=== PATIENT | female | born 1945 | race Caucasian/White ===

== ENCOUNTER 2019-07-16 09:13 | Day surgery (SDC) | payer MEDICARE, SELFPAY ==
[2019-07-15 12:56] VITALS: BMI 31.4
--- NOTE | 2019-07-16 09:25 | ANES.PREANES ---
Pre-Anesthetic Assessment Pre-Anesthetic Assessment: Height/Weight: Height 1.63 m Weight 83.007 kg Preop Diagnosis: h/o colon polyps Proposed Procedure: Operation Date: 07/16/19 10:45 Proposed Procedures p Colonoscopy(Not Applicable) - Demond Posey MD Was Beta Jim taken within 24 hours: Yes Last Intake: 23:59 Social: Packs per day: 1 ppd Pack years: 30 years Comment: quit Exam: Pre-Anes Outpt Exam: alert and oriented x 3 Airway: Dentition: False Pulmonary: Pulmonary: COPD Comments: breathing feels good, dyspnea on exertion CV/HEM: CV/HEM: CAD and HTN Comments: mdeical mx CAD Metabolic: Metabolic: DM Comments: rx'd 30 years, normally 114-200 Musc/skel: Musc/skel: Lower Back Pain Comments: bilaterally radiculopathy PFSH Anesthesia PFSH: Family History (Updated 07/15/19 @ 11:09 by Tory Bolivar, MADISYN) Grandmother Hypertension Mother Hypertension Grandmother Diabetes Family/Other Diabetes Other Breast cancer Colon cancer Social History (Updated 07/15/19 @ 11:10 by Tory Bolivar, MADISYN) Smoking and tobacco status: former smoker Quit status (tobacco): has quit using tobacco Second hand smoke exposure: No Smoking risk assessment/counseling performed?: No Data Anesthesia Cardiac Studies: No Data to Display
[2019-07-16 10:03] VITALS: BP 150/53; PULSE 63; RESP 18; TEMP 36.8; O2SAT 99
[2019-07-16] MEDS: sodium chloride 0.9% 1,000 ML 30 ML (10:04)
[2019-07-16 10:44] LABS: Glucose Point of Care 154 mg/dL (70-110)
--- NOTE | 2019-07-16 11:13 | ANE.PACU ---
 Inpatient post-anesthesia follow up: Airway intact: Yes Vital signs: Temperature 98.2 F Pulse Rate [Left] 63 Respiratory Rate 18 Blood Pressure [Le ft Arm] 150/53 Pulse Oximetry 99 Oxygen Delivery Me thod Room Air Oxygen Flow Rate Fraction of Inspir ed Oxygen Hydration adequate: Yes Nausea and vomiting: No Mental status: Baseline
--- NOTE | 2019-07-16 11:16 | PM.HPUD ---
H&P update H&P Update: DATE OF SURGERY/PROCEDURE: 07/16/19 DATE H&P PERFORMED: 04/12/19 H&P UPDATE INFORMATION: No changes to prior documentation PREOP DIAGNOSIS: Family history of colon cancer, history of polyps PLANNED PROCEDURE: Operation Date: 07/16/19 10:45 Proposed Procedures p Colonoscopy(Not Applicable) - Demond Posey MD Conscious Sedation: PHYSICAL EXAM: alert, oriented x 3 and regular rate & rhythm OTHER PERTINENT EXAM FINDINGS: Abdomen: Soft Full H&P Perinent History: Medical/Surgical History: Medical History (Updated 07/16/19 @ 11:14 by Demond Posey MD) History of colon polyps (Acute) Family History: Family History (Updated 07/15/19 @ 11:09 by Tory Bolivar RN) Grandmother Hypertension Mother Hypertension Grandmother Diabetes Family/Other Diabetes Other Breast cancer Colon cancer Social History: Social History Smoking and tobacco status: former smoker Quit status (tobacco): has quit using tobacco Second hand smoke exposure: No Smoking risk assessment/counseling performed?: No A&P Assessment and plan (1) History of colon polyps: Colonoscopy under MAC Status: Resolved Code(s): Z86.010 - Personal history of colonic polyps
[2019-07-16 11:17] VITALS: BP 121/45; PULSE 64; RESP 16; TEMP 36.6; O2SAT 99
[2019-07-16 11:40] VITALS: BP 145/63; PULSE 68; RESP 16; O2SAT 99
== END 2019-07-16 11:49 | disposition home or self-care (01) ==
PROVIDERS: Family Provider Family Medicine; PCP Family Medicine; Visit Provider Surgery
PROC: 0DJD8ZZ Inspection of Lower Intestinal Tract, Via Natural or Artificial Opening Endoscopic (ICD-10-PCS; CPT 45378; principal; 2019-07-16 10:45)
DX: Z86.010 Personal history of colon polyps (principal); Z85.038 Personal history of other malignant neoplasm of large intestine; K57.30 Diverticulosis of large intestine without perforation or abscess without bleeding; D12.5 Benign neoplasm of sigmoid colon; Z82.49 Family history of ischemic heart disease and other diseases of the circulatory system; Z83.3 Family history of diabetes mellitus; Z87.891 Personal history of nicotine dependence; J44.9 Chronic obstructive pulmonary disease, unspecified; I25.10 Atherosclerotic heart disease of native coronary artery without angina pectoris; I10 Essential (primary) hypertension; E11.9 Type 2 diabetes mellitus without complications
CPT/HCPCS: 12345; 36416; 45378; 82962; 88305; 96365; J2704; J7030

== ENCOUNTER 2019-12-10 09:01 | Outpatient (CLI) | payer MEDICARE, SELFPAY ==
--- NOTE | 2019-12-10 10:00 | CT_ITS ---
WS: [id number] CT scan of the abdomen with Oral and IV contrast. Additional two-dimensional coronal and sagittal re construction was performed. 12/10/2019 Clinical Data: FATTY LIVER DISEASE Comparison: CT abdomen, 09/12/2017. DLP: 647.[address] scans at [facility] use at least one of these dose optimization techniques: automat ed exposure control; mA and/or kV adjustment per patient size (includes targeted exams where dose is matched to clinical indication); or iterative reconstruction. Findings: The lower lungs show no nodules, masses or effusions. Aortic valvular calcification is seen. The liver, spleen, adrenal glands and pancreas are normal. There are clips in the gallbladder fossa f rom a cholecystectomy. The The kidneys show equal bilateral contrast excretion with a 2.8 cm left renal cyst.. The abdominal aorta is normal in size with calcification in the wall.. No appendicitis or diverticulitis is seen. Oral contrast is in the stomach and small bowel and there is no bowel dilatation. No abscess, adenopathy, ascites, mass, obstruction or free air is seen. Lumbar spine shows osteoarthritic changes with degenerative disc disease at L1-L2 and L2-L3. CT/CT abdomen w con* [id number] Impression: Negative for acute intra-abdominal disease
[2019-12-10] MEDS: iohexol 300 mg/mL 50 mL Btl PO (11:13)
[2019-12-10] MEDS: iohexol 300 mg/mL 100 mL Btl IV (11:13)
== END 2019-12-10 09:02 | disposition home or self-care (01) ==
LOC: RADWPI 09:05
PROVIDERS: Family Provider Family Medicine; PCP Family Medicine; Visit Provider Family Medicine
DX: R74.0 Nonspecific elevation of levels of transaminase and lactic acid dehydrogenase [LDH] (principal); K76.0 Fatty (change of) liver, not elsewhere classified
CPT/HCPCS: 74160; Q9967

== ENCOUNTER 2020-03-23 12:32 | Outpatient (CLI) | payer MEDICARE, SELFPAY ==
--- NOTE | 2020-03-23 12:45 | USCV_ITS ---
Deneen Lawson Age: 75 Gender: F : 1945 Exam Date: 03/23/2020 12:57 Ordering Phys: Kyle Benson MD (Andy) ([email or web address]) Technologist: Simi Douglas Exam Location: [facility] [place] Indication: STENOSIS Risk Factors: Previous Vascular Surgery: L CEA Right Brachial BP: / Left Brachial BP: / Right Left Velocity (cm/s) Spectral Plaque Velocity (cm/s) Spectral Plaque Syst/Diast Broadening Syst/Diast Broadening 86.50/ 16.20 Prox CCA 89.10 / 15.20 87.30/ 15.40 Mid CCA 91.10 / 16.20 86.50/ 7.30 Distal CCA 117.40/ 20.20 156.10/40.50 Prox ICA 90.90 / 30.80 149.50/25.80 Mid ICA 157.20/ 40.40 95.60/ 24.20 Distal ICA 163.20/ 31.40 285.70 ECA 209.80 1.79 ICA/CCA 1.79 Antegrade Vertebral Antegrade 34.20/ 14.30 cm/s 120.3/ 22.20 cm/s 0 Tri Subclavian Tri 130.5 108.9 0 0 FINDINGS Comparison:. /01/11. Diffuse bilateral scattered calcified plaque and intimal thickening throughout the common carotid arteries and extending through the bifurcation. Mild elevation of velocities and ratios. CONCLUSIONS Bilateral ICA stenosis less than 50%. Diffuse bilateral atherosclerosis with no change, mild ICA tortuosity. Dr. Renita Chávez DO (Electronically Signed) Final Date: 23 March 2020 14:46 S
== END 2020-03-23 12:33 | disposition home or self-care (01) ==
LOC: US 12:33
PROVIDERS: PCP Family Medicine; Visit Provider Thoracic Surgery (Cardiothoracic Vascular Surgery)
DX: I65.23 Occlusion and stenosis of bilateral carotid arteries (principal)
CPT/HCPCS: 93880

== ENCOUNTER 2020-04-06 10:48 | Outpatient (CLI) | payer MEDICARE, SELFPAY ==
--- NOTE | 2020-04-06 12:32 | MM_ITS ---
WS: [id number] SCREENING DIGITAL MAMMOGRAM WITH CAD HISTORY: Screening examination. COMPARISON: 04/14/2018, 02/24/2017, 11/12/2015 Bilateral CC and MLO views submitted. Computer aided detection analyzed. Breast composition: The breasts are heterogeneously dense, which may obscure small masses. There are extensive rodlike calcifications throughout each breast and also breast arterial calcifications. Dist ortion in the anterior RIGHT breast at 12:00 from prior surgery. Posterior to the distortion is a hig h density, slightly spiculated nodule measuring 10 x 12 mm. The remaining breast are negative for lopez spicious masses. MM/[place] [id number] IMPRESSION: BI-RADS: 0-Incomplete: Need additional imaging evaluation FOLLOW UP: Need Additional Imaging RIGHT breast: Spot compression views (CC and MLO). True ML. Ultrasound to follo w if abnormality persists.
== END 2020-04-06 10:49 | disposition home or self-care (01) ==
LOC: RADSHAW 10:53
PROVIDERS: PCP Family Medicine; Visit Provider Family Medicine
DX: Z12.31 Encounter for screening mammogram for malignant neoplasm of breast (principal); R92.1 Mammographic calcification found on diagnostic imaging of breast
CPT/HCPCS: 77067

== ENCOUNTER 2020-04-29 12:28 | Outpatient (CLI) | payer MEDICARE, SELFPAY ==
--- NOTE | 2020-04-29 13:00 | US_ITS ---
WS: [id number] Right breast ultrasound, 04/29/2020 Clinical Data: ABNORMAL MAMMO Comparison: None. Findings: There is an irregular lesion in the 12:00 position of the right breast 1 cm superior to the areola. T his lesion has irregular internal echoes and an ill-defined border. There is shadowing posterior to t his lesion which measures 1.05 x 1.15 x 1.2 cm. There is also a biopsy clip in the same region as the lesion. US/US breast RT limited* [id number] Impression: 1. Suspicious lesion at the 12:00 position 1 cm superior to the areola in the r ight breast. 2. Recommend the biopsy of this lesion. BIRADS: 4-Suspicious Finding-Biopsy Should Be Considered FOLLOW UP: See Report
--- NOTE | 2020-04-29 13:00 | MM_ITS ---
WS: [id number] Right breast diagnostic digital mammogram, 04/29/2020 Clinical Data: RT BR DISTORTION Comparison: 04/06/2020, 04/16/2018, 02/24/2017, 11/12/2015, 07/19/2013, 01/10/2011, 12/24/2010, 11/01/2006. Findings: Additional compression views in the MLO and CC along with a right mediolateral view show that the 1.3 cm density in the central portion of the right breast is well-defined with an irregular border and s mall associated calcifications. There are numerous calcifications throughout the right breast which a re ductal and vascular. This density is in the superior aspect of the right breast in the 12:00 posit ion. There is a distortion of the right breast as a result of the previous therapy. MM/[place] [id number] Impression: 1. Suspicious density in central portion right breast which may represent a rec urrent or second carcinoma. 2. Right breast ultrasound will be performed. BIRADS: 4-Suspicious Finding-Biopsy Should Be Considered FOLLOW UP: See Report The CAD order checker was used.
== END 2020-04-29 12:29 | disposition home or self-care (01) ==
LOC: RADSHAW 12:34
PROVIDERS: PCP Family Medicine; Visit Provider Family Medicine
DX: R92.8 Other abnormal and inconclusive findings on diagnostic imaging of breast (principal)
CPT/HCPCS: 76642; 77065

== ENCOUNTER 2020-05-13 11:54 | Outpatient (CLI) | payer MEDICARE, SELFPAY ==
--- NOTE | 2020-05-13 12:05 | US_ITS ---
WS: [id number] ULTRASOUND-GUIDED RIGHT BREAST BIOPSY HISTORY: BREAST LESION COMPARISON: 04/29/2020 and 04/06/2020 Procedure, risks and complications are explained to the patient. Medications are reviewed. Consent is obtained. The mass in the RIGHT breast is localized with ultrasound. Mass localized 12:00, 1 cm from the nipple . Skin is cleansed with ChloraPrep and anesthetized with 1% buffered lidocaine. Small dermatome is ma de. Under sterile conditions mass is biopsied with a 14-gauge Achieve needle. Multiple core biopsies are performed. Material placed in formalin and sent to pathology for review. No complications encount ered. Breast tissue marker (Bard ultrasound enhanced ribbon): Single. Patient left the radiology suite with no complications. Patient is instructed [place] [facility] [place] [facility] with any concerns. US/[place] [id number] IMPRESSION: 1. Uncomplicated core needle biopsy RIGHT breast mass at 12:00. 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 Additional ancillary studies are being performed also. RECOMMENDATION: Follow-up with oncology and breast surgeon.
[2020-05-29 09:38] LABS: Miscellaneous Test See Scanned Lab Rpt
== END 2020-05-13 11:55 | disposition home or self-care (01) ==
LOC: RAD 11:58
PROVIDERS: PCP Family Medicine; Visit Provider Family Medicine
DX: N64.89 Other specified disorders of breast (principal); C50.811 Malignant neoplasm of overlapping sites of right female breast; R92.1 Mammographic calcification found on diagnostic imaging of breast
CPT/HCPCS: 19083; 88305

== ENCOUNTER 2020-05-28 06:47 | Outpatient (CLI) | payer MEDICARE, SELFPAY ==
--- NOTE | 2020-05-28 07:15 | USCV_ITS ---
Deenen Lawson Age: 75 Gender: F : 1945 Exam Date: 05/28/2020 07:17 Ordering Phys: Rika Muro MD ([email or web address]) Technologist: Diane Weinstein Exam Location: [facility] [place] Indication: CHEST PAIN BP: / HR: 65 Rhythm: Sinus Technical Quality: Adequate MEASUREMENTS (Male / Female) Normal Values 2D ECHO LV Diastolic Diameter PLAX 3.3 cm 4.2 - 5.9 / 3.9 - 5.3 cm LV Systolic Diameter PLAX 1.6 cm IVS Diastolic Thickness 2.1 cm 0.6 - 1.0 / 0.6 - 0.9 cm IVS Systolic Thickness 2.2 cm LVPW Diastolic Thickness 1.5 cm 0.6 - 1.0 / 0.6 - 0.9 cm LVPW Systolic Thickness 2.9 cm LVOT Diameter 2.0 cm LV Ejection Fraction 2D Teich 83.1 % LV Ejection Fraction MOD 2C 62.2 % LV Ejection Fraction 2C AL 69.8 % LA Diameter 4.5 cm LA Width 6.0 cm LA Height 5.9 cm RA Width 3.6 cm RA Height 5.4 cm Aorta at Sinotubular Diameter 3.3 cm M-MODE LV Diastolic Diameter MM 4.1 cm 4.2 - 5.9 / 3.9 - 5.3 cm LV Systolic Diameter MM 1.6 cm LV Ejection Fraction MM Teich 90.6 % IVS Diastolic Thickness MM 1.6 cm 0.6 - 1.0 / 0.6 - 0.9 cm IVS Systolic Thickness MM 2.5 cm LVPW Diastolic Thickness MM 1.6 cm 0.6 - 1.0 / 0.6 - 0.9 cm LVPW Systolic Thickness MM 2.6 cm Aortic Annulus Diameter 3.0 cm LA Ao Ratio MM 1.7 MV E Point Septal Separation 0.2 cm DOPPLER AV Peak Velocity 115.0 cm/s LVOT Peak Velocity 118.0 cm/s AV Area Cont Eq vti 2.5 cm squared AV Area Cont Eq pk 3.4 cm squared MV Peak Velocity 206.0 cm/s MV Area PHT 2.8 cm squared Mitral E to A Ratio 1.7 MV E' Velocity 84.0 cm/s Mitral E to MV E' Ratio 15.7 Mitral E to LV E' Lateral Ratio 20.0 Mitral E to LV E' Septal Ratio 13.0 TR Peak Velocity 188.3 cm/s TR Peak Gradient 14.2 mmHg Right Atrial Pressure 3.0 mmHg Pulmonary Artery Systolic Pressu 17.2 mmHg PV Peak Velocity 106.0 cm/s RV Acceleration Time 0.1 s RV Ejection Time 0.3 s RV AcT/ET 0.3 FINDINGS Left Ventricle Normal left ventricular cavity size. Normal left ventricular systolic function. No regional wall motion abnormalities. Left ventricular ejection fraction is estimated at 60 %. Grade II/IV diastolic dysfunction, moderately elevated filling pressures. Right Ventricle The right ventricle is normal in size and function. Right Atrium The right atrium is normal in size. Left Atrium Moderately increased left atrial size. Mitral Valve Severely thickened mitral valve. Severe mitral annular calcification. No mitral valve stenosis. Moderate mitral valve regurgitation. Aortic Valve Structurally normal aortic valve without significant sclerosis or stenosis. There is no aortic regurgitation. Tricuspid Valve Mild tricuspid valve regurgitation. Pulmonic Valve Structurally normal pulmonic valve without significant stenosis. There is no pulmonic regurgitation. Pericardium Normal pericardium without effusion. Aorta Normal ascending aorta dimension. CONCLUSIONS 1-Normal left ventricular cavity size. Normal left ventricular systolic function. No regional wall motion abnormalities. Left ventricular ejection fraction is estimated at 60 %. Grade II/IV diastolic dysfunction, moderately elevated filling pressures. 2-Moderately increased left atrial size. 3-Severely thickened mitral valve. Severe mitral annular calcification. No mitral valve stenosis. Moderate mitral valve regurgitation. 4-Structurally normal aortic valve without significant sclerosis or stenosis. There is no aortic regurgitation. 5-Mild tricuspid valve regurgitation. 6-There is no pericardial effusion. 7-Pulmonary artery systolic pressure is within normal limits. 8-Right atrial pressure is around 5 mm of mercury. 9-When compared to the echocardiogram dated 02 Nov 2018 there appeared to be no chordal Karan rest of study appeared to be the same Rika Muro MD (Electronically Signed) Final Date: 29 May 2020 15:21 S
== END 2020-05-28 06:48 | disposition home or self-care (01) ==
LOC: RAD 06:50
PROVIDERS: PCP Family Medicine; Visit Provider Internal Medicine Cardiovascular Disease
DX: R07.9 Chest pain, unspecified (principal); I08.1 Rheumatic disorders of both mitral and tricuspid valves
CPT/HCPCS: 93306

== ENCOUNTER 2020-06-01 10:05 | Outpatient (CLI) | payer MEDICARE, SELFPAY ==
--- NOTE | 2020-06-01 16:32 | ONC CON_ITS ---
Dr. Adame New Patient Note Patient: Deneen Lawson Unit #: [id number]: 1945 Dicatated By: Jc Adame M.D.Date of Visit: Jun 01, 2020 Onc MED New Patient/Consult Referring Physician: Dr. LJ HENAO M.D. Chief Complaint: Breast cancer. 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 Her screening mammogram on 04/06/2020 was abnormal, reported to be BI-RADS 0, with findings of some distortion in the anterior right breast at 12:00 related to prior surgery. Posterior to the distortion was a high density, slightly spiculated nodule measuring 10 x 12 mm. Her diagnostic mammogram and ultrasound of the right breast on 04/29/2020 was BI-RADS 4, suspicious. The mammogram reported a 1.3 cm density in the central portion of the right breast with an irregular margin and with small associated calcifications. Ultrasound showed an irregular lesion in the 12 o'clock position of the right breast 1 cm superior to the areola. There was noted to be shadowing posterior to the lesion measuring 1.05 x 1.15 x 1.2 cm. A biopsy clip was noted in the same region as the lesion. Ultrasound directed biopsy of the right breast lesion on 05/13/2020 showed grade 2 infiltrating ductal carcinoma. 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 The breast prognostic profile showed ER positive at 99% and DE positive at 95%. HER-2/emre was negative, 1+ by IHC and amplification ratio by FISH of 1.1 with 1.6 HER-2 copies/cell. The Ki-67 was favorable at 5%. She does give a history of having had a previous right breast biopsy for benign disease back in 2001. She had natural menopause around age 52. She received no hormone replacement therapy. She has multiple medical illnesses including hypertension, hyperlipidemia, and type 2 diabetes, peripheral arterial disease, carotid stenosis, and coronary artery disease. The latter includes involvement of the left main coronary artery which has not been amenable to stenting. She complains that she has low energy, though it has improved somewhat since she started B12 replacement. She is able to do some light work at home. ECOG score is 1. Her appetite is variable, but her weight is stable. She has no fever, night sweats, or hot flashes. She has shortness of breath with activity. She has just occasional cough. She does not complain of chest pain. She sometimes has nausea. Bowel function has been okay. She has mild stress incontinence. She says she has severe arthritis with generalized joint pain and low back pain. She does not complain of headache. She does have dizziness and she has neuropathy in her hands and feet. Past Medical History: Her medical history includes anxiety, B12 deficiency, carotid stenosis, coronary artery disease, degenerative arthritis, degenerative disease of the spine, depression, gastroesophageal reflux disease, hyperlipidemia, hypertension, iron deficiency, peripheral arterial disease, and type II diabetes. Past Surgical History: She underwent ultrasound-guided biopsy of the right breast on 05/13/2020. Her other surgical/procedural history includes cholecystectomy, greater saphenous vein ablation bilaterally, colonoscopy in 2019, and left carotid endarterectomy in 2019. Medications: amLODIPine Besylate 1 Tablet (of 10 mg) Oral daily, Aspirin 1 Tablet (of 81 mg) Tablet, enteric coated Oral daily, Clopidogrel Bisulfate 1 Tablet (of 75 mg) Oral daily, Ferrous Sulfate 1 Tablet (of 325 (65 fe) mg) Oral b.i.d., Furosemide 1 Tablet (of 20 mg) Oral daily PRN, hydrALAZINE HCl (25 mg) Tablet Oral Take as Directed, Irbesartan 0.5 Tablet (of 300 mg) Oral b.i.d., Isosorbide Mononitrate ER 0.5 Tablet (of 30 mg) Tablet SR 24 HR Oral b.i.d., Levemir 20 Units (of 100 Units/mL) Subcutaneous b.i.d., Magnesium Oxide 1 Tablet (of 400 mg) Oral at bedtime, metFORMIN HCl 1 Tablet (of 1000 mg) Oral b.i.d., Metoprolol Succinate ER 1 Tablet (of 100 mg) Tablet SR 24 HR Oral at bedtime, Metoprolol Succinate ER 1 Tablet (of 50 mg) Tablet SR 24 HR Oral at bedtime, Pantoprazole Sodium 1 Tablet (of 40 mg) Tablet, enteric coated Oral daily, Simvastatin 1 Tablet (of 20 mg) Oral at bedtime, Venlafaxine HCl ER 1 Tablet (of 75 mg) Tablet SR 24 HR Oral daily, Vitamin B12 1 Tablet Oral daily, Vitamin D 1 Capsule Oral daily Allergies: traZODone HCl Social History: Ms. Lawson is . She has a history of smoking 1 to 1-1/2 packs of cigarettes daily for approximately 28 years. She quit smoking in 2017. She does not drink alcohol. Family History: Father had Parkinson's disease and with pneumonia at age 70. Mother with colon cancer at age 73. A 71-year-old brother has coronary artery disease. Review Of Symptoms: Constitutional - She has low energy, but she is doing light work. Her appetite is variable. Her weight is stable. She has no fever, night sweats, or hot flashes. ECOG score is 1, Eyes - She has had bilateral cataract excisions. She apparently has had some diabetic retinopathy, ENMT - No hearing loss or tinnitus. No sinus congestion/drainage. No mouth sores. No sore throat or difficulty swallowing, Hematologic/Lymphatic - She has easy bruising, Respiratory - She has shortness of breath with activity. She has just occasionalcough. No pleuritic pain or hemoptysis, Cardiovascular - No angina pain. No palpitations, Gastrointestinal - She sometimes has nausea. No heartburn or acid reflux. No diarrhea or constipation. No blood in the stool or black stools, Genitourinary (F) - No dysuria or hematuria. No urinary frequency. She has mild stress incontinence, Musculoskeletal - She has fairly generalized joint pain and she has back pain, Integumentary - No skin rash or other skin changes, Neurologic - No headache. She has dizziness. She has neuropathy in her hands and feet, Psychiatric - She has anxiety. No depression. She has insomnia. Vital Signs: Performed on Jun 01, 2020 11:26: 0, 29.90, 1.84 sq.m, 64.00 in, 97 %, 68 /min, 18 /min, 203/57 mm(hg) (HIGH), 97.2 F (LOW), and 174.2 lbs (HIGH). Physical Examination: Constitutional - She looks pretty good generally, Eyes - Sclerae nonicteric. Conjunctivae clear, ENMT - No lesions noted in the oral cavity, Neck - No mass or thyromegaly, Hematologic/Lymphatic - No cervical or clavicular adenopathy, Respiratory - Lungs are clear with good air movement bilaterally, Cardiovascular - Heart rhythm is regular. There is a II/ systolic murmur. There is no gallop or rub noted, Breasts - There are no breast masses noted. There is no axillary adenopathy, Abdomen - Soft. Liver and spleen are not enlarged. There is no abdominal mass or ascites noted and there is no inguinal adenopathy, Back/Spine - No spine or CVA tenderness noted, Extremities - Mild lower extremity edema with induration. I am not able to palpate pedal pulses. Both legs and feet are warm to touch, Integumentary - No rashes. No suspicious skin lesions noted, Neurologic - No focal neurologic deficits noted. Impression: 1. Patient with grade 2 infiltrating ductal carcinoma of the right breast, ER/DE positive and HER-2/emre negative. Staging is incomplete. 2. She underwent ultrasound directed core needle biopsy of the right breast on 05/13/2020. Her other medical illnesses include: 3. Hypertension. 4. Hyperlipidemia. 5. Type 2 diabetes. 6. Carotid stenosis. 7. Peripheral arterial disease. 8. Coronary artery disease. 9. GERD. 10. Degenerative arthritis/degenerative disease of the spine. 11. B12 deficiency. 12. Anxiety/depression. Plan: The findings on the imaging studies and the pathology results were reviewed with the patient and her daughter. We discussed the clinical implications. She has grade 2 invasive ductal carcinoma the right breast which is ER/DE positive and HER-2/emre negative. Staging is incomplete, but it is likely to be early stage with a T1c primary lesion. The traditional options for local therapy would include mastectomy versus lumpectomy/radiation, and with either procedure she would have axillary sentinel lymph node sampling. We also discussed the fact that she will be recommended to undergo adjuvant hormonal therapy and that is relatively unlikely that adjuvant chemotherapy would be necessary. Given her age and her underlying medical illnesses and with early stage ER/DE positive disease, she may be an appropriate candidate for lumpectomy and adjuvant hormonal therapy alone. My main concern with that approach is that with significant underlying degenerative arthritis, she may have difficulty tolerating the adjuvant hormonal therapy. In either case, she will proceed initially with the lumpectomy and axillary sentinel lymph node biopsy, and she requests to see Dr. Gibson for that procedure. Signed By: Jc Adame M.D. <<Signature on File>>
== END 2020-06-01 10:06 | disposition home or self-care (01) ==
LOC: ONCMED 10:11
PROVIDERS: PCP Family Medicine; Visit Provider Internal Medicine Hematology & Oncology
DX: C50.811 Malignant neoplasm of overlapping sites of right female breast (principal); Z17.0 Estrogen receptor positive status [ER+]; I10 Essential (primary) hypertension; E78.5 Hyperlipidemia, unspecified; E11.59 Type 2 diabetes mellitus with other circulatory complications; I25.10 Atherosclerotic heart disease of native coronary artery without angina pectoris; I65.23 Occlusion and stenosis of bilateral carotid arteries; I73.9 Peripheral vascular disease, unspecified; K21.9 Gastro-esophageal reflux disease without esophagitis; M47.9 Spondylosis, unspecified; D51.9 Vitamin B12 deficiency anemia, unspecified; F41.9 Anxiety disorder, unspecified; F32.9 Major depressive disorder, single episode, unspecified; Z79.899 Other long term (current) drug therapy
CPT/HCPCS: 99205

== ENCOUNTER 2020-06-11 09:04 | Day surgery (SDC) | payer MEDICARE, SELFPAY ==
[2020-06-10 17:00] VITALS: BMI 29.8
--- NOTE | 2020-06-11 08:43 | US_ITS ---
WS: [id number] ULTRASOUND-GUIDED RIGHT BREAST NEEDLE LOCALIZATION HISTORY: R NEEDLE LOCALIZATION-LUMPECTOMY Procedure, risks and complications were explained to the patient. Consent is obtained. Skin is cleansed with ChloraPrep and anesthetized with 1% buffered lidocaine. Needle and guidewire pl aced to the area of concern with no complications. Wire localization of a mass at 12:00, 1 cm from th e nipple. Ultrasound guidance performed during the needle localization. Guidewire is left within the lesion. Guidewire secured and no complications encountered. Patient is being transported to the OR [facility]. Specimen radiograph is also reviewed. Lesion is present within the specimen. RECOMMENDATIONS: Follow-up with Dr. Gibson and oncology. US/[place] [id number] IMPRESSION: 1. Localization of a RIGHT breast mass at 12:00, 1 cm from the nipple. PATHOLOGY RESULTS: Invasive ductal carcinoma, moderate grade.
--- NOTE | 2020-06-11 08:44 | NM_ITS ---
WS: [id number] NUCLEAR MEDICINE SENTINEL LYMPH NODE IMAGING HISTORY: R BREAST LUMPECTOMY COMPARISON: None available. TECHNIQUE: The patient was injected with 1.04 mCi of Technetium 99 ultra filtered sulfur colloid. Inj ection is intradermal in a periareolar location. Four aliquots are used. Uncomplicated sentinel node injection. NM/NM sentinel node inject [id number] IMPRESSION: Uncomplicated RIGHT breast sentinel node injection.
--- NOTE | 2020-06-11 10:29 | P.ANESASSM_ITS ---
Pre-Anesthetic Assessment Pre-Anesthetic Assessment: Height/Weight: Height 1.63 m Weight 78.925 kg Preop Diagnosis: Family history of colon cancer, history of polyps Proposed Procedure: Operation Date: 06/11/20 11:50 Proposed Procedures p Sentinal Lymph Node Biopsy(Right) - Joe Gibson MD s Breast Biopsy Needle Localization(Right) - Joe Gibson MD s Right Breast Lumpectomy(Right) - Joe Gibson MD Was Beta Jim taken within 24 hours: Yes Social: Social History: No alcohol and No tobacco (Former Smoker) Exam: Pre-Anes Outpt Exam: alert, oriented x 3, clear to auscultation mimi aterally and regular rate & rhythm Airway: Submandibular: WNL Cervical ROM: WNL MP: 2 Pulmonary: Pulmonary: None reported CV/HEM: CV/HEM: CAD and HTN : : None reported Hepatic: Hepatic: None reported GI: GI: GERD Metabolic: Metabolic: DM Musc/skel: Musc/skel: None reported Neuropsych: Neuropsych: None reported Anesthetic Plan: ASA status: 3 Anesthesia: General PFSH Anesthesia PFSH: Medical History (Updated 02/29/20 @ 12:37 by Rika Muro MD) Carotid stenosis COPD (chronic obstructive pulmonary disease) Coronary artery disease Diabetes Hyperlipidemia Hypertension PVD (peripheral vascular disease) Surgical History H/O carotid endarterectomy History of cardiac cath History of cholecystectomy Status post colonoscopy 07/16/2019: Severe diverticulosis sigmoid colon 5 mm sessile polyps x2 sigmoid colon - F/u in 2024 Family History Grandmother Hypertension Mother Hypertension Grandmother Diabetes Family/Other Diabetes Other Breast cancer Colon cancer Denies family history of Anesthesia complication Bleeding disorder Social History Smoking and tobacco status: former smoker Quit status (tobacco): has quit using tobacco Second hand smoke exposure: No Smoking risk assessment/counseling performed?: No Alcohol intake: never Household members: spouse Marital status: Current occupational status: retired History of recent travel: No Data Anesthesia Cardiac Studies: No Data to Display
--- NOTE | 2020-06-11 10:37 | W.PM.OPSUD ---
Surgery/Procedure H&P Update DATE OF PROCEDURE: June 11, 2020 DATE H&P PERFORMED: 04/12/19 H&P UPDATE INFORMATION: No changes to prior documentation PREOP DIAGNOSIS: Family history of colon cancer, history of polyps PLANNED PROCEDURE: Operation Date: 06/11/20 11:50 Proposed Procedures p Sentinal Lymph Node Biopsy(Right) - Joe Gibson MD s Breast Biopsy Needle Localization(Right) - Joe Gibson MD s Right Breast Lumpectomy(Right) - Joe Gibson MD
[2020-06-11 10:45] VITALS: BP 174/76; PULSE 70; RESP 16; TEMP 36.6; O2SAT 96
--- NOTE | 2020-06-11 10:59 | US_ITS ---
WS: [id number] ULTRASOUND-GUIDED RIGHT BREAST NEEDLE LOCALIZATION HISTORY: R NEEDLE LOCALIZATION-LUMPECTOMY Procedure, risks and complications were explained to the patient. Consent is obtained. Skin is cleansed with ChloraPrep and anesthetized with 1% buffered lidocaine. Needle and guidewire pl aced to the area of concern with no complications. Wire localization of a mass at 12:00, 1 cm from th e nipple. Ultrasound guidance performed during the needle localization. Guidewire is left within the lesion. Guidewire secured and no complications encountered. Patient is being transported to the [facility]. Specimen radiograph is also reviewed. Lesion is present within the specimen. RECOMMENDATIONS: Follow-up with Dr. Gibson and oncology. US/US breast surgical specimen IMPRESSION: 1. Localization of a RIGHT breast mass at 12:00, 1 cm from the nipple. PATHOLOGY RESULTS: Invasive ductal carcinoma, moderate grade.
[2020-06-11] MEDS: sodium chloride 0.9% 1,000 ML 30 ML IV (11:01)
[2020-06-11 11:03] LABS: Glucose Point of Care 130 mg/dL (70-110)
--- NOTE | 2020-06-11 12:25 | PM.OP ---
Operative Report Date of procedure: June 11, 2020 Pre-op Diagnosis: Right breast cancer. Post-op diagnosis: same Procedure Done: 1. Right breast lumpectomy following preoperative needle localization. 2. Right axillary sentinel lymph node biopsy. Specimens removed/disposition: 1. Right axillary sentinel lymph node. 2. Right breast lumpectomy specimen containing localization wire. Long suture anteriorly, short suture laterally. Surgeon: Joe Gibson Anesthesia: MAC Estimated blood loss (mL): 15 Complications: None. Procedure: The patient was brought to the operating room and was placed in a supine position on the operating room table. The patient had undergone needle localization and radioactive tracer injection in radiology preoperatively. A monitored anesthetic was induced. The right breast and axilla were prepped and draped in a sterile fashion, taking care not to disturb the localization wire which had been placed in radiology preoperatively. A combination of 1% lidocaine and 0.5% bupivacaine with 1-200,000 parts epinephrine was used for local anesthesia throughout the procedures. The gamma probe was first used to find the hot spot in the lower axilla. A curvilinear incision was carried out over the hot spot of the axilla. Cautery and blunt dissection were used to traverse the subcutaneous tissue and the axilla was entered. Using a combination of inspection and the gamma probe, the hot lymph node was found and was completely removed using blunt dissection and cautery. The lymph node registered counts of 30 on the field. Further inspection of the axilla with the gamma probe revealed all counts less than 4. No additional lymph nodes were seen or palpated. The wound was irrigated with saline. A suture of 3-0 Vicryl was used to bring the deeper tissue together and the skin was approximated using a running subcuticular suture of 4-0 Vicryl. Attention was then directed to the right breast. A curvilinear incision was carried out in the upper outer aspect of the breast. The localization wire entered from a slightly lateral and inferior direction. Cautery was used to undermine the skin and the localization wire was brought into the field. The wire was dissected down to the hub and was then grasped with the surrounding breast tissue using an Allis clamp. The tissue around the tip of the wire was completely excised using a combination of sharp dissection and cautery. After the specimen was removed the specimen was marked with a long suture anteriorly and a short suture laterally for pathologic orientation. The wound was irrigated with saline and some small bleeding points were controlled with cautery. The skin was reapproximated using a running subcuticular suture of 4-0 Vicryl. Benzoin and Steri-Strips were placed over the incisions and a sterile bandage followed. The patient was taken to the recovery area in stable condition postoperatively.
[2020-06-11 12:31] VITALS: BP 148/72; PULSE 68; RESP 18; TEMP 36.3; O2SAT 96
[2020-06-11 12:46] VITALS: BP 165/66; PULSE 70; RESP 18; TEMP 36.6; O2SAT 97
--- NOTE | 2020-06-11 16:39 | ANE.PACU2 ---
Inpatient post-anesthesia follow up: Airway intact: Yes Vital signs: Temperature 98 F Pulse Rate 70 Respiratory Rate 18 Blood Pressure 165/66 Pulse Oximetry 97 Oxygen Delivery Me thod Room Air Oxygen Flow Rate Fraction of Inspir ed Oxygen Hydration adequate: Yes Nausea and vomiting: No Pain level: 3 Mental status: Baseline
== END 2020-06-11 13:20 | disposition home or self-care (01) ==
PROVIDERS: PCP Family Medicine; Visit Provider Surgery
PROC: (CPT 19301; principal; 2020-06-11 11:50)
PROC: (CPT 19301; 2020-06-11 11:50)
PROC: (CPT 19301; 2020-06-11 11:50)
DX: C50.411 Malignant neoplasm of upper-outer quadrant of right female breast (principal); I25.10 Atherosclerotic heart disease of native coronary artery without angina pectoris; K21.9 Gastro-esophageal reflux disease without esophagitis; E11.9 Type 2 diabetes mellitus without complications; E78.5 Hyperlipidemia, unspecified; Z87.891 Personal history of nicotine dependence; M19.90 Unspecified osteoarthritis, unspecified site; I11.0 Hypertensive heart disease with heart failure; I50.9 Heart failure, unspecified; J43.9 Emphysema, unspecified; M81.0 Age-related osteoporosis without current pathological fracture; Z79.84 Long term (current) use of oral hypoglycemic drugs; Z79.02 Long term (current) use of antithrombotics/antiplatelets; Z79.82 Long term (current) use of aspirin
CPT/HCPCS: 19301; 38525; 12345; 19285; 36416; 38792; 82962; 88305; A9541; J0690; J2704; J3010; J3490; J7030

== ENCOUNTER 2020-07-02 11:51 | Outpatient (CLI) | payer MEDICARE, SELFPAY ==
--- NOTE | 2020-07-02 14:50 | N.ONRAD NP_ITS ---
Radiation Oncology Consultation Patient Name: Deneen Lawson Date of : 1945 Date of Service: 07/02/2020 Attending Physician: Fran Carver M.D. Deneen Lawson was seen in consultation this afternoon at the request of Jc Adame M.D. for consideration of adjuvant radiotherapy for the management of her recently diagnosed early stage breast cancer. A screening mammogram (personally reviewed in [facility]) performed in March identified a spiculated nodule during 1 cm x 1.2 cm in the right breast. Ultrasonography confirmed in the right breast the 12 o'clock position a 1 cm x 1.2 cm x 1.2 cm hypoechoic mass with posterior shadowing. An ultrasound-guided biopsy completed on May 13, 2020 diagnosed a grade II invasive ductal carcinoma with immunohistochemical stains positive for estrogen receptor, progesterone receptor, and negative for HER-2. The Ki-67 was 5%. A right partial mastectomy with sentinel lymph node biopsy performed by Arcenio Gibson M.D. The pathology report obtained in [facility] (and directly canvassed by id) confirmed a 1.5 cm invasive ductal carcinoma (grade II) with 1 harvested sentinel lymph node that was negative for malignancy. Following a discussion concerning the patient's AJCC stage IA (T1CN0) breast cancer, The National Comprehensive Cancer Network Guidelines recommends the omission of breast irradiation in patients 70 years of age or older with estrogen receptor positive, clinically node-negative, T1-2 tumors who will receive adjuvant endocrine therapy. I summarized the randomized trial that established this standard. As published in The [employer] Journal of Medicine, the study demonstrated the addition of radiotherapy to endocrine therapy improved local control compared to endocrine therapy alone without an overall survival advantage. The patient would like to evaluate her treatment options prior to making a final decision. Signed by: Dr. Fran Carver 07/02/2020 2:49:02 PM
--- NOTE | 2020-07-06 07:31 | ONC FU_ITS ---
Dr. Adame Patient Follow-Up Note Patient: Deneen Lawson Unit #: [id number]: 1945 Dicatated By: Jc Adame M.D.Date of Visit:Jul 02, 2020 Onc Med Follow-up/Prog Note Chief Complaint: Breast cancer. History of Present Illness: This is a 75-year-old woman with diagnosed grade 2 invasive ductal carcinoma of the right breast, stage IA (pT1c, pN0, M0), ER/MN positive and HER-2/emre negative. Her screening mammogram on 04/06/2020 was abnormal, reported to be BI-RADS 0, with findings of some distortion in the anterior right breast at 12:00 related to prior surgery. Posterior to the distortion was a high density, slightly spiculated nodule measuring 10 x 12 mm. Her diagnostic mammogram and ultrasound of the right breast on 04/29/2020 was BI-RADS 4, suspicious. The mammogram reported a 1.3 cm density in the central portion of the right breast with an irregular margin and with small associated calcifications. Ultrasound showed an irregular lesion in the 12 o'clock position of the right breast 1 cm superior to the areola. There was noted to be shadowing posterior to the lesion measuring 1.05 x 1.15 x 1.2 cm. A biopsy clip was noted in the same region as the lesion. Ultrasound directed biopsy of the right breast lesion on 05/13/2020 showed grade 2 infiltrating ductal carcinoma. 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 The breast prognostic profile showed ER positive at 99% and MN positive at 95%. HER-2/emre was negative, 1+ by IHC and amplification ratio by FISH of 1.1 with 1.6 HER-2 copies/cell. The Ki-67 was favorable at 5%. On 06/11/2020 she underwent right breast lumpectomy with axillary sentinel lymph node biopsy. Pathology on the lumpectomy showed grade 2 invasive ductal carcinoma measuring 1.5 cm in greatest dimension. The margins were uninvolved. The closest was the posterior margin which measured 6 mm. There was no involvement in 1 axillary sentinel lymph node. Pathologic staging was pT1c, pN0. Her medical history is otherwise significant for having had a previous right breast biopsy for benign disease back in 2001. Her other medical illnesses include hypertension, hyperlipidemia, type 2 diabetes, peripheral arterial disease, carotid stenosis, and coronary artery disease. The latter includes involvement of the left main coronary artery which has not been amenable to stenting. She has a history of smoking 1 to 1-1/2 packs of cigarettes daily for 28 years. She quit smoking in 2018. She is seen today to discuss further management of the breast cancer. She has been feeling good generally. She has had no complications with her surgery. Medications: amLODIPine Besylate 1 Tablet (of 10 mg) Oral daily, Aspirin 1 Tablet (of 81 mg) Tablet, enteric coated Oral daily, Clopidogrel Bisulfate 1 Tablet (of 75 mg) Oral daily, Ferrous Sulfate 1 Tablet (of 325 (65 fe) mg) Oral b.i.d., Furosemide 1 Tablet (of 20 mg) Oral daily PRN, hydrALAZINE HCl (25 mg) Tablet Oral Take as Directed, Irbesartan 0.5 Tablet (of 300 mg) Oral b.i.d., Isosorbide Mononitrate ER 0.5 Tablet (of 30 mg) Tablet SR 24 HR Oral b.i.d., Levemir 20 Units (of 100 Units/mL) Subcutaneous b.i.d., Magnesium Oxide 1 Tablet (of 400 mg) Oral at bedtime, metFORMIN HCl 1 Tablet (of 1000 mg) Oral b.i.d., Metoprolol Succinate ER 1 Tablet (of 100 mg) Tablet SR 24 HR Oral at bedtime, Metoprolol Succinate ER 1 Tablet (of 50 mg) Tablet SR 24 HR Oral at bedtime, Pantoprazole Sodium 1 Tablet (of 40 mg) Tablet, enteric coated Oral daily, Simvastatin 1 Tablet (of 20 mg) Oral at bedtime, Venlafaxine HCl ER 1 Tablet (of 75 mg) Tablet SR 24 HR Oral daily, Vitamin B12 1 Tablet Oral daily, Vitamin D 1 Capsule Oral daily Allergies: traZODone HCl Vital Signs: Performed on Jul 02, 2020 13:12 Height - 64.00 in Weight - 176.4 lbs Temperature - 97.4 F Pulse - 63 Respiration - 16 BP - 160/56 mm(hg) (HIGH) O2 Sat - 97 % Pain - 0 Performed on Jul 02, 2020 13:12 BMI - 30.279 kg/m2 (HIGH) Performed on Jul 02, 2020 12:07 Height - 64.00 in Weight - 176.4 lbs (HIGH) BSA - 1.85 sq.m BMI - 30.28 (HIGH) Temperature - 97.4 F (LOW) Pulse - 63 /min Respiration - 16 /min BP - 160/56 mm(hg) (HIGH) O2 Sat - 97 % Pain - 0 Historic Problem List: 1. Grade 2 invasive ductal carcinoma of the right breast, stage IA (pT1c, pN0, M0), ER/MN positive and HER-2/emre negative. 2. She underwent ultrasound directed core needle biopsy of the right breast on 05/13/2020, and she underwent right breast lumpectomy with axillary sentinel lymph node biopsy on 06/11/2020. 3. Hypertension. 4. Hyperlipidemia. 5. Type 2 diabetes. 6. Carotid stenosis. 7. Peripheral arterial disease. 8. Coronary artery disease. 9. GERD. 10. Degenerative arthritis/degenerative disease of the spine. 11. B12 deficiency. 12. Anxiety/depression. Problems Addressed with this Encounter and Plan: Grade 2 invasive ductal carcinoma of the right breast, stage IA (pT1c, pN0, M0), ER/MN positive and HER-2/emre negative. She underwent ultrasound directed core needle biopsy of the right breast on 05/13/2020, and she underwent right breast lumpectomy with axillary sentinel lymph node biopsy on 06/11/2020. The surgical findings and pathology results were reviewed with the patient. With ER/MN positive disease, she is aware that she will need to undergo adjuvant hormonal therapy, preferably with an aromatase inhibitor. I did review expected side effects with that treatment, which may include osteoporosis and or musculoskeletal pain, among others. She is aware that it also may necessitate treatment to maintain bone health. With multiple underlying medical illnesses and with favorable prognostic indicators, including a low Ki-67 at 5%, I would not consider giving her adjuvant chemotherapy. As such, I am not requesting Oncotype DX. The other issue is whether or not she should undergo radiation to the right breast, as there are data to suggest that patients over age 70 with favorable indicators may have good outcomes without radiation. I have discussed this at some length with the patient and also discussed her management with Dr. Carver, who is seeing her today for radiation oncology consultation. She will ultimately make that decision with him, but I indicated to her that I would personally be inclined to recommend treatment. If she does opt to have the radiation, I will see her again when she completes treatment to initiate the adjuvant hormonal therapy. At that time I also will be ordering baseline DEXA scan for assessment of bone health. Signed By: Jc Adame M.D. <<Signature on File>>
== END 2020-07-02 11:52 | disposition home or self-care (01) ==
PROVIDERS: Absent Provider Radiology Radiation Oncology; PCP Family Medicine; Visit Provider Internal Medicine Medical Oncology
DX: C50.811 Malignant neoplasm of overlapping sites of right female breast (principal); Z17.0 Estrogen receptor positive status [ER+]; I10 Essential (primary) hypertension; E78.5 Hyperlipidemia, unspecified; E11.51 Type 2 diabetes mellitus with diabetic peripheral angiopathy without gangrene; I25.10 Atherosclerotic heart disease of native coronary artery without angina pectoris; K21.9 Gastro-esophageal reflux disease without esophagitis; F41.8 Other specified anxiety disorders; E53.8 Deficiency of other specified B group vitamins; M47.9 Spondylosis, unspecified; Z90.11 Acquired absence of right breast and nipple
CPT/HCPCS: 99214; 99215

== ENCOUNTER 2020-07-14 06:06 | Outpatient (RCR) | payer MEDICARE, SELFPAY ==
--- NOTE | 2020-07-14 | CT_ITS ---
Radiation Therapy Planning CT images; total exam DLP: 718.15 mGy-cm MTDD
== END 2020-07-26 23:59 | disposition home or self-care (01) ==
LOC: ONCMED 06:06
PROVIDERS: PCP Family Medicine; Visit Provider Radiology Radiation Oncology
DX: Z51.0 Encounter for antineoplastic radiation therapy (principal); C50.811 Malignant neoplasm of overlapping sites of right female breast; Z17.0 Estrogen receptor positive status [ER+]
CPT/HCPCS: 77280; 77295; 77300; 77334

== ENCOUNTER 2020-08-21 05:48 | Outpatient (RCR) | payer MEDICARE, SELFPAY ==
--- NOTE | 2020-07-28 15:56 | ONCRAD TMN_ITS ---
Radiation Oncology Treatment Management Note Patient Name: Deneen Lawson Date of : 1945 Date of Service: 07/28/2020 Attending Physician: Fran Carver M.D. Deneen Lawson is a 76 year-old white female diagnosed with a pathological stage IA (T1cN0) grade 2 invasive ductal carcinoma of the central portion of the right breast. Immunohistochemical staining were positive for estrogen receptor and progesterone receptor while negative for HER2. The Ki-67 was 5%. She has received 2.7 Gy of a prescribed 40 Gy delivered with a 3D conformal radiotherapy plan utilizing opposed tangential portal quiles with a glymc-vx-kfxfy treatment technique. Upon review of systems, she denied any breast complaints to radiotherapy. On physical examination, the patient weighed 177 lbs. Her temperature was 98.9 ???F with a blood pressure of 172/60 mmHg. Her pulse was 77 bpm and her respiratory rate was 18. There was no erythema within the treatment quiles of the right breast. Continue hypofractionated right breast radiotherapy as prescribed. Signed by: Dr. Fran Carver 07/28/2020 3:55:29 PM
--- NOTE | 2020-08-04 16:17 | ONCRAD TMN_ITS ---
Radiation Oncology Treatment Management Note Patient Name: Deneen Lawson Date of : 1945 Date of Service: 08/04/2020 Attending Physician: Fran Carver M.D. Deneen Lawson is a 76 year-old white female diagnosed with a pathological stage IA (T1cN0) grade 2 invasive ductal carcinoma of the central portion of the right breast. Immunohistochemical staining were positive for estrogen receptor and progesterone receptor while negative for HER2. The Ki-67 was 5%. She has received 16 Gy of a prescribed 40 Gy delivered with a 3D conformal radiotherapy plan utilizing opposed tangential portal quiles with a pczgb-he-hpnih treatment technique. Upon review of systems, she denied any breast complaints from radiotherapy. On physical examination, the patient weighed 178 lbs. Her temperature was 98.6 ???F with a blood pressure of 190/60 mmHg. Her pulse was 88 bpm and her respiratory rate was 22. There was no erythema within the treatment quiles of the right breast. Continue hypofractionated right breast radiotherapy as planned. Signed by: Dr. Fran Carver 08/04/2020 4:15:16 PM
--- NOTE | 2020-08-13 11:39 | ONCRAD TMN_ITS ---
Radiation Oncology Treatment Management Note Patient Name: Deneen Lawson Date of : 1945 Date of Service: 08/13/2020 Attending Physician: Fran Carver M.D. Deneen Lawson is a 76 year-old white female diagnosed with a pathological stage IA (T1cN0) grade 2 invasive ductal carcinoma of the central portion of the right breast. Immunohistochemical staining were positive for estrogen receptor and progesterone receptor while negative for HER2. The Ki-67 was 5%. She has received 24 Gy of a prescribed 40 Gy delivered with a 3D conformal radiotherapy plan utilizing opposed tangential portal quiles with a hymto-fa-rnekw treatment technique. Upon review of systems, she denied any breast complaints from radiotherapy. On physical examination, the patient weighed 178 lbs. Her temperature was 98.6 ???F with a blood pressure of 190/60 mmHg. Her pulse was 88 bpm and her respiratory rate was 22. There was no erythema within the treatment quiles of the right breast. A red and indurated papule was present on the left medial present (recently appeared). Continue hypofractionated right breast radiotherapy as prescribed. I will request a dermatology consult for the new breast skin lesion. Signed by: Dr. Fran Carver 08/13/2020 11:38:08 AM
--- NOTE | 2020-08-18 16:04 | ONCRAD TMN_ITS ---
Radiation Oncology Treatment Management Note Patient Name: Deneen Lawson Date of : 1945 Date of Service: 08/18/2020 Attending Physician: Fran Carver M.D. Deneen Lawson is a 76 year-old white female diagnosed with a pathological stage IA (T1cN0) grade 2 invasive ductal carcinoma of the central portion of the right breast. Immunohistochemical staining were positive for estrogen receptor and progesterone receptor while negative for HER2. The Ki-67 was 5%. She has received 32 Gy of a prescribed 40 Gy delivered with a 3D conformal radiotherapy plan utilizing opposed tangential portal quiles with a lbcel-jl-wxils treatment technique. Upon review of systems, she denied any breast complaints from radiotherapy. On physical examination, the patient weighed 180 lbs. Her temperature was 98.9 ???F with a blood pressure of 186/68 mmHg. Her pulse was 79 bpm and her respiratory rate was 18. There was no erythema within the treatment quiles of the right breast. Continue hypofractionated right breast radiotherapy as planned. Signed by: Dr. Fran Carver 08/18/2020 4:02:51 PM
== END 2020-08-23 23:59 | disposition home or self-care (01) ==
LOC: ONCMED 05:48
PROVIDERS: PCP Family Medicine; Visit Provider Radiology Radiation Oncology
DX: Z51.0 Encounter for antineoplastic radiation therapy (principal); C50.111 Malignant neoplasm of central portion of right female breast; Z17.0 Estrogen receptor positive status [ER+]; R23.8 Other skin changes
CPT/HCPCS: 77336; 77412; 77417

== ENCOUNTER 2020-09-22 05:34 | Outpatient (RCR) | payer MEDICARE, SELFPAY ==
--- NOTE | 2020-09-04 12:18 | ONCRAD EPV_ITS ---
Radiation Oncology Follow-Up Note Patient Name: Deneen Lawson Date of : 1945 Date of Service: 09/04/2020 Attending Physician: Fran Carver M.D. Deneen Lawson returned to my office this morning for a routinely scheduled post radiotherapy follow-up appointment. She completed adjuvant right breast radiotherapy in July for the post-operative management of a pathological stage IA (T1cN0) grade 2 ductal carcinoma of the central portion of the right breast. Breast cancer profile was positive for estrogen receptor and progesterone receptor while negative for HER-2. Radiation therapy was administered between the dates of July 28, 2020 through August 21, 2020. A dose of 40 Gy was delivered in 15 fractions encompassing 25 elapsed days. On review of systems, she denied any constitutional complaints including unintentional weight loss or fevers of unknown origin. She did not report any breast complaints. On physical examination, she weighed 179 lbs and her temperature was 98.8???F. Her blood pressure was 155/59 mmHg. The pulse was 68 bpm and the respiratory rate was 20 breaths per minute. Examination of the right breast did not reveal any significant erythema. Hyperpigmentation was noted. In summary, Ms. Lawson returned for a routine post radiotherapy follow-up. She will continue follow-up as scheduled with her medical oncologist. Signed by: Dr. Fran Carver 09/04/2020 12:16:39 PM
--- NOTE | 2020-09-23 12:00 | ONC FU_ITS ---
Dr. Adame Patient Follow-Up Note Patient: Deneen Lawson Unit #: [id number]: 1945 Dicatated By: Jc Adame M.D.Date of Visit:Sep 22, 2020 Onc Med Follow-up/Prog Note Chief Complaint: Breast cancer. History of Present Illness: This is a 75-year-old woman with diagnosed grade 2 invasive ductal carcinoma of the right breast, stage IA (pT1c, pN0, M0), ER/MO positive and HER-2/emre negative. Her screening mammogram on 04/06/2020 was abnormal, reported to be BI-RADS 0, with findings of some distortion in the anterior right breast at 12:00 related to prior surgery. Posterior to the distortion was a high density, slightly spiculated nodule measuring 10 x 12 mm. Her diagnostic mammogram and ultrasound of the right breast on 04/29/2020 was BI-RADS 4, suspicious. The mammogram reported a 1.3 cm density in the central portion of the right breast with an irregular margin and with small associated calcifications. Ultrasound showed an irregular lesion in the 12 o'clock position of the right breast 1 cm superior to the areola. There was noted to be shadowing posterior to the lesion measuring 1.05 x 1.15 x 1.2 cm. A biopsy clip was noted in the same region as the lesion. Ultrasound directed biopsy of the right breast lesion on 05/13/2020 showed grade 2 infiltrating ductal carcinoma. 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 The breast prognostic profile showed ER positive at 99% and MO positive at 95%. HER-2/emre was negative, 1+ by IHC and amplification ratio by FISH of 1.1 with 1.6 HER-2 copies/cell. The Ki-67 was favorable at 5%. On 06/11/2020 she underwent right breast lumpectomy with axillary sentinel lymph node biopsy. Pathology on the lumpectomy showed grade 2 invasive ductal carcinoma measuring 1.5 cm in greatest dimension. The margins were uninvolved. The closest was the posterior margin which measured 6 mm. There was no involvement in 1 axillary sentinel lymph node. Pathologic staging was pT1c, pN0. I had seen her initially on 07/02/2020. With hormone receptor positive disease and in the context of her underlying medical illnesses, I felt that she would not be appropriate for adjuvant chemotherapy. As such, I did not recommend an Oncotype DX. She did see Dr. Carver for radiation oncology consultation, and she did opt to undergo adjuvant radiation. She completed treatment on 08/21/2020 to a total dose of 4000 cGy administered in 15 fractions. Her medical history is otherwise significant for having had a previous right breast biopsy for benign disease back in 2001. Her other medical illnesses include hypertension, hyperlipidemia, type 2 diabetes, peripheral arterial disease, carotid stenosis, and coronary artery disease. The latter includes involvement of the left main coronary artery which has not been amenable to stenting. She has a history of smoking 1 to 1-1/2 packs of cigarettes daily for 28 years. She quit smoking in 2018. She is seen for a follow-up visit. She has been a little more tired with the radiation, but she says her energy is getting better. Her ECOG score is 1. She has good appetite. She has not had fever or or night sweats. She says she sometimes feels warm. She does get short of breath with activity, but she says she keeps going. She has just occasional cough. She does not complain of chest pain. She has occasional mild nausea. She has no other GI or complaints. She has some joint pain and stiffness. Her most significant pain is in her back and legs. She does not complain of headache. She has some mild orthostatic dizziness. She has some numbness in her right thumb and she has some neuropathy. She has developed some mild lymphedema in the right arm, and she is wearing a sleeve now. Medications: amLODIPine Besylate 1 Tablet (of 10 mg) Oral daily, Aspirin 1 Tablet (of 81 mg) Tablet, enteric coated Oral daily, Clopidogrel Bisulfate 1 Tablet (of 75 mg) Oral daily, Ferrous Sulfate 1 Tablet (of 325 (65 fe) mg) Oral b.i.d., Furosemide 1 Tablet (of 20 mg) Oral daily PRN, hydrALAZINE HCl (25 mg) Tablet Oral Take as Directed, Irbesartan 0.5 Tablet (of 300 mg) Oral b.i.d., Isosorbide Mononitrate ER 0.5 Tablet (of 30 mg) Tablet SR 24 HR Oral b.i.d., Levemir 20 Units (of 100 Units/mL) Subcutaneous b.i.d., Magnesium Oxide 1 Tablet (of 400 mg) Oral at bedtime, metFORMIN HCl 1 Tablet (of 1000 mg) Oral b.i.d., Metoprolol Succinate ER 1 Tablet (of 100 mg) Tablet SR 24 HR Oral at bedtime, Metoprolol Succinate ER 1 Tablet (of 50 mg) Tablet SR 24 HR Oral at bedtime, Pantoprazole Sodium 1 Tablet (of 40 mg) Tablet, enteric coated Oral daily, Simvastatin 1 Tablet (of 20 mg) Oral at bedtime, Venlafaxine HCl ER 1 Tablet (of 75 mg) Tablet SR 24 HR Oral daily, Vitamin B12 1 Tablet Oral daily, Vitamin D 1 Capsule Oral daily Allergies: traZODone HCl Vital Signs: Performed on Sep 22, 2020 08:29 Height - 64.00 in Weight - 176.8 lbs (LOW) BSA - 1.86 sq.m BMI - 30.35 (HIGH) Temperature - 98.1 F (LOW) Pulse - 76 /min Respiration - 18 /min BP - 154/61 mm(hg) (HIGH) O2 Sat - 98 % Pain - 0 Fatigue - 5 Physical Examination: Constitutional - She looks pretty good generally, Eyes - Sclerae nonicteric. Conjunctivae clear, ENMT - No lesions noted in the oral cavity, Hematologic/Lymphatic - No cervical or clavicular adenopathy, Respiratory - Lungs are clear with good air movement bilaterally, Cardiovascular - Heart rhythm is regular. There is a II/ systolic murmur. There is no gallop or rub noted, Breasts - There is mild induration in the right breast and there is mild hyperpigmentation of the overlying skin. There is no mass noted. There is no axillary adenopathy, Abdomen - Soft. Liver and spleen are not enlarged. There is no abdominal mass or ascites noted and there is no inguinal adenopathy, Extremities - Mild lower extremity edema with induration, which is chronic, Neurologic - No focal neurologic deficits noted. Lab/Imaging: Test performed on Sep 15, 2020 11:23 Glucose 141 mg/dL BUN 11 mg/dL Creatinine 0.61 mg/dL Cr Clearance (Est) 103.99 mL/min Sodium 139 mmol/L Potassium 4.2 mmol/L Chloride 105 mmol/L CO2 24 mmol/L Calcium 9.3 mg/dL Protein, Total 6.5 g/dL Albumin 4.1 g/dL Globulin 2.4 g/dL Bilirubin, Total 0.4 mg/dL Alkaline Phosphatase 61 IU/L AST (SGOT) 31 IU/L ALT (SGPT) 22 IU/L Hemoglobin A1C 7.2 % WBC 5.7 10^9/L RBC 3.68 10^12/L HGB 10.4 g/dL HCT 31.4 % MCV 85.3 fl MCH 28.3 pg MCHC 33.1 g/dL RDW 14.6 % Platelet Count 203 10^9/L MPV 11.1 fL Neutrophils (Gran) 3557 10^9/L Lymphocytes 1271 10^9/L Monocytes 599 10^9/L Eosinophils 217 10^9/L Basophils 57 10^9/L Manual Lymphocytes 22.3 % Manual Monocytes 10.5 % Manual Eosinophils 3.8 % Manual Basophils 1.0 % Problem List: 1. Grade 2 invasive ductal carcinoma of the right breast, stage IA (pT1c, pN0, M0), ER/MO positive and HER-2/emre negative. 2. Hypertension. 3. Hyperlipidemia. 4. Type 2 diabetes. 5. Carotid stenosis. 6. Peripheral arterial disease. 7. Coronary artery disease. 8. GERD. 9. Degenerative arthritis/degenerative disease of the spine. 10. B12 deficiency. 11. Anxiety/depression. Problems Addressed with this Encounter and Plan: Patient with grade 2 invasive ductal carcinoma of the right breast, stage IA (pT1c, pN0, M0), ER/MO positive and HER-2/emre negative. She underwent ultrasound directed core needle biopsy of the right breast on 05/13/2020, and she underwent right breast lumpectomy with axillary sentinel lymph node biopsy on 06/11/2020. She was given adjuvant radiation to the right breast, completed on 08/21/2020 to a total dose of 4000 cGy administered in 15 fractions. She has had some mild fatigue following the radiation and she also has developed some mild lymphedema in the right arm. Overall, though, she tolerated the treatment well. She will now begin adjuvant hormonal therapy with anastrozole 1 mg daily. The expected course of treatment is 5 years. She is aware that it may cause or worsen osteoporosis, and she will need a baseline DEXA scan. She also is aware that it may cause musculoskeletal pain, and she is advised to call if there is significant worsening of her joint pain. She will be scheduled for follow-up visit in 3 months. Signed By: Jc Adame M.D. <<Signature on File>>
== END 2020-09-23 23:59 | disposition home or self-care (01) ==
LOC: ONCMED 05:34
PROVIDERS: PCP Family Medicine; Visit Provider Internal Medicine Medical Oncology
DX: C50.111 Malignant neoplasm of central portion of right female breast (principal); Z17.0 Estrogen receptor positive status [ER+]; Z92.3 Personal history of irradiation
CPT/HCPCS: 77336; 99024

== ENCOUNTER 2020-09-30 14:51 | Outpatient (CLI) | payer MEDICARE, SELFPAY ==
--- NOTE | 2020-09-30 15:10 | XR_ITS ---
WS: [id number] DEXA (DUAL ENERGY X-RAY ABSORPTIOMETRY) Bone mineral density was performed using a Ciklum machine. HISTORY: ASYMPTOMATIC MENOPAUSE, HIGH RISK MEDICATION COMPARISON: 11/12/2015 Lumbar spine BMD (L1-L4): 0.948 g/cm2 T score: -1.9 Z score: -0.8 Total hip BMD: Left: 0.861 g/cm2. T score: -1.2 Z score: 0.1 Right: 0.835 g/cm2. T score: -1.4 Z score: -0.1 10 year probability of a major osteoporotic fracture is 19%. Compared to the prior study from 11/12/2015. Lumbar spine bone mineral density has increased by 0.3%. Bilateral hips bone mineral density has decrease by 4.7%. XR/XR DEXA axial skeleton* [id number] IMPRESSION: OSTEOPENIA based upon the WHO classification for females. Significant decrease in bone mineral density within the hips since the prior study.
== END 2020-09-30 14:52 | disposition home or self-care (01) ==
LOC: RADWPI 14:53
PROVIDERS: PCP Family Medicine; Visit Provider Internal Medicine Medical Oncology
DX: Z78.0 Asymptomatic menopausal state (principal); Z79.899 Other long term (current) drug therapy; M85.89 Other specified disorders of bone density and structure, multiple sites
CPT/HCPCS: 77080

== ENCOUNTER 2021-01-06 14:03 | Outpatient (CLI) | payer MEDICARE, SELFPAY ==
--- NOTE | 2021-01-06 14:15 | USCV_ITS ---
Deneen Lawson Age: 75 Gender: F : 1945 Exam Date: 01/06/2021 14:18 Ordering Phys: Kyle Benson MD (Andy) ([email or web address] [place]) Technologist: Alena Scott [place] [facility] [place]: Occlusion and stenosis of bilateral carotid arteries Risk Factors: Previous Vascular Surgery: Right Brachial BP: / Left Brachial BP: / Right Left Velocity (cm/s) Spectral Plaque Velocity (cm/s) Spectral Plaque Syst/Diast Broadening Syst/Diast Broadening 71.10/ 13.50 Prox CCA 79.20 / 11.70 82.70/ 13.50 Mid CCA 68.90 / 12.70 84.60/ 11.50 Distal CCA 76.30 / 12.90 151.70/34.60 Prox ICA 115.30/ 26.60 134.10/29.50 Mid ICA 150.60/ 33.20 83.10/ 20.50 Distal ICA 75.20 / 16.10 220.50 ECA 186.90 1.84 ICA/CCA 2.19 Antegrade Vertebral Antegrade 30.20/ 10.50 cm/s 92.10/ 17.70 cm/s Tri Subclavian Tri 136.7 156.3 0 0 CONCLUSIONS Right ICA stenosis 50-69%. Moderate atheromatous plaque right carotid bulb/ICA. Left ICA stenosis 50-69%. Moderate atheromatous plaque left carotid bulb/ICA. Normal antegrade Doppler flow noted in the right vertebral artery. Normal antegrade Doppler flow noted in the left vertebral artery. Pedro Hannah MD (Electronically Signed) Final Date: 06 January 2021 16:40 S
== END 2021-01-06 14:04 | disposition home or self-care (01) ==
PROVIDERS: PCP Family Medicine; Visit Provider Thoracic Surgery (Cardiothoracic Vascular Surgery)
DX: I65.23 Occlusion and stenosis of bilateral carotid arteries (principal)
CPT/HCPCS: 93880

== ENCOUNTER 2021-01-31 19:35 | Observation (INO) | payer MEDICARE, SELFPAY ==
--- NOTE | 2021-01-31 19:32 | XRR_ITS ---
PROCEDURE INFORMATION: Exam: XR Chest Exam date and time: 01/31/2021 7:32 PM Age: 76 years old Clinical indication: Pain; On breathing; Additional info: Cp TECHNIQUE: Imaging protocol: XR of the chest. Views: 1 view. COMPARISON: CR Chest 1 [place] [id number] 11/01/2018 1:06 PM FINDINGS: Lungs: Development of fullness in the pulmonary vasculature suggesting volume overload in the lungs. Pleural spaces: Interval development of small bilateral pleural effusions. No pneumothorax. Heart/Mediastinum: Stable moderate enlargement of the cardiac silhouette. Mediastinal contours are unremarkable. Vasculature: Stable vascular calcifications in the aorta. Bones/joints: Unremarkable for age. XR/XR chest 1V portable [id number] IMPRESSION: 1. Development of fullness in the pulmonary vasculature suggesting volume overload in the lungs. 2. Interval development of small bilateral pleural effusions. 3. Incidental/nonacute findings are listed in the report.
--- NOTE | 2021-01-31 19:32 | ECG_ITS ---
[facility] Test Date: 2021-01-31 Pat Name: Deneen Lawson Department: Room: Gender: Female Secretary: : 1945 Requested By: Brinda Ambrose Order Number: [id number] Malika MD: Brennan Garcia M.D. Measurements Intervals [place] Rate: 133 P: KS: QRS: -13 QRSD: 91 T: 98 QT: 293 QTc: 437 Interpretive Statements ATRIAL FIBRILLATION WITH RAPID VENTRICULAR RESPONSE LOW QRS VOLTAGE IN PRECORDIAL LEADS [QRS DEFLECTION < 1.0 mV IN CHEST LEADS] POSSIBLE ANTERIOR MYOCARDIAL INFARCTION [30 ms Q WAVE IN V3/V4, OR R < 0.2 mV IN V4], PROBABLY OLD MODERATE T-WAVE ABNORMALITY, CONSIDER LATERAL ISCHEMIA [-0.1+ mV T WAVE IN I/aVL/V5/V6] Compared to ECG 11/01/2018 21:15:48 Low QRS voltage now present T-wave abnormality now present Possible ischemia now present Sinus rhythm no longer present Myocardial infarct finding still present Electronically Signed On 02-01-2021 17:28:52 CDT by Brennan Garcia M.D. [email or web address]
[2021-01-31 19:39] VITALS: BP 159/78; PULSE 143; RESP 21; TEMP 36.9; O2SAT 98
[2021-01-31 19:45] VITALS: BP 166/98; PULSE 134; PULSE 149; RESP 21; O2SAT 96
--- NOTE | 2021-01-31 20:25 | W.ED.CHESTPA ---
Documented by User: Ac Head MD 02/01/21 23:30 HPI - Chest Pain General: Chief Complaint: ER Hold Stated Complaint: chest pressure/sob Time Seen by Provider: 01/31/21 19:50 History of Present Illness: HPI narrative: Ms. Eller is a 76-year-old lady with a significant past medical history of diabetes, hypertension, CAD who presents to the emergency department with a chief complaint of shortness of breath. Symptom onset was approximately 1-1/2 to 2 weeks ago and described as sudden and occurred with exertion. She initially describes it as a fluttering sensation in her chest which is mildly uncomfortable. The patient reports associated shortness of breath and marked decreased exercise tolerance. She rates the intensity of their symptoms as moderate to severe. Overall the course of symptoms has been persisted. The patient has not had similar episodes in the past. No infectious symptoms correlating. There are no other specific exacerbating or alleviating factors reported. Review of Systems General: Reports: 10 or more systems reviewed and unremarkable except in HPI and below Narrative: CONSTITUTIONAL: denies fever, fatigue, weakness EYES - denies pain, denies loss of vision EARS - denies ear issues. NOSE - denies congestion or rhinorrhea. THROAT - denies sore throat or difficulty swallowing. CARDIOVASCULAR - denies chest pain. Fluttering as noted in HPI RESPIRATORY -shortness of breath present. No infectious respiratory symptoms. GASTROINTESTINAL - denies abdominal pain, no nausea vomiting, no changes in bowel habits GENITOURINARY - denies dysuria or urinary frequency MUSCULOSKELETAL- denies deformity or pain SKIN - denies rashes or new changed skin lesions NEUROLOGIC - denies focal weakness or sensory changes HEMATOLOGIC/LYMPHATIC - denies easy bruising or lymphadenopathy. PFS ED PFSH: Medical History Carotid stenosis COPD (chronic obstructive pulmonary disease) Coronary artery disease Diabetes Hyperlipidemia Hypertension PVD (peripheral vascular disease) Surgical History H/O carotid endarterectomy History of cardiac cath History of cholecystectomy Status post colonoscopy 07/16/2019: Severe diverticulosis sigmoid colon 5 mm sessile polyps x2 sigmoid colon - F/u in 2024 Family History Grandmother Hypertension Mother Hypertension Grandmother Diabetes Family/Other Diabetes Other Breast cancer Colon cancer Denies family history of Anesthesia complication Bleeding disorder Social History Quit status (tobacco): has quit using tobacco Second hand smoke exposure: No Smoking risk assessment/counseling performed?: No Alcohol intake: never Household members: spouse Marital status: Current occupational status: retired History of recent travel: No Physical Exam Narrative: EXAM NARRATIVE: GENERAL/CONSTITUTIONAL - well-appearing. No acute distress. Somewhat increased respiratory rate. Eyes - PERRL, no conjunctival injection ENMT - Atraumatic external nose and ears. Moist mucous membranes NECK - supple. trachea midline CARDIOVASCULAR -irregular rhythm with tachycardia. Peripheral pulses 2+ and equal. 1+ pitting edema bilateral lower extremities with chronic peripheral vascular changes. RESPIRATORY -mild coarse breath sounds in the bases. Increased respiratory rate. No retractions or accessory muscle use. ABDOMEN/GI - Nontender/Nondistended. No tenderness to percussion or evidence of peritonitis MSK - Extremities without obvious deformity or tenderness to palpation SKIN - Warm, Dry NEURO - alert and appropriately oriented. strength and sensation intact. Moves all extremities equally. PSYCH - Appropriate mood and affect Course ED course: - Patient was seen and evaluated by me at bedside - Patient placed on cardiac monitors, IV access obtained - Initial evaluation notable for mildly ill appearance with increased respiratory rate though no [place] respiratory distress. Patient has A. fib with RVR - Labs and imaging obtained and reviewed -Small fluid bolus ordered - Labs notable for no leukocytosis, mild normocytic anemia. Metabolic panel notable for significant hyponatremia and hypochloremia, the exact etiology is somewhat unclear. The patient does have as needed Lasix but has not been taking it frequently. - Imaging notable for increased pulmonary vascular congestion - Discussed risks and benefits of heparin in the context of Plavix use. Heparin ordered as well as diltiazem - Upon serial reexamination after treatment the patient was somewhat improved with improved rate control - Based on patient history, evaluation, labs, and imaging as interpreted the most likely cause of the patient's condition is new onset atrial fibrillation, acute on chronic heart failure, and hyponatremia - The results of ED evaluation were discussed with the patient including plan for admission due to requirement for level of care not available if discharged to prevent significant worsening/deterioration. - Admitting service was contacted and Dr Villar with internal medicine hospitalist agreed to admit the patient - Patient was admitted without further deterioration or significant events. Vital Signs: Vital signs: Vital Signs Temperature 98 F 02/01/21 23:23 Pulse Rate 88 02/01/21 23:23 Respiratory Rate 17 02/01/21 23:23 Blood Pressure 164/96 02/01/21 23:23 Pulse Oximetry 96 02/01/21 23:23 MDM - Chest Pain Medical Records: Attestation: I reviewed the patient's medical records. Lab Data: Attestation: I reviewed the patient's lab results. Labs: Lab Results 01/31/21 01/31/21 01/31/21 Range/Units 20:20 20:20 20:20 WBC 6.7 (4.0-10.0) 10^3/ uL RBC 3.75 L (4.1-5.3) 10^6/u L Hgb 10.0 L (11.5-15.3) g/dL Hct 31.7 L (37.0-47.0) % MCV 84.5 (81-99) fL MCH 26.7 L (28.0-34.0) pg MCHC 31.5 (30.0-36.0) g/dL RDW 15.3 H (12.1-15.1) % Plt Count 217 (130-400) 10^3/c mm MPV 10.7 H (7.4-10.4) fL Neut % (Auto) 68.3 % Lymph % (Auto) 21.2 % [place] % (Auto) 6.6 % Eos % (Auto) 2.7 % Baso % (Auto) 0.9 % Neut # (Auto) 4.57 (1.8-7.7) 10^3/u L Lymph # (Auto) 1.4 (0.8-4.8) 10^3/u L [place] # (Auto) 0.4 (0.2-0.9) 10^3/u L Eos # (Auto) 0.2 (0.0-0.8) 10^3/u L Baso # (Auto) 0.1 (0.0-0.1) 10^3/u L Nucleated RBC % (a uto) 0 % Nucleated RBCs # 0.0 /100WBC PT (12.1-14.9) SECO NDS INR (0.8-1.2) APTT (23.9-36.7) SECO NDS Sodium 117 L* (136-145) mmol/L Potassium 3.8 (3.5-5.1) mmol/L Chloride 87 L (98-107) mmol/L Carbon Dioxide 17 L (22-29) mmol/L Anion Gap 16.8 (5-19) BUN 12 (8-23) mg/dL Creatinine 0.5 (0.5-0.9) mg/dL GFR Calculation Not Reportable Glucose 100 (65-115) mg/dL Calculated Osmolal ity 244 L (285-295) mOsm/k g Calcium 7.1 L (8.5-10.5) mg/dL Phosphorus 3.4 (2.5-4.5) mg/dL Magnesium 1.4 L (1.7-2.3) mg/dL Total Bilirubin 0.3 (0.15-1.2) mg/dL AST 29 (0-32) U/L ALT 16 (0-33) U/L Alkaline Phosphata se 63 (35-105) IU/L Troponin T Baselin e 15 H (0-10) ng/L Troponin T 120 Min [place] (0-10) ng/L Delta Troponin T (0-10) ABS# NT-Pro-B Natriuret Pep 1286 H (0-125) pg/mL Total Protein 5.5 L (6.6-8.7) g/dL Albumin 3.5 (3.5-5.2) g/dL Globulin 2.0 (1.3-4.6) g/dL TSH 3.83 (0.27-4.20) uIU/ mL Urine Color (Yellow) Urine Appearance (CLEAR) Urine pH (5-7) Ur Specific Gravit y (1.005-1.030) Urine Protein (Negative) Urine Glucose (UA) (Normal) Urine Ketones (Negative) Urine Blood (Negative) Urine Nitrate (Negative) Urine Bilirubin (Negative) Urine Urobilinogen (Negative) mg/dL Ur Leukocyte Mary Beth ase (Negative) Urine RBC (0-2) /hpf Urine WBC (0-5) /hpf Ur Squamous Epith Cells (0-5) /hpf Amorphous Sediment Urine Bacteria (NONE) /hpf Hyaline Casts /lpf 01/31/21 01/31/21 01/31/21 Range/Units 20:20 21:36 22:15 WBC (4.0-10.0) 10^3/ uL RBC (4.1-5.3) 10^6/u L Hgb (11.5-15.3) g/dL Hct (37.0-47.0) % MCV (81-99) fL MCH (28.0-34.0) pg MCHC (30.0-36.0) g/dL RDW (12.1-15.1) % Plt Count (130-400) 10^3/c mm MPV (7.4-10.4) fL Neut % (Auto) % Lymph % (Auto) % [place] % (Auto) % Eos % (Auto) % Baso % (Auto) % Neut # (Auto) (1.8-7.7) 10^3/u L Lymph # (Auto) (0.8-4.8) 10^3/u L [place] # (Auto) (0.2-0.9) 10^3/u L Eos # (Auto) (0.0-0.8) 10^3/u L Baso # (Auto) (0.0-0.1) 10^3/u L Nucleated RBC % (a uto) % Nucleated RBCs # /100WBC PT 14.30 (12.1-14.9) SECO NDS INR 1.07 (0.8-1.2) APTT 27.7 (23.9-36.7) SECO NDS Sodium (136-145) mmol/L Potassium (3.5-5.1) mmol/L Chloride (98-107) mmol/L Carbon Dioxide (22-29) mmol/L Anion Gap (5-19) BUN (8-23) mg/dL Creatinine (0.5-0.9) mg/dL GFR Calculation Glucose (65-115) mg/dL Calculated Osmolal ity (285-295) mOsm/k g Calcium (8.5-10.5) mg/dL Phosphorus (2.5-4.5) mg/dL Magnesium (1.7-2.3) mg/dL Total Bilirubin (0.15-1.2) mg/dL AST (0-32) U/L ALT (0-33) U/L Alkaline Phosphata se (35-105) IU/L Troponin T Baselin e (0-10) ng/L Troponin T 120 Min [place] 12.79 H (0-10) ng/L Delta Troponin T -2.21 L (0-10) ABS# NT-Pro-B Natriuret Pep (0-125) pg/mL Total Protein (6.6-8.7) g/dL Albumin (3.5-5.2) g/dL Globulin (1.3-4.6) g/dL TSH (0.27-4.20) uIU/ mL Urine Color Yellow (Yellow) Urine Appearance Clear (CLEAR) Urine pH 5 (5-7) Ur Specific Gravit y 1.015 (1.005-1.030) Urine Protein Trace (Negative) Urine Glucose (UA) Norm (Normal) Urine Ketones 1+ H (Negative) Urine Blood Neg (Negative) Urine Nitrate Negative (Negative) Urine Bilirubin Neg (Negative) Urine Urobilinogen Norm (Negative) mg/dL Ur Leukocyte [place] ase Trace H (Negative) Urine RBC 0-4 H (0-2) /hpf Urine WBC 5-10 H (0-5) /hpf Ur Squamous Epith Cells 0-4 H (0-5) /hpf Amorphous Sediment Not Reportable Urine Bacteria Trace (NONE) /hpf Hyaline Casts 0-4 H /lpf Imaging Data^: CXR: My impression: Increased pulmonary vascular congestion Radiologist's impression: 1. Development of fullness in the pulmonary vasculature suggesting volume overload in the lungs. 2. Interval development of small bilateral pleural effusions. 3. Incidental/nonacute findings are listed in the report. EKG Data^: EKG 1: EKG interpretation date: 01/31/21 EKG interpretation time: 19:49 Prior EKG tracings: available for review Ischemic changes: non-specific ST-T wave changes Interpretation: Twelve-lead EKG shows an irregular rhythm consistent with atrial fibrillation with rapid ventricular response at a rate of 133. ID interval not present secondary to arrhythmia. QRS duration 91. QTc 371. Left axis deviation. Nonspecific ST segment abnormalities. Interpretation: Atrial fibrillation with rapid ventricular response. EKG 2: Attestation: I personally reviewed and interpreted this EKG as follows: EKG interpretation date: 01/31/21 Prior EKG tracings: available for review Ischemic changes: non-specific ST-T wave changes Interpretation: Twelve-lead EKG shows atrial fibrillation with rapid ventricular response, irregular rhythm, at a rate of 104 QRS duration 92. QTc. Left axis deviation. Nonspecific ST segment abnormalities. Interpretation: Atrial fibrillation with rapid ventricular response. Critical Care Time Critical Care Time: Critical Care Time: Yes Total Critical Care Time: 35 Attestation: This case had a high probability of a clinically significant, sudden, or life threatening deterioration of this patient's condition which required my full and direct attention, intervention and personal management. Discharge Plan Discharge Patient Disposition: Admitted As Inpatient Admit Provider: Garrick Jaramillo Clinical Impression: Atrial fibrillation with rapid ventricular response, Hyponatremia Condition: Stable Coding Level of Care Code ED Museum Tour Guide for Chg Fwd Documented by User: Garrick Jaramillo MD 02/01/21 06:39 HPI - Chest Pain General: Chief Complaint: ER Hold Stated Complaint: chest pressure/sob Time Seen by Provider: 01/31/21 19:50 PFSH ED PFSH: Medical History Carotid stenosis COPD (chronic obstructive pulmonary disease) Coronary artery disease Diabetes Hyperlipidemia Hypertension PVD (peripheral vascular disease) Surgical History H/O carotid endarterectomy History of cardiac cath History of cholecystectomy Status post colonoscopy 07/16/2019: Severe diverticulosis sigmoid colon 5 mm sessile polyps x2 sigmoid colon - F/u in 2024 Family History Grandmother Hypertension Mother Hypertension Grandmother Diabetes Family/Other Diabetes Other Breast cancer Colon cancer Denies family history of Anesthesia complication Bleeding disorder Social History Quit status (tobacco): has quit using tobacco Second hand smoke exposure: No Smoking risk assessment/counseling performed?: No Alcohol intake: never Household members: spouse Marital status: Current occupational status: retired History of recent travel: No Course Vital Signs: Vital signs: Vital Signs Temperature 98 F 02/01/21 23:23 Pulse Rate 88 02/01/21 23:23 Respiratory Rate 17 02/01/21 23:23 Blood Pressure 164/96 02/01/21 23:23 Pulse Oximetry 96 02/01/21 23:23 MDM - Chest Pain Lab Data: Labs: Lab Results 01/31/21 01/31/21 01/31/21 Range/Units 20:20 20:20 20:20 WBC 6.7 (4.0-10.0) 10^3/ uL RBC 3.75 L (4.1-5.3) 10^6/u L Hgb 10.0 L (11.5-15.3) g/dL Hct 31.7 L (37.0-47.0) % MCV 84.5 (81-99) fL MCH 26.7 L (28.0-34.0) pg MCHC 31.5 (30.0-36.0) g/dL RDW 15.3 H (12.1-15.1) % Plt Count 217 (130-400) 10^3/c mm MPV 10.7 H (7.4-10.4) fL Neut % (Auto) 68.3 % Lymph % (Auto) 21.2 % [place] % (Auto) 6.6 % Eos % (Auto) 2.7 % Baso % (Auto) 0.9 % Neut # (Auto) 4.57 (1.8-7.7) 10^3/u L Lymph # (Auto) 1.4 (0.8-4.8) 10^3/u L [place] # (Auto) 0.4 (0.2-0.9) 10^3/u L Eos # (Auto) 0.2 (0.0-0.8) 10^3/u L Baso # (Auto) 0.1 (0.0-0.1) 10^3/u L Nucleated RBC % (a uto) 0 % Nucleated RBCs # 0.0 /100WBC PT (12.1-14.9) SECO NDS INR (0.8-1.2) APTT (23.9-36.7) SECO NDS Sodium 117 L* (136-145) mmol/L Potassium 3.8 (3.5-5.1) mmol/L Chloride 87 L (98-107) mmol/L Carbon Dioxide 17 L (22-29) mmol/L Anion Gap 16.8 (5-19) BUN 12 (8-23) mg/dL Creatinine 0.5 (0.5-0.9) mg/dL GFR Calculation Not Reportable Glucose 100 (65-115) mg/dL Calculated Osmolal ity 244 L (285-295) mOsm/k g Calcium 7.1 L (8.5-10.5) mg/dL Phosphorus 3.4 (2.5-4.5) mg/dL Magnesium 1.4 L (1.7-2.3) mg/dL Total Bilirubin 0.3 (0.15-1.2) mg/dL AST 29 (0-32) U/L ALT 16 (0-33) U/L Alkaline Phosphata se 63 (35-105) IU/L Troponin T Baselin e 15 H (0-10) ng/L Troponin T 120 Min [place] (0-10) ng/L Delta Troponin T (0-10) ABS# NT-Pro-B Natriuret Pep 1286 H (0-125) pg/mL Total Protein 5.5 L (6.6-8.7) g/dL Albumin 3.5 (3.5-5.2) g/dL Globulin 2.0 (1.3-4.6) g/dL TSH 3.83 (0.27-4.20) uIU/ mL Urine Color (Yellow) Urine Appearance (CLEAR) Urine pH (5-7) Ur Specific Gravit y (1.005-1.030) Urine Protein (Negative) Urine Glucose (UA) (Normal) Urine Ketones (Negative) Urine Blood (Negative) Urine Nitrate (Negative) Urine Bilirubin (Negative) Urine Urobilinogen (Negative) mg/dL Ur Leukocyte Mary [place] ase (Negative) Urine RBC (0-2) /hpf Urine WBC (0-5) /hpf Ur Squamous Epith Cells (0-5) /hpf Amorphous Sediment Urine Bacteria (NONE) /hpf Hyaline Casts /lpf 01/31/21 01/31/2101/31/21 Range/Units 20:20 21:36 22:15 WBC (4.0-10.0) 10^3/ uL RBC (4.1-5.3) 10^6/u L Hgb (11.5-15.3) g/dL Hct (37.0-47.0) % MCV (81-99) fL MCH (28.0-34.0) pg MCHC (30.0-36.0) g/dL RDW (12.1-15.1) % Plt Count (130-400) 10^3/c mm MPV (7.4-10.4) fL Neut % (Auto) % Lymph % (Auto) % [place] % (Auto) % Eos % (Auto) % Baso % (Auto) % Neut # (Auto) (1.8-7.7) 10^3/u L Lymph # (Auto) (0.8-4.8) 10^3/u L [place] # (Auto) (0.2-0.9) 10^3/u L Eos # (Auto) (0.0-0.8) 10^3/u L Baso # (Auto) (0.0-0.1) 10^3/u L Nucleated RBC % (a uto) % Nucleated RBCs # /100WBC PT 14.30 (12.1-14.9) SECO NDS INR 1.07 (0.8-1.2) APTT 27.7 (23.9-36.7) SECO NDS Sodium (136-145) mmol/L Potassium (3.5-5.1) mmol/L Chloride (98-107) mmol/L Carbon Dioxide (22-29) mmol/L Anion Gap (5-19) BUN (8-23) mg/dL Creatinine (0.5-0.9) mg/dL GFR Calculation Glucose (65-115) mg/dL Calculated Osmolal ity (285-295) mOsm/k g Calcium (8.5-10.5) mg/dL Phosphorus (2.5-4.5) mg/dL Magnesium (1.7-2.3) mg/dL Total Bilirubin (0.15-1.2) mg/dL AST (0-32) U/L ALT (0-33) U/L Alkaline Phosphata se (35-105) IU/L Troponin T Baselin e (0-10) ng/L Troponin T 120 Min [place] 12.79 H (0-10) ng/L Delta Troponin T -2.21 L (0-10) ABS# NT-Pro-B Natriuret Pep (0-125) pg/mL Total Protein (6.6-8.7) g/dL Albumin (3.5-5.2) g/dL Globulin (1.3-4.6) g/dL TSH (0.27-4.20) uIU/ mL Urine Color Yellow (Yellow) Urine Appearance Clear (CLEAR) Urine pH 5 (5-7) Ur Specific Gravit y 1.015 (1.005-1.030) Urine Protein Trace (Negative) Urine Glucose (UA) Norm (Normal) Urine Ketones 1+ H (Negative) Urine Blood Neg (Negative) Urine Nitrate Negative (Negative) Urine Bilirubin Neg (Negative) Urine Urobilinogen Norm (Negative) mg/dL Ur Leukocyte [place] ase Trace H (Negative) Urine RBC 0-4 H (0-2) /hpf Urine WBC 5-10 H (0-5) /hpf Ur Squamous Epith Cells 0-4 H (0-5) /hpf Amorphous Sediment Not Reportable Urine Bacteria Trace (NONE) /hpf Hyaline Casts 0-4 H /lpf Discharge Plan Discharge Patient Disposition: Admitted As Inpatient Admit Provider: Garrick Jaramillo Clinical Impression: Atrial fibrillation with rapid ventricular response, Hyponatremia Condition: Stable Coding Level of Care Code ED Museum Tour Guide for Edinson Oliveros
[2021-01-31] MEDS: sodium chloride 0.9% 500 ML IV (20:30)
[2021-01-31 20:45] LABS: Basophils # 0.1 10^3/uL (0.0-0.1); Basophils % 0.9 %; Eosinophils # 0.2 10^3/uL (0.0-0.8); Eosinophils % 2.7 %; Hematocrit 31.7 % (37.0-47.0); Lymphocytes # 1.4 10^3/uL (0.8-4.8); Lymphocytes % 21.2 %; Mean Corpuscular HGB Conc 31.5 g/dL (30.0-36.0); Mean Corpuscular Hemoglobin 26.7 pg (28.0-34.0); Mean Corpuscular Volume 84.5 fL (81-99); Mean Platelet Volume 10.7 fL (7.4-10.4); Monocytes # 0.4 10^3/uL (0.2-0.9); Monocytes % 6.6 %; Neutrophils # 4.57 10^3/uL (1.8-7.7); Neutrophils % 68.3 %; Nucleated Red Blood Cells % 0 %; Platelet Count 217 10^3/cmm (130-400); Red Blood Count 3.75 10^6/uL (4.1-5.3); Red Cell Distribution Width 15.3 % (12.1-15.1); White Blood Count 6.7 10^3/uL (4.0-10.0)
[2021-01-31 20:50] LABS: INR 1.07 (0.8-1.2)
[2021-01-31 20:51] LABS: Partial Thromboplastin Time 27.7 SECONDS (23.9-36.7)
[2021-01-31 21:09] LABS: Alanine Aminotransferase 16 U/L (0-33); Albumin Level 3.5 g/dL (3.5-5.2); Alkaline Phosphatase 63 IU/L (35-105); Anion Gap 16.8 (5-19); Aspartate Amino Transferase 29 U/L (0-32); Blood Urea Nitrogen 12 mg/dL (8-23); Calcium 7.1 mg/dL (8.5-10.5); Carbon Dioxide 17 mmol/L (22-29); Chloride 87 mmol/L (98-107); Glucose 100 mg/dL (65-115); Magnesium 1.4 mg/dL (1.7-2.3); NT Pro B Type Natriuretic Pept 1286 pg/mL (0-125); Osmolality Calculated 244 mOsm/kg (285-295); Phosphorus 3.4 mg/dL (2.5-4.5); Potassium 3.8 mmol/L (3.5-5.1); Thyroid Stimulating Hormone 3.83 uIU/mL (0.27-4.20); Total Bilirubin 0.3 mg/dL (0.15-1.2); Total Protein 5.5 g/dL (6.6-8.7)
[2021-01-31 21:11] LABS: Sodium 117 mmol/L (136-145)
[2021-01-31 21:26] LABS: Troponin(5th) Baseline 15 ng/L (0-10)
--- NOTE | 2021-01-31 21:32 | ECG_ITS ---
[facility] Test Date: 2021-01-31 Pat Name: Deneen Lawson Department: Room: Gender: Female Vulnerability Researcher: : 1945 Requested By: Brinda Ambrose Order Number: [id number] Reading MD: Brennan Garcia M.D. Measurements Intervals [place] Rate: 104 P: CA: QRS: -14 QRSD: 92 T: 90 QT: 324 QTc: 428 Interpretive Statements ATRIAL FIBRILLATION WITH RAPID VENTRICULAR RATE LOW QRS VOLTAGE IN PRECORDIAL LEADS [QRS DEFLECTION < 1.0 mV IN CHEST LEADS] POSSIBLE ANTERIOR MYOCARDIAL INFARCTION [30 ms Q WAVE IN V3/V4, OR R < 0.2 mV IN V4], PROBABLY OLD Compared to ECG 01/31/2021 19:42:14 T-wave abnormality no longer present Possible ischemia no longer present Myocardial infarct finding still present Electronically Signed On 02-01-2021 17:33:58 CDT by Brennan Garcia M.D. [id number]
--- NOTE | 2021-01-31 22:24 | ECG_ITS ---
[facility] Test Date: 2021-02-21 Pat Name: Deneen Lawson Department: Room: 102 Gender: Female High Lift Driver: : 1945 Requested By: Ac Head Order Number: [id number] Malika MD: Brennan Garcia M.D. Measurements Intervals [place] Rate: 101 P: AR: QRS: 6 QRSD: 87 T: 93 QT: 335 QTc: 435 Interpretive Statements ATRIAL FIBRILLATION WITH RAPID VENTRICULAR RESPONSE ANTERIOR MYOCARDIAL INFARCTION , PROBABLY OLD [40+ ms Q WAVE AND/OR ST/T ABNORMALITY IN V3/V4] Compared to ECG 01/31/2021 21:28:30 No significant changes Electronically Signed On 02-22-2021 6:59:19 CDT by Brennan Garcia M.D. [id number] f
[2021-01-31 22:27] LABS: Add Urine Microscopic? YES; Bilirubin Urine Neg (Negative); Blood Urine Neg (Negative); Glucose Urine UA Norm (Normal); Ketones Urine 1+ (Negative); Leukocyte Esterase Urine Trace (Negative); Nitrate Urine Negative (Negative); Protein Urine Trace (Negative); Specific Gravity, Urine 1.015 (1.005-1.030); Urine Appearance Clear (CLEAR); Urine Color Yellow (Yellow); Urobilinogen Urine Norm (Negative); pH Urine 5 (5-7)
[2021-01-31 22:29] LABS: Add Urine Culture? No; Bacteria Urine TRACE /hpf; Hyaline Casts Urine 0-4 /lpf; RBC Urine 0-4 /hpf (0-2); Squamous Epithelial Cell Urine 0-4 /hpf (0-5)
[2021-01-31 22:47] LABS: Troponin 5 2HR 12.79 ng/L (0-10)
[2021-01-31 22:49] LABS: Troponin 5 2HR Delta -2.21 ABS# (0-10)
[2021-02-01] VITALS (28 sets, daily range): BP systolic 105–166; BP diastolic 55–118; PULSE 84–125; RESP 16–35; TEMP 36.6–37; O2SAT 92–97
[2021-02-01] MEDS: heparin 5,000 unit/mL INJ 1 mL 4000 UNIT IVP (03:10)
--- NOTE | 2021-02-01 06:41 | PM.HP ---
Providers/Chief Complaint Admitting Physician: Garrick Jaramillo Primary Care Provider: Nestor Krueger MD Chief Complaint: chest pressure/sob History of Present Illness Deneen Lawson is a 76 year old female with past medical history of coronary artery disease, hypertension, hyperlipidemia who is presenting to ER with acute onset of palpitation. Patient has noted fluttering of her chest on and off for over a week. Patient was found to have newly diagnosed atrial fib with rvr. Started on Cardizem gtt. Also on heparin gtt. Patient denied chest pain. No fever, chills, nausea or vomiting. Review of Systems General: Reports: 10 or more systems reviewed and unremarkable except in HPI and below Medications/Allergies Home Medications Medication Instructions Recorded Confirmed Last Taken Type Levemir FlexTouch U-100 Insuln 20 unit SUBCUT BID 07/15/19 01/14/21 06/10/20 History aspirin 81 mg PO DAILY 07/15/19 01/14/21 06/10/20 History cholecalciferol (vitamin D3) 5,000 unit PO DAILY 07/15/19 01/14/21 06/10/20 History [Vitamin D3] ferrous sulfate 324 mg PO BID 07/15/19 01/14/21 06/10/20 History metformin 1,000 mg PO BID 07/15/19 01/14/21 06/10/20 History venlafaxine 75 mg PO DAILY 07/15/19 01/14/21 07/15/19 History furosemide 20 mg tablet 20 mg PO DAILY PRN #90 tab 12/18/19 01/14/21 Unknown Rx hydralazine 50 mg tablet 50 mg PO DIRECTED 90 Days #315 02/26/20 01/14/21 06/11/20 Rx tab magnesium oxide 400 mg PO DAILY tab 02/26/20 01/14/21 06/10/20 History mecobalamin (vitamin B12) 1,000 5,000 mcg PO DAILY 02/26/20 01/14/21 06/10/20 History mcg chewable tablet simvastatin 80 mg tablet 20 mg PO DAILY tab 02/26/20 01/14/21 Unknown History isosorbide mononitrate 30 mg 15 mg PO BID #90 tab 10/09/20 01/14/21 Unknown Rx tablet,extended release 24 hr clopidogrel 75 mg tablet 75 mg PO DAILY 90 Days #90 tab 11/12/20 01/14/21 Unknown Rx pantoprazole 40 mg tablet,delayed 40 mg PO DAILY 90 Days #90 tab 11/12/20 01/14/21 Unknown Rx release amlodipine 10 mg tablet 10 mg PO QAM tab 01/13/21 01/14/21 Unknown History anastrozole 1 mg tablet 1 mg PO DAILY 01/13/21 01/14/21 Unknown History metoprolol succinate 50 mg 150 mg PO QAM tab 01/13/21 01/14/21 Unknown History tablet,extended release 24 hr irbesartan 300 mg tablet 300 mg PO QAM #90 tab 01/14/21 Unknown Rx Allergies Allergy/AdvReac Type Severity Reaction Status Date / Time trazodone Allergy ADR-Shakine Verified 01/31/21 19:58 ss PFSH Acute PFSH: Medical History Carotid stenosis COPD (chronic obstructive pulmonary disease) Coronary artery disease Diabetes Hyperlipidemia Hypertension PVD (peripheral vascular disease) Surgical History H/O carotid endarterectomy History of cardiac cath History of cholecystectomy Status post colonoscopy 07/16/2019: Severe diverticulosis sigmoid colon 5 mm sessile polyps x2 sigmoid colon - F/u in 2024 Family History Grandmother Hypertension Mother Hypertension Grandmother Diabetes Family/Other Diabetes Other Breast cancer Colon cancer Denies family history of Anesthesia complication Bleeding disorder Social History Quit status (tobacco): has quit using tobacco Second hand smoke exposure: No Smoking risk assessment/counseling performed?: No Alcohol intake: never Household members: spouse Marital status: Current occupational status: retired History of recent travel: No Vitals/I&O/Wt Last Vital Signs Temp 98.5 F 02/01/21 00:10 Pulse 103 H 02/01/21 04:00 Resp 18 02/01/21 04:00 BP 148/64 02/01/21 04:00 Pulse Ox 94 02/01/21 04:00 01/31/21 01/31/21 02/01/21 14:59 22:59 06:59 Intake Total 500 / 500 11.917 / 511.917 Balance 500 / 500 11.917 / 511.917 Weight last 48 hrs Weight 79.379 kg Physical Exam Narrative: EXAM NARRATIVE: General: Alert, awake, oriented x 3 HEENT Grossly unremarkable CVS; Irregularly irregular Chest : CTABL ABD; Soft Ext No edema Data : 01/31/21 20:20 01/31/21 20:20 A&P Assessment and plan (1) Atrial fibrillation with rapid ventricular response: Cardizem Heparin consider cardiology consult ECHO in am Status: Acute Attestations Medical Necessity Statement*: Will reqire > 2 midnight stayin hospital for eval and treatment Time Spent in Patient Care: Greater than 35 minutes (>than 50% of time spent in counselling and/or direct pt care on unit). Coding Level of Care Code Acute Computer Lab Para Professional for Edinson Oliveros Diagnoses Atrial fibrillation with rapid ventricular response I48.91
--- NOTE | 2021-02-01 09:06 | USCV_ITS ---
Deneen Lawson Age: 76 Gender: F : 1945 Exam Date: 02/01/2021 10:21 Ordering Phys: Ludwig Faria MD Technologist: Alena Scott Exam Location: [facility] – [place] Indication: AFIB BP: 142 / 79 HR: 113 Rhythm: Atrial fibrillation Technical Quality: Technically difficult study MEASUREMENTS (Male / Female) Normal Values 2D ECHO LV Diastolic Diameter PLAX 3.2 cm 4.2 - 5.9 / 3.9 - 5.3 cm LV Systolic Diameter PLAX 2.2 cm IVS Diastolic Thickness 2.2 cm 0.6 - 1.0 / 0.6 - 0.9 cm IVS Systolic Thickness 2.7 cm LVPW Diastolic Thickness 2.2 cm 0.6 - 1.0 / 0.6 - 0.9 cm LVPW Systolic Thickness 2.3 cm LVOT Diameter 2.0 cm LV Ejection Fraction 2D Teich 58.5 % LV Ejection Fraction MOD 2C 63.1 % LV Ejection Fraction 2C AL 63.0 % LA Diameter 3.3 cm LA Width 4.0 cm LA Height 6.3 cm RA Width 4.6 cm RA Height 5.6 cm Aorta at Sinotubular Diameter 2.1 cm M-MODE Aortic Annulus Diameter 2.4 cm LA Ao Ratio MM 1.4 DOPPLER AV Peak Velocity 111.0 cm/s LVOT Peak Velocity 99.0 cm/s AV Area Cont Eq vti 2.5 cm squared AV Area Cont Eq pk 2.8 cm squared TR Peak Velocity 283.0 cm/s TR Peak Gradient 32.0 mmHg Right Atrial Pressure 8.0 mmHg Pulmonary Artery Systolic Pressu 40.0 mmHg PV Peak Velocity 125.0 cm/s RV Acceleration Time 0.1 s RV Ejection Time 0.3 s RV AcT/ET 0.4 FINDINGS Left Ventricle Normal left ventricular cavity size. Moderate left ventricular hypertrophy of concentric type. Normal left ventricular systolic function. Left ventricular ejection fraction is estimated at 55 %. Grade II/IV diastolic dysfunction, moderately elevated filling pressures. Right Ventricle The right ventricle is normal in size and function.moderate pulmonary hypertension, RVSP 40 mmHg. Right Atrium The right atrium is normal in size. Left Atrium Moderately increased left atrial size. Mitral Valve Severely thickened mitral valve. Severe mitral annular calcification. No mitral valve stenosis. Mild mitral valve regurgitation. Aortic Valve Moderate aortic valve calcification. No aortic valve stenosis. Mild aortic valve regurgitation. Tricuspid Valve Structurally normal tricuspid valve without significant stenosis or regurgitation. Pulmonary artery systolic pressure is normal. Pulmonic Valve Structurally normal pulmonic valve without significant stenosis. There is no pulmonic regurgitation. Pericardium Normal pericardium without effusion. Aorta Normal ascending aorta dimension. CONCLUSIONS 1-Normal left ventricular cavity size. Moderate left ventricular hypertrophy of concentric type. Normal left ventricular systolic function. Left ventricular ejection fraction is estimated at 55 %. Grade II/IV diastolic dysfunction, moderately elevated filling pressures. 2-Severely thickened mitral valve. Severe mitral annular calcification. No mitral valve stenosis. Mild mitral valve regurgitation. 3-Moderately increased left atrial size. 4-The right ventricle is normal in size and function.moderate pulmonary hypertension, RVSP 40 mmHg. 5-Moderate aortic valve calcification. No aortic valve stenosis. Mild aortic valve regurgitation. 6-There is no pericardial effusion. 7-Right atrial pressure is around 5 mm of mercury. 8-No significant change since the prior echocardiogram study of 05/29/2020. Rika Muro MD (Electronically Signed) Final Date: 01 February 2021 19:30 S
[2021-02-01] MEDS: cefTRIAXone 1,000 MG in sodium chloride 0.9% (plus) 50 ML 100 MG IV (10:04)
[2021-02-01] MEDS: metoprolol tartrate 25 mg Tablet PO ×2 (10:04→21:05)
[2021-02-01] MEDS: apixaban 5 mg Tablet PO ×2 (10:04→21:05)
[2021-02-01 10:48] LABS: Sodium 140 mmol/L (136-145)
--- NOTE | 2021-02-01 12:12 | P.PN_ITS ---
Subjective Subjective: Interval history: Patient was seen this morning, she is in the ER, waiting for bed on the cardiac stepdown unit, daughters at bedside, she tells me that she is feeling better, she is having less palpitations, no nausea, no vomiting, no headache, blurry vision, she tells me that she was working out in the sun yesterday, she felt a little bit dehydrated Vitals/I&O/Wt Last Vital Signs Temp 98.5 F 02/01/21 00:10 Pulse 84 02/01/21 11:27 Resp 18 02/01/21 11:27 BP 133/67 02/01/21 11:27 Pulse Ox 92 02/01/21 11:27 01/31/21 02/01/21 02/01/21 22:59 06:59 14:59 Intake Total 500 / 500 11.917 / 511.917 200 / 200 Balance 500 / 500 11.917 / 511.917 200 / 200 Weight last 48 hrs Weight 79.379 kg Physical Exam Const: COMMON NORMALS: no acute distress and patient oriented x3 Resp: COMMON NORMALS: normal respiratory effort, No retractions, No use of accessory muscles and clear to auscultation bilaterally AUSCULTATION: clear to auscultation bilaterally Cardio: COMMON NORMALS: S1 normal heart sound present and S2 normal heart sound present RATE: tachycardic RHYTHM: abnormal rhythm HEART SOUNDS: S1 normal heart sound present and S2 normal heart sound present GI: COMMON NORMALS: Normal to inspection, nondistended, normoactive bowel sounds present, Soft to palpation and non-tender PALPATION: Yes Soft to palpation Extremity: COMMON NORMALS: no pedal edema Neuro: COMMON NORMALS: patient oriented x3 Psych: COMMON NORMALS: mental status grossly normal Data : 01/31/21 20:20 02/01/21 10:00 A&P Assessment and plan (1) Atrial fibrillation with rapid ventricular response: Currently on Cardizem drip, transition to oral metoprolol Stop heparin drip, switch to oral Eliquis Magnesium 1.4, replace IV mag TSH within normal limits Cardiac echocardiogram ordered Status: Acute (2) Hyponatremia: -Initial sodium level 117 -Repeat sodium level 140 -Initial reading likely falls, will repeat at 2 PM Status: Acute (3) Hypertension: Status: Acute Qualifiers: Hypertension type: essential hypertension Qualified Code(s): I10 - Essential (primary) hypertension Additional A&P Information History of CAD, has a chronically occluded LAD, currently not a candidate for CABG Right carotid artery stenosis, status post endarterectomy Elevated BNP, for now hold off on Lasix UTI, start Rocephin Attestations Medical Necessity Statement*: Patient requires hospitalization, inpatient, greater than 2 midnights, for atrial fibrillation Coding Level of Care Code Acute 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
[2021-02-01] MEDS: magnesium sulfate premix 2 GM/50 ML PIGGYBACK IV (13:52)
--- NOTE | 2021-02-01 14:32 | PC.NURSE ---
Admit Note Patient admitted to [facility] Room 102 from ER via Bed. Covering service notified. Patient presents with Afib rvr on cardizem Drip at 5. Orders reviewed & will continue to monitor. Patient and/or fundraising sale representative oriented to environment, equipment, and informed of the following as found in the admission booklet: patient rights & responsibilities, visitor policy, hand and respiratory hygiene practice. Other education includes: Afib disease process and continued care as well as risk factors. Patient and/or fundraising sale representative patient and daughter verbalize understanding.
--- NOTE | 2021-02-01 15:40 | PC.NURSE ---
patient and family requesting the daughter be allowed to stay the night with patient contacted Dr humphrey approval was given
[2021-02-01] MEDS: dilTIAZem 30 mg Tablet PO ×2 (16:38→21:05)
[2021-02-01 17:28] LABS: Glucose Point of Care 131 mg/dL (70-110)
[2021-02-01] MEDS: ferrous sulfate EC 325 mg Tablet PO (17:56)
[2021-02-01] MEDS: isosorbide mononitrate ER 30 mg Tablet 15 MG PO (17:56)
--- NOTE | 2021-02-01 18:21 | PC.NURSE ---
Shift Note Frequent safety and comfort rounds continue. Orders and/or nursing care completed as indicated. Patient monitored for response to intervention and treatment(s). Education provided includes new medications, afib, risk factors and termite helper treatment goals. Patient and/or inventory representative patient verbalized understanding. Will continue to monitor.
[2021-02-01 19:33] LABS: Blood Urea Nitrogen 9 mg/dL (8-23); Carbon Dioxide 22 mmol/L (22-29); Chloride 102 mmol/L (98-107); Glucose 119 mg/dL (65-115); Osmolality Calculated 284 mOsm/kg (285-295); Sodium 137 mmol/L (136-145)
[2021-02-01 19:39] LABS: Anion Gap 17.1 (5-19); Potassium 4.1 mmol/L (3.5-5.1)
[2021-02-01 20:25] LABS: Glucose Point of Care 192 mg/dL (70-110)
[2021-02-01] MEDS: atorvastatin 40 mg Tablet 20 MG PO (21:05)
[2021-02-02] VITALS (8 sets, daily range): BP systolic 129–184; BP diastolic 58–95; PULSE 75–98; RESP 16–22; TEMP 36.4–36.6; O2SAT 94–96
[2021-02-02] MEDS: dilTIAZem 30 mg Tablet PO ×2 (03:37→11:10)
[2021-02-02 04:36] LABS: Basophils % 0.6 %; Eosinophils # 0.2 10^3/uL (0.0-0.8); Eosinophils % 4.2 %; Hematocrit 31.1 % (37.0-47.0); Hemoglobin 9.7 g/dL (11.5-15.3); Lymphocytes # 1.1 10^3/uL (0.8-4.8); Lymphocytes % 23.2 %; Mean Corpuscular HGB Conc 31.2 g/dL (30.0-36.0); Mean Corpuscular Hemoglobin 26.9 pg (28.0-34.0); Mean Corpuscular Volume 86.1 fL (81-99); Mean Platelet Volume 10.4 fL (7.4-10.4); Monocytes # 0.5 10^3/uL (0.2-0.9); Monocytes % 9.7 %; Neutrophils # 2.93 10^3/uL (1.8-7.7); Neutrophils % 61.9 %; Nucleated Red Blood Cells % 0 %; Platelet Count 189 10^3/cmm (130-400); Red Blood Count 3.61 10^6/uL (4.1-5.3); Red Cell Distribution Width 15.3 % (12.1-15.1); White Blood Count 4.7 10^3/uL (4.0-10.0)
[2021-02-02 04:57] LABS: Alanine Aminotransferase 18 U/L (0-33); Albumin Level 3.6 g/dL (3.5-5.2); Alkaline Phosphatase 58 IU/L (35-105); Anion Gap 11.9 (5-19); Aspartate Amino Transferase 36 U/L (0-32); Blood Urea Nitrogen 10 mg/dL (8-23); Carbon Dioxide 25 mmol/L (22-29); Chloride 106 mmol/L (98-107); Globulin 2.6 g/dL (1.3-4.6); Glucose 177 mg/dL (65-115); Magnesium 1.6 mg/dL (1.7-2.3); Osmolality Calculated 291 mOsm/kg (285-295); Potassium 3.9 mmol/L (3.5-5.1); Sodium 139 mmol/L (136-145); Total Bilirubin 0.4 mg/dL (0.15-1.2); Total Protein 6.2 g/dL (6.6-8.7)
[2021-02-02 05:02] LABS: Procalcitonin 0.05 ng/mL (0-0.5)
[2021-02-02 06:51] LABS: Glucose Point of Care 158 mg/dL (70-110)
[2021-02-02] MEDS: cyanocobalamin 1,000 mcg Tablet 5000 MCG PO (08:12)
[2021-02-02] MEDS: aspirin 81 mg EC Tablet PO (08:12)
[2021-02-02] MEDS: cholecalciferol (vitamin D3) 5,000 unit Tablet 5000 UNIT PO (08:12)
[2021-02-02] MEDS: anastrozole 1 mg Tablet PO (08:12)
[2021-02-02] MEDS: apixaban 5 mg Tablet PO (08:13)
[2021-02-02] MEDS: clopidogrel 75 mg Tablet PO (08:13)
[2021-02-02] MEDS: ascorbic acid 500 mg Tablet PO (08:13)
[2021-02-02] MEDS: metoprolol tartrate 25 mg Tablet PO (08:13)
[2021-02-02] MEDS: isosorbide mononitrate ER 30 mg Tablet 15 MG PO (08:13)
[2021-02-02] MEDS: venlafaxine ER (24HR) 75 mg Capsule PO (08:14)
[2021-02-02] MEDS: cefTRIAXone 1,000 MG in sodium chloride 0.9% (plus) 50 ML 100 MG IV (08:14)
[2021-02-02] MEDS: pantoprazole DR 40 mg Tablet PO (08:14)
[2021-02-02] MEDS: ferrous sulfate EC 325 mg Tablet PO (08:14)
[2021-02-02 11:20] LABS: Glucose Point of Care 190 mg/dL (70-110)
--- NOTE | 2021-02-02 21:16 | P.DS_ITS ---
Discharge Providers Date of Admission: 02/01/21 04:09 Date of Discharge: February 02, 2021 Attending Provider at Admission: Garrick Jaramillo Attending Provider at Discharge: Garrick Jaramillo Primary Care Provider: Nestor Krueger MD Diagnoses at Discharge Discharge Diagnosis (1) Atrial fibrillation with rapid ventricular response: Status: Acute (2) Hyponatremia: Status: Acute (3) Hypertension: Status: Acute Qualifiers: Hypertension type: essential hypertension Qualified Code(s): I10 - Essential (primary) hypertension Reason for Visit Reason for Visit: chest pressure/sob Hospital Course Hospital Course 76 year old female with past medical history of coronary artery disease, hypertension, hyperlipidemia who is presenting to ER with acute onset of palpitation. Patient has noted fluttering of her chest on and off for over a week. Patient was found to have newly diagnosed atrial fib with rvr. Started on Cardizem gtt. Also on heparin gtt. Patient denied chest pain. No fever, chills, nausea or vomiting.Patient was continued on home rate control medications. Rate was eventually controlled on p.o. regimen. Patient was discharged in stable condition. Physical Exam Narrative: EXAM NARRATIVE: General: Alert, awake, oriented x 3 HEENT Grossly unremarkable CVS; Irregularly irregular Chest : CTABL ABD; Soft Ext No edema Discharge Data Data Completed and Pending: Completed Studies During Hospitalization Category Date Time Status XR chest 1V rai ble [id number] Stat Exams 01/31/21 19:32 Completed CV. echo complete * [id number] Routine Ultrasound 02/01/21 09:06 Completed Vitals: Last Vital Signs Temp 97.6 F 02/02/21 08:00 Pulse 82 02/02/21 13:56 Resp 16 02/02/21 13:56 BP 135/58 02/02/21 13:56 Pulse Ox 96 02/02/21 13:56 Discharge Plan Discharge Patient Disposition: Home Condition: Stable Prescriptions: New Eliquis 5 mg Tablet 5 mg PO Q12H Qty: 60 RF: 0 metoprolol tartrate 50 mg tablet 50 mg PO BID Qty: 60 RF: 0 Cardizem CD 120 mg capsule,extended release 24hr 120 mg PO DAILY Qty: 30 RF: 0 Continued mecobalamin (vitamin B12) 1,000 mcg tablet,chewable 5,000 mcg PO DAILY@08 RF: 0 anastrozole 1 mg tablet 1 mg PO DAILY@08 RF: 0 amlodipine 10 mg tablet 10 mg PO BEDTIME RF: 0 furosemide 20 mg tablet 20 mg PO DAILY PRN (Reason: Edema) Qty: 90 RF: 3 isosorbide mononitrate 30 mg tablet extended release 24 hr 15 mg PO BID Qty: 90 RF: 3 venlafaxine 75 mg capsule,extended release 24hr 75 mg PO DAILY@08 RF: 0 metformin 1,000 mg tablet 1,000 mg PO BID RF: 0 ferrous sulfate 324 mg (65 mg iron) Tablet,Delayed Release (Dr/Ec) 324 mg PO BID RF: 0 cholecalciferol (vitamin D3) [Vitamin D3] 5,000 unit Tablet 5,000 unit PO DAILY@08 RF: 0 aspirin 81 mg Tablet,Delayed Release (Dr/Ec) 81 mg PO DAILY@08 RF: 0 magnesium oxide 200 mg magnesium tablet 400 mg PO BEDTIME RF: 0 simvastatin 20 mg tablet 20 mg PO BEDTIME RF: 0 albuterol sulfate 90 mcg/actuation HFA aerosol inhaler 1 - 2 puff INHALATION Q4H PRN (Reason: Shortness Of Breath) RF: 0 Levemir FlexTouch U-100 Insuln 100 unit/mL (3 mL) insulin pen 25 unit SUBCUT BID RF: 0 Vitamin C 1 tab PO DAILY RF: 0 clopidogrel 75 mg tablet 75 mg PO DAILY@08 RF: 0 pantoprazole 40 mg tablet,delayed release (DR/EC) 40 mg PO DAILY@08 RF: 0 Discontinued metoprolol succinate 50 mg tablet extended release 24 hr 150 mg PO BEDTIME RF: 0 hydralazine 50 mg tablet See Rx Instructions .ROUTE .COMPLEX RF: 0 irbesartan 300 mg tablet 300 mg PO DAILY@08 RF: 0 Discharge Orders: Discharge Order (Routine); Ordered 02/02/21 Ordered By: Garrick Jaramillo Referrals: Rika Muro MD [Physician] - 1 week (Please follow-up with Haydee Saini on at 8:30A.M. If youhave any questions or need to reschedule. Please call ) Nestor Krueger MD [Primary Care Provider] - 4-7 days (Please follow-up with Dr. Krueger on at 9:30A.M. If you have any questions or need to reschedule. Please call ) Discharge Diet: Usual diet Discharge Activity: Increase activity as tolerated Patient Instructions: Metoprolol (By mouth), Diltiazem (By mouth), Apixaban (By mouth), Atrial Fibrillation (DC), Hypertension (DC) Discharge Attestations Time Spent in Discharge Care*: greater than 30 min Specific Discharge Activities: educating patient, discussing with pcp/other providers, discussing with case investigator/social workers/dc planners, documenting/other paperwork and evaluating patient/reviewing data Status at Discharge: Cognitive status at discharge: cognitively intact , Behavioral status at discharge: cooperative , Functional status at discharge: independent ambulation Overall status at discharge: patient is back to baseline Quality Metrics Clinical Quality Measures During this hospital stay, did patient experience: None Coding Level of Care Code Acute Chg FW DC note Diagnoses Atrial fibrillation with rapid ventricular response I48.91 Hyponatremia E87.1 Hypertension I10 Hypertension type: essential hypertension
--- NOTE | 2021-02-03 07:17 | PC.RESP ---
PULMONARY REHAB INFORMATION SENT TO PATIENT.
--- NOTE | 2021-02-05 09:50 | PC.SOCIAL ---
follow up call made to patient. patient picked up medications from the pharmacy. has been taking as directed and says they are working wonderfully patient was given follow up appointments prior to discharge.
== END 2021-02-02 14:15 | disposition home or self-care (01) ==
LOC: ER 21:59 → CSU 23:28 → ER IP 02-01 07:39 → CSU 02-01 13:49
PROVIDERS: Emergency Medicine; Family Medicine; Admitting Provider Hospitalist; Emergency Provider Emergency Medicine; PCP Family Medicine; Visit Provider Hospitalist
DX: I48.91 Unspecified atrial fibrillation (principal); E87.1 Hypo-osmolality and hyponatremia; I10 Essential (primary) hypertension; I25.10 Atherosclerotic heart disease of native coronary artery without angina pectoris; E78.5 Hyperlipidemia, unspecified; N39.0 Urinary tract infection, site not specified; E11.9 Type 2 diabetes mellitus without complications; Z79.84 Long term (current) use of oral hypoglycemic drugs; Z82.49 Family history of ischemic heart disease and other diseases of the circulatory system; Z83.3 Family history of diabetes mellitus; Z87.891 Personal history of nicotine dependence
CPT/HCPCS: 36415; 36416; 71045; 80048; 80053; 81001; 82962; 83735; 83880; 84100; 84145; 84295; 84443; 84484; 85025; 85610; 85730; 93005; 93306; 96365; 96366; 96372; 96375; 99285; G0378; J0696; J1644; J1815; J3475; J3490; J7040; J8999

== ENCOUNTER 2021-02-21 18:59 | Emergency (ER) | payer MEDICARE, SELFPAY ==
[2021-02-21 19:08] VITALS: BP 171/75; PULSE 81; RESP 19; TEMP 36.7; O2SAT 97; BMI 30.9
[2021-02-21 20:19] VITALS: BP 173/75; PULSE 90; RESP 28; O2SAT 98
--- NOTE | 2021-02-21 20:40 | XRR_ITS ---
PROCEDURE INFORMATION: Exam: XR Chest Exam date and time: 02/21/2021 8:40 PM Age: 76 years old Clinical indication: Dyspnea; Additional info: SOB TECHNIQUE: Imaging protocol: XR of the chest. Views: 1 view. COMPARISON: CR (CHEST, ) 01/31/2021 8:08 PM FINDINGS: Lungs: Fullness in the pulmonary vasculature suggesting volume overload in the lungs. Findings are stable. Pleural spaces: No pleural effusion. No pneumothorax. Heart/Mediastinum: Stable moderate enlargement of the cardiac silhouette. Mediastinal contours are unremarkable. Stable calcification of the mitral valve annulus. Bones/joints: Unremarkable for age. XR/XR chest 1V portable [id number] IMPRESSION: 1. Fullness in the pulmonary vasculature suggesting volume overload in the lungs. Findings are stable. 2. Incidental/nonacute findings are listed in the report.
[2021-02-21 20:47] LABS: Basophils % 0.5 %; Eosinophils # 0.1 10^3/uL (0.0-0.8); Eosinophils % 2.8 %; Hematocrit 26.3 % (37.0-47.0); Hemoglobin 7.8 g/dL (11.5-15.3); Lymphocytes # 1.1 10^3/uL (0.8-4.8); Lymphocytes % 27.2 %; Mean Corpuscular HGB Conc 29.7 g/dL (30.0-36.0); Mean Corpuscular Volume 87.7 fl (81-99); Mean Platelet Volume 10.3 fL (7.4-10.4); Monocytes # 0.5 10^3/uL (0.2-0.9); Monocytes % 11.7 %; Neutrophils # 2.25 10^3/uL (1.8-7.7); Neutrophils % 57.3 %; Nucleated Red Blood Cells % 0 %; Platelet Count 182 10^3/cmm (130-400); Red Cell Distribution Width 17.2 % (12.1-15.1); White Blood Count 3.9 10^3/uL (4.0-10.0)
[2021-02-21 21:10] LABS: Troponin(5th) Baseline 12 ng/L (0-10)
[2021-02-21 21:20] LABS: Alanine Aminotransferase 10 U/L (0-33); Albumin Level 3.8 g/dL (3.5-5.2); Alkaline Phosphatase 64 IU/L (35-105); Aspartate Amino Transferase 22 U/L (0-32); Blood Urea Nitrogen 14 mg/dL (8-23); Carbon Dioxide 23 mmol/L (22-29); Chloride 102 mmol/L (98-107); Creatinine Clr Calc Pharmacy 63.7736; Digoxin 0.4 ng/mL (0.6-1.2); Globulin 2.7 g/dL (1.3-4.6); Glucose 137 mg/dL (65-115); NT Pro B Type Natriuretic Pept 1475 pg/mL (0-125); Osmolality Calculated 289 mOsm/kg (285-295); Sodium 138 mmol/L (136-145); Total Bilirubin 0.4 mg/dL (0.15-1.2); Total Protein 6.5 g/dL (6.6-8.7)
[2021-02-21 22:00] LABS: Urine Appearance Clear (CLEAR); Urine Color Yellow (Yellow); pH Urine 5 (5-7)
[2021-02-21 22:01] LABS: Add Urine Microscopic? YES; Bilirubin Urine Neg (Negative); Blood Urine 2+ (Negative); Glucose Urine UA Norm (Normal); Ketones Urine Negative (Negative); Leukocyte Esterase Urine 1+ (Negative); Nitrate Urine Negative (Negative); Protein Urine 1+ (Negative); Urobilinogen Urine Norm (Negative)
[2021-02-21 22:06] LABS: Bacteria Urine 1+ /hpf; Squamous Epithelial Cell Urine 0-4 /hpf (0-5); WBC Urine 15-25 /hpf (0-5)
[2021-02-21 22:07] LABS: Add Urine Culture? Yes; Hyaline Casts Urine 0-4 /lpf
[2021-02-21 22:37] VITALS: BP 153/63; PULSE 94; RESP 24; O2SAT 96
--- NOTE | 2021-02-21 22:41 | ECG_ITS ---
[facility] Test Date: 2021-02-21 Pat Name: Deneen Lawson Department: Room: Gender: Female Materials Associate: : 1945 Requested By: Noemí Messer I Order Number: [id number] Reading MD: Brennan Garcia M.D. Measurements Intervals [place] Rate: 96 P: FL: QRS: 2 QRSD: 91 T: 77 QT: 361 QTc: 458 Interpretive Statements ATRIAL FIBRILLATION LOW QRS VOLTAGE IN PRECORDIAL LEADS [QRS DEFLECTION < 1.0 mV IN CHEST LEADS] ANTERIOR MYOCARDIAL INFARCTION [40+ ms Q WAVE AND/OR ST/T ABNORMALITY IN V3/V4], PROBABLY OLD INTERPRETATION BASED ON A DEFAULT AGE OF 40 YEARS Compared to ECG 01/31/2021 21:28:30 No significant changes Electronically Signed On 02-22-2021 6:59:29 CDT by Brennan Garcia M.D. [email or web address] [email or web address] [id number]
[2021-02-21 23:00] VITALS: BP 167/74; PULSE 108; RESP 19; O2SAT 97
[2021-02-21] MEDS: cefTRIAXone 1,000 MG in sodium chloride 0.9% (plus) 50 ML 100 MG IV (23:06)
--- NOTE | 2021-02-21 23:06 | ED_ITS ---
HPI - SOB/Dyspnea General: Chief Complaint: Shortness of Breath/Dyspnea Stated Complaint: HIGH PULSE/SOB Time Seen by Provider: 02/21/21 20:18 Source: patient, family (daughter), RN notes reviewed and old records reviewed Mode of arrival: ambulatory Limitations: no limitations History of Present Illness: HPI Narrative: This 76-year-old female was recently diagnosed with atrial fibrillation about 2 weeks ago. She was started on beta-blockers, diltiazem, and later digoxin after she remained symptomatic after discharge. Daughter states that she has progressively noticed the patient is showing dyspnea on exertion and today the patient has been sitting down all day in her chair because she is too weak and too short of breath to move around. She was getting up from wheelchair to her bed she gets really short of breath. Her daughter states that the patient also appears pale and she is worried that something is going on. MD elicited complaint: shortness of breath Onset (ago): week(s) (2) Context: recent illness Timing: constant and progressively worsening Severity: severe Exacerbating factors: exertion Relieving factors: rest Associated symptoms: Reports dizziness and palpitations; Deny abdominal pain, chest congestion, chest pain, cough, diaphoresis, extremity pain, fever(s), hemoptysis, lightheadedness, myalgias, nausea, orthopnea, paresthesias, polydipsia, polyuria, rash, sense of impending doom, syncope or vomiting Review of Systems General: Reports: 10 or more systems reviewed and unremarkable except in HPI and below Const: Denies: fever(s) or diaphoresis Card: Reports: palpitations; Denies: chest pain, lightheadedness, syncope or orthopnea Resp: Denies: hemoptysis or chest congestion GI: Denies: abdominal pain, nausea or vomiting Musc: Denies: extremity pain Neuro: Reports: dizziness Endo: Denies: polyuria or polydipsia PFSH ED PFSH: Medical History Breast cancer Carotid stenosis COPD (chronic obstructive pulmonary disease) Coronary artery disease Diabetes Hyperlipidemia Hypertension PVD (peripheral vascular disease) Surgical History (Updated 02/23/21 @ 15:40 by Demond Posey MD) H/O carotid endarterectomy History of cardiac cath History of cholecystectomy History of lumpectomy of right breast Status post colonoscopy 07/16/2019: Severe diverticulosis sigmoid colon 5 mm sessile polyps x2 sigmoid colon - F/u in 2024 Family History Grandmother Hypertension Mother Hypertension Grandmother Diabetes Family/Other Diabetes Other Breast cancer Colon cancer Denies family history of Anesthesia complication Bleeding disorder Social History Quit status (tobacco): has quit using tobacco Second hand smoke exposure: No Smoking risk assessment/counseling performed?: No Alcohol intake: never Household members: spouse Marital status: Current occupational status: retired History of recent travel: No Physical Exam Const: COMMON NORMALS: no acute distress, average body habitus, patient oriented x3, no limitations, healthy appearing, alert and well nourished HENMT: COMMON NORMALS: normocephalic, atraumatic and moist oral mucous membranes HEAD & SCALP: normocephalic and atraumatic Eye: COMMON NORMALS: Equal, round and reactive pupils present, EOMs intact bilaterally, conjunctivae normal and no scleral icterus CONJUNCTIVA: Yes conjunctivae normal PUPIL: Yes Equal, round and reactive pupils present Neck/C-Spine: COMMON NORMALS: no meningeal signs and no JVD Resp: COMMON NORMALS: normal respiratory effort, No retractions, No use of accessory muscles, clear to auscultation bilaterally and percussion normal AUSCULTATION: clear to auscultation bilaterally PERCUSSION: percussion normal Cardio: COMMON NORMALS: no JVD, regular rate, regular rhythm, S1 normal heart sound present, S2 normal heart sound present, No gallops present (Cardio), No clicks present (Cardio), No murmurs present (Cardio), No rub (Cardio) and Peripheral pulses 2+ throughout RATE: regular rate RHYTHM: regular rhythm HEART SOUNDS: S1 normal heart sound present and S2 normal heart sound present PERIPHERAL PULSES: Peripheral pulses 2+ throughout GI: COMMON NORMALS: Normal to inspection, nondistended, normoactive bowel sounds present, Soft to palpation, non-tender, No hepatosplenomegaly present, no masses and no bruits PALPATION: Yes Soft to palpation and Yes No hepatosplenomegaly present OTHER: stool for heme not done because she is on iron tablets and will skew her result. Extremity: COMMON NORMALS: normal to inspection, full ROM, capillary refill normal, no calf tenderness and no pedal edema Neuro: COMMON NORMALS: patient oriented x3 SENSORIUM/ORIENTATION: Yes alert MENINGEAL SIGNS: Yes no meningeal signs Skin: COMMON NORMALS: no rashes or lesions noted, no wounds, turgor normal, no jaundice, no petechiae and no mottling GENERAL SKIN EXAM: no rashes or lesions noted, turgor normal and pallor Course Reevaluation(s): Reevaluation #1: Discussed her lab and imaging findings with the patient and her daughter. She has a drop in her hemoglobin. Unable to test her stool for heme positivity. She is on anticoagulation with eliquis for recent diagnosis of a.fib. Her symptoms may be a combination of anemia, which de suhail could be causing her symptoms, or worsening her heart failure. She may be having a slow leak GI bleed. At this point she does not meet admission criteria. Will discharge her home with to follow up with her director public policy and Dr. Posey, who she had seen in the past for a colonoscopy about one year ago. She understands that she is to return. She is to have a repeat hemoglobin to see if her hemoglobin levels continue to drop. She voiced understanding and all questions answered. Time: 23:44 Vital Signs: Vital signs: Vital Signs Temperature 98.0 F 02/21/21 19:08 Pulse Rate 90 02/21/21 23:36 Respiratory Rate 22 H 02/21/21 23:36 Blood Pressure 167/74 02/21/21 23:36 Pulse Oximetry 95 02/21/21 23:36 MDM - SOB/Dyspnea MDM Narrative: Medical decision making narrative: 76 year old female patient with a recent diagnosis of CHF and a.fib. She was also started on eliquis. She presents with continued dyspnea on exertion. In the ED she was anemic, but not requiring blood transfusion. She also does not meet admission criteria. She will follow up with the surgeon for possible colonoscopy, and with her director public policy and PCP. She is to have repeat hemoglobin to see if her hemoglobin continues to drop. She will continue her medications. digoxin is within the therapeutic window. Urine also shows a possible UTI and she is discharged home on antibiotics. She is to return for any concerns. Medical Records: Attestation: I reviewed the patient's medical records. Lab Data: Attestation: I reviewed the patient's lab results. Labs: Lab Results 02/21/21 02/21/21 02/21/21 Range/Units 20:39 20:39 20:39 WBC 3.9 L (4.0-10.0) 10^3/ uL RBC 3.00 L (4.1-5.3) 10^6/u L Hgb 7.8 L (11.5-15.3) g/dL Hct 26.3 L (37.0-47.0) % MCV 87.7 (81-99) fl MCH 26.0 L (28.0-34.0) pg MCHC 29.7 L (30.0-36.0) g/dL RDW 17.2 H (12.1-15.1) % Plt Count 182 (130-400) 10^3/c mm MPV 10.3 (7.4-10.4) fL Neut % (Auto) 57.3 % Lymph % (Auto) 27.2 % Sierra % (Auto) 11.7 % Eos % (Auto) 2.8 % Baso % (Auto) 0.5 % Neut # (Auto) 2.25 (1.8-7.7) 10^3/u L Lymph # (Auto) 1.1 (0.8-4.8) 10^3/u L Sierra # (Auto) 0.5 (0.2-0.9) 10^3/u L Eos # (Auto) 0.1 (0.0-0.8) 10^3/u L Baso # (Auto) 0.0 (0.0-0.1) 10^3/u L Nucleated RBC % (a uto) 0 % Nucleated RBCs # 0.0 /100WBC Sodium 138 (136-145) mmol/L Potassium 4.0 (3.5-5.1) mmol/L Chloride 102 (98-107) mmol/L Carbon Dioxide 23 (22-29) mmol/L Anion Gap 17.0 (5-19) BUN 14 (8-23) mg/dL Creatinine 0.7 (0.5-0.9) mg/dL GFR Calculation Not Reportable Glucose 137 H (65-115) mg/dL Calculated Osmolal ity 289 (285-295) mOsm/k g Calcium 9.0 (8.5-10.5) mg/dL Total Bilirubin 0.4 (0.15-1.2) mg/dL AST 22 (0-32) U/L ALT 10 (0-33) U/L Alkaline Phosphata se 64 (35-105) IU/L Troponin T Baselin e 12 H (0-10) ng/L Troponin T 120 Min [place] (0-10) ng/L Delta Troponin T (0-10) ABS# NT-Pro-B Natriuret Pep 1475 H (0-125) pg/mL Total Protein 6.5 L (6.6-8.7) g/dL Albumin 3.8 (3.5-5.2) g/dL Globulin 2.7 (1.3-4.6) g/dL Urine Color (Yellow) Urine Appearance (CLEAR) Urine pH (5-7) Ur Specific Gravit y (1.005-1.030) Urine Protein (Negative) Urine Glucose (UA) (Normal) Urine Ketones (Negative) Urine Blood (Negative) Urine Nitrate (Negative) Urine Bilirubin (Negative) Urine Urobilinogen (Negative) mg/dL Ur Leukocyte Mary [place] ase (Negative) Urine RBC (0-2) /hpf Urine WBC (0-5) /hpf Ur Squamous Epith Cells (0-5) /hpf Amorphous Sediment Urine Bacteria (NONE) /hpf Hyaline Casts /lpf Digoxin 0.4 L (0.6-1.2) ng/mL 02/21/21 02/21/21 Range/Units 21:40 22:41 WBC (4.0-10.0) 10^3/ uL RBC (4.1-5.3) 10^6/u L Hgb (11.5-15.3) g/dL Hct (37.0-47.0) % MCV (81-99) fl MCH (28.0-34.0) pg MCHC (30.0-36.0) g/dL RDW (12.1-15.1) % Plt Count (130-400) 10^3/c mm MPV (7.4-10.4) fL Neut % (Auto) % Lymph % (Auto) % Sierra % (Auto) % Eos % (Auto) % Baso % (Auto) % Neut # (Auto) (1.8-7.7) 10^3/u L Lymph # (Auto) (0.8-4.8) 10^3/u L Sierra # (Auto) (0.2-0.9) 10^3/u L Eos # (Auto) (0.0-0.8) 10^3/u L Baso # (Auto) (0.0-0.1) 10^3/u L Nucleated RBC % (a uto) % Nucleated RBCs # /100WBC Sodium (136-145) mmol/L Potassium (3.5-5.1) mmol/L Chloride (98-107) mmol/L Carbon Dioxide (22-29) mmol/L Anion Gap (5-19) BUN (8-23) mg/dL Creatinine (0.5-0.9) mg/dL GFR Calculation Glucose (65-115) mg/dL Calculated Osmolal ity (285-295) mOsm/k g Calcium (8.5-10.5) mg/dL Total Bilirubin (0.15-1.2) mg/dL AST (0-32) U/L ALT (0-33) U/L Alkaline Phosphata se (35-105) IU/L Troponin T Baselin e (0-10) ng/L Troponin T 120 Min [place] 11.34 H (0-10) ng/L Delta Troponin T -0.66 L (0-10) ABS# NT-Pro-B Natriuret Pep (0-125) pg/mL Total Protein (6.6-8.7) g/dL Albumin (3.5-5.2) g/dL Globulin (1.3-4.6) g/dL Urine Color Yellow (Yellow) Urine Appearance Clear (CLEAR) Urine pH 5 (5-7) Ur Specific Gravit y 1.020 (1.005-1.030) Urine Protein 1+ H (Negative) Urine Glucose (UA) Norm (Normal) Urine Ketones Negative (Negative) Urine Blood 2+ H (Negative) Urine Nitrate Negative (Negative) Urine Bilirubin Neg (Negative) Urine Urobilinogen Norm (Negative) mg/dL Ur Leukocyte [place] ase 1+ H (Negative) Urine RBC 10-15 H (0-2) /hpf Urine WBC 15-25 H (0-5) /hpf Ur Squamous Epith Cells 0-4 H (0-5) /hpf Amorphous Sediment Not Reportable Urine Bacteria 1+ H (NONE) /hpf Hyaline Casts 0-4 H /lpf Digoxin (0.6-1.2) ng/mL Imaging Data^: CXR: Attestation: I personally reviewed and interpreted this imaging study as follows: Radiologist's impression: [facility] [place], [place] [address]GDva ReportSigned Patient: Deneen Lawson #: [id number]: 1945cct#:[id number]/Sex: 76 / FADM Date: 02/21/21Loc: ERRoom/Bed:Attending Dr: Ordering Provider/Ordering MD: Noemí Messer MD, [facility] [place] Date of Service: 02/21/21 Procedure(s): XR chest 1V portable [id number] Accession Number(s): [id number] Report Number: [id number] PROCEDURE INFORMATION: Exam: XR Chest Exam date and time: 02/21/2021 8:40 PM Age: 76 years old Clinical indication: Dyspnea; Additional info: SOB TECHNIQUE: Imaging protocol: XR of the chest. Views: 1 view. COMPARISON: CR (CHEST, ) 01/31/2021 8:08 PM FINDINGS: Lungs: Fullness in the pulmonary vasculature suggesting volume overload in the lungs. Findings are stable. Pleural spaces: No pleural effusion. No pneumothorax. Heart/Mediastinum: Stable moderate enlargement of the cardiac silhouette. Mediastinal contours are unremarkable. Stable calcification of the mitral valve annulus. Bones/joints: Unremarkable for age. XR/XR chest 1V portable [id number] IMPRESSION: 1. Fullness in the pulmonary vasculature suggesting volume overload in the lungs. Findings are stable. 2. Incidental/nonacute findings are listed in the report. Dictated By:Aleah Menjivar MDSigned By:Aleah Menjivar MDSigned Date/Time:02/21/21 2101DD/ 2100 EKG Data^: EKG 1: Attestation: I personally reviewed and interpreted this EKG as follows: EKG Interpretation Date: 02/21/21 EKG interpretation time: 19:11 Prior EKG tracings: not available for review Interpretation: atrial fibrillation. HR [address] changes. EKG 2: Attestation: I personally reviewed and interpreted this EKG as follows: EKG Interpretation Date: 02/21/21 EKG interpretation time: 21:18 Prior EKG tracings: available for review Interpretation: atrial fibrillation with RVR HR [address] changes NO significant change from earlier Discharge Plan Discharge Patient Disposition: Home Clinical Impression: Acute blood loss anemia CHF (congestive heart failure) Qualifiers: Heart failure type: unspecified Heart failure chronicity: unspecified Qualified Code(s): I50.9 - Heart failure, unspecified UTI (urinary tract infection) Qualifiers: Urinary tract infection type: acute cystitis Hematuria presence: without hematuria Qualified Code(s): N30.00 - Acute cystitis without hematuria Condition: Stable Prescriptions: New Augmentin 500-125 mg tablet 1 tab PO BID Qty: 10 RF: 0 Continued mecobalamin (vitamin B12) 1,000 mcg tablet,chewable 5,000 mcg PO DAILY@08 RF: 0 amlodipine 10 mg tablet 10 mg PO BEDTIME RF: 0 isosorbide mononitrate 30 mg tablet extended release 24 hr 15 mg PO BID Qty: 90 RF: 3 digoxin 125 mcg (0.125 mg) tablet 125 mcg PO DAILY Qty: 30 RF: 6 venlafaxine 75 mg capsule,extended release 24hr 75 mg PO DAILY@08 RF: 0 metformin 1,000 mg tablet 1,000 mg PO BID RF: 0 cholecalciferol (vitamin D3) [Vitamin D3] 5,000 unit Tablet 5,000 unit PO DAILY@08 RF: 0 magnesium oxide 200 mg magnesium tablet 400 mg PO BEDTIME RF: 0 simvastatin 20 mg tablet 20 mg PO BEDTIME RF: 0 albuterol sulfate 90 mcg/actuation HFA aerosol inhaler 1 - 2 puff INHALATION Q4H PRN (Reason: Shortness Of Breath) RF: 0 Levemir FlexTouch U-100 Insuln 100 unit/mL (3 mL) insulin pen 25 unit SUBCUT BID RF: 0 Vitamin C 1 tab PO DAILY RF: 0 clopidogrel 75 mg tablet 75 mg PO DAILY@08 RF: 0 Cardizem CD 120 mg capsule,extended release 24hr 120 mg PO DAILY Qty: 30 RF: 0 No Action furosemide 40 mg tablet 40 mg PO DAILY Qty: 90 RF: 3 metoprolol tartrate 100 mg tablet 100 mg PO BID Qty: 90 RF: 3 potassium chloride 10 mEq tablet extended release 20 meq PO DAILY RF: 0 pantoprazole 40 mg tablet,delayed release (DR/EC) 40 mg PO BID Qty: 60 RF: 0 Discharge Orders: Discharge ED (Routine); Ordered 02/21/21 Ordered By: Noemí Messer Referrals: Nestor Krueger MD [Primary Care Provider] - 1-3 days Discharge Diet: Usual diet Discharge Activity: Increase activity as tolerated Patient Instructions: Urinary Tract Infection in Women (ED), Anemia (ED) Activity Restrictions/Additional Instructions: Return for any new or worsening symptoms. Follow-up with Dr. Krueger within 3 days. Follow-up with Dr. Posey within a week for a colonoscopy to see if you can identify the source of the blood loss. He needs to have your hemoglobin rechecked shortly to see if your blood levels are dropping further and if you may benefit from an iron infusion. Take the antibiotic as prescribed. Coding Level of Care Code ED Teacher Adult Education for Chg Fwd Exam Comprehensive
[2021-02-21 23:15] LABS: Troponin 5 2HR 11.34 ng/L (0-10)
[2021-02-21 23:19] LABS: Troponin 5 2HR Delta -0.66 ABS# (0-10)
[2021-02-21 23:36] VITALS: BP 167/74; PULSE 90; RESP 22; O2SAT 95
== END 2021-02-22 00:03 | disposition home or self-care (01) ==
PROVIDERS: Emergency Provider Family Medicine; PCP Family Medicine
DX: D62 Acute posthemorrhagic anemia (principal); N30.00 Acute cystitis without hematuria; I11.0 Hypertensive heart disease with heart failure; I50.9 Heart failure, unspecified; Z79.02 Long term (current) use of antithrombotics/antiplatelets; Z79.4 Long term (current) use of insulin; Z85.3 Personal history of malignant neoplasm of breast; J44.9 Chronic obstructive pulmonary disease, unspecified; I25.10 Atherosclerotic heart disease of native coronary artery without angina pectoris; E11.9 Type 2 diabetes mellitus without complications; E78.5 Hyperlipidemia, unspecified; Z87.891 Personal history of nicotine dependence
CPT/HCPCS: 71045; 80053; 80162; 81001; 83880; 84484; 85025; 93005; 96365; 99284; J0696

== ENCOUNTER 2021-02-23 13:29 | Outpatient (CLI) | payer MEDICARE, SELFPAY ==
[2021-02-23 14:45] LABS: Iron 33 ug/dL (37-145); Percent Saturation 9.6 % (20-50); Total Iron Binding Capacity 343 mcg/dl; Unsaturated Iron Binding 310 ug/dL (112-347)
[2021-02-23 15:02] LABS: Vitamin B12 1009 pg/mL (232-1245)
--- NOTE | 2021-02-27 11:26 | ONC FU_ITS ---
Dr. Adame Patient Follow-Up Note Patient: Deneen Lawson Unit #: [id number]: [id number] Dicatated By: Jc Adame M.D.Date of Visit:Feb 23, 2021 Onc Med Follow-up/Prog Note Chief Complaint: Breast cancer. 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 Her screening mammogram on 04/06/2020 was abnormal, reported to be BI-RADS 0, with findings of some distortion in the anterior right breast at 12:00 related to prior surgery. Posterior to the distortion was a high density, slightly spiculated nodule measuring 10 x 12 mm. Her diagnostic mammogram and ultrasound of the right breast on 04/29/2020 was BI-RADS 4, suspicious. The mammogram reported a 1.3 cm density in the central portion of the right breast with an irregular margin and with small associated calcifications. Ultrasound showed an irregular lesion in the 12 o'clock position of the right breast 1 cm superior to the areola. There was noted to be shadowing posterior to the lesion measuring 1.05 x 1.15 x 1.2 cm. A biopsy clip was noted in the same region as the lesion. Ultrasound directed biopsy of the right breast lesion on 05/13/2020 showed grade 2 infiltrating ductal carcinoma. 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 The breast prognostic profile showed ER positive at 99% and PA positive at 95%. HER-2/emre was negative, 1+ by IHC and amplification ratio by FISH of 1.1 with 1.6 HER-2 copies/cell. The Ki-67 was favorable at 5%. On 06/11/2020 she underwent right breast lumpectomy with axillary sentinel lymph node biopsy. Pathology on the lumpectomy showed grade 2 invasive ductal carcinoma measuring 1.5 cm in greatest dimension. The margins were uninvolved. The closest was the posterior margin which measured 6 mm. There was no involvement in 1 axillary sentinel lymph node. Pathologic staging was pT1c, pN0. I had seen her initially on 07/02/2020. With hormone receptor positive disease and in the context of her underlying medical illnesses, I felt that she would not be appropriate for adjuvant chemotherapy. As such, I did not recommend an Oncotype DX. She did see Dr. Carver for radiation oncology consultation, and she did opt to undergo adjuvant radiation. She completed treatment on 08/21/2020 to a total dose of 4000 cGy administered in 15 fractions. In August 2020 she began adjuvant hormonal therapy with anastrozole 1 mg daily. Her medical history is otherwise significant for having had a previous right breast biopsy for benign disease back in 2001. Her other medical illnesses include hypertension, hyperlipidemia, type 2 diabetes, peripheral arterial disease, carotid stenosis, and coronary artery disease. The latter includes involvement of the left main coronary artery which has not been amenable to stenting. She has a history of smoking 1 to 1-1/2 packs of cigarettes daily for 28 years. She quit smoking in 2017. INTERIM HISTORY: On 02/01/2021 she was admitted to the hospital with atrial fibrillation. She was mildly anemic, hemoglobin 10.0 g. She began on anticoagulation with apixaban and she also was started on metoprolol and Cardizem. On 02/21/2021 she was seen in the emergency room with increasing shortness of breath. She was determined to be in congestive heart failure, but she also had become more significantly anemic, with her hemoglobin decreased to 7.8 g. Her serum iron studies show low transferrin saturation 9.6%, consistent with iron deficiency. Her stool IFOB was positive. She is seen for a follow-up visit. She complains that her energy is very low. She has very limited activity. ECOG score is 3. Appetite has just been fair. She has not had fever. She has been having some hot flashes. She has not had sore mouth or throat and she does not complain of cough. She continues to have shortness of breath and she has having some pressure in her chest. She has no GI complaints. She currently is on antibiotic therapy for urinary tract infection. She reports having some stiffness in her joints and some joint pain. She does not complain of headache. She is lightheaded if she gets up to quickly. She has numbness on the bottoms of her feet. Medications: amLODIPine Besylate 1 Tablet (of 10 mg) Oral daily, Anastrozole 1 Tablet (of 1 mg) Oral daily, Ascorbic Acid 1 Tablet (of 100 mg) Oral daily, Cardizem CD 1 Tablet (of 120 mg) Capsule SR 24 HR Oral daily, Clopidogrel Bisulfate 1 Tablet (of 75 mg) Oral daily, Digoxin 1 Tablet (of 125 mcg) Oral daily, Ferrous Sulfate 1 Tablet (of 325 (65 fe) mg) Oral daily, Furosemide 1 Tablet (of 20 mg) Oral daily PRN, Isosorbide Mononitrate ER 0.5 Tablet (of 30 mg) Tablet SR 24 HR Oral b.i.d., Levemir 25 Unit(s) (of 100 Units/mL) Subcutaneous b.i.d., Magnesium Oxide 1 Tablet (of 400 mg) Oral at bedtime, metFORMIN HCl 1 Tablet (of 1000 mg) Oral b.i.d., Metoprolol Tartrate 1 Tablet (of 100 mg) Oral b.i.d., Pantoprazole Sodium 1 Tablet (of 40 mg) Tablet, enteric coated Oral b.i.d., Simvastatin 1 Tablet (of 20 mg) Oral at bedtime, Venlafaxine HCl ER 1 Tablet (of 75 mg) Tablet SR 24 HR Oral daily, Vitamin B12 1 Tablet Oral daily, Vitamin D 1 Capsule Oral daily Allergies: traZODone HCl Vital Signs: Weight is 179 pounds. Blood pressure 149/61, pulse 67, respirations 20, temp 98.7 degrees, and oxygen saturation 98%. Physical Examination: Constitutional - She looks pretty good generally, Eyes - Sclerae nonicteric. Conjunctivae clear, ENMT - No lesions noted in the oral cavity, Hematologic/Lymphatic - No cervical, clavicular, or axillary adenopathy, Respiratory - Lungs are clear with good air movement bilaterally, Cardiovascular - Heart rhythm is irregular. There is a II/ systolic murmur. There is no gallop or rub noted, Abdomen - Soft. Liver and spleen are not enlarged. There is no abdominal mass or ascites noted and there is no inguinal adenopathy, Extremities - Mild lower extremity edema with induration, Neurologic - No focal neurologic deficits noted. Problem List: 1. Grade 2 invasive ductal carcinoma of the right breast, stage IA (pT1c, pN0, M0), ER/PA positive and HER-2/emre negative. 2. Iron deficiency anemia with evidence of GI blood loss. 3. Recent onset of atrial fibrillation and congestive heart failure. 4. Hypertension. 5. Hyperlipidemia. 6. Type 2 diabetes. 7. Carotid stenosis. 8. Peripheral arterial disease. 9. Coronary artery disease. 10. GERD. 11. Degenerative arthritis/degenerative disease of the spine. 12. B12 deficiency. 13. Anxiety/depression. Problems Addressed with this Encounter and Plan: 1. Patient with grade 2 invasive ductal carcinoma of the right breast, stage IA (pT1c, pN0, M0), ER/PA positive and HER-2/emre negative. She underwent ultrasound directed core needle biopsy of the right breast on 05/13/2020, and she underwent right breast lumpectomy with axillary sentinel lymph node biopsy on 06/11/2020. She was given adjuvant radiation to the right breast, completed on 08/21/2020 to a total dose of 4000 cGy administered in 15 fractions. She has had some mild fatigue following the radiation and she also has developed some mild lymphedema in the right arm. Overall, though, she tolerated the treatment well. In August 2020 she began adjuvant hormonal therapy with anastrozole 1 mg daily. She initially tolerated it well, but she recently presented with new onset of atrial fibrillation and subsequent development of congestive heart failure. It is uncertain to what extent anastrozole may be contributing. As a precaution, she is recommended to stop taking it, at least for now. 2. She has iron deficiency anemia which appears to be due to GI blood loss. This is likely a contributing factor with her congestive heart failure. The underlying cause is uncertain, but she is scheduled to see Dr. Posey for GI evaluation. In the meantime, she will be scheduled for repeat CBC tomorrow and she will be transfused 1 unit PRBC as indicated. She start oral iron supplementation, and she will remain off apixaban. If she does not respond to the oral iron or if she is not able to tolerate it, she will be given the option to have parenteral iron replacement. Signed By: Jc Adame M.D. <<Signature on File>>
== END 2021-02-23 13:30 | disposition home or self-care (01) ==
LOC: ONCMED 13:32
PROVIDERS: PCP Family Medicine; Visit Provider Internal Medicine Medical Oncology
DX: C50.811 Malignant neoplasm of overlapping sites of right female breast (principal); Z17.0 Estrogen receptor positive status [ER+]; D50.9 Iron deficiency anemia, unspecified; Z79.899 Other long term (current) drug therapy
CPT/HCPCS: 82607; 83540; 83550; 99215

== ENCOUNTER 2021-02-24 08:36 | Outpatient (CLI) | payer MEDICARE, SELFPAY ==
[2021-02-24 10:04] LABS: Basophils % 1.1 %; Eosinophils # 0.1 10^3/uL (0.0-0.8); Eosinophils % 3.8 %; Hematocrit 26.4 % (37.0-47.0); Lymphocytes # 0.8 10^3/uL (0.8-4.8); Lymphocytes % 20.8 %; Mean Corpuscular HGB Conc 30.3 g/dL (30.0-36.0); Mean Corpuscular Hemoglobin 27.1 pg (28.0-34.0); Mean Corpuscular Volume 89.5 fl (81-99); Mean Platelet Volume 10.6 fL (7.4-10.4); Monocytes # 0.5 10^3/uL (0.2-0.9); Monocytes % 13.5 %; Neutrophils # 2.25 10^3/uL (1.8-7.7); Neutrophils % 60.5 %; Nucleated Red Blood Cells % 0 %; Platelet Count 188 10^3/cmm (130-400); Red Blood Count 2.95 10^6/uL (4.1-5.3); Red Cell Distribution Width 17.8 % (12.1-15.1); White Blood Count 3.7 10^3/uL (4.0-10.0)
[2021-02-24 10:22] LABS: Anion Gap 13.9 (5-19); Blood Urea Nitrogen 9 mg/dL (8-23); Calcium 8.4 mg/dL (8.5-10.5); Carbon Dioxide 25 mmol/L (22-29); Chloride 103 mmol/L (98-107); Glucose 196 mg/dL (65-115); Magnesium 1.6 mg/dL (1.7-2.3); Osmolality Calculated 290 mOsm/kg (285-295); Potassium 3.9 mmol/L (3.5-5.1); Sodium 138 mmol/L (136-145)
[2021-02-24 13:00] VITALS: BP 128/72; PULSE 72; RESP 18; TEMP 36.8; O2SAT 98
[2021-02-24] MEDS: sodium chloride 0.9% 250 ML 999 ML IV (13:00)
[2021-02-24] MEDS: acetaminophen 325 mg Tablet 650 MG PO (13:00)
[2021-02-24 13:15] VITALS: BP 142/76; PULSE 74; RESP 18; TEMP 36.8; O2SAT 98
[2021-02-24 13:30] VITALS: BP 141/78; PULSE 76; RESP 18; TEMP 36.8; O2SAT 98
[2021-02-24 14:00] VITALS: BP 148/72; PULSE 74; RESP 18; TEMP 36.8; O2SAT 99
[2021-02-24 15:00] VITALS: BP 154/72; PULSE 78; RESP 18; O2SAT 98
[2021-02-24] MEDS: FUROsemide 10 mg/mL SDV 2mL 20 MG IV (15:00)
[2021-02-24 16:30] VITALS: BP 154/72; PULSE 72; RESP 18; TEMP 36.9
== END 2021-02-24 08:37 | disposition home or self-care (01) ==
PROVIDERS: PCP Family Medicine; Visit Provider Internal Medicine Medical Oncology
DX: C50.811 Malignant neoplasm of overlapping sites of right female breast (principal); Z17.0 Estrogen receptor positive status [ER+]
CPT/HCPCS: 36415; 36430; 80048; 82274; 83735; 85025; 86850; 86900; 86920; J1940; J7050; P9016

== ENCOUNTER 2021-02-26 06:06 | Outpatient (CLI) | payer MEDICARE, SELFPAY ==
[2021-02-26 10:14] LABS: Basophils % 0.8 %; Eosinophils # 0.1 10^3/uL (0.0-0.8); Eosinophils % 2.4 %; Hematocrit 32.3 % (37.0-47.0); Hemoglobin 9.7 g/dL (11.5-15.3); Lymphocytes # 0.8 10^3/uL (0.8-4.8); Lymphocytes % 15.4 %; Mean Corpuscular Hemoglobin 26.6 pg (28.0-34.0); Mean Corpuscular Volume 88.7 fl (81-99); Monocytes # 0.5 10^3/uL (0.2-0.9); Monocytes % 10.2 %; Neutrophils # 3.53 10^3/uL (1.8-7.7); Neutrophils % 70.8 %; Nucleated Red Blood Cells % 0 %; Platelet Count 205 10^3/cmm (130-400); Red Blood Count 3.64 10^6/uL (4.1-5.3); Red Cell Distribution Width 17.2 % (12.1-15.1)
== END 2021-02-26 06:07 | disposition home or self-care (01) ==
LOC: ONCMED 06:07
PROVIDERS: PCP Family Medicine; Visit Provider Internal Medicine Medical Oncology
DX: C50.811 Malignant neoplasm of overlapping sites of right female breast (principal); Z17.0 Estrogen receptor positive status [ER+]; Z79.899 Other long term (current) drug therapy
CPT/HCPCS: 36415; 85025

== ENCOUNTER 2021-03-02 06:05 | Outpatient (CLI) | payer MEDICARE, SELFPAY ==
[2021-03-02 10:07] LABS: Basophils % 0.8 %; Eosinophils # 0.2 10^3/uL (0.0-0.8); Eosinophils % 3.7 %; Hematocrit 33.9 % (37.0-47.0); Hemoglobin 10.5 g/dL (11.5-15.3); Lymphocytes % 20.4 %; Mean Corpuscular Hemoglobin 27.1 pg (28.0-34.0); Mean Corpuscular Volume 87.4 fl (81-99); Mean Platelet Volume 10.8 fL (7.4-10.4); Monocytes # 0.5 10^3/uL (0.2-0.9); Monocytes % 10.5 %; Neutrophils # 3.12 10^3/uL (1.8-7.7); Neutrophils % 64.2 %; Nucleated Red Blood Cells % 0 %; Platelet Count 223 10^3/cmm (130-400); Red Blood Count 3.88 10^6/uL (4.1-5.3); White Blood Count 4.9 10^3/uL (4.0-10.0)
[2021-03-02 10:46] LABS: Alanine Aminotransferase 14 U/L (0-33); Albumin Level 3.9 g/dL (3.5-5.2); Alkaline Phosphatase 68 IU/L (35-105); Anion Gap 17.4 (5-19); Aspartate Amino Transferase 28 U/L (0-32); Blood Urea Nitrogen 14 mg/dL (8-23); Calcium 9.6 mg/dL (8.5-10.5); Carbon Dioxide 23 mmol/L (22-29); Chloride 100 mmol/L (98-107); Globulin 3.3 g/dL (1.3-4.6); Glucose 116 mg/dL (65-115); Magnesium 1.6 mg/dL (1.7-2.3); Osmolality Calculated 283 mOsm/kg (285-295); Potassium 4.4 mmol/L (3.5-5.1); Sodium 136 mmol/L (136-145); Total Bilirubin 0.4 mg/dL (0.15-1.2); Total Protein 7.2 g/dL (6.6-8.7)
== END 2021-03-02 06:06 | disposition home or self-care (01) ==
PROVIDERS: Internal Medicine Hematology & Oncology; PCP Family Medicine; Visit Provider Internal Medicine Medical Oncology
DX: D50.9 Iron deficiency anemia, unspecified (principal); C50.911 Malignant neoplasm of unspecified site of right female breast; Z17.0 Estrogen receptor positive status [ER+]
CPT/HCPCS: 36415; 80053; 83735; 85025

== ENCOUNTER → 2021-03-05 15:38 | Outpatient (BNVA) | payer MEDICARE, SELFPAY | PROVIDERS: PCP Family Medicine; Visit Provider Surgery | DX: Z20.822 Contact with and (suspected) exposure to COVID-19 (principal) | CPT/HCPCS: 87635 ==

== ENCOUNTER 2021-03-11 09:52 | Day surgery (SDC) | payer MEDICARE, SELFPAY ==
[2021-03-08 14:52] VITALS: BMI 29.5
[2021-03-11 10:43] VITALS: BP 163/84; PULSE 74; RESP 18; TEMP 36.4; O2SAT 98
[2021-03-11] MEDS: sodium chloride 0.9% 1,000 ML 30 ML IV (11:01)
[2021-03-11 11:02] LABS: Glucose Point of Care 104 mg/dL (70-110)
--- NOTE | 2021-03-11 11:05 | ANES.PREANE2 ---
Pre-Anesthetic Assessment Pre-Anesthetic Assessment: Height/Weight: Height 1.63 m Weight 78.018 kg Temp Pulse Resp BP Pulse Ox 97.6 F 74 18 163/84 98 03/11/21 10:43 03/11/21 10:43 03/11/21 10:43 03/11/21 10:43 03/11/21 10:43 Preop Diagnosis: panendoscopy Proposed Procedure: Operation Date: 03/11/21 11:00 Proposed Procedures p EGD/colon [id number] D50.9(Not Applicable) - Demond Posey MD s Colonoscopy(Not Applicable) - Demond Posey MD Was Beta Jim taken within 24 hours: N/A Was Clonidine taken within 24 hours: N/A Last intake: Intake Last Liquid Date 03/10/21 Last Liquid Time 22:30 Last Solid Date 03/09/21 Last Solid Time 18:00 Social: Social History: No alcohol and No tobacco Exam: Pre-Anes Outpt Exam: alert, oriented x 3 and clear to auscultation bilaterally Airway: Submandibular: WNL Cervical ROM: WNL MP: 2 Dentition: False CV/HEM: CV/HEM: Afib, CAD, CHF (Diastolic dysfxn, EF 55%), HTN and PVD GI: GI: GERD Metabolic: Metabolic: DM and Hyperlipidemia Anesthetic Plan: ASA status: 3 Anesthesia: MAC Risk of > 500 ml blood loss (7ml/kg in children): No Meds/Allergies Current Medications: Current Medications Generic Name Dose Route Start Last Admin Trade Name Freq PRN Reason Stop Dose Admin Sodium Chloride 1,000 mls @ 30 ml s/hr 03/11/21 10:00 03/11/21 11:01 Sodium Chloride 0.9% IV 03/12/21 09:59 30 mls/hr .Q24H LOUISA Administration PFSH Anesthesia PFSH: Medical History (Updated 03/03/21 @ 19:36 by Rika Muro MD) Breast cancer Carotid stenosis COPD (chronic obstructive pulmonary disease) Coronary artery disease Diabetes Hyperlipidemia Hypertension PVD (peripheral vascular disease) Surgical History (Updated 03/03/21 @ 19:34 by Rika Muro MD) H/O carotid endarterectomy History of cardiac cath History of cholecystectomy History of lumpectomy of right breast Status post colonoscopy 07/16/2019: Severe diverticulosis sigmoid colon 5 mm sessile polyps x2 sigmoid colon - F/u in 2024 Family History Grandmother Hypertension Mother Hypertension Grandmother Diabetes Family/Other Diabetes Other Breast cancer Colon cancer Denies family history of Anesthesia complication Bleeding disorder Social History Quit status (tobacco): has quit using tobacco Second hand smoke exposure: No Smoking risk assessment/counseling performed?: No Alcohol intake: never Household members: spouse Marital status: Current occupational status: retired History of recent travel: No Data Anesthesia Other Labs: Laboratory Results - last 48 hr 03/11/21 10:57 POC Glucose 104 Cardiac Studies: Echocardiogram 02/01/21
--- NOTE | 2021-03-11 11:22 | P.HP_ITS ---
Same Day Surgery H&P Indication for Procedure/HPI DATE OF PROCEDURE: March 11, 2021 CHIEF COMPLAINT/INDICATIONFOR SURGICAL PROCEDURE: egd/colonoscopy PREOP DIAGNOSIS: panendoscopy PLANNED PROCEDRUE: Operation Date: 03/11/21 11:00 Proposed Procedures p EGD/colon [id number] D50.9(Not Applicable) - Demond Posey MD s Colonoscopy(Not Applicable) - Demond Posey MD Medications/Allergies* Home Medications Medication Instructions Recorded Confirmed Type cholecalciferol (vitamin D3) 5,000 unit PO DAILY@07/15/19 03/08/21 History [Vitamin D3] metformin 1,000 mg PO BID 07/15/19 03/08/21 History venlafaxine 75 mg PO DAILY@07/15/19 03/08/21 History magnesium oxide 400 mg PO BEDTIME tab 02/26/20 03/08/21 History mecobalamin (vitamin B12) 1,000 5,000 mcg PO DAILY@02/26/20 03/08/21 History mcg chewable tablet amlodipine 10 mg tablet 10 mg PO BEDTIME tab 01/13/21 03/08/21 History Levemir FlexTouch U-100 Insuln 25 unit SUBCUT BID 02/01/21 03/08/21 History Vitamin C 1 tab PO DAILY 02/01/21 03/08/21 History albuterol sulfate 1 - 2 puff INHALATION Q4H PRN 02/01/21 03/08/21 History clopidogrel 75 mg PO DAILY@08 02/01/21 03/08/21 History simvastatin 20 mg PO BEDTIME 02/01/21 03/08/21 History Allergies/Adverse Reactions Allergy/AdvReac Type Severity Reaction Status Date / Time trazodone Allergy ADR-Shakine Verified 02/23/21 14:40 ss Current Medications: Generic Name Dose Route Start Last Admin Trade Name Freq PRN Reason Stop Dose Admin Sodium Chloride 1,000 mls @ 30 mls/hr 03/11/21 10:00 03/11/21 11:01 Sodium Chloride 0.9% IV 03/12/21 09:59 30 mls/hr .Q24H LOUISA Administration Pertinent History/Comorbid Conditions* Medical History (Updated 03/03/21 @ 19:36 by Rika Muro MD) Breast cancer Carotid stenosis COPD (chronic obstructive pulmonary disease) Coronary artery disease Diabetes Hyperlipidemia Hypertension PVD (peripheral vascular disease) Surgical History (Updated 03/03/21 @ 19:34 by Rika Muro MD) H/O carotid endarterectomy History of cardiac cath History of cholecystectomy History of lumpectomy of right breast Status post colonoscopy 07/16/2019: Severe diverticulosis sigmoid colon 5 mm sessile polyps x2 sigmoid colon - F/u in 2024 Family History (Updated 07/30/19 @ 15:21 by Indigo Goldsmith LPN) Colon cancer Diabetes Grandmother Family/Other Breast cancer Hypertension Grandmother Mother Denies family history of Anesthesia complication Bleeding disorder Social History Quit status (tobacco): has quit using tobacco Second hand smoke exposure: No Smoking risk assessment/counseling performed?: No Alcohol intake: never Household members: spouse Marital status: Current occupational status: retired History of recent travel: No Pertinent Exam Findings alert, oriented x 3 and regular rate & rhythm Recommendations Surgery/Procedure today Coding Level of Care Code Acute Pharmacy Technician Inpatient for Edinson Oliveros
[2021-03-11 11:51] VITALS: BP 131/63; PULSE 70; RESP 16; TEMP 36.3; O2SAT 98
[2021-03-11 12:25] VITALS: BP 179/71; PULSE 67; RESP 16; O2SAT 98
--- NOTE | 2021-03-11 13:47 | PC.NURSE ---
Stonework Supervisor called [facility] and spoke with Dr Jina Mondragon's nurse. Dr Posey had advised the patient to restart Eliquis after procedure but stressed the importance of including Dr Adame and Dr Muro to make a global decision on how to proceed with blood thinner due to the findings of the scope. Alanna stated she would update Dr Muro and then they would update the patient/family on how to proceed. Pt is to see Dr Adame within 2 weeks and was also encouraged to update PCP Dr Krueger with findings and any changes made to meds thus forward. MADISYN Rashid
--- NOTE | 2021-03-11 13:59 | ANE.PACU2 ---
Inpatient post-anesthesia follow up: Airway intact: Yes Vital signs: Temperature 97.4 F Pulse Rate 67 Respiratory Rate 16 Blood Pressure 179/71 Pulse Oximetry 98 Oxygen Delivery Me thod Room Air Oxygen Flow Rate Fraction of Inspir ed Oxygen Hydration adequate: Yes Nausea and vomiting: No Pain level: 1 Mental status: Baseline
== END 2021-03-11 12:48 | disposition home or self-care (01) ==
PROVIDERS: PCP Family Medicine; Visit Provider Surgery
PROC: 0DJ08ZZ Inspection of Upper Intestinal Tract, Via Natural or Artificial Opening Endoscopic (ICD-10-PCS; CPT 43235; principal; 2021-03-11 11:00)
PROC: 0DJD8ZZ Inspection of Lower Intestinal Tract, Via Natural or Artificial Opening Endoscopic (ICD-10-PCS; CPT 45378; 2021-03-11 11:00)
DX: D50.9 Iron deficiency anemia, unspecified (principal); K57.30 Diverticulosis of large intestine without perforation or abscess without bleeding; K64.8 Other hemorrhoids; K25.9 Gastric ulcer, unspecified as acute or chronic, without hemorrhage or perforation; I48.91 Unspecified atrial fibrillation; I25.10 Atherosclerotic heart disease of native coronary artery without angina pectoris; I11.0 Hypertensive heart disease with heart failure; I50.9 Heart failure, unspecified; E11.9 Type 2 diabetes mellitus without complications; E78.5 Hyperlipidemia, unspecified; K21.9 Gastro-esophageal reflux disease without esophagitis; Z85.3 Personal history of malignant neoplasm of breast; J44.9 Chronic obstructive pulmonary disease, unspecified; Z87.891 Personal history of nicotine dependence
CPT/HCPCS: 36416; 43239; 45378; 82962; 88305; 96360; 96361; J2704; J7030

== ENCOUNTER 2021-03-30 13:03 | Outpatient (CLI) | payer MEDICARE, SELFPAY ==
[2021-03-30 14:02] LABS: Basophils % 0.6 %; Eosinophils # 0.2 10^3/uL (0.0-0.8); Eosinophils % 2.4 %; Hematocrit 35.9 % (37.0-47.0); Hemoglobin 11.2 g/dL (11.5-15.3); Lymphocytes # 1.4 10^3/uL (0.8-4.8); Lymphocytes % 20.6 %; Mean Corpuscular HGB Conc 31.2 g/dL (30.0-36.0); Mean Corpuscular Volume 83.3 fl (81-99); Mean Platelet Volume 10.9 fL (7.4-10.4); Monocytes # 0.6 10^3/uL (0.2-0.9); Monocytes % 9.3 %; Neutrophils # 4.38 10^3/uL (1.8-7.7); Neutrophils % 66.8 %; Nucleated Red Blood Cells % 0 %; Platelet Count 232 10^3/cmm (130-400); Red Blood Count 4.31 10^6/uL (4.1-5.3); White Blood Count 6.6 10^3/uL (4.0-10.0)
[2021-03-30 14:34] LABS: Alanine Aminotransferase 15 U/L (0-33); Albumin Level 3.9 g/dL (3.5-5.2); Alkaline Phosphatase 65 IU/L (35-105); Anion Gap 14.9 (5-19); Aspartate Amino Transferase 27 U/L (0-32); Blood Urea Nitrogen 14 mg/dL (8-23); Calcium 9.3 mg/dL (8.5-10.5); Carbon Dioxide 24 mmol/L (22-29); Chloride 101 mmol/L (98-107); Glucose 115 mg/dL (65-115); Iron 54 ug/dL (37-145); Osmolality Calculated 283 mOsm/kg (285-295); Percent Saturation 15.2 % (20-50); Potassium 3.9 mmol/L (3.5-5.1); Sodium 136 mmol/L (136-145); Total Bilirubin 0.3 mg/dL (0.15-1.2); Total Iron Binding Capacity 354 mcg/dl; Total Protein 6.9 g/dL (6.6-8.7); Unsaturated Iron Binding 300 ug/dL (112-347)
--- NOTE | 2021-03-31 06:25 | ONC FU_ITS ---
Dr. Adame Patient Follow-Up Note Patient: Deneen Lawson Unit #: [id number]: [id number] Dicatated By: Jc Adame M.D.Date of Visit:Mar 30, 2021 Onc Med Follow-up/Prog Note Chief Complaint: Breast cancer. 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 Her screening mammogram on 04/06/2020 was abnormal, reported to be BI-RADS 0, with findings of some distortion in the anterior right breast at 12:00 related to prior surgery. Posterior to the distortion was a high density, slightly spiculated nodule measuring 10 x 12 mm. Her diagnostic mammogram and ultrasound of the right breast on 04/29/2020 was BI-RADS 4, suspicious. The mammogram reported a 1.3 cm density in the central portion of the right breast with an irregular margin and with small associated calcifications. Ultrasound showed an irregular lesion in the 12 o'clock position of the right breast 1 cm superior to the areola. There was noted to be shadowing posterior to the lesion measuring 1.05 x 1.15 x 1.2 cm. A biopsy clip was noted in the same region as the lesion. Ultrasound directed biopsy of the right breast lesion on 05/13/2020 showed grade 2 infiltrating ductal carcinoma. 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 The breast prognostic profile showed ER positive at 99% and PA positive at 95%. HER-2/emre was negative, 1+ by IHC and amplification ratio by FISH of 1.1 with 1.6 HER-2 copies/cell. The Ki-67 was favorable at 5%. On 06/11/2020 she underwent right breast lumpectomy with axillary sentinel lymph node biopsy. Pathology on the lumpectomy showed grade 2 invasive ductal carcinoma measuring 1.5 cm in greatest dimension. The margins were uninvolved. The closest was the posterior margin which measured 6 mm. There was no involvement in 1 axillary sentinel lymph node. Pathologic staging was pT1c, pN0. I had seen her initially on 07/02/2020. With hormone receptor positive disease and in the context of her underlying medical illnesses, I felt that she would not be appropriate for adjuvant chemotherapy. As such, I did not recommend an Oncotype DX. She did see Dr. Carver for radiation oncology consultation, and she did opt to undergo adjuvant radiation. She completed treatment on 08/21/2020 to a total dose of 4000 cGy administered in 15 fractions. In August 2020 she began adjuvant hormonal therapy with anastrozole 1 mg daily. Her medical history is otherwise significant for having had a previous right breast biopsy for benign disease back in 2001. Her other medical illnesses include hypertension, hyperlipidemia, type 2 diabetes, peripheral arterial disease, carotid stenosis, and coronary artery disease. The latter includes involvement of the left main coronary artery which has not been amenable to stenting. She has a history of smoking 1 to 1-1/2 packs of cigarettes daily for 28 years. She quit smoking in 2017. INTERIM HISTORY: On 02/01/2021 she was admitted to the hospital with atrial fibrillation. She was mildly anemic, hemoglobin 10.0 g. She began on anticoagulation with apixaban and she also was started on metoprolol and Cardizem. On 02/21/2021 she was seen in the emergency room with increasing shortness of breath. She was determined to be in congestive heart failure, but she also had become more significantly anemic, with her hemoglobin decreased to 7.8 g. Her serum iron studies show low transferrin saturation 9.6%, consistent with iron deficiency. Her stool IFOB was positive. I had seen her for a follow-up visit 02/23/2021. At that point I did recommend that she stop the anastrozole and I also recommended that she remain off apixaban. Her repeat CBC the following day showed further decrease in hemoglobin to 8.0 g, and at that point she was given 1 unit PRBC. She continued her oral iron supplement. Her EGD on 03/11/2021 showed multiple gastric erosions in the antrum. Colonoscopy was unrevealing. Gastric biopsies showed chronic inactive gastritis. The H pylori stain was negative. She is seen for a follow-up visit. She has remained off the apixaban, and she has continued her oral iron supplement twice daily. She has been feeling better gradually. She is still weak, but she has been able to gradually increase her activity. ECOG score is 2. Her appetite has been okay. She is watching her salt intake more carefully now. She has not had fever or night sweats. She complains that she feels cold. She has not had sore mouth or throat. Her breathing has been getting better, and she says it is pretty good now. She does not complain of cough and she has not been having chest pain. She has no GI or complaints. She has pain in her back and legs. She has had some headaches, and she has a little bit of dizziness. She has numbness on the bottoms of both feet. Medications: amLODIPine Besylate 1 Tablet (of 10 mg) Oral daily, Anastrozole 1 Tablet (of 1 mg) Oral daily, Ascorbic Acid 1 Tablet (of 100 mg) Oral daily, Cardizem CD 1 Tablet (of 120 mg) Capsule SR 24 HR Oral daily, Clopidogrel Bisulfate 1 Tablet (of 75 mg) Oral daily, Digoxin 1 Tablet (of 125 mcg) Oral daily, Ferrous Sulfate 1 Tablet (of 325 (65 fe) mg) Oral daily, Furosemide 1 Tablet (of 20 mg) Oral daily PRN, Isosorbide Mononitrate ER 0.5 Tablet (of 30 mg) Tablet SR 24 HR Oral b.i.d., Levemir 25 Unit(s) (of 100 Units/mL) Subcutaneous b.i.d., Magnesium Oxide 1 Tablet (of 400 mg) Oral at bedtime, metFORMIN HCl 1 Tablet (of 1000 mg) Oral b.i.d., Metoprolol Tartrate 1 Tablet (of 100 mg) Oral b.i.d., Pantoprazole Sodium 1 Tablet (of 40 mg) Tablet, enteric coated Oral b.i.d., Simvastatin 1 Tablet (of 20 mg) Oral at bedtime, Venlafaxine HCl ER 1 Tablet (of 75 mg) Tablet SR 24 HR Oral daily, Vitamin B12 1 Tablet Oral daily, Vitamin D 1 Capsule Oral daily Allergies: traZODone HCl Vital Signs: Performed on Mar 30, 2021 14:22 Height - 64.00 in Weight - 170.6 lbs (LOW) BSA - 1.83 sq.m BMI - 29.28 Temperature - 97.8 F (LOW) Pulse - 60 /min Respiration - 18 /min BP - 156/62 mm(hg) (HIGH) O2 Sat - 99 % Pain - 0 Fatigue - 4 Physical Examination: Constitutional - She appears somewhat frail generally, but not acutely ill, Eyes - Sclerae nonicteric. Conjunctivae clear, ENMT - No lesions noted in the oral cavity, Hematologic/Lymphatic - No cervical, clavicular, or axillary adenopathy, Respiratory - Lungs sound clear, Cardiovascular - Heart rhythm is irregular. The rate is controlled. There is a II/ systolic murmur. There is no gallop or rub noted, Abdomen - Soft. Liver and spleen are not enlarged. There is no abdominal mass or ascites noted and there is no inguinal adenopathy, Extremities - Mild lower extremity edema with induration, Neurologic - No focal neurologic deficits noted. Lab/Imaging: Test performed on Mar 30, 2021 13:40 Iron 54 mcg/dL Sodium 136 mmol/L Iron Binding Capacity (TIBC) 354 mcg/dl Potassium 3.9 mmol/L % Iron Saturation 15.2 % Chloride 101 mmol/L CO2 24 mmol/L UIBC 300 mcg/dL Anion Gap 14.9 BUN 14 mg/dL Creatinine 0.5 mg/dL Cr Clearance (Est) 120.5900 mL/min Glucose 115 mg/dL Osmolality - Calculated 283 mOsm/kg Calcium 9.3 mg/dL Protein, Total 6.9 g/dL Albumin 3.9 g/dL Globulin 3.0 g/dL Bilirubin, Total 0.3 mg/dL ALT (SGPT) 15 U/L AST (SGOT) 27 U/L Alkaline Phosphatase 65 IU/L WBC 6.6 10 3/uL RBC 4.31 10 6/uL HGB 11.2 g/dL HCT 35.9 % MCV 83.3 fl MCH 26.0 pg MCHC 31.2 g/dL RDW 15.0 % Platelet Count 232 10 3/cmm MPV 10.9 fL Neutrophils 4.38 10 3/uL Lymphocytes 1.4 10 3/uL Monocytes 0.6 10 3/uL Eosinophils 0.2 10 3/uL Basophils 0.0 10 3/uL Neutrophil % 66.8 % Lymphocyte % 20.6 % Monocyte % 9.3 % Eosinophil % 2.4 % Basophils % 0.6 % NRBC % 0 % Problem List: 1. Grade 2 invasive ductal carcinoma of the right breast, stage IA (pT1c, pN0, M0), ER/PA positive and HER-2/erme negative. 2. Iron deficiency anemia with evidence of GI blood loss. 3. Recent onset of atrial fibrillation and congestive heart failure. 4. Hypertension. 5. Hyperlipidemia. 6. Type 2 diabetes. 7. Carotid stenosis. 8. Peripheral arterial disease. 9. Coronary artery disease. 10. GERD. 11. Degenerative arthritis/degenerative disease of the spine. 12. B12 deficiency. 13. Anxiety/depression. Problems Addressed with this Encounter and Plan: 1. Patient with grade 2 invasive ductal carcinoma of the right breast, stage IA (pT1c, pN0, M0), ER/PA positive and HER-2/emre negative. She underwent ultrasound directed core needle biopsy of the right breast on 05/13/2020, and she underwent right breast lumpectomy with axillary sentinel lymph node biopsy on 06/11/2020. She was given adjuvant radiation to the right breast, completed on 08/21/2020 to a total dose of 4000 cGy administered in 15 fractions. She has had some mild fatigue following the radiation and she also has developed some mild lymphedema in the right arm. Overall, though, she tolerated the treatment well. In August 2020 she began adjuvant hormonal therapy with anastrozole 1 mg daily. She initially tolerated it well, but in January 2021 she had presented with new onset of atrial fibrillation and subsequent development of congestive heart failure. As I was uncertain to what extent anastrozole may have been a contributing factor, I had recommended that she stop taking it. She has since then shown some improvement clinically, though overall she continues to have somewhat marginal performance status. After discussion with the patient and her daughter, they prefer to remain off the anastrozole. As such, she will now be followed on expectant management. I will plan to see her again in 3 months. 2. She developed iron deficiency anemia in associatioin with GI blood loss. It has shown some correction on oral iron supplementation, which she seems to tolerate well. For now she will continue ferrous sulfate 325 mg twice daily. She also will remain off apixaban. Signed By: Jc Adame M.D. <<Signature on File>>
== END 2021-03-30 13:04 | disposition home or self-care (01) ==
LOC: ONCMED 13:07
PROVIDERS: PCP Family Medicine; Visit Provider Internal Medicine Medical Oncology
DX: C50.811 Malignant neoplasm of overlapping sites of right female breast (principal); Z17.0 Estrogen receptor positive status [ER+]; D50.0 Iron deficiency anemia secondary to blood loss (chronic); I48.91 Unspecified atrial fibrillation; I11.0 Hypertensive heart disease with heart failure; I50.9 Heart failure, unspecified; E78.5 Hyperlipidemia, unspecified; E11.9 Type 2 diabetes mellitus without complications; I25.10 Atherosclerotic heart disease of native coronary artery without angina pectoris; I70.209 Unspecified atherosclerosis of native arteries of extremities, unspecified extremity; I65.29 Occlusion and stenosis of unspecified carotid artery; K21.9 Gastro-esophageal reflux disease without esophagitis; M47.9 Spondylosis, unspecified; E53.8 Deficiency of other specified B group vitamins; F41.9 Anxiety disorder, unspecified; F32.A Depression, unspecified; Z92.3 Personal history of irradiation; Z79.811 Long term (current) use of aromatase inhibitors
CPT/HCPCS: 36415; 80053; 83540; 83550; 85025; 99214

== ENCOUNTER 2021-08-09 12:25 | Outpatient (CLI) | payer MEDICARE, SELFPAY ==
[2021-08-09 13:02] LABS: Basophils # 0.1 10^3/uL (0.0-0.1); Basophils % 0.9 %; Eosinophils # 0.2 10^3/uL (0.0-0.8); Eosinophils % 3.2 %; Hematocrit 40.6 % (37.0-47.0); Hemoglobin 13.3 g/dL (11.5-15.3); Lymphocytes # 1.4 10^3/uL (0.8-4.8); Lymphocytes % 20.9 %; Mean Corpuscular HGB Conc 32.8 g/dL (30.0-36.0); Mean Corpuscular Hemoglobin 26.8 pg (28.0-34.0); Mean Corpuscular Volume 81.9 fl (81-99); Monocytes # 0.5 10^3/uL (0.2-0.9); Monocytes % 7.8 %; Neutrophils # 4.61 10^3/uL (1.8-7.7); Neutrophils % 67.1 %; Nucleated Red Blood Cells % 0 %; Platelet Count 264 10^3/cmm (130-400); Red Blood Count 4.96 10^6/uL (4.1-5.3); Red Cell Distribution Width 14.6 % (12.1-15.1); White Blood Count 6.9 10^3/uL (4.0-10.0)
[2021-08-09 13:28] LABS: Alanine Aminotransferase 25 U/L (0-33); Albumin Level 4.1 g/dL (3.5-5.2); Alkaline Phosphatase 98 IU/L (35-105); Aspartate Amino Transferase 51 U/L (0-32); Blood Urea Nitrogen 13 mg/dL (8-23); Calcium 8.9 mg/dL (8.5-10.5); Carbon Dioxide 25 mmol/L (22-29); Chloride 95 mmol/L (98-107); Globulin 2.9 g/dL (1.3-4.6); Glucose 381 mg/dL (65-115); Osmolality Calculated 290 mOsm/kg (285-295); Sodium 132 mmol/L (136-145); Total Bilirubin 0.4 mg/dL (0.15-1.2)
[2021-08-09 13:36] LABS: Anion Gap 16.6 (5-19); Potassium 4.6 mmol/L (3.5-5.1)
[2021-08-09 16:05] LABS: Ferritin 145 ng/mL (15-150); Iron 113 ug/dL (37-145); Percent Saturation 34.5 % (20-50); Total Iron Binding Capacity 327 mcg/dl; Unsaturated Iron Binding 214 ug/dL (112-347)
--- NOTE | 2021-08-11 09:41 | ONC FU_ITS ---
Dr. Adame Patient Follow-Up Note Patient: Deneen Lawson Unit #: [id number]: 1945 Dicatated By: Jc Adame M.D.Date of Visit:Aug 09, 2021 Onc Med Follow-up/Prog Note Chief Complaint: Breast cancer. History of Present Illness: This is a 76 year-old woman with diagnosed grade 2 invasive ductal carcinoma of the right breast, stage IA (pT1c, pN0, M0), ER/NY positive and HER-2/emre negative. Her screening mammogram on 04/06/2020 was abnormal, reported to be BI-RADS 0, with findings of some distortion in the anterior right breast at 12:00 related to prior surgery. Posterior to the distortion was a high density, slightly spiculated nodule measuring 10 x 12 mm. Her diagnostic mammogram and ultrasound of the right breast on 04/29/2020 was BI-RADS 4, suspicious. The mammogram reported a 1.3 cm density in the central portion of the right breast with an irregular margin and with small associated calcifications. Ultrasound showed an irregular lesion in the 12 o'clock position of the right breast 1 cm superior to the areola. There was noted to be shadowing posterior to the lesion measuring 1.05 x 1.15 x 1.2 cm. A biopsy clip was noted in the same region as the lesion. Ultrasound directed biopsy of the right breast lesion on 05/13/2020 showed grade 2 infiltrating ductal carcinoma. 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 The breast prognostic profile showed ER positive at 99% and [place] positive at 95%. HER-2/emre was negative, 1+ by IHC and amplification ratio by FISH of 1.1 with 1.6 HER-2 copies/cell. The Ki-67 was favorable at 5%. On 06/11/2020 she underwent right breast lumpectomy with axillary sentinel lymph node biopsy. Pathology on the lumpectomy showed grade 2 invasive ductal carcinoma measuring 1.5 cm in greatest dimension. The margins were uninvolved. The closest was the posterior margin which measured 6 mm. There was no involvement in 1 axillary sentinel lymph node. Pathologic staging was pT1c, pN0. I had seen her initially on 07/02/2020. With hormone receptor positive disease and in the context of her underlying medical illnesses, I felt that she would not be appropriate for adjuvant chemotherapy. As such, I did not recommend an Oncotype DX. She did see Dr. Carver for radiation oncology consultation, and she did opt to undergo adjuvant radiation. She completed treatment on 08/21/2020 to a total dose of 4000 cGy administered in 15 fractions. In August 2020 she began adjuvant hormonal therapy with anastrozole 1 mg daily. Her medical history is otherwise significant for having had a previous right breast biopsy for benign disease back in 2001. Her other medical illnesses include hypertension, hyperlipidemia, type 2 diabetes, peripheral arterial disease, carotid stenosis, and coronary artery disease. The latter includes involvement of the left main coronary artery which has not been amenable to stenting. She has a history of smoking 1 to 1-1/2 packs of cigarettes daily for 28 years. She quit smoking in 2017. INTERIM HISTORY: On 02/01/2021 she was admitted to the hospital with atrial fibrillation. She was mildly anemic, hemoglobin 10.0 g. She began on anticoagulation with apixaban and she also was started on metoprolol and Cardizem. On 02/21/2021 she was seen in the emergency room with increasing shortness of breath. She was determined to be in congestive heart failure, but she also had become more significantly anemic, with her hemoglobin decreased to 7.8 g. Her serum iron studies show low transferrin saturation 9.6%, consistent with iron deficiency. Her stool IFOB was positive. I had seen her for a follow-up visit 02/23/2021. At that point I did recommend that she stop the anastrozole, and I also recommended that she remain off apixaban. Her repeat CBC the following day showed further decrease in hemoglobin to 8.0 g, and at that point she was given 1 unit PRBC. She continued her oral iron supplement. Her EGD on 03/11/2021 showed multiple gastric erosions in the antrum. Colonoscopy was unrevealing. Gastric biopsies showed chronic inactive gastritis. The H pylori stain was negative. As of her follow-up visit on 03/30/2021 she was showing clinical improvement, but she still had somewhat marginal performance status, and she opted to remain off anastrozole. She is seen for a follow-up visit. She says she still does not have a lot of get up and go, but she has been trying to do more, and at this point she is able to do some light housework. Her ECOG score is one. Her appetite is better now. She does not have fever or night sweats. She has started CPAP for obstructive sleep apnea, but thus far she has been tolerating it very poorly. She has not had sore mouth or throat. She says her cough is a lot better now. She still gets short of breath with activity. She has not been having chest pain. She has no GI or complaints. She has fairly generalized joint pain, clean the hands, shoulders, hips, and knees. She does not complain of headache. She sometimes has dizziness. She has neuropathy in her feet. Medications: amLODIPine Besylate 1 Tablet (of 10 mg) Oral daily, Anastrozole 1 Tablet (of 1 mg) Oral daily, Ascorbic Acid 1 Tablet (of 100 mg) Oral daily, Cardizem CD 1 Tablet (of 120 mg) Capsule SR 24 HR Oral daily, Clopidogrel Bisulfate 1 Tablet (of 75 mg) Oral daily, Digoxin 1 Tablet (of 125 mcg) Oral daily, Ferrous Sulfate 1 Tablet (of 325 (65 fe) mg) Oral daily, Furosemide 1 Tablet (of 20 mg) Oral daily PRN, Isosorbide Mononitrate ER 0.5 Tablet (of 30 mg) Tablet SR 24 HR Oral b.i.d., Levemir 25 Unit(s) (of 100 Units/mL) Subcutaneous b.i.d., Magnesium Oxide 1 Tablet (of 400 mg) Oral at bedtime, metFORMIN HCl 1 Tablet (of 1000 mg) Oral b.i.d., Metoprolol Tartrate 1 Tablet (of 100 mg) Oral b.i.d., Pantoprazole Sodium 1 Tablet (of 40 mg) Tablet, enteric coated Oral b.i.d., Simvastatin 1 Tablet (of 20 mg) Oral at bedtime, Venlafaxine HCl ER 1 Tablet (of 75 mg) Tablet SR 24 HR Oral daily, Vitamin B12 1 Tablet Oral daily, Vitamin D 1 Capsule Oral daily Allergies: traZODone HCl Vital Signs: Performed on Aug 09, 2021 15:19 Height - 64.00 in Weight - 163.6 lbs (LOW) BSA - 1.80 sq.m BMI - 28.08 Temperature - 97.6 F (LOW) Pulse - 79 /min Respiration - 20 /min BP - 190/78 mm(hg) (HIGH) O2 Sat - 99 % Pain - 0 Fatigue - 9 Physical Examination: Constitutional - She appears somewhat frail generally, Eyes - Sclerae nonicteric. Conjunctivae clear, ENMT - No lesions noted in the oral cavity, Hematologic/Lymphatic - No cervical, clavicular, or axillary adenopathy, Respiratory - Lungs sound clear, Cardiovascular - Heart rhythm is irregular. The rate is controlled. There is a II/ systolic murmur. There is no gallop or rub noted, Abdomen - Soft. Liver and spleen are not enlarged. There is no abdominal mass or ascites noted and there is no inguinal adenopathy, Extremities - Slight lower extremity edema and induration, Neurologic - No focal neurologic deficits noted. Lab/Imaging: Test performed on Aug 09, 2021 12:43 Ferritin 145 ng/mL Iron 113 mcg/dL Sodium 132 mmol/L Iron Binding Capacity (TIBC) 327 mcg/dl Potassium 4.6 mmol/L % Iron Saturation 34.5 % Chloride 95 mmol/L CO2 25 mmol/L UIBC 214 mcg/dL Anion Gap 16.6 BUN 13 mg/dL Creatinine 0.6 mg/dL Cr Clearance (Est) 96.37 mL/min Glucose 381 mg/dL Osmolality - Calculated 290 mOsm/kg Calcium 8.9 mg/dL Protein, Total 7.0 g/dL Albumin 4.1 g/dL Globulin 2.9 g/dL Bilirubin, Total 0.4 mg/dL ALT (SGPT) 25 U/L AST (SGOT) 51 U/L Alkaline Phosphatase 98 IU/L WBC 6.9 10 3/uL RBC 4.96 10 6/uL HGB 13.3 g/dL HCT 40.6 % MCV 81.9 fl MCH 26.8 pg MCHC 32.8 g/dL RDW 14.6 % Platelet Count 264 10 3/cmm MPV 11.0 fL Neutrophils 4.61 10 3/uL Lymphocytes 1.4 10 3/uL Monocytes 0.5 10 3/uL Eosinophils 0.2 10 3/uL Basophils 0.1 10 3/uL Neutrophil % 67.1 % Lymphocyte % 20.9 % Monocyte % 7.8 % Eosinophil % 3.2 % Basophils % 0.9 % NRBC % 0 % Problem List: 1. Grade 2 invasive ductal carcinoma of the right breast, stage IA (pT1c, pN0, M0), ER/[place] positive and HER-2/emre negative. 2. Iron deficiency anemia with evidence of GI blood loss. 3. Recent onset of atrial fibrillation and congestive heart failure. 4. Hypertension. 5. Hyperlipidemia. 6. Type 2 diabetes. 7. Carotid stenosis. 8. Peripheral arterial disease. 9. Coronary artery disease. 10. GERD. 11. Degenerative arthritis/degenerative disease of the spine. 12. B12 deficiency. 13. Anxiety/depression. Problems Addressed with this Encounter and Plan: 1. Patient with grade 2 invasive ductal carcinoma of the right breast, stage IA (pT1c, pN0, M0), ER/NY positive and HER-2/emre negative. She underwent ultrasound directed core needle biopsy of the right breast on 05/13/2020, and she underwent right breast lumpectomy with axillary sentinel lymph node biopsy on 06/11/2020. She was given adjuvant radiation to the right breast, completed on 08/21/2020 to a total dose of 4000 cGy administered in 15 fractions. She has had some mild fatigue following the radiation and she also has developed some mild lymphedema in the right arm. Overall, though, she tolerated the treatment well. In August 2020 she began adjuvant hormonal therapy with anastrozole 1 mg daily. She initially tolerated it well, but in January 2021 she had presented with new onset of atrial fibrillation and subsequent development of congestive heart failure. As I was uncertain to what extent anastrozole may have been a contributing factor, I had recommended that she stop taking it. During subsequent follow-up, she has been showing gradual improvement in her clinical status. She will continue on expectant management for the breast cancer, as she had opted to remain off anastrozole. I will see her again in 6 months, or sooner as needed. 2. She developed iron deficiency anemia in associatioin with GI blood loss. It has corrected oral iron supplementation, which she will now take just once daily. She has opted to remain off apixaban. Signed By: Jc Adame M.D. <<Signature on File>>
== END 2021-08-09 12:26 | disposition home or self-care (01) ==
PROVIDERS: PCP Family Medicine; Visit Provider Internal Medicine Medical Oncology
DX: C50.111 Malignant neoplasm of central portion of right female breast (principal); I48.91 Unspecified atrial fibrillation; D50.9 Iron deficiency anemia, unspecified; I10 Essential (primary) hypertension; E78.5 Hyperlipidemia, unspecified; E11.9 Type 2 diabetes mellitus without complications; I73.9 Peripheral vascular disease, unspecified; K21.9 Gastro-esophageal reflux disease without esophagitis; E53.8 Deficiency of other specified B group vitamins; F41.9 Anxiety disorder, unspecified; F32.A Depression, unspecified; I25.10 Atherosclerotic heart disease of native coronary artery without angina pectoris; I50.9 Heart failure, unspecified; Z79.899 Other long term (current) drug therapy
CPT/HCPCS: 36415; 80053; 82728; 83540; 83550; 85025; 99214

== ENCOUNTER 2021-08-16 12:44 | Outpatient (CLI) | payer MEDICARE, SELFPAY ==
--- NOTE | 2021-08-16 13:11 | MM_ITS ---
WS: [id number] BILATERAL DIGITAL DIAGNOSTIC MAMMOGRAM MAMMOGRAPHY WITH CAD CLINICAL INFORMATION: HX OF BREAST CA HISTORY: COMPARISON: April 06, 2020 TECHNIQUE: Bilateral CC, MLO, and ML views. FINDINGS: Scattered fibroglandular densities bilaterally. Vascular and secretory calcifications similar to prev ious. Incidental punctate calcifications. Lumpectomy RIGHT breast with parenchymal volume loss and po stoperative changes new from previous. Treatment-related skin thickening RIGHT breast No suspicious focal mass, asymmetry, calcifications, or architectural distortion. No evidence of paras gnancy. MM/[place] [id number] IMPRESSION: BI-RADS: 2-Benign FOLLOW UP: 1 Year Follow-up Recommend return to annual diagnostic mammography.
== END 2021-08-16 12:45 | disposition home or self-care (01) ==
PROVIDERS: PCP Family Medicine; Visit Provider Internal Medicine Medical Oncology
DX: Z85.3 Personal history of malignant neoplasm of breast (principal)
CPT/HCPCS: 77066

== ENCOUNTER → 2021-09-24 11:47 | Outpatient (BNVA) | payer MEDICARE, SELFPAY | PROVIDERS: PCP Family Medicine; Visit Provider Internal Medicine Cardiovascular Disease | DX: I48.91 Unspecified atrial fibrillation (principal); I25.10 Atherosclerotic heart disease of native coronary artery without angina pectoris; Z98.890 Other specified postprocedural states; I50.32 Chronic diastolic (congestive) heart failure; I11.0 Hypertensive heart disease with heart failure; E78.5 Hyperlipidemia, unspecified; I73.9 Peripheral vascular disease, unspecified; E11.9 Type 2 diabetes mellitus without complications; Z87.891 Personal history of nicotine dependence; Z79.4 Long term (current) use of insulin | CPT/HCPCS: 99215 ==

== ENCOUNTER → 2021-11-29 15:02 | Outpatient (BNVA) | payer MEDICARE, SELFPAY | PROVIDERS: PCP Family Medicine; Visit Provider Internal Medicine Cardiovascular Disease | DX: I48.19 Other persistent atrial fibrillation (principal); I25.10 Atherosclerotic heart disease of native coronary artery without angina pectoris; I11.0 Hypertensive heart disease with heart failure; I50.32 Chronic diastolic (congestive) heart failure; Z98.890 Other specified postprocedural states; E78.5 Hyperlipidemia, unspecified; I73.9 Peripheral vascular disease, unspecified; E11.9 Type 2 diabetes mellitus without complications; Z87.891 Personal history of nicotine dependence; Z79.84 Long term (current) use of oral hypoglycemic drugs; Z79.4 Long term (current) use of insulin | CPT/HCPCS: 99214 ==

== ENCOUNTER 2021-12-15 08:21 | Outpatient (CLI) | payer MEDICARE, SELFPAY ==
[2021-12-15 08:45] VITALS: BMI 26.7
--- NOTE | 2021-12-15 09:05 | ECG_ITS ---
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 Interpretive Statements NAME OF STUDY: LEXISCAN SESTAMIBI STRESS TEST INDICATION: Chest Pain PROCEDURE: On arrival patient's blood pressure was 212/132 and heart rate of 149 bpm. She received labetalol 10 mg IV x2 and after 32 minutes and 46 seconds test was started. At the baseline, the blood pressure was 157/95 mmHg, oxygen saturation 93% with a heart rate of 103 bpm. The electrocardiogram showed atrial fibrillation with rapid ventricular response. Possible old anterior infarct. Nonspecific ST changes. The Lexiscan was infused over a period of 20 seconds. A total of 0.4 milligrams of Lexiscan was infused. The stress phase was continued for a total of 5 minutes. Heart rate at the end of the stress phase was 117 bpm, oxygen saturation 93% with a blood pressure of 117/79 mmHg. The EKG at the peak infusion revealed atrial fibrillation with no significant ST-T wave changes. Sestamibi was injected 20 seconds after the Lexiscan infusion. Blood pressure at the end of the recovery phase was 100/58 mmHg, oxygen saturation at 93% with a heart rate of 96 beats per minute. CONCLUSION: 1. No significant EKG changes with the LexiScan infusion. 2. No LexiScan induced chest pain or cardiac arrhythmia. 3. Normal blood pressure and heart rate response. 4. Sestamibi/sestamibi perfusion scan pending; see separate report. Electronically Signed On 12-19-2021 12:04:38 CDT by Mirtha Latham M.D. [email or web address]
--- NOTE | 2021-12-15 09:06 | NMCV_ITS ---
NM lindy perf SPECT r/s* [id number] Deneen Lawson Age: 76 Gender: F : 1945 Exam Date: 12/15/2021 10:09 Ordering Phys: Mirtha Latham MD ([email or web address]) Technologist: JAMEEL Billingsley Exam Location: [facility] Indications: CHEST PAIN STRESS TEST Please see separate stress test report in [facility] for full findings IMAGE PROTOCOL Rest/Stress 1 Lexiscan Day Radiopharmaceutical Dose (mCi) Administration Site Administered by Rest: Tc-99m 10.9 IV JAMEEL Fofana Sestamibi Stress:Tc-99m 32.4 IV JAMEEL Billingsley Sestamijaney Rest: 15-Dec-2021 60 Discovery 630 Stress: 15-Dec-2021 30 Discovery 630 0.4mg Lexiscan. Supine position only as patient was unable to lay prone. SPECT RESULTS Technical Quality: Excellent Raw Data Analysis: Normal Image Corrections: No attenuation or motion correction applied Summed Stress Score: 3 Summed Rest Score: 0 Summed Difference Score: 3 PERFUSION FINDINGS Small sized perfusion abnormality of mild to moderate severity of mid to apical anterior, mid anteroseptal, apical septal and apical lateral quick on rest images with decreased tracer uptake noted in apical lateral and apical anterior quick. FUNCTIONAL RESULTS (calculated via Gated SPECT) Stress Image LV EF (%): 40 Stress EDV (mL):106 TID: 1.1 Stress ESV (mL):64 FUNCTIONAL FINDINGS: The left ventricle is normal in size. Transient Ischemia Dilatation of 1.1. There is moderately reduced left ventricular global systolic function. The left ventricular ejection fraction is moderately reduced with a value of 40%. Moderate global hypokinesis. IMPRESSIONS 1. Small sized partially reversible perfusion abnormality of mid to apical anterior, mid anteroseptal, apical septal and apical lateral quick. 2. This is suggestive of ischemia in LAD artery territory. 3. The left ventricular ejection fraction is moderately reduced with a value of 40%. 4. Moderate global hypokinesis. 5. EKG portion of the study will be reported separately. Mirtha Latham MD (Electronically Signed) Final Date: 18 December 2021 17:51 S
[2021-12-15] MEDS: labetalol 5 mg/mL SDV 20mL 10 MG IVP ×2 (11:08→11:19)
[2021-12-15] MEDS: regadenoson 0.4 Mg/5 ml Syringe IVP (11:21)
[2021-12-15 11:35] VITALS: BP 128/72; PULSE 103
== END 2021-12-15 08:22 | disposition home or self-care (01) ==
LOC: CDL 08:24
PROVIDERS: PCP Family Medicine; Visit Provider Internal Medicine Cardiovascular Disease
DX: R07.9 Chest pain, unspecified (principal)
CPT/HCPCS: 78452; 93017; A9500; J2785; J3490

== ENCOUNTER → 2021-12-20 14:49 | Outpatient (BNVA) | payer MEDICARE, SELFPAY | PROVIDERS: PCP Family Medicine; Visit Provider Internal Medicine Cardiovascular Disease | DX: I48.91 Unspecified atrial fibrillation (principal); I49.3 Ventricular premature depolarization | CPT/HCPCS: 93225 ==

== ENCOUNTER 2022-01-14 08:15 | Outpatient (CLI) | payer MEDICARE, SELFPAY ==
[2022-01-14 09:00] LABS: Basophils # 0.1 10^3/uL (0.0-0.1); Basophils % 0.8 %; Eosinophils # 0.2 10^3/uL (0.0-0.8); Eosinophils % 3.1 %; Hematocrit 42.4 % (37.0-47.0); Lymphocytes # 1.7 10^3/uL (0.8-4.8); Lymphocytes % 22.6 %; Mean Corpuscular Hemoglobin 28.6 pg (28.0-34.0); Mean Corpuscular Volume 86.5 fl (81-99); Mean Platelet Volume 11.4 fL (7.4-10.4); Monocytes # 0.6 10^3/uL (0.2-0.9); Monocytes % 8.7 %; Neutrophils # 4.72 10^3/uL (1.8-7.7); Neutrophils % 64.3 %; Nucleated Red Blood Cells % 0 %; Platelet Count 197 10^3/cmm (130-400); White Blood Count 7.4 10^3/uL (4.0-10.0)
== END 2022-01-14 08:16 | disposition home or self-care (01) ==
LOC: LAB 08:17
PROVIDERS: PCP Family Medicine; Visit Provider Nurse Practitioner Family
DX: I25.10 Atherosclerotic heart disease of native coronary artery without angina pectoris (principal); I48.91 Unspecified atrial fibrillation; I50.32 Chronic diastolic (congestive) heart failure
CPT/HCPCS: 36415; 85025

== ENCOUNTER → 2022-01-18 12:58 | Outpatient (BNVA) | payer MEDICARE, SELFPAY | PROVIDERS: PCP Family Medicine; Visit Provider Internal Medicine Cardiovascular Disease | DX: I48.91 Unspecified atrial fibrillation (principal); I25.10 Atherosclerotic heart disease of native coronary artery without angina pectoris; I11.0 Hypertensive heart disease with heart failure; I50.32 Chronic diastolic (congestive) heart failure | CPT/HCPCS: 99214 ==

== ENCOUNTER 2022-02-08 12:21 | Oncology outpatient (recurring) (ONCR) | payer MEDICARE, SELFPAY ==
[2022-02-08 13:04] LABS: Basophils # 0.1 10^3/uL (0.0-0.1); Basophils % 0.8 %; Eosinophils # 0.2 10^3/uL (0.0-0.8); Eosinophils % 3.2 %; Hematocrit 42.8 % (37.0-47.0); Hemoglobin 13.8 g/dL (11.5-15.3); Lymphocytes # 1.9 10^3/uL (0.8-4.8); Lymphocytes % 26.2 %; Mean Corpuscular HGB Conc 32.2 g/dL (30.0-36.0); Mean Corpuscular Hemoglobin 28.2 pg (28.0-34.0); Mean Corpuscular Volume 87.5 fl (81-99); Mean Platelet Volume 11.1 fL (7.4-10.4); Monocytes # 0.7 10^3/uL (0.2-0.9); Monocytes % 9.9 %; Neutrophils # 4.27 10^3/uL (1.8-7.7); Neutrophils % 59.6 %; Nucleated Red Blood Cells % 0 %; Platelet Count 189 10^3/cmm (130-400); Red Blood Count 4.89 10^6/uL (4.1-5.3); Red Cell Distribution Width 13.9 % (12.1-15.1); White Blood Count 7.2 10^3/uL (4.0-10.0)
[2022-02-08 13:30] LABS: Alanine Aminotransferase 16 U/L (0-33); Albumin Level 3.8 g/dL (3.5-5.2); Alkaline Phosphatase 76 U/L (35-105); Anion Gap 16.7 (5-19); Aspartate Amino Transferase 24 U/L (0-32); Blood Urea Nitrogen 12 mg/dL (8-23); Calcium 9.2 mg/dL (8.5-10.5); Carbon Dioxide 22 mmol/L (22-29); Chloride 104 mmol/L (98-107); Ferritin 256 ng/mL (15-150); Glucose 110 mg/dL (65-115); Iron 85 ug/dL (37-145); Osmolality Calculated 288 mOsm/kg (285-295); Percent Saturation 28.8 % (20-50); Potassium 3.7 mmol/L (3.5-5.1); Sodium 139 mmol/L (136-145); Total Bilirubin 0.6 mg/dL (0.15-1.2); Total Iron Binding Capacity 295 mcg/dl; Total Protein 6.8 g/dL (6.6-8.7); Unsaturated Iron Binding 210 ug/dL (112-347)
== END 2022-02-23 23:59 | disposition home or self-care (01) ==
PROVIDERS: PCP Family Medicine; Visit Provider Internal Medicine Medical Oncology
DX: Z08 Encounter for follow-up examination after completed treatment for malignant neoplasm (principal); Z85.3 Personal history of malignant neoplasm of breast; D50.9 Iron deficiency anemia, unspecified; Z92.3 Personal history of irradiation; Z79.899 Other long term (current) drug therapy; Z87.891 Personal history of nicotine dependence; Z53.9 Procedure and treatment not carried out, unspecified reason
CPT/HCPCS: 80053; 82728; 83540; 83550; 85025; 99214

== ENCOUNTER 2022-02-15 07:22 | Outpatient (CLI) | payer MEDICARE, SELFPAY ==
[2022-02-14 08:56] VITALS: BP 179/90; PULSE 67; RESP 18; TEMP 36.9; O2SAT 95; BMI 26.7
--- NOTE | 2022-02-15 07:30 | XACV_ITS ---
Exam Room: 2 Ht: 163 cm Wt: 70 kg BSA: 1.79 m2 Gender: Female : 1945 Any Known Allergies: Other Exam Priority: Routine Procedure(s): Procedure Description: Diagnostic procedure Procedure Description: Coronary Angiography Diagnostic Cath Status: Elective Diagnostic Findings * 76-year-old woman with past medical history of coronary artery disease, type 2 diabetes mellitus insulin-dependent, history of carotid artery stenosis s/p s/p right carotid endarterectomy, persistent atrial fibrillation, heart failure with preserved ejection fraction and multiple other comorbidities. Patient underwent stress testing for episodes of chest tightness flushing and shortness of breath along with dizziness. Stress test showed partially reversible perfusion abnormality of mid to apical anterior, mid anteroseptal apical septal and apical lateral quick. * Angiography shows a right coronary dominant system. * Mid left main with eccentric 50-60% stenosis. SELIN 3 flow. * Small circumflex with mid 95% stenosis. SELIN 3 flow. * Medium caliber tortuous left anterior descending artery that wraps around the apex. Mid left anterior descending artery with 40% stenosis. SELIN 3 flow. * Normal caliber right coronary artery with minor luminal irregularities. * Case was discussed with Dr. Garcia and decision was made to proceed with FFR of left main lesion. Interventional Findings * PROCEDURE DETAIL: We engaged left main artery with XB 3.5 guide catheter. IV heparin was administered to maintain ACT over 250 S. After normalization, we advanced IFR wire into LAD. IV adenosine was administered to obtain FFR. FFR value of 0.79 was obtained. This was significant. iFR wire was removed and final angiogram was done. Patient left the Quill Stripper in a stable condition.. Conclusions 1. Angiography shows a right coronary dominant system. 2. Mid left main with severe eccentric 50-60% stenosis. Ischemia confirmed with FFR value of 0.79. 3. Severe 95% stenosis of mid circumflex. Recommendations * Return to inpatient for close monitoring and routine cath care. * Patient will be referred to CT surgery for coronary artery bypass grafting. Interventional RX Recommendation: CABG Pressures Phase:Rest AO : 161 / 73 ( 106 ) @ 10:40:00 AM 130 / 83 ( 103 ) @ 10:51:00 AM 129 / 78 ( 105 ) @ 10:58:00 AM 169 / 71 ( 109 ) @ 11:09:00 AM Clinical Evaluation EBL: 5mL-10mL Procedural Details Procedure Consent Obtained. Pre-Procedure Time Out. Identified patient by full name and date of as verbalized by the patient/guarantor. Does the consent match the physician's order: Yes. Accurate & Complete Informed Consent: Yes. Inpatient/Outpatient History & Physical on Chart: Yes. If H&P is completed, is and addenduem needed: N/A; If yes, is the addendum complete: N/A. Visualize and Verify Site with Patient/Guarantor: N/A. Relevant Radiology Images available: N/A. Pre-op teaching completed and patient verbalized understanding. The risks, benefits, and alternatives of sedation and/or procedure were discussed by physician. The patient agrees to continue. Procedure started. [facility] Clinical Fraility Score: 3: Managing Well. Quill Stripper Indications: Worsening Angina. Chest Pain Symptom Assessment: Typical Angina Symptoms. Correct patient, site and procedure confirmed by cath team. Current diagnosis: Chest Pain. PERRLA. Strong, equal hand board certified family physician bilaterally. Lungs clear x 5 lobes. IV Site on Arrival: 20 gauge in the left anticubital. IV Fluids: 0.9% NaCl at KVO. 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 Pre Procedural Pulses: right radial was 2+. Oxygen started at 2liters/min via nasal canula. Pre Procedural Pulses: bilateral dorsalis pedis was 1+. right groin was prepped with chloroprep then draped in the usual sterile fashion. right radial was prepped with chloroprep then draped in the usual sterile fashion. Physician notified. Baseline sample Acquired. HR: 0 BPM. Physician arrived. Physician scrubbed in. Immediate Pre-Procedure Time Out. Correct Patient: Yes; Correct Procedure: Yes; Correct Site: Yes; Correct Patient Position: Yes; Correct Supplies: Yes; Dried Flammable Prep: Yes; Blood Products Available: N/A;. Lidocaine 1% infiltrated to the right radial. Arterial access obtained. A 5 botswanan Buck catheter in over wire. Wire removed. Hand injection performed through the catheter. Glidewire inserted through the catheter. Glidewire removed. Standard wire inserted. Unable to engage catheter d/t torturosity. Catheter and wire removed. Radial access aborted. A TR Band was successful obtaining hemostatsis at the Right Radial artery insertion site. Lidocaine 1% infiltrated to the right groin. Alanna Ambrose RN was relieved by [place] RN, [facility] as monitoring person. Dr Latham request Dr Garcia to come to lab. Dr Garcia notified. States he will come to lab. Arterial access obtained. Access wire won't advance. Wire/needle removed as a whole. Dr Latham hold pressure at access site. Dr Garcia arrived. Unable to gain femoral access. Dr Garcia scrubbed in to assist and gain femoral access. Family updated by staff of procedure progress. Arterial access obtained. Dr Latham in to perform diagnostic. A 5 botswanan JL4 catheter in over wire. Unable to cannulate LCS. Standard wire in to reposition. Dr Garcia up to assist with Catheter placement in the LCS. Unable to cannulate. Dr Latham up to perform diagnostic. Catheter removed over the wire. A 5 botswanan JL4.5 catheter in over wire. LCS cannulated. Multiple views taken of left coronary artery. Catheter removed over the standard wire. Dr. Latham consulting with Dr. Garcia on whether to do IFR. A 5 botswanan JR4 catheter in over wire. Dr. Latham unable to canulate RCA. Subselective shots of the RCA performed. Catheter removed over the standard wire. Dr. Garcia taking over the case. 6 botswanan XB 3.5 guide catheter was inserted over the wire. FFR guidewire was advanced through the guide catheter to lesion in the left main. FFR wire normalized. Guidewire advanced across lesion. FFR measurements obtained: 0.80 Adenosine ran at 140 mcg/kg/min. Repeating to confirm. Fractional flow reserve measurements obtained. Repeat FFR 0.79. FFR wire removed. Angiography performed. Adenosine d/c'd. Guide removed over the wire. A Right femoral angiogram was performed to determine safe placement of closure device. Physician scrubbed out. A Suture was successful obtaining hemostatsis at the Right Femoral artery insertion site. Sheath(s) sutured into position with 2-0 silk and sterile 4x4's and Op-site applied over the site. No oozing or signs and symptoms of hematoma noted. Arterial sheath flushed and connected to tranducer and pressure bag with heparinized saline. Post Procedure: Pulses reassessed and unchanged. PERRLA. Strong, equal hand board certified family physician bilaterally. No VTE prophylaxis required. Medication's Wasted: Lidocaine 1% 5 mL Nitro 49.8 mg Heparin 3000 units Fentanyl 25 mcg Versed 1 mg Hydralazine 10 mg. Total IV fluids: 112 mL. Post-op diagnosis: Severe Left Main Stenosis. Complications: None. Estimated blood loss: 5mL-10mL. Responsiveness - Normal response to verbal stimuli; alert and oriented, PERRLA. Airway - Unaffected, no intervention required; spontaneous ventilation. Circulation: W/N/L, pulses unchanged. Nausea/Vomiting: No. Procedure completed. Patient transferred by bed to ICU. Vital chart was stopped. Access Site Site: Right Radial artery Sheath Size: 6 Fr Hemostasis Method: TR Band Hemostasis Success: Successful Site: Right Femoral artery Sheath Size: 6 Fr Hemostasis Method: Suture Hemostasis Success: Successful Procedure Medications Start: 8:50 AM Stop: 8:50 AM Medication: Versed Amount: 1 mg Route: I.V. Start: 8:50 AM Stop: 8:50 AM Medication: Fentanyl Amount: 50 mcg Route: I.V. Start: 8:59 AM Stop: 8:59 AM Medication: Nitrogylcerin Amount: 200 mcg Route: I.A. Start: 9:03 AM Stop: 9:03 AM Medication: Versed Amount: 1 mg Route: I.V. Start: 9:23 AM Stop: 9:23 AM Medication: Fentanyl Amount: 25 mcg Route: I.V. Start: 9:54 AM Stop: 9:54 AM Medication: Versed Amount: 1 mg Route: I.V. Start: 9:58 AM Stop: 9:58 AM Medication: Heparin Amount: 6000 units Route: I.V. Start: 10:08 AM Stop: 10:08 AM Medication: Adenosine (Adenocard) Amount: 580 ml/hr Route: I.V. bolus Start: 10:24 AM Stop: 10:24 AM Medication: Hydralazine Amount: 10 mg Route: I.V. I, the attending physician, have reviewed and verified all procedure medications. Yes, all medications given per verbal order History/Risk Factors Hypertension: Yes Dyslipidemia: Yes Peripheral Arterial Disease (PAD): No Myocardial Infarction (NM): No Obesity: No Renal Disease: No Tobacco Use: Former Prior Interventions PCI: No CABG: No Valve Surgery: No Report Signatures Interventional Workflow Finalized by Brennan Garcia MD on 02/24/2022 01:36 PM Diagnostic Workflow Finalized by Mirtha Latham MD on 02/15/2022 05:15 PM
[2022-02-15] MEDS: diphenhydrAMINE 50 mg Capsule PO (08:27)
--- NOTE | 2022-02-15 08:42 | W.PM.OPSUD ---
Surgery/Procedure H&P Update DATE OF PROCEDURE: February 15, 2022 DATE H&P PERFORMED: 01/18/21 H&P UPDATE INFORMATION: I have reviewed H&P completed within last 30 days, I have examined patient prior to procedure and No changes to prior documentation PREOP DIAGNOSIS: Abnormal stress test, exertional shortness of breath PLANNED PROCEDURE: Operation Date: 02/15/22 08:30 Proposed Procedures p Cardiac Catheterization 43369 R94.39(Left) - Mirtha Latham MD PATIENT REASSESSED PRIOR TO SEDATION, WITH NO CHANGE NOTED: Yes PHYSICAL EXAM: alert, oriented x 3, clear to auscultation bilaterally and regular rate & rhythm AIRWAY EVAL/ANESTHESIA PLAN: normal airway, ASA III, Monitored Anesthesia, Local Anesthesia, Risks, benefits & alternatives of sedation and/or procedure discussed and Patient agrees to continue as planned
--- NOTE | 2022-02-15 10:53 | PC.NURSE ---
Arrived from cardiac cath technician, AO x4, R wrist TR band and R femoral sheath clean dry and intact
[2022-02-15] MEDS: sodium chloride 0.9% 1,000 ML 100 ML IV (11:15)
--- NOTE | 2022-02-15 13:03 | PC.NURSE ---
Dr. Latham at bedside gave v.o. to insert vences cath due to being unable to void
[2022-02-15 13:25] LABS: Partial Thromboplastin Time 62.1 SECONDS (23.9-36.7)
[2022-02-15 13:40] VITALS: PULSE 77; O2SAT 99
[2022-02-15 14:00] VITALS: PULSE 90
--- NOTE | 2022-02-15 14:35 | PC.NURSE ---
this nurse attempted to contact Dr. Latham concerning high BP, unable to contact HCP
--- NOTE | 2022-02-15 14:47 | PC.NURSE ---
Dr. Latham called, HCP to put in hydralizine order for BP, gave v.o. to pull Sheath out after administering hydralizine
[2022-02-15] MEDS: hyDRALAzine 20 mg/mL INJ 1 mL 10 MG IVP (15:09)
--- NOTE | 2022-02-15 17:21 | PC.NURSE ---
Sheath pulled per t.o. from Dr. Latham, after pull HR dropped to the 40s, patient became symptomatic, patient recovered and is WNL at this time, patient informed this nurse she wants to stay the night to be safe, dr. latham was notified
[2022-02-15 18:06] LABS: Glucose Point of Care 205 mg/dL (70-110)
[2022-02-15] MEDS: isosorbide mononitrate ER 30 mg Tablet PO (18:12)
[2022-02-15] MEDS: dilTIAZem ER (24HR) 120 mg Capsule PO (18:12)
[2022-02-15] MEDS: insulin lispro 100 unit/1 mL SUBCUT (18:12)
--- NOTE | 2022-02-15 18:32 | PC.NURSE ---
mentation has improved, vs WNL, family at bedside
[2022-02-15] MEDS: metoprolol tartrate 50 mg Tablet 100 MG PO (19:39)
[2022-02-15 20:16] VITALS: PULSE 114; O2SAT 94
[2022-02-15 22:00] VITALS: PULSE 98
[2022-02-15 22:56] LABS: Glucose Point of Care 135 mg/dL (70-110)
[2022-02-16] VITALS (7 sets, daily range): BP systolic 135–175; BP diastolic 71–98; PULSE 51–79; RESP 18–29; O2SAT 96–98
[2022-02-16] MEDS: sodium chloride 0.9% 1,000 ML 100 ML IV (02:19)
[2022-02-16 05:59] LABS: Basophils % 0.6 %; Eosinophils # 0.2 10^3/uL (0.0-0.8); Eosinophils % 2.2 %; Hematocrit 38.8 % (37.0-47.0); Hemoglobin 12.4 g/dL (11.5-15.3); Lymphocytes # 1.8 10^3/uL (0.8-4.8); Lymphocytes % 24.5 %; Mean Corpuscular Hemoglobin 28.8 pg (28.0-34.0); Monocytes # 0.5 10^3/uL (0.2-0.9); Monocytes % 7.2 %; Neutrophils % 65.2 %; Nucleated Red Blood Cells % 0 %; Platelet Count 149 10^3/cmm (130-400); Red Blood Count 4.31 10^6/uL (4.1-5.3); Red Cell Distribution Width 14.2 % (12.1-15.1); White Blood Count 7.2 10^3/uL (4.0-10.0)
[2022-02-16 06:20] LABS: Anion Gap 13.8 (5-19); Blood Urea Nitrogen 10 mg/dL (8-23); Calcium 8.6 mg/dL (8.5-10.5); Carbon Dioxide 24 mmol/L (22-29); Chloride 102 mmol/L (98-107); Glucose 151 mg/dL (65-115); Osmolality Calculated 284 mOsm/kg (285-295); Potassium 3.8 mmol/L (3.5-5.1); Sodium 136 mmol/L (136-145)
[2022-02-16 07:30] LABS: Glucose Point of Care 175 mg/dL (70-110)
[2022-02-16 08:47] LABS: Estmated Average Glucose 192; Hemoglobin A1C 8.3 % (4.0-6.0)
[2022-02-16 08:55] LABS: Cholesterol 160 mg/dL (0-200); HDL Cholesterol 39 mg/dL (60-100); LDL Cholesterol Calculated 95 mg/dL (50-129); LDL HDL Ratio 2.44 RATIO (0.00-3.22); Triglycerides 131 mg/dL (0-150)
[2022-02-16] MEDS: venlafaxine ER (24HR) 75 mg Capsule PO (09:10)
[2022-02-16] MEDS: dilTIAZem ER (24HR) 120 mg Capsule PO (09:11)
[2022-02-16] MEDS: aspirin 81 mg EC Tablet PO (09:11)
[2022-02-16] MEDS: pantoprazole DR 40 mg Tablet PO (09:11)
[2022-02-16] MEDS: apixaban 5 mg Tablet PO (09:11)
[2022-02-16] MEDS: metoprolol tartrate 50 mg Tablet 100 MG PO (09:11)
[2022-02-16] MEDS: isosorbide mononitrate ER 30 mg Tablet PO (09:11)
[2022-02-16] MEDS: insulin lispro 100 unit/1 mL SUBCUT (09:11)
--- NOTE | 2022-02-16 11:37 | PC.NURSE ---
Discharge instructions given to patient and family. IV removed. Patient did ambulate well in [place] prior to discharge. Patient and belongings taken to private vehicle, accompanied by spouse and daughter. Patient AAOx4, no pain or discomfort.
== END 2022-02-16 11:30 | disposition home or self-care (01) ==
LOC: CCL 07:37 → ICU 09:03
PROVIDERS: Internal Medicine; PCP Family Medicine; Visit Provider Internal Medicine Cardiovascular Disease
DX: I25.10 Atherosclerotic heart disease of native coronary artery without angina pectoris (principal); E11.9 Type 2 diabetes mellitus without complications; I48.19 Other persistent atrial fibrillation; E78.5 Hyperlipidemia, unspecified; Z87.891 Personal history of nicotine dependence; I11.0 Hypertensive heart disease with heart failure; I50.9 Heart failure, unspecified; G47.33 Obstructive sleep apnea (adult) (pediatric); Z79.01 Long term (current) use of anticoagulants
CPT/HCPCS: 36415; 36416; 51702; 80048; 80061; 82962; 83036; 85025; 85730; 93454; 93571; 96360; 96361; 96372; 99152; 99153; C1769; C1887; C1894; J0153; J0360; J1644; J1815; J2250; J3010; J3490; J7030; Q0163; Q9967

== ENCOUNTER → 2022-02-21 17:27 | Outpatient (BNVA) | payer MEDICARE, SELFPAY | PROVIDERS: PCP Family Medicine; Visit Provider Family Medicine | DX: R30.0 Dysuria (principal) | CPT/HCPCS: 81000; 87086 ==

== ENCOUNTER → 2022-02-22 13:37 | Outpatient (BNVA) | payer MEDICARE, SELFPAY | PROVIDERS: PCP Family Medicine; Visit Provider Thoracic Surgery (Cardiothoracic Vascular Surgery) | DX: I25.10 Atherosclerotic heart disease of native coronary artery without angina pectoris (principal); I11.0 Hypertensive heart disease with heart failure; I50.9 Heart failure, unspecified; Z87.891 Personal history of nicotine dependence | CPT/HCPCS: 99203 ==

== ENCOUNTER → 2022-02-23 10:51 | Outpatient (BNVA) | payer MEDICARE, SELFPAY | PROVIDERS: PCP Family Medicine; Visit Provider Nurse Practitioner Family | DX: I25.10 Atherosclerotic heart disease of native coronary artery without angina pectoris (principal); Z87.891 Personal history of nicotine dependence; I11.0 Hypertensive heart disease with heart failure; I50.9 Heart failure, unspecified | CPT/HCPCS: 99213 ==

== ENCOUNTER 2022-03-02 06:15 | Outpatient (CLI) | payer MEDICARE, SELFPAY ==
--- NOTE | 2022-03-02 07:00 | USCV_ITS ---
Deneen Lawson Age: 77 Gender: F : 1945 Exam Date: 03/02/2022 06:38 Ordering Phys: Kyle Benson MD (Andy) ([email or web address] [place]) Technologist: Lucía Still Exam Location: [facility] [place] Indication: Lt CEA recheck Risk Factors: Unknown Previous Vascular Surgery: L CEA Right Brachial BP: / Left Brachial BP: / Right Left Velocity (cm/s) Spectral Plaque Velocity (cm/s) Spectral Plaque Syst/Diast Broadening Syst/Diast Broadening 61.90/ 18.30 Prox CCA 45.30 / 5.10 Hetro 65.90/ 14.30 Mid CCA 43.60 / 9.80 Hetro 67.50/ 12.70 Hetro Distal CCA 35.90 / 6.80 Hetro 119.70/34.70 Hetro Prox ICA 40.35 / 7.35 144.50/37.30 Mid ICA 62.00 / 3.70 87.10/ 34.20 Distal ICA 43.30 / 7.50 43.50 Hetro ECA 79.50 2.19 ICA/CCA 1.42 Antegrade Vertebral Antegrade 50.60/ 13.10 cm/s 60.90/ 16.00 cm/s Bi Subclavian Bi 131.5 105.8 0 0 FINDINGS Velocities similiar to 01/13 in the Right ICA> Improved velocities Left ICA with CEA CONCLUSIONS Right ICA stenosis 50-69% at the lower end of the range. Moderate atheromatous plaque right carotid bulb/ICA. Left ICA stenosis <50%. Mild atheromatous plaque left carotid bulb/ICA. Normal antegrade Doppler flow noted in the right vertebral artery. Normal antegrade Doppler flow noted in the left vertebral artery. Pedro Hannah MD (Electronically Signed) Final Date: 02 March 2022 10:44 S
== END 2022-03-02 06:16 | disposition home or self-care (01) ==
LOC: RAD 06:16
PROVIDERS: PCP Family Medicine; Visit Provider Thoracic Surgery (Cardiothoracic Vascular Surgery)
DX: I65.23 Occlusion and stenosis of bilateral carotid arteries (principal)
CPT/HCPCS: 93880

== ENCOUNTER → 2022-03-03 13:04 | Outpatient (BNVA) | payer MEDICARE, SELFPAY | PROVIDERS: PCP Family Medicine; Visit Provider Thoracic Surgery (Cardiothoracic Vascular Surgery) | DX: I65.22 Occlusion and stenosis of left carotid artery (principal); Z98.890 Other specified postprocedural states; Z87.891 Personal history of nicotine dependence | CPT/HCPCS: 99213 ==

== ENCOUNTER 2022-03-08 11:54 | Outpatient (CLI) | payer MEDICARE, SELFPAY ==
[2022-03-08 12:32] LABS: Basophils # 0.1 10^3/uL (0.0-0.1); Basophils % 0.7 %; Eosinophils # 0.2 10^3/uL (0.0-0.8); Eosinophils % 2.7 %; Hematocrit 40.1 % (37.0-47.0); Hemoglobin 13.5 g/dL (11.5-15.3); Lymphocytes # 1.9 10^3/uL (0.8-4.8); Lymphocytes % 22.5 %; Mean Corpuscular HGB Conc 33.7 g/dL (30.0-36.0); Mean Corpuscular Hemoglobin 29.1 pg (28.0-34.0); Mean Corpuscular Volume 86.4 fl (81-99); Mean Platelet Volume 10.5 fL (7.4-10.4); Monocytes # 0.5 10^3/uL (0.2-0.9); Monocytes % 6.4 %; Neutrophils # 5.66 10^3/uL (1.8-7.7); Neutrophils % 67.6 %; Nucleated Red Blood Cells % 0 %; Platelet Count 186 10^3/cmm (130-400); Red Blood Count 4.64 10^6/uL (4.1-5.3); Red Cell Distribution Width 13.2 % (12.1-15.1); White Blood Count 8.4 10^3/uL (4.0-10.0)
[2022-03-08 12:48] LABS: Prothrombin Time (Patient) 14.6 Seconds (12.0-15.1)
[2022-03-08 12:56] LABS: Anion Gap 17.6 (5-19); Blood Urea Nitrogen 10 mg/dL (8-23); Calcium 9.2 mg/dL (8.5-10.5); Carbon Dioxide 23 mmol/L (22-29); Chloride 105 mmol/L (98-107); Glucose 135 mg/dL (65-115); Osmolality Calculated 293 mOsm/kg (285-295); Potassium 4.6 mmol/L (3.5-5.1); Sodium 141 mmol/L (136-145)
== END 2022-03-08 11:55 | disposition home or self-care (01) ==
LOC: LAB 11:57
PROVIDERS: PCP Family Medicine; Visit Provider Internal Medicine Cardiovascular Disease
DX: I25.10 Atherosclerotic heart disease of native coronary artery without angina pectoris (principal); Z98.890 Other specified postprocedural states
CPT/HCPCS: 36415; 80048; 85025; 85610

== ENCOUNTER 2022-03-09 12:15 | Observation (INO) | payer MEDICARE, SELFPAY ==
[2022-03-08 09:19] VITALS: BMI 26.7
[2022-03-09] VITALS (35 sets, daily range): BP systolic 130–199; BP diastolic 61–101; PULSE 47–120; RESP 9–26; TEMP 36.6–36.9; O2SAT 95–97; BMI 26.7
--- NOTE | 2022-03-09 08:30 | XACV_ITS ---
Exam Room: 2 Ht: 163 cm Wt: 71 kg BSA: 1.80 m2 Gender: Female : 1945 Any Known Allergies: Other Exam Priority: Routine Procedure(s): Procedure Description: Diagnostic procedure Procedure Description: PCI procedure Procedure Description: Left Heart Catheterization Procedure Description: Coronary IVUS Procedure Description: Drug Eluting Coronary Stent Procedure Description: PTCA Procedure Description: Coronary Atherectomy Procedure Description: Miscellaneous Procedure Description: Perclose Procedure Description: ACT Procedure Description: Coronary Angiography Procedure Description: pVAD Diagnostic Cath Status: Elective Diagnostic Findings * INDICATION: 77-year-old woman with past medical history of diabetes, hypertension, breast cancer status post radiation who had been having worsening dyspnea on exertion. Patient underwent left heart catheterization last month that showed severe left main stenosis, confirmed with FFR. It is calcified. CT surgery team evaluated the patient and found her not to be a good surgical candidate because of prior radiation therapy. After heart team discussion (her primary correctional program specialist, Dr Latham and Dr Benson involved) and discussion with the patient, decision was made to proceed with high risk PCI of the left main artery. Risks and benefits of the procedure have been discussed in detail. Patient and family understands the risks and benefits and want to proceed with the procedure. Patient will need arthrectomy given calcified nature of the lesion. Her last EF on nuclear stress test was 40%. Prior to that it was normal. We will proceed with Impella insertion as well given left main stenosis, need for arthrectomy and reduced EF.. * Circumflex has severe disease in distal vessel.. * Right Coronary Artery not injected. * Left Main: obstructive 60% stenosis, SELIN: 3 flow. * Proximal Left Anterior Descending: obstructive 70% stenosis, SELIN: 3 flow. * Coronary angiography shows right dominance. PCI Status: Elective PCI Indication: Staged PCI Interventional Findings * PleasePROCEDURE DETAIL: We obtained a bilateral femoral access. Impella was inserted through left femoral artery access. It was preclosed. IV heparin was administered to maintain ACT above 250 s throughout the procedure. We engaged left main artery with XB 3.5 guide catheter. IVUS was used to confirm severity and size of the vessels. MLA of proximal LAD was found to be less than 4 mm2. MLA of mid to distal left main artery was found to be 5.5 mm2. Using a 0.014 run-through guidewire and a TelePort catheter, we crossed the stenosis and run-through wire was put in the distal vessel. We switched to a Viper wire through TelePort microcatheter. Orbital arthrectomy was used to perform atherectomy of both mid to distal left main artery and LAD. We then predilated the LAD stenosis with 3.0 x 12 mm semicompliant balloon. We placed a 3.5 x 15 mm resolute Rubina drug-eluting stent and proximal LAD. This was followed by predilate and left main artery stenosis with 3.0 x 12 mm semicompliant balloon. We then placed a 4.5 x 15 mm resolute Rubina drug-eluting stent. It was postdilated with a 4.5 x 8 mm NC balloon. At this time we noticed small sized proximal edge dissection. Post IVUS showed excellent stent expansion and no significant dissection. Flow was SELIN-3 and brisk, patient did not have any symptoms, no EKG changes were seen. Given large size of the vessel, we decided to treated medically. Guidewire and guide catheter were removed. Impella was removed and access was closed. Successful hemostasis was obtained with no complication. Patient left the Tire Repairer in a stable condition. * Left Main: 60% stenosis treated with a AB TREK 3.00X12 RX BALLOON, MDT R RUBINA 4.5X15 GUSTABO, and MDT NC EUPHORA RX [id number] BALLOON. 0% residual stenosis, SELIN: 3 flow. * Proximal Left Anterior Descendin% stenosis treated with a AB TREK 3.00X12 RX BALLOON, and MDT R RUBINA 3.5X15 GUSTABO. 0% residual stenosis, SELIN: 3 flow. Conclusions 1. Severe 2. mid to distal left main artery stenosis and severe proximal LAD stenosis 3. . 4. Successful revascularization with orbital arthrectomy and GUSTABO x2.. 5. Left Main was treated with a Balloon, Drug Eluting Stent, and Balloon. 6. Proximal Left Anterior Descending was treated with a Balloon, and Drug Eluting Stent. Recommendations * Aggressive risk factor modification. * Triple therapy with aspirin, Plavix and Eliquis for 1 week and then will continue with Plavix and Eliquis. * Outpatient cardiology follow-up in 4 weeks. Interventional RX Recommendation: PCI w/o planned CABG Diagnostic RX Recommendation: PCI w/o planned CABG Pressures Phase:Rest AO : 117 / 90 ( 103 ) @ 10:57:00 AM 155 / 116 ( 129 ) @ 11:05:00 AM 147 / 91 ( 112 ) @ 11:11:00 AM 142 / 76 ( 97 ) @ 11:40:00 AM 148 / 76 ( 101 ) @ 11:45:00 AM LV : 139 / -12 / 8 @ 10:41:00 AM Clinical Evaluation EBL: 5mL-10mL Procedural Details Procedure Consent Obtained. Pre-Procedure Time Out. Identified patient by full name and date of as verbalized by the patient/guarantor. Does the consent match the physician's order: Yes. Accurate & Complete Informed Consent: Yes. Inpatient/Outpatient History & Physical on Chart: Yes. If H&P is completed, is and addenduem needed: No. Visualize and Verify Site with Patient/Guarantor: N/A. Relevant Radiology Images available: Yes. The risks, benefits, and alternatives of sedation and/or procedure were discussed by physician. The patient agrees to continue. Procedure started. [facility] Clinical Fraility Score: 3: Managing Well. Tire Repairer Indications: Stable Known CAD. Chest Pain Symptom Assessment: Typical Angina Symptoms. Cardiovascular Instability: No. Correct patient, site and procedure confirmed by cath team. Current diagnosis: Chest Pain. PERRLA. Strong, equal hand batch tank controller bilaterally. Lungs clear x 5 lobes. IV Site on Arrival: 18 gauge in the left forearm. IV Site on Arrival: 20 gauge in the left forearm. IV Fluids: 0.9% NaCl at KVO. 0 mL infused prior to labor economics professor. Pre Procedural Pulses: bilateral dorsalis pedis was Doppled. Pre Procedural Pulses: right posterior tibial was Doppled. Pre Procedural Pulses: left posterior tibial was Absent. Oxygen started at 2liters/min via nasal canula. bilateral groins was prepped with chloroprep then draped in the usual sterile fashion. Physician notified. Baseline sample Acquired. HR: 67 BPM. Patient's family in the Tire Repairer waiting room. Tyree Quijano RN, REFINERY [employer]PERATOR [employer] will be updating them periodically throughout the procedure. Physician arrived. Physician scrubbed in. Immediate Pre-Procedure Time Out. Correct Patient: Yes; Correct Procedure: Yes; Correct Site: Yes; Correct Patient Position: Yes; Correct Supplies: Yes; Dried Flammable Prep: Yes; Blood Products Available: N/A;. Lidocaine 1% infiltrated to the right groin. Arterial access obtained with micropuncture set using ultrasound guidance. Lidocaine 1% infiltrated to the left groin. Arterial access obtained with same micropuncture set as right side. AP Pads were placed on the patient upon arrival to the labor economics professor. A 16Fr vences catheter was inserted without resistance maintaining sterile technique. Bag to gravity with clear urine returning. Perclose placed without complications x 2 to the left groin access site. No signs or symptoms of hematoma noted. Lot # [id number]. Exp 2023-10-24. Sheath upsized to a 12 Fr. A 5 kosovan Angled Pig catheter in over wire on the left side. EDP Sample taken: LV 139/-13,8; HR: 57 BPM; SpO2: 99%. 0.018 Impella wire in on the left. Pigtail Catheter removed over the standard wire. Impella inserted. Impella CP adequately postioned across the valve with flow of 3.4 L/min. 6 kosovan XB 3.5 guide catheter was inserted over the wire. ACT drawn. Results 260 seconds. Therapeutic limits - pre-heparin administration 90-150 seconds and monitoring heparin during a vascular procedure >250 seconds. IVUS catheter in. Ringdown and recording of the LCA performed. IVUS catheter out. Teleport Microcatheter in over the wire. Wire out. Runthrough guidewire was advanced through the guide catheter to lesion in the prox LAD. Viper wire in through the teleport catheter. Teleport catheter out. Diamondback 360 Coronary OAS 1.25 in over the viper wire. Atherectomy of the Prox LAD performed for a total of 23 seconds. Atherectomy of the Prox LAD performed for a total of 22 seconds. Atherectomy of the Prox LAD performed for a total of 23 seconds. Atherectomy of the Left Main performed for a total of 22 seconds. Atherectomy device pulled back into the Left Main. Atherectomy of the Left Main performed for a total of 25 seconds. Atherectomy of the Left Main performed for a total of 24 seconds. Atherectomy of the Left Main performed for a total of 24 seconds. Atherectomy device out over the Viper wire. Teleport catheter in over the viper wire. Viper wire out. Runthrough wire in. Teleport catherter out. Inflation number : 1 A AB TREK 3.00X12 RX BALLOON was prepped and advanced across the Prox LAD , then inflated to 15 JUAREZ for 0:22 seconds. Inflation number: 1 The AB TREK 3.00X12 RX BALLOON was reinflated across the LMCA, to 18 JUAREZ for 0:20 seconds. Inflation number: 2 The AB TREK 3.00X12 RX BALLOON was reinflated across the LMCA, to 18 JUAREZ for 0:17 seconds. Balloon out. Results checked. Inflation Number : 2 A LUIGI Parker RUBINA 3.5X15 GUSTABO -Lot Number# [id number] was prepped and advanced across the Prox LAD. The stent was deployed at 14 JUAREZ for 0:24 seconds. Exp. 2024-03-17. Stent balloon out over wire. Inflation Number : 3 A LUIGI Parker RUBINA 4.5X15 GUSTABO -Lot Number# [id number] was prepped and advanced across the LMCA. The stent was deployed at 12 JUAREZ for 0:27 seconds. Exp 2024-08-12. Stent balloon out over wire. Results checked. Inflation number : 4 A LUIGI CHRISTIAN EUPHORA RX [id number] BALLOON was prepped and advanced across the LMCA , then inflated to 14 JUAREZ for 0:20 seconds. Balloon out. IVUS catheter in. Ringdown and recording of the LCA performed. IVUS catheter out. ACT drawn. Results 272 seconds. Therapeutic limits - pre-heparin administration 90-150 seconds and monitoring heparin during a vascular procedure >250 seconds. Runthrough wire out. Guide catheter out. Sheath on the right sutured into position with 2-0 silk and sterile 4x4's and Op-site applied over the site. No oozing or signs and symptoms of hematoma noted. A Suture was successful obtaining hemostatsis at the Right Femoral artery insertion site. Impella catheter out. Perclose x 2 to the left femoral access site completed without complications. No signs or symptoms of hematoma noted. Sterile dressing applied per usual sterile fashion. Dr. Garcia scrubbed out. Arterial sheath flushed and connected to tranducer and pressure bag with heparinized saline. Post Procedure: Pulses reassessed and unchanged. A Perclose ([employer]) was successful obtaining hemostatsis at the Left Femoral artery insertion site. PERRLA. Strong, equal hand batch tank controller bilaterally. No VTE prophylaxis required. Medication's Wasted: Heparin = 2000 units. Total IV fluids: 155 mL. Post-op diagnosis: Impella insertion prior to procedure, IVUS, atherectomy, PCI & PTCA of the LMCA and Prox LAD. Complications: none. Estimated blood loss: 5mL-10mL. Responsiveness - Normal response to verbal stimuli; alert and oriented, PERRLA. Airway - Unaffected, no intervention required; spontaneous ventilation. Circulation: W/N/L, pulses unchanged. Nausea/Vomiting: No. Procedure completed. Patient transferred by bed to ICU. Vital chart was stopped. Access Site Site: Right Femoral artery Sheath Size: 6 Fr Hemostasis Method: Suture Hemostasis Success: Successful Site: Left Femoral artery Sheath Size: 6 Fr Hemostasis Method: Perclose ([employer]) Hemostasis Success: Successful Procedure Medications Start: 8:46 AM Stop: 8:46 AM Medication: Plavix Amount: 600 mg Route: P.O. Start: 8:46 AM Stop: 8:46 AM Medication: Aspirin Amount: 325 mg Route: P.O. Start: 9:03 AM Stop: 9:03 AM Medication: Benadryl Amount: 25 mg Route: I.V. Start: 9:08 AM Stop: 9:08 AM Medication: Versed Amount: 1 mg Route: I.V. Start: 9:08 AM Stop: 9:08 AM Medication: Fentanyl Amount: 50 mcg Route: I.V. Start: 9:20 AM Stop: 9:20 AM Medication: Versed Amount: 1 mg Route: I.V. Start: 9:35 AM Stop: 9:35 AM Medication: Heparin Amount: 7000 units Route: I.V. Start: 9:49 AM Stop: 9:49 AM Medication: Heparin Amount: 2000 units Route: I.V. Start: 10:08 AM Stop: 10:08 AM Medication: Heparin Amount: 2000 units Route: I.V. Start: 10:10 AM Stop: 10:10 AM Medication: Versed Amount: 1 mg Route: I.V. Start: 10:10 AM Stop: 10:10 AM Medication: Fentanyl Amount: 25 mcg Route: I.V. Start: 10:23 AM Stop: 10:23 AM Medication: Heparin Amount: 1000 units Route: I.V. I, the attending physician, have reviewed and verified all procedure medications. Yes, all medications given per verbal order History/Risk Factors Hypertension: Yes Dyslipidemia: Yes Peripheral Arterial Disease (PAD): Yes Myocardial Infarction (CO): No Obesity: No Renal Disease: No Tobacco Use: Former Prior Interventions PCI: No CABG: No Valve Surgery: No Report Signatures Finalized by Brennan Garcia MD on 03/20/2022 07:02 PM
--- NOTE | 2022-03-09 08:31 | P.HPUD_ITS ---
Surgery/Procedure H&P Update DATE OF PROCEDURE: March 09, 2022 DATE H&P PERFORMED: 02/23/22 H&P UPDATE INFORMATION: I have reviewed H&P completed within last 30 days, I have examined patient prior to procedure and Changes to prior documentation as noted here CHANGES TO PREVIOUS DOCUMENTATION: 77-year-old woman with past medical history of diabetes, hypertension, breast cancer status post radiation who had been having worsening dyspnea on exertion. Patient underwent left heart catheterization last month that showed severe left main stenosis, confirmed with FFR. It is calcified. CT surgery team evaluated the patient and found her not to be a good surgical candidate because of prior radiation therapy. After heart team discussion (her primary implementation lead, Dr Latham and Dr Benson involved) and discussion with the patient, decision was made to proceed with high risk PCI of the left main artery. Risks and benefits of the procedure have been discussed in detail. Patient and family understands the risks and benefits and want to proceed with the procedure. Patient will need arthrectomy given calcified nature of the lesion. Her last EF on nuclear stress test was 40%. Prior to that it was normal. We will proceed with Impella insertion as well given left main stenosis, need for arthrectomy and reduced EF. PREOP DIAGNOSIS: Dyspnea on exertion/Severe left main stenosis PRIMARY INDICATION FOR PROCEDURE: Dyspnea on exertion/ Severe left main artery stenosis PLANNED PROCEDURE: Operation Date: 03/09/22 08:30 Proposed Procedures p Cardiac Catheterization 41759 I25.10(Left) - Brennan Garcia M.D High risk PCI of the left main PATIENT REASSESSED PRIOR TO SEDATION, WITH NO CHANGE NOTED: Yes PHYSICAL EXAM: alert, oriented x 3, clear to auscultation bilaterally and regular rate & rhythm AIRWAY EVAL/ANESTHESIA PLAN: ASA III, Local Anesthesia, Risks, benefits & alternatives of sedation and/or procedure discussed and Patient agrees to continue as planned
[2022-03-09] MEDS: amlodipine 10 mg Tablet PO (12:38)
[2022-03-09] MEDS: sodium chloride 0.9% 1,000 ML 100 ML IV ×2 (12:38→19:27)
[2022-03-09] MEDS: losartan 50 mg Tablet PO (12:38)
[2022-03-09 14:45] LABS: Partial Thromboplastin Time 164.7 SECONDS (23.9-36.7)
[2022-03-09 16:43] LABS: Partial Thromboplastin Time 48.5 SECONDS (23.9-36.7)
[2022-03-09] MEDS: atorvastatin 40 mg Tablet PO (20:38)
[2022-03-09 22:38] LABS: Anion Gap 14.8 (5-19); Blood Urea Nitrogen 13 mg/dL (8-23); Calcium 8.5 mg/dL (8.5-10.5); Carbon Dioxide 23 mmol/L (22-29); Chloride 103 mmol/L (98-107); Glucose 159 mg/dL (65-115); Osmolality Calculated 287 mOsm/kg (285-295); Potassium 3.8 mmol/L (3.5-5.1); Sodium 137 mmol/L (136-145)
[2022-03-10] VITALS (11 sets, daily range): BP systolic 152–171; BP diastolic 61–107; PULSE 0–110; RESP 14–26; TEMP 36.7–36.8; O2SAT 93–97
[2022-03-10 03:54] LABS: Basophils % 0.5 %; Eosinophils # 0.2 10^3/uL (0.0-0.8); Hematocrit 40.2 % (37.0-47.0); Lymphocytes # 0.7 10^3/uL (0.8-4.8); Mean Corpuscular HGB Conc 32.3 g/dL (30.0-36.0); Mean Corpuscular Hemoglobin 28.9 pg (28.0-34.0); Mean Corpuscular Volume 89.3 fl (81-99); Mean Platelet Volume 11.3 fL (7.4-10.4); Monocytes # 0.5 10^3/uL (0.2-0.9); Monocytes % 7.9 %; Neutrophils # 4.66 10^3/uL (1.8-7.7); Neutrophils % 76.4 %; Nucleated Red Blood Cells % 0 %; Platelet Count 118 10^3/cmm (130-400); Positive C 1; Red Cell Distribution Width 13.2 % (12.1-15.1); White Blood Count 6.1 10^3/uL (4.0-10.0)
[2022-03-10 04:24] LABS: Blood Urea Nitrogen 9 mg/dL (8-23); Calcium 9.1 mg/dL (8.5-10.5); Carbon Dioxide 23 mmol/L (22-29); Chloride 103 mmol/L (98-107); Glucose 166 mg/dL (65-115); Osmolality Calculated 288 mOsm/kg (285-295); Sodium 138 mmol/L (136-145)
[2022-03-10 04:26] LABS: Anion Gap 16.1 (5-19); Potassium 4.1 mmol/L (3.5-5.1)
[2022-03-10 05:02] LABS: Slide Review Slide Review Perform
[2022-03-10] MEDS: sodium chloride 0.9% 1,000 ML 100 ML IV (06:07)
[2022-03-10] MEDS: losartan 50 mg Tablet PO (07:43)
[2022-03-10] MEDS: dilTIAZem ER (24HR) 240 mg Capsule PO (07:43)
[2022-03-10] MEDS: clopidogrel 75 mg Tablet PO (08:07)
[2022-03-10] MEDS: aspirin 81 mg EC Tablet PO (08:07)
--- NOTE | 2022-03-10 08:32 | PM.DCS ---
Discharge Providers Date of Admission: 03/09/22 12:15 Date of Discharge: March 10, 2022 Attending Provider at Admission: Brennan Garcia MD Attending Provider at Discharge: Brennan Garcia MD Primary Care Provider: Nestor Krueger MD Reason for Visit Reason for Visit: High risk PCI of left main artery Brief History: 77-year-old woman with past medical history of diabetes, hypertension, breast cancer status post radiation who had been having worsening dyspnea on exertion.? Patient underwent left heart catheterization last month that showed severe left main stenosis, confirmed with FFR.? It is calcified. CT surgery team evaluated the patient and found her not to be a good surgical candidate because of prior radiation therapy. After heart team discussion (her primary core composer feeder, Dr Latham and Dr Benson involved) and discussion with the patient, decision was made to proceed with high risk PCI of the left main artery.? Risks and benefits of the procedure have been discussed in detail.? Patient and family understands the risks and benefits and want to proceed with the procedure.? Patient will need arthrectomy given calcified nature of the lesion.? Her last EF on nuclear stress test was 40%.? Prior to that it was normal.? We will proceed with Impella insertion as well given left main stenosis, need for arthrectomy and reduced EF. Hospital Course Hospital Course During the procedure, Impella was inserted. IVUS was performed that showed proximal LAD also had severe, heavily calcified stenosis. We performed orbital arthrectomy of both left main and LAD artery. She underwent successful revascularization of left main artery with GUSTABO x1. LAD was also treated with GUSTABO x1. At the end of the procedure, Impella was removed. 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 She was loaded prior to procedure with aspirin and Plavix. She stayed in the hospital overnight and was stable. Femoral access sites looked normal. Morning labs showed stable renal function and hemoglobin. Plan for continuing aspirin, Plavix and Eliquis for 1 week and then continue with Eliquis and Plavix. Given remote history of a GI bleed, patient informed about warning signs and symptoms of GI bleed. Patient also stated hypertensive. We have added losartan 50 mg daily. We will continue with Cardizem and metoprolol. Physical Exam Narrative: GENERAL: Patient is alert, awake and oriented x3. [] NECK: No jugular vein distension. [] HEENT: No cyanosis. No icterus. No pallor. [] HEART: Irregularly irregular. LUNGS: Clear to auscultate bilaterally. [] ABDOMEN: Soft CENTRAL NERVOUS SYSTEM: Grossly nonfocal. [] EXTREMITIES: Lower extremities with 1+ edema bilaterally. Pulses palpable in the lower extremities, both dorsalis pedis and posterior tibial. [] Discharge Data Studies Completed and Pending Pending at discharge Category Date Time Status PRIVATE INVESTIGATOR SURVEILLANCE request for service Routine Exams 03/09/22 08:30 Taken Basic Metabolic Panel AM LABS Lab 03/11/22 04:00 Ordered Basic Metabolic Panel AM LABS Lab 03/12/22 04:00 Ordered Complete Blood Count w/Auto AM LABS Lab 03/11/22 04:00 Ordered Complete Blood Count w/Auto AM LABS Lab 03/12/22 04:00 Ordered Laboratory Results WBC 6.1 10^3/uL (4.0-10.0) 03/10/22 02:55 RBC 4.50 10^6/uL (4.1-5.3) 03/10/22 02:55 Hgb 13.0 g/dL (11.5-15.3) 03/10/22 02:55 Hct 40.2 % (37.0-47.0) 03/10/22 02:55 MCV 89.3 fl (81-99) 03/10/22 02:55 MCH 28.9 pg (28.0-34.0) 03/10/22 02:55 MCHC 32.3 g/dL (30.0-36.0) 03/10/22 02:55 RDW 13.2 % (12.1-15.1) 03/10/22 02:55 Plt Count 118 10^3/cmm (130-400) L 03/10/22 02:55 MPV 11.3 fL (7.4-10.4) H 03/10/22 02:55 Neut % (Auto) 76.4 % 03/10/22 02:55 Lymph % (Auto) 12.0 % 03/10/22 02:55 [place] % (Auto) 7.9 % 03/10/22 02:55 Eos % (Auto) 3.0 % 03/10/22 02:55 Baso % (Auto) 0.5 % 03/10/22 02:55 Neut # (Auto) 4.66 10^3/uL (1.8-7.7) 03/10/22 02:55 Lymph # (Auto) 0.7 10^3/uL (0.8-4.8) L 03/10/22 02:55 [place] # (Auto) 0.5 10^3/uL (0.2-0.9) 03/10/22 02:55 Eos # (Auto) 0.2 10^3/uL (0.0-0.8) 03/10/22 02:55 Baso # (Auto) 0.0 10^3/uL (0.0-0.1) 03/10/22 02:55 Nucleated RBC % (auto) 0 % 03/10/22 02:55 Nucleated RBCs # 0.0 /100WBC 03/10/22 02:55 APTT 48.5 SECONDS (23.9-36.7) H D 03/09/22 16:19 Sodium 138 mmol/L (136-145) 03/10/22 02:55 Potassium 4.1 mmol/L (3.5-5.1) 03/10/22 02:55 Chloride 103 mmol/L (98-107) 03/10/22 02:55 Carbon Dioxide 23 mmol/L (22-29) 03/10/22 02:55 Anion Gap 16.1 (5-19) 03/10/22 02:55 BUN 9 mg/dL (8-23) 03/10/22 02:55 Creatinine 0.4 mg/dL (0.5-0.9) L 03/10/22 02:55 GFR Calculation Not Reportable 03/10/22 02:55 Glucose 166 mg/dL (65-115) H 03/10/22 02:55 Calculated Osmolality 288 mOsm/kg (285-295) 03/10/22 02:55 Calcium 9.1 mg/dL (8.5-10.5) 03/10/22 02:55 Vitals Last Vital Signs Temp 98.2 F 03/10/22 04:00 Pulse 93 03/10/22 08:00 Resp 26 H 03/10/22 08:00 BP 160/107 03/10/22 08:00 Pulse Ox 97 03/10/22 08:00 O2 Del Method 03/10/22 06:00 Discharge Plan Discharge Patient Disposition: Home Condition: Stable Prescriptions: New losartan 50 mg Tablet 50 mg PO DAILY Qty: 90 3RF clopidogrel 75 mg Tablet 75 mg PO DAILY Qty: 90 3RF Continued mecobalamin (vitamin B12) 1,000 mcg tablet,chewable 5,000 mcg PO DAILY@08 furosemide 40 mg tablet 20 mg PO DAILY PRN (Reason: Edema) ferrous sulfate 324 mg (65 mg iron) tablet,delayed release (DR/EC) 324 mg PO DAILY ascorbic acid (vitamin C) 500 mg tablet 4,000 mg PO DAILY potassium chloride 10 mEq tablet extended release 20 meq PO DAILY PRN (Reason: Edema) nitroglycerin 0.4 mg tablet, sublingual 0.4 mg sublingual Q5M PRN (Reason: chest pain) Qty: 30 3RF Rx Instructions: do not exceed 3 doses per episode pantoprazole 40 mg tablet,delayed release (DR/EC) 40 mg PO DAILY Dose Instruction: TAKE 1 TABLET BY MOUTH TWO TIMES A DAY Label Comments: states he is taking it daily only isosorbide mononitrate 30 mg tablet extended release 24 hr See Rx Instructions .ROUTE .COMPLEX Rx Instructions: Take 2 tabs in morning and 1 tab evening metoprolol tartrate 100 mg tablet 100 mg PO BID Qty: 90 3RF Rx Instructions: If blood pressure is above 150 systolic, take an extra 1/2 tablet venlafaxine 75 mg capsule,extended release 24hr 75 mg PO DAILY@08 cholecalciferol (vitamin D3) [Vitamin D3] 5,000 unit Tablet 5,000 unit PO DAILY@08 magnesium oxide 200 mg magnesium tablet 400 mg PO BEDTIME albuterol sulfate 90 mcg/actuation HFA aerosol inhaler 1 - 2 puff INHALATION Q4H PRN (Reason: Shortness Of Breath) Levemir FlexTouch U-100 Insuln 100 unit/mL (3 mL) insulin pen 60 unit SUBCUT DIRECTED aspirin 81 mg Tablet,Delayed Release (Dr/Ec) 81 mg PO DAILY 30 Days Qty: 30 6RF diltiazem HCl [Cardizem CD] 120 mg capsule,extended release 24hr 120 mg PO DAILY Qty: 180 3RF atorvastatin 40 mg tablet 40 mg PO DAILY Qty: 30 3RF Held Eliquis 5 mg tablet 5 mg PO BID Qty: 180 3RF Hold Instructions: Resume on 03/11/22. metformin 1,000 mg tablet 1,000 mg PO BID Hold Instructions: Resume on 03/12/22. Discharge Orders: Discharge Order (Routine); Ordered 03/10/22 Ordered By: Brennan Garcia Other Ambulatory Orders: Complete Blood Count w/Auto (Routine) Timeframe: 3 Weeks Location: Determined by Patient Ordered By: Brennan Garcia Referrals: Haydee Saini FNP [Nurse Practitioner] - 4-7 days (This appointment has been scheduled . February time of 09:00 am for post angiogram ,wound check ,and lab work, and please ask them about cbc test lab work for 3 weeks that when to draw this .or to wait exactly 3 weeks. ) Discharge Diet: Cardiac and Diabetic Discharge Activity: Increase activity as tolerated Patient Instructions: Losartan (By mouth) (Cozaar), Clopidogrel (By mouth) (Plavix), Heart Healthy Diet, A-fib (Atrial Fibrillation) (DC), Coronary Angioplasty (DC), Basic Carbohydrate Counting (DC), Coronary Angioplasty (DC), Opioid Safety, Post Angiogram Home Care Instructions, Stroke Stoplight Activity Restrictions/Additional Instructions: Please do not lift more than 5 pounds of weight for the next 5 days Keep taking aspirin, Plavix and Eliquis till seen by Haydee Saini in 1 week in cardiology office. At that time, we will drop aspirin and continue with Eiquis and Plavix. Resume Eliquis tomorrow. Discharge Attestations Time Spent in Discharge Care*: greater than 30 min Status at Discharge: Cognitive status at discharge: cognitively intact, Behavioral status at discharge: cooperative, Quality Metrics Clinical Quality Measures [ No reported AMI, CVA or VTE this stay] Coding Level of Care Code Acute Chg FW DC note
[2022-03-10] MEDS: metoprolol tartrate 1 mg/1 mL SDV 5 mL 5 MG IVP (08:42)
[2022-03-10] MEDS: metoprolol tartrate 50 mg Tablet PO (08:52)
--- NOTE | 2022-03-10 10:07 | PC.NURSE ---
Patient received discharge orders as long as all safety measures are met. All IV's removed. Patient prescriptions and discharge instructions given to patient and verbalized understanding. Patient left unit at 1009 via W/C to main entrance. Patient belongings all sent with patient and family members.
== END 2022-03-10 10:09 | disposition home or self-care (01) ==
LOC: ICU 12:19
PROVIDERS: Internal Medicine; Admitting Provider Internal Medicine Cardiovascular Disease; PCP Family Medicine; Visit Provider Internal Medicine Cardiovascular Disease
DX: I25.10 Atherosclerotic heart disease of native coronary artery without angina pectoris (principal); F41.9 Anxiety disorder, unspecified; Z85.3 Personal history of malignant neoplasm of breast; J44.9 Chronic obstructive pulmonary disease, unspecified; Z79.84 Long term (current) use of oral hypoglycemic drugs; Z79.82 Long term (current) use of aspirin; E78.5 Hyperlipidemia, unspecified; I48.91 Unspecified atrial fibrillation
CPT/HCPCS: 33975; 36415; 80048; 85025; 85347; 85730; 92924; 92978; 93458; 96360; 96361; 99152; 99153; C1724; C1725; C1753; C1760; C1769; C1874; C1887; C1894; C9600; G0378; J1200; J1644; J2250; J3010; J3490; J7030; Q9967

== ENCOUNTER 2022-03-15 12:32 | Emergency (ER) | payer MEDICARE, SELFPAY ==
[2022-03-15 13:05] VITALS: BMI 26.4
[2022-03-15 13:38] VITALS: BP 139/86; PULSE 55; RESP 16; O2SAT 98
--- NOTE | 2022-03-15 14:21 | XRR_ITS ---
PROCEDURE INFORMATION: Exam: XR Chest Exam date and time: 03/15/2022 2:30 PM Age: 77 years old Clinical indication: Shortness of breath; Prior surgery; Surgery type: RT breast stents; Patient HX: HX of breast cancer; Additional info: Syncope TECHNIQUE: Imaging protocol: Radiologic exam of the chest. Views: 1 view. COMPARISON: CR XR chest 1V portable [id number] 02/21/2021 8:38 PM FINDINGS: Lungs: The lung bases are suboptimally assessed due to technique however the upper lungs are clear of focal consolidation. Pleural spaces: Unremarkable. No pleural effusion. No pneumothorax. Heart/Mediastinum: Cardiac silhouette appears somewhat enlarged, stable. Less prominent vascularity than prior exam suggesting improvement of vascular congestion. Bones/joints: No acute osseous findings. Osteopenia. Other findings: Single view was submitted. XR/XR chest 1V portable [id number] IMPRESSION: Stable enlargement of cardiac silhouette size with interval improvement of vascular congestion. No obvious acute consolidation.
--- NOTE | 2022-03-15 14:22 | ED_ITS ---
HPI - Weakness General: Chief complaint: Weakness Stated complaint: Stent placed last week-WEAKNESS Time Seen by Provider: 03/15/22 13:15 Source: patient and family Mode of arrival: ambulatory Limitations: no limitations History of Present Illness: This patient made her way to the emergency department because she has had another episode today where she felt globally weak. Patient has had similar episodes in the past and had 1 over the weekend. She recently just had LAD as well as left main stenting because she had significant disease in those vessels that was not amenable to bypass. She does have a history of atrial fibrillation and has had recent increases in her metoprolol as well as her ARB. She is also on triple platelet therapy because of her recent procedure. She denies any palpitations, black tarry stools or blood in her stools. The episode she had over the weekend it was noted her systolic blood pressure was approximately 70 at that time but she recovered back to her normal blood pressure after she sat down. Today this episode occurred while she was walking around a local store. She had eaten and drank fluids today as well. She denied any chest pain, shortness of breath, focal weakness etc. Location: generalized Context: new medication and recent surgery Associated symptoms: Reports easy bruising; Denies chest pain, chills, melena, dysuria, fever(s), headache(s), nausea or vomiting Review of Systems Const: Denies: fever(s) or chills Eyes: Denies: change in vision ENMT: Denies: throat pain, odynophagia or nasal congestion Card: Reports: irregular heart rhythm and pre-syncope; Denies: chest pain or dyspnea on exertion Resp: Denies: dyspnea, productive cough or non-productive cough GI: Denies: abdominal pain, nausea, vomiting, hematemesis, hematochezia or melena : Denies: flank pain, difficulty voiding, dysuria or urinary frequency Musc: Denies: neck pain, back pain, extremity pain or extremity swelling Skin/Breast: Denies: rash Neuro: Denies: headache(s), numbness in extremities, weakness in extremities, dizziness, vertigo or Slurred speech present Psych: Denies: anxiety or depression Endo: Denies: polyuria or polydipsia Poli/Lymph: Reports: easy bruising PFS ED PFSH: Medical History Anxiety B12 deficiency Breast cancer Carotid stenosis CHF (congestive heart failure) COPD (chronic obstructive pulmonary disease) Coronary artery disease Degenerative arthritis Degenerative joint disease of spine Depression GERD (gastroesophageal reflux disease) History of atrial fibrillation History of iron deficiency anemia Hyperlipidemia Hypertension Peripheral arterial disease Type 2 diabetes mellitus Surgical History H/O carotid endarterectomy H/O esophagogastroduodenoscopy (03/11/21) History of cardiac cath History of cholecystectomy History of lumpectomy of right breast (06/11/20) Right breast lumpectomy with axillary sentinel lymph node biopsy Status post colonoscopy (03/11/21) 07/16/2019: Severe diverticulosis sigmoid colon 5 mm sessile polyps x2 sigmoid colon 03/11/21: diverticulosis Family History Grandmother Hypertension Mother Hypertension Grandmother Diabetes Family/Other Diabetes Other Breast cancer Colon cancer Denies family history of Anesthesia complication Bleeding disorder Social History Smoking and tobacco status: former smoker Quit status (tobacco): has quit using tobacco Second hand smoke exposure: No Smoking risk assessment/counseling performed?: No Alcohol intake: never Household members: spouse Marital status: Current occupational status: retired History of recent travel: No Physical Exam Narrative: EXAM NARRATIVE: Patient is alert cooperative and in no acute distress. Const: COMMON NORMALS: no acute distress and patient oriented x3 GENERAL APPEARANCE: cooperative HENMT: COMMON NORMALS: normocephalic, atraumatic and moist oral mucous membranes HEAD & SCALP: normocephalic and atraumatic Eye: COMMON NORMALS: Equal, round and reactive pupils present and EOMs intact bilaterally PUPIL: Yes Equal, round and reactive pupils present Neck/C-Spine: COMMON NORMALS: full ROM, supple, no JVD, Thyroid normal and No carotid bruits THYROID: Thyroid normal Chest: COMMONS NORMALS: normal inspection of the chest Resp: COMMON NORMALS: normal respiratory effort, No use of accessory muscles and clear to auscultation bilaterally EFFORT & INSPECTION: Yes able to speak in complete sentences AUSCULTATION: clear to auscultation bilaterally Cardio: COMMON NORMALS: no JVD, No murmurs present (Cardio) and Peripheral pulses 2+ throughout RATE: bradycardic RHYTHM: abnormal rhythm irregularly irregular PERIPHERAL PULSES: Peripheral pulses 2+ throughout GI: COMMON NORMALS: Normal to inspection, nondistended, normoactive bowel sounds present, Soft to palpation and non-tender PALPATION: Yes Soft to palpation : COMMON NORMALS: Yes no CVA tenderness BLADDER/KIDNEY EXAM: Yes no CVA tenderness Back/Pelvis: COMMON NORMALS: no CVA tenderness, thoracic and lumbar spine normal to inspection and no thoracic nor lumbar tenderness Extremity: COMMON NORMALS: normal to inspection, capillary refill normal, no clubbing, cyanosis or edema, no calf tenderness and no pedal edema Neuro: COMMON NORMALS: patient oriented x3, moves all extremities, no focal motor deficits, no sensory deficits noted and gait normal Psych: COMMON NORMALS: mental status grossly normal and Normal thought process present THOUGHT PROCESS: Normal thought process present Skin: COMMON NORMALS: no rashes or lesions noted, no wounds and turgor normal GENERAL SKIN EXAM: no rashes or lesions noted and turgor normal Course Reevaluation(s): Reevaluation #1: Orthostatic blood pressures vital signs were taken which did not reveal any significant hypotension with positional changes. Time: 18:01 Reevaluation #2: Second Trop is reassuring. While her urine is not pristine it also has a lot of epithelial cells. Given her past history of UTI I think it is reasonable for us to give her 3-day of course of Macrobid. She had a culture in January that was not significant growth of E. coli. Time: 18:57 Consultations: Consultation #1: I discussed with and we will go ahead and just get a second troponin to ensure that she is not trending upwards but he is not concerned given her recent stenting. He did recommend we may decrease her Cardizem temporarily and see if that is contributing to her current symptoms. Time: 18:15 Vital Signs: Vital signs: Vital Signs Pulse Rate 69 03/15/22 18:00 Respiratory Rate 16 03/15/22 18:00 Blood Pressure 175/92 03/15/22 18:00 Pulse Oximetry 95 03/15/22 18:00 Oxygen Delivery Me thod 03/15/22 18:00 MDM - Weakness Medical Decision Making Patient who comes in with episodic weakness without chest pain or other cardiovascular symptoms. Has known coronary disease and recently had left main and LAD stents placed. Her evaluation today revealed a slightly elevated troponin but no rise in [place] levels after a prolonged observation time in the emergency department and an EKG showed no acute changes and only showed findings consistent with her chronic atrial fibrillation. She did not display any orthostatic findings here or other significant rhythm issues other than her baseline A. fib. After prolonged observation, repeat testing she is stable at this time to be followed up. I also discussed with her industrial robotics mechanic who agrees with this plan of care and we agreed to hold her diltiazem temporarily to see if that has an effect on some of her symptoms. This was all discussed in detail with both patient and family. She is also given a 3-day course of Macrobid because of her abnormal urinalysis. Medical Records I reviewed the patient's medical records. Lab Data I reviewed the patient's lab results. : 03/15/22 13:25 03/15/22 13:25 Radiology Impressions Chest X-Ray 03/15/22 14:21 IMPRESSION: Stable enlargement of cardiac silhouette size with interval improvement of vascular congestion. No obvious acute consolidation. Laboratory Results WBC 8.8 10^3/uL (4.0-10.0) 03/15/22 13:25 RBC 4.36 10^6/uL (4.1-5.3) 03/15/22 13:25 Hgb 12.8 g/dL (11.5-15.3) 03/15/22 13:25 Hct 37.6 % (37.0-47.0) 03/15/22 13:25 MCV 86.2 fl (81-99) 03/15/22 13:25 MCH 29.4 pg (28.0-34.0) 03/15/22 13:25 MCHC 34.0 g/dL (30.0-36.0) 03/15/22 13:25 RDW 13.0 % (12.1-15.1) 03/15/22 13:25 Plt Count 161 10^3/cmm (130-400) 03/15/22 13:25 MPV 11.4 fL (7.4-10.4) H 03/15/22 13:25 Neut % (Auto) 69.2 % 03/15/22 13:25 Lymph % (Auto) 18.3 % 03/15/22 13:25 [place] % (Auto) 8.7 % 03/15/22 13:25 Eos % (Auto) 2.9 % 03/15/22 13:25 Baso % (Auto) 0.6 % 03/15/22 13:25 Neut # (Auto) 6.10 10^3/uL (1.8-7.7) 03/15/22 13:25 Lymph # (Auto) 1.6 10^3/uL (0.8-4.8) 03/15/22 13:25 [place] # (Auto) 0.8 10^3/uL (0.2-0.9) 03/15/22 13:25 Eos # (Auto) 0.3 10^3/uL (0.0-0.8) 03/15/22 13:25 Baso # (Auto) 0.1 10^3/uL (0.0-0.1) 03/15/22 13:25 Nucleated RBC % (auto) 0 % 03/15/22 13:25 Nucleated RBCs # 0.0 /100WBC 03/15/22 13:25 Sodium 136 mmol/L (136-145) 03/15/22 13:25 Potassium 4.5 mmol/L (3.5-5.1) 03/15/22 13:25 Chloride 98 mmol/L (98-107) 03/15/22 13:25 Carbon Dioxide 26 mmol/L (22-29) 03/15/22 13:25 Anion Gap 16.5 (5-19) 03/15/22 13:25 BUN 16 mg/dL (8-23) 03/15/22 13:25 Creatinine 0.9 mg/dL (0.5-0.9) 03/15/22 13:25 GFR Calculation Not Reportable 03/15/22 13:25 Glucose 120 mg/dL (65-115) H 03/15/22 13:25 Calculated Osmolality 284 mOsm/kg (285-295) L 03/15/22 13:25 Calcium 9.6 mg/dL (8.5-10.5) 03/15/22 13:25 Total Bilirubin 0.6 mg/dL (0.15-1.2) 03/15/22 13:25 AST 15 U/L (0-32) 03/15/22 13:25 ALT 11 U/L (0-33) 03/15/22 13:25 Alkaline Phosphatase 74 U/L (35-105) 03/15/22 13:25 Troponin T Gen 5 ng/L 22 ng/L (0-10) H 03/15/22 18:18 Total Protein 6.8 g/dL (6.6-8.7) 03/15/22 13:25 Albumin 3.6 g/dL (3.5-5.2) 03/15/22 13:25 Globulin 3.2 g/dL (1.3-4.6) 03/15/22 13:25 Urine Color [place] (Yellow) 03/15/22 15:35 Urine Appearance Cloudy (CLEAR) 03/15/22 15:35 Urine pH 5 (5-7) 03/15/22 15:35 Ur Specific [place] 1.015 (1.005-1.030) 03/15/22 15:35 Urine Protein 1+ (Negative) H 03/15/22 15:35 Urine Glucose (UA) Norm (Normal) 03/15/22 15:35 Urine Ketones Negative (Negative) 03/15/22 15:35 Urine Blood 2+ (Negative) H 03/15/22 15:35 Urine Nitrate Negative (Negative) 03/15/22 15:35 Urine Bilirubin 1+ (Negative) H 03/15/22 15:35 Urine Urobilinogen Neg mg/dL (Negative) 03/15/22 15:35 Ur Leukocyte Esterase 1+ (Negative) H 03/15/22 15:35 Urine RBC 0-4 /hpf (0-2) H 03/15/22 15:35 Urine WBC 0-4 /hpf (0-5) H 03/15/22 15:35 Ur Squamous Epith Cells 10-15 /hpf (0-5) H 03/15/22 15:35 Amorphous Sediment 1+ /hpf 03/15/22 15:35 Urine Bacteria 1+ /hpf (NONE) H 03/15/22 15:35 Hyaline Casts 0-4 /lpf H 03/15/22 15:35 Urine Mucus 1+ /hpf 03/15/22 15:35 Discharge Plan Discharge Patient Disposition: Home Clinical Impression: Coronary artery disease, Atrial fibrillation, chronic, Cystitis Condition: Stable Prescriptions: New Macrobid 100 mg capsule 100 mg PO BID 3 Days Qty: 6 0RF Rx Instructions: must administer with a meal/food No Action mecobalamin (vitamin B12) 1,000 mcg tablet,chewable 5,000 mcg PO DAILY@08 furosemide 40 mg tablet 20 mg PO DAILY PRN (Reason: Edema) Eliquis 5 mg tablet 5 mg PO BID Qty: 180 3RF Hold Instructions: Resume on 03/11/22. ferrous sulfate 324 mg (65 mg iron) tablet,delayed release (DR/EC) 324 mg PO DAILY ascorbic acid (vitamin C) 500 mg tablet 4,000 mg PO DAILY potassium chloride 10 mEq tablet extended release 20 meq PO DAILY PRN (Reason: Edema) nitroglycerin 0.4 mg tablet, sublingual 0.4 mg sublingual Q5M PRN (Reason: chest pain) Qty: 30 3RF Rx Instructions: do not exceed 3 doses per episode pantoprazole 40 mg tablet,delayed release (DR/EC) 40 mg PO DAILY Dose Instruction: TAKE 1 TABLET BY MOUTH TWO TIMES A DAY Label Comments: states he is taking it daily only isosorbide mononitrate 30 mg tablet extended release 24 hr See Rx Instructions .ROUTE .COMPLEX Rx Instructions: Take 2 tabs in morning and 1 tab evening metoprolol tartrate 100 mg tablet 100 mg PO BID Qty: 90 3RF Rx Instructions: If blood pressure is above 150 systolic, take an extra 1/2 tablet venlafaxine 75 mg capsule,extended release 24hr 75 mg PO DAILY@08 metformin 1,000 mg tablet 1,000 mg PO BID Hold Instructions: Resume on 03/12/22. cholecalciferol (vitamin D3) [Vitamin D3] 5,000 unit Tablet 5,000 unit PO DAILY@08 magnesium oxide 200 mg magnesium tablet 400 mg PO BEDTIME albuterol sulfate 90 mcg/actuation HFA aerosol inhaler 1 - 2 puff INHALATION Q4H PRN (Reason: Shortness Of Breath) Levemir FlexTouch U-100 Insuln 100 unit/mL (3 mL) insulin pen 60 unit SUBCUT DIRECTED aspirin 81 mg Tablet,Delayed Release (Dr/Ec) 81 mg PO DAILY 30 Days Qty: 30 6RF diltiazem HCl [Cardizem CD] 120 mg capsule,extended release 24hr 120 mg PO DAILY Qty: 180 3RF atorvastatin 40 mg tablet 40 mg PO DAILY Qty: 30 3RF losartan 50 mg Tablet 50 mg PO DAILY Qty: 90 3RF clopidogrel 75 mg Tablet 75 mg PO DAILY Qty: 90 3RF Discharge Orders: Discharge ED (Routine); Ordered 03/15/22 Ordered By: Josse Briceno Referrals: Nestor Krueger MD [Primary Care Provider] - Discharge Diet: Usual diet Discharge Activity: Increase activity as tolerated Patient Instructions: Opioid Safety, Pain Management Activity Restrictions/Additional Instructions: Do not take your diltiazem or Cardizem until you follow-up with your industrial robotics mechanic. Take all your other medications as prescribed. We have provided a prescription for Macrobid to take for 3 days to help clear up any potential bladder infection. Monitor your blood pressure at home twice daily and record those numbers for your industrial robotics mechanic. If you develop any chest pain, shortness of breath or any other concerning symptoms return to this or the nearest emergency department. Coding Level of Care Code ED Technology Coach for [facility] Exam Comprehensive
--- NOTE | 2022-03-15 14:45 | ECG_ITS ---
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 Measurements Intervals [place] Rate: 67 P: FL: QRS: -13 QRSD: 93 T: 24 QT: 421 QTc: 447 Interpretive Statements ATRIAL FIBRILLATION POSSIBLE RIGHT VENTRICULAR CONDUCTION DELAY [RSR (QR) IN V1/V2] MINIMAL VOLTAGE CRITERIA FOR LVH, CONSIDER NORMAL VARIANT [MEETS CRITERIA IN ONE OF: R(aVL), S(V1), R(V5), R(V5/V6)+S(V1)] ANTERIOR MYOCARDIAL INFARCTION , PROBABLY OLD [40+ ms Q WAVE AND/OR ST/T ABNORMALITY IN V3/V4] INFERIOR MYOCARDIAL INFARCTION , PROBABLY OLD [40+ ms Q WAVE AND/OR ST/T ABNORMALITY IN II/aVF] Compared to ECG 02/21/2021 21:18:35 No significant changes Electronically Signed On 03-15-2022 20:49:53 CDT by Sonia Tomlinson M.D. [id number]
[2022-03-15] MEDS: sodium chloride 0.9% 500 ML IV (14:51)
[2022-03-15 14:52] LABS: Basophils # 0.1 10^3/uL (0.0-0.1); Basophils % 0.6 %; Eosinophils # 0.3 10^3/uL (0.0-0.8); Eosinophils % 2.9 %; Hematocrit 37.6 % (37.0-47.0); Hemoglobin 12.8 g/dL (11.5-15.3); Lymphocytes # 1.6 10^3/uL (0.8-4.8); Lymphocytes % 18.3 %; Mean Corpuscular Hemoglobin 29.4 pg (28.0-34.0); Mean Corpuscular Volume 86.2 fl (81-99); Mean Platelet Volume 11.4 fL (7.4-10.4); Monocytes # 0.8 10^3/uL (0.2-0.9); Monocytes % 8.7 %; Neutrophils % 69.2 %; Nucleated Red Blood Cells % 0 %; Platelet Count 161 10^3/cmm (130-400); Red Blood Count 4.36 10^6/uL (4.1-5.3); White Blood Count 8.8 10^3/uL (4.0-10.0)
[2022-03-15 15:03] LABS: Troponin T (5th) Once 23 ng/L (0-10)
[2022-03-15 15:04] LABS: Alanine Aminotransferase 11 U/L (0-33); Albumin Level 3.6 g/dL (3.5-5.2); Alkaline Phosphatase 74 U/L (35-105); Anion Gap 16.5 (5-19); Aspartate Amino Transferase 15 U/L (0-32); Blood Urea Nitrogen 16 mg/dL (8-23); Calcium 9.6 mg/dL (8.5-10.5); Carbon Dioxide 26 mmol/L (22-29); Chloride 98 mmol/L (98-107); Globulin 3.2 g/dL (1.3-4.6); Glucose 120 mg/dL (65-115); Osmolality Calculated 284 mOsm/kg (285-295); Potassium 4.5 mmol/L (3.5-5.1); Sodium 136 mmol/L (136-145); Total Bilirubin 0.6 mg/dL (0.15-1.2); Total Protein 6.8 g/dL (6.6-8.7)
[2022-03-15 16:00] LABS: Add Urine Culture? No; Add Urine Microscopic? YES; Amorphous Sediment Urine 1+ /hpf; Bacteria Urine 1+ /hpf; Bilirubin Urine 1+ (Negative); Blood Urine 2+ (Negative); Glucose Urine UA Norm (Normal); Hyaline Casts Urine 0-4 /lpf; Ketones Urine Negative (Negative); Leukocyte Esterase Urine 1+ (Negative); Mucus Urine 1+ /hpf; Nitrate Urine Negative (Negative); Protein Urine 1+ (Negative); RBC Urine 0-4 /hpf (0-2); Specific Gravity, Urine 1.015 (1.005-1.030); Urine Appearance Cloudy (CLEAR); Urine Color Amber (Yellow); Urobilinogen Urine Neg (Negative); WBC Urine 0-4 /hpf (0-5); pH Urine 5 (5-7)
[2022-03-15 17:49] VITALS: BP 175/92; BP 176/85; BP 186/86; PULSE 65; PULSE 74; PULSE 75
[2022-03-15 18:00] VITALS: BP 175/92; PULSE 69; RESP 16; O2SAT 95
[2022-03-15 18:38] LABS: Troponin T (5th) Once 22 ng/L (0-10)
[2022-03-15 19:21] VITALS: BP 189/89; PULSE 90; RESP 14; O2SAT 98
[2022-03-15 19:22] VITALS: BP 189/89; PULSE 90; RESP 14; O2SAT 98
== END 2022-03-15 19:25 | disposition home or self-care (01) ==
PROVIDERS: Emergency Provider Emergency Medicine; PCP Family Medicine
DX: I25.10 Atherosclerotic heart disease of native coronary artery without angina pectoris (principal); I48.91 Unspecified atrial fibrillation; N30.20 Other chronic cystitis without hematuria; Z79.01 Long term (current) use of anticoagulants; Z79.84 Long term (current) use of oral hypoglycemic drugs; Z79.02 Long term (current) use of antithrombotics/antiplatelets; Z79.82 Long term (current) use of aspirin; Z79.4 Long term (current) use of insulin; Z87.891 Personal history of nicotine dependence; Z85.3 Personal history of malignant neoplasm of breast; I11.0 Hypertensive heart disease with heart failure; I50.9 Heart failure, unspecified; J44.9 Chronic obstructive pulmonary disease, unspecified; E78.5 Hyperlipidemia, unspecified
CPT/HCPCS: 36415; 71045; 80053; 81001; 83735; 84484; 85025; 93005; 96360; 99285; J7040

== ENCOUNTER → 2022-03-16 09:08 | Outpatient (BNVA) | payer MEDICARE, SELFPAY | PROVIDERS: PCP Family Medicine; Visit Provider Nurse Practitioner Family | DX: I25.10 Atherosclerotic heart disease of native coronary artery without angina pectoris (principal); Z87.891 Personal history of nicotine dependence; I11.0 Hypertensive heart disease with heart failure; I50.9 Heart failure, unspecified | CPT/HCPCS: 99213 ==

== ENCOUNTER → 2022-04-05 09:02 | Outpatient (BNVA) | payer MEDICARE, SELFPAY | PROVIDERS: PCP Family Medicine; Visit Provider Nurse Practitioner Family | DX: I11.0 Hypertensive heart disease with heart failure (principal); I50.9 Heart failure, unspecified; I25.10 Atherosclerotic heart disease of native coronary artery without angina pectoris; Z87.891 Personal history of nicotine dependence | CPT/HCPCS: 99213; 99214 ==

== ENCOUNTER 2022-04-06 10:54 | Outpatient (CLI) | payer MEDICARE, SELFPAY ==
[2022-04-06 11:38] LABS: Basophils % 0.3 %; Eosinophils # 0.2 10^3/uL (0.0-0.8); Eosinophils % 1.8 %; Hematocrit 37.9 % (37.0-47.0); Hemoglobin 12.8 g/dL (11.5-15.3); Lymphocytes # 1.3 10^3/uL (0.8-4.8); Lymphocytes % 14.2 %; Mean Corpuscular HGB Conc 33.8 g/dL (30.0-36.0); Mean Corpuscular Hemoglobin 29.4 pg (28.0-34.0); Mean Corpuscular Volume 86.9 fl (81-99); Mean Platelet Volume 11.3 fL (7.4-10.4); Monocytes # 0.6 10^3/uL (0.2-0.9); Monocytes % 7.2 %; Neutrophils # 6.77 10^3/uL (1.8-7.7); Neutrophils % 76.1 %; Nucleated Red Blood Cells % 0 %; Platelet Count 150 10^3/cmm (130-400); Red Blood Count 4.36 10^6/uL (4.1-5.3); Red Cell Distribution Width 13.5 % (12.1-15.1); White Blood Count 8.9 10^3/uL (4.0-10.0)
== END 2022-04-06 10:55 | disposition home or self-care (01) ==
LOC: LAB 10:56
PROVIDERS: PCP Family Medicine; Visit Provider Internal Medicine
DX: I25.10 Atherosclerotic heart disease of native coronary artery without angina pectoris (principal)
CPT/HCPCS: 36415; 85025

== ENCOUNTER 2022-06-09 16:13 | Emergency (ER) | payer MEDICARE, SELFPAY ==
[2022-06-09] VITALS (15 sets, daily range): BP systolic 103–176; BP diastolic 64–120; PULSE 57–155; RESP 16–35; TEMP 37; O2SAT 93–98
--- NOTE | 2022-06-09 16:31 | ED_ITS ---
HPI - Arrhythmia/Palpitations General: Chief Complaint: Arrhythmia/Palpitations Stated Complaint: high heart rate and blood pressure Time Seen by Provider: 06/09/22 16:31 History of Present Illness: Ms. Eller is a 77-year-old lady with history of CAD status post stenting, history of atrial fibrillation on chronic anticoagulation presenting to the emergency department due to A. fib with RVR. She does endorse generalized symptoms essentially since she had a stent placed perhaps they have been worse lately but patient is somewhat vague on this. Presented to clinic for an appointment follow-up found to have blood pressures in the 200 systolic range and A. fib with RVR referred to the emergency department for further evaluation. Does endorse fluttering sensation in her chest. Has been compliant with her medication regimen. No other specific changes in health, exacerbating, or alleviating factors identified. Onset (ago): week(s) Duration: intermittent Severity: moderate Arrhythmia history: atrial fibrillation Associated symptoms: Reports other Review of Systems General: Reports: 10 or more systems reviewed and unremarkable except in HPI and below PFSH ED PFSH: Medical History Anxiety B12 deficiency Breast cancer Carotid stenosis CHF (congestive heart failure) COPD (chronic obstructive pulmonary disease) Coronary artery disease Degenerative arthritis Degenerative joint disease of spine Depression GERD (gastroesophageal reflux disease) History of atrial fibrillation History of iron deficiency anemia Hyperlipidemia Hypertension Peripheral arterial disease Type 2 diabetes mellitus Surgical History H/O carotid endarterectomy H/O esophagogastroduodenoscopy (03/11/21) History of cardiac cath History of cholecystectomy History of lumpectomy of right breast (06/11/20) Right breast lumpectomy with axillary sentinel lymph node biopsy Status post colonoscopy (03/11/21) 07/16/2019: Severe diverticulosis sigmoid colon 5 mm sessile polyps x2 sigmoid colon 03/11/21: diverticulosis Family History Grandmother Hypertension Mother Hypertension Grandmother Diabetes Family/Other Diabetes Other Breast cancer Colon cancer Denies family history of Anesthesia complication Bleeding disorder Social History Smoking and tobacco status: former smoker Quit status (tobacco): has quit using tobacco Second hand smoke exposure: No Smoking risk assessment/counseling performed?: No Alcohol intake: never Household members: spouse Marital status: Current occupational status: retired History of recent travel: No Physical Exam Const: COMMON NORMALS: alert GENERAL APPEARANCE: cooperative and well developed HENMT: COMMON NORMALS: normocephalic and atraumatic HEAD & SCALP: normocephalic and atraumatic Eye: COMMON NORMALS: conjunctivae normal CONJUNCTIVA: Yes conjunctivae norm al SCLERA: sclerae normal Neck/C-Spine: COMMON NORMALS: supple GENERAL: Yes trachea midline Resp: COMMON NORMALS: normal respiratory effort EFFORT & INSPECTION: Yes able to speak in complete sentences Cardio: RATE: tachycardic RHYTHM: abnormal rhythm GI: COMMON NORMALS: Soft to palpation PALPATION: Yes Soft to palpation and No Tenderness to palpation present (GI) PERCUSSION: normal to percussion Extremity: GENERAL: Yes normal exam except as noted and No edema Neuro: COMMON NORMALS: moves all extremities SENSORIUM/ORIENTATION: Yes alert and No Orientation impaired Psych: COMMON NORMALS: mental status grossly normal and Normal thought process present THOUGHT PROCESS: Normal thought process present Course Vital Signs: Vital signs: Vital Signs Temperature 98.6 F 06/09/22 16:21 Pulse Rate 65 06/09/22 19:42 Respiratory Rate 19 H 06/09/22 19:42 Blood Pressure 166/90 06/09/22 19:42 Pulse Oximetry 98 06/09/22 19:42 MDM - Arrhythmia/Palpitations Medical Decision Making 77-year-old lady presenting from cardiology clinic for atrial fibrillation with rapid ventricular response. Initial exam notes reasonable blood pressure, patient only describes generalized symptoms. EKG notable for atrial fibrillation with rapid ventricular response, no STEMI. Cardizem push 20 mg administered with successful sustained rate control and patient provement in symptoms. Labs with no significant hematologic or metabolic abnormality provoking arrhythmia. 2-hour delta troponin is negative. BNP only minimally elevated. Cardiology service consulted and came to eval the patient. Patient can be satisfactorily discharged with medication changes. The results of ED evaluation were discussed with the patient including prescriptions and/or symptomatic cares (if applicable) including appropriate and responsible use, followup plan, and return precautions. The patient verbalized understanding and felt safe for discharge. Medical Records I reviewed the patient's medical records. Lab Data I reviewed the patient's lab results. 06/09/22 16:37 06/09/22 16:37 Radiology Impressions Chest X-Ray 06/09/22 16:32 IMPRESSION: 1. No confluent infiltrates in the lungs. 2. Unchanged mild enlargement of the cardiac silhouette. Laboratory Results WBC 7.5 10^3/uL (4.0-10.0) 06/09/22 16:37 RBC 4.99 10^6/uL (4.1-5.3) 06/09/22 16:37 Hgb 14.6 g/dL (11.5-15.3) 06/09/22 16:37 Hct 43.4 % (37.0-47.0) 06/09/22 16:37 MCV 87.0 fl (81-99) 06/09/22 16:37 MCH 29.3 pg (28.0-34.0) 06/09/22 16:37 MCHC 33.6 g/dL (30.0-36.0) 06/09/22 16:37 RDW 13.5 % (12.1-15.1) 06/09/22 16:37 Plt Count 207 10^3/cmm (130-400) 06/09/22 16:37 MPV 10.7 fL (7.4-10.4) H 06/09/22 16:37 Neut % (Auto) 66.3 % 06/09/22 16:37 Lymph % (Auto) 23.2 % 06/09/22 16:37 [place] % (Auto) 7.3 % 06/09/22 16:37 Eos % (Auto) 2.1 % 06/09/22 16:37 Baso % (Auto) 0.8 % 06/09/22 16:37 Neut # (Auto) 4.96 10^3/uL (1.8-7.7) 06/09/22 16:37 Lymph # (Auto) 1.7 10^3/uL (0.8-4.8) 06/09/22 16:37 [place] # (Auto) 0.6 10^3/uL (0.2-0.9) 06/09/22 16:37 Eos # (Auto) 0.2 10^3/uL (0.0-0.8) 06/09/22 16:37 Baso # (Auto) 0.1 10^3/uL (0.0-0.1) 06/09/22 16:37 Nucleated RBC % (auto) 0 % 06/09/22 16:37 Nucleated RBCs # 0.0 /100WBC 06/09/22 16:37 Sodium 136 mmol/L (136-145) 06/09/22 16:37 Potassium 4.3 mmol/L (3.5-5.1) 06/09/22 16:37 Chloride 100 mmol/L (98-107) 06/09/22 16:37 Carbon Dioxide 24 mmol/L (22-29) 06/09/22 16:37 Anion Gap 16.3 (5-19) 06/09/22 16:37 BUN 16 mg/dL (8-23) 06/09/22 16:37 Creatinine 0.5 mg/dL (0.5-0.9) 06/09/22 16:37 GFR Calculation Not Reportable 06/09/22 16:37 Glucose 209 mg/dL (65-115) H 06/09/22 16:37 Calculated Osmolality 289 mOsm/kg (285-295) 06/09/22 16:37 Calcium 10.0 mg/dL (8.5-10.5) 06/09/22 16:37 Magnesium 1.8 mg/dL (1.7-2.3) 06/09/22 16:37 Total Bilirubin 0.4 mg/dL (0.15-1.2) 06/09/22 16:37 AST 28 U/L (0-32) 06/09/22 16:37 ALT 17 U/L (0-33) 06/09/22 16:37 Alkaline Phosphatase 75 U/L (35-105) 06/09/22 16:37 Troponin T Baseline 20 ng/L (0-10) H 06/09/22 16:37 Troponin T 120 Minute 19.93 ng/L (0-10) H 06/09/22 18:28 Delta Troponin T -0.07 ABS# (0-10) L 06/09/22 18:28 NT-Pro-B Natriuret Pep 1188 pg/mL (0-450) H 06/09/22 16:37 Total Protein 7.6 g/dL (6.6-8.7) 06/09/22 16:37 Albumin 4.4 g/dL (3.5-5.2) 06/09/22 16:37 Globulin 3.2 g/dL (1.3-4.6) 06/09/22 16:37 TSH 3.08 uIU/mL (0.27-4.20) 06/09/22 16:37 Discharge Plan Discharge Patient Disposition: Home Clinical Impression: Atrial fibrillation, Hypertension Condition: Stable Prescriptions: New Cardizem CD 240 mg capsule,extended release 24hr 240 mg PO DAILY Qty: 30 1RF Discontinued diltiazem HCl [Cardizem CD] 120 mg capsule,extended release 24hr 120 mg PO DAILY Qty: 180 3RF No Action mecobalamin (vitamin B12) 1,000 mcg tablet,chewable 5,000 mcg PO DAILY@08 Eliquis 5 mg tablet 5 mg PO BID Qty: 180 3RF Hold Instructions: Resume on 03/11/22. furosemide 40 mg tablet 10 mg PO DAILY PRN (Reason: Edema) ascorbic acid (vitamin C) 500 mg tablet 4,000 mg PO DAILY nitroglycerin 0.4 mg tablet, sublingual 0.4 mg sublingual Q5M PRN (Reason: chest pain) Qty: 30 3RF Rx Instructions: do not exceed 3 doses per episode pantoprazole 40 mg tablet,delayed release (DR/EC) 40 mg PO BID Dose Instruction: TAKE 1 TABLET BY MOUTH TWO TIMES A DAY isosorbide mononitrate 30 mg tablet extended release 24 hr 30 mg PO TID magnesium oxide 200 mg magnesium tablet 400 mg PO BID ferrous sulfate 324 mg (65 mg iron) tablet,delayed release (DR/EC) 324 mg PO DAILY Qty: 30 6RF potassium chloride 10 mEq tablet extended release 10 meq PO DAILY PRN (Reason: Edema) Qty: 90 3RF (DME) pen needle, diabetic [BD Ultra-Fine Mini Pen Needle] 31 gauge x 3/16 needle See Rx Instructions .Route Qty: 100 12RF Rx Instructions: As directed carvedilol 6.25 mg tablet See Rx Instructions .ROUTE .COMPLEX Qty: 180 1RF Dose Instruction: TAKE ONE TABLET BY MOUTH TWO TIMES A DAY -- TAKE WITH A MEAL/FOOD Rx Instructions: TAKE ONE TABLET BY MOUTH TWO TIMES A DAY -- TAKE WITH A MEAL/FOOD venlafaxine 75 mg capsule,extended release 24hr 75 mg PO DAILY@08 metformin 1,000 mg tablet 1,000 mg PO BID Hold Instructions: Resume on 03/12/22. cholecalciferol (vitamin D3) [Vitamin D3] 5,000 unit Tablet 5,000 unit PO DAILY@08 albuterol sulfate 90 mcg/actuation HFA aerosol inhaler 1 - 2 puff INHALATION Q4H PRN (Reason: Shortness Of Breath) Levemir FlexTouch U-100 Insuln 100 unit/mL (3 mL) insulin pen 60 unit SUBCUT DIRECTED aspirin 81 mg Tablet,Delayed Release (Dr/Ec) 81 mg PO DAILY 30 Days Qty: 30 6RF atorvastatin 40 mg tablet 40 mg PO DAILY Qty: 30 3RF clopidogrel 75 mg Tablet 75 mg PO DAILY Qty: 90 3RF Discharge Orders: Discharge ED (Routine); Ordered 06/09/22 Ordered By: Ac Head Referrals: Nestor Krueger MD [Primary Care Provider] - Discharge Diet: Cardiac Discharge Activity: Increase activity as tolerated Patient Instructions: A-fib (Atrial Fibrillation) (ED), Hypertension (ED) Activity Restrictions/Additional Instructions: Thank you for visiting the emergency department. You were seen and evaluated for atrial fibrillation with rapid heart rate and high blood pressure. We are pleased that you had improvement with medications. In discussion with Dr. Garcia we will plan to adjust your diltiazem from 120 mg daily to 240 mg daily. Please also use your Lasix as he instructed. Please continue your other medications. Please follow-up with Dr. Bejarano and your primary care physician. Return to the emergency department for uncontrolled symptoms or anything else that you are concerned about and feel needs emergency department evaluation. Coding Level of Care Code ED Aerodynamic Consultant for Edinson Oliveros
--- NOTE | 2022-06-09 16:32 | XRR_ITS ---
PROCEDURE INFORMATION: Exam: XR Chest Exam date and time: 06/09/2022 4:40 PM Age: 77 years old Clinical indication: Other: Tachycardia TECHNIQUE: Imaging protocol: Radiologic exam of the chest. Views: 1 view. COMPARISON: CR XR chest 1V portable [id number] 03/15/2022 2:30 PM FINDINGS: Lungs: Normal lung volumes. No interstitial or airspace opacities. Pleural spaces: No pleural effusion. No pneumothorax. Heart/Mediastinum: Unchanged mild enlargement of the cardiac silhouette. Unchanged moderate mitral annulus ossifications. There is a mildly tortuous thoracic aorta. Midline trachea. Bones/joints: No acute abnormalities. Soft tissues: Multiple external densities are seen overlying the chest, limiting assessment. XR/XR chest 1V portable [id number] IMPRESSION: 1. No confluent infiltrates in the lungs. 2. Unchanged mild enlargement of the cardiac silhouette.
[2022-06-09 16:44] LABS: Basophils # 0.1 10^3/uL (0.0-0.1); Basophils % 0.8 %; Eosinophils # 0.2 10^3/uL (0.0-0.8); Eosinophils % 2.1 %; Hematocrit 43.4 % (37.0-47.0); Hemoglobin 14.6 g/dL (11.5-15.3); Lymphocytes # 1.7 10^3/uL (0.8-4.8); Lymphocytes % 23.2 %; Mean Corpuscular HGB Conc 33.6 g/dL (30.0-36.0); Mean Corpuscular Hemoglobin 29.3 pg (28.0-34.0); Mean Platelet Volume 10.7 fL (7.4-10.4); Monocytes # 0.6 10^3/uL (0.2-0.9); Monocytes % 7.3 %; Neutrophils # 4.96 10^3/uL (1.8-7.7); Neutrophils % 66.3 %; Nucleated Red Blood Cells % 0 %; Platelet Count 207 10^3/cmm (130-400); Red Blood Count 4.99 10^6/uL (4.1-5.3); Red Cell Distribution Width 13.5 % (12.1-15.1); White Blood Count 7.5 10^3/uL (4.0-10.0)
[2022-06-09] MEDS: dilTIAZem 5 mg/mL SDV 5 mL 20 MG IVP (16:46)
[2022-06-09 17:09] LABS: Troponin(5th) Baseline 20 ng/L (0-10)
[2022-06-09 17:19] LABS: Alanine Aminotransferase 17 U/L (0-33); Albumin Level 4.4 g/dL (3.5-5.2); Alkaline Phosphatase 75 U/L (35-105); Aspartate Amino Transferase 28 U/L (0-32); Blood Urea Nitrogen 16 mg/dL (8-23); Carbon Dioxide 24 mmol/L (22-29); Chloride 100 mmol/L (98-107); Globulin 3.2 g/dL (1.3-4.6); Glucose 209 mg/dL (65-115); Magnesium 1.8 mg/dL (1.7-2.3); NT Pro B Type Natriuretic Pept 1188 pg/mL (0-450); Osmolality Calculated 289 mOsm/kg (285-295); Sodium 136 mmol/L (136-145); Thyroid Stimulating Hormone 3.08 uIU/mL (0.27-4.20); Total Bilirubin 0.4 mg/dL (0.15-1.2); Total Protein 7.6 g/dL (6.6-8.7)
--- NOTE | 2022-06-09 17:19 | ECG_ITS ---
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 Measurements Intervals [place] Rate: 66 P: 0 WA: 0 QRS: -15 QRSD: 90 T: 37 QT: 402 QTc: 423 Interpretive Statements ATRIAL FIBRILLATION POSSIBLE RIGHT VENTRICULAR CONDUCTION DELAY [RSR (QR) IN V1/V2] ANTERIOR MYOCARDIAL INFARCTION , OF INDETERMINATE AGE [40+ ms Q WAVE AND/OR ST/T ABNORMALITY IN V3/V4] Compared to ECG 03/15/2022 14:45:24 No significant changes Electronically Signed On 06-10-2022 13:48:09 FORESTRY PILOT by Brennan Garcia M.D. [email or web address] [id number]
[2022-06-09 17:21] LABS: Anion Gap 16.3 (5-19); Potassium 4.3 mmol/L (3.5-5.1)
[2022-06-09 19:15] LABS: Troponin 5 2HR 19.93 ng/L (0-10)
[2022-06-09 19:26] LABS: Troponin 5 2HR Delta -0.07 ABS# (0-10)
== END 2022-06-09 19:55 | disposition home or self-care (01) ==
PROVIDERS: Emergency Provider Emergency Medicine; PCP Family Medicine
DX: I10 Essential (primary) hypertension (principal); I48.20 Chronic atrial fibrillation, unspecified; Z79.01 Long term (current) use of anticoagulants; Z79.84 Long term (current) use of oral hypoglycemic drugs; Z79.02 Long term (current) use of antithrombotics/antiplatelets; Z79.82 Long term (current) use of aspirin; Z79.4 Long term (current) use of insulin; Z85.3 Personal history of malignant neoplasm of breast; I11.0 Hypertensive heart disease with heart failure; I50.9 Heart failure, unspecified; J44.9 Chronic obstructive pulmonary disease, unspecified; I25.10 Atherosclerotic heart disease of native coronary artery without angina pectoris; E78.5 Hyperlipidemia, unspecified; E11.9 Type 2 diabetes mellitus without complications; Z87.891 Personal history of nicotine dependence; I16.0 Hypertensive urgency
CPT/HCPCS: 36415; 71045; 80053; 83735; 83880; 84443; 84484; 85025; 93005; 96374; 99215; 99285; J3490

== ENCOUNTER → 2022-06-10 10:36 | Outpatient (BNVA) | payer MEDICARE, SELFPAY | PROVIDERS: PCP Family Medicine; Visit Provider Internal Medicine | DX: I48.91 Unspecified atrial fibrillation (principal); I49.1 Atrial premature depolarization; I49.3 Ventricular premature depolarization | CPT/HCPCS: 93270 ==

== ENCOUNTER 2022-06-16 09:43 | Outpatient (CLI) | payer MEDICARE, SELFPAY ==
--- NOTE | 2022-06-16 10:00 | USCV_ITS ---
Deneen Lawson Age: 77 Gender: F : 1945 Exam Date: 06/16/2022 10:06 Ordering Phys: Brennan Garcia M.D ([email or web address]) Technologist: Lucía Still Exam Location: [facility] [place] Indication: Afib BP: / HR: 111 Rhythm: Atrial fibrillation Technical Quality: Adequate MEASUREMENTS (Male / Female) Normal Values 2D ECHO LV Diastolic Diameter PLAX 3.1 cm 4.2 - 5.9 / 3.9 - 5.3 cm LV Systolic Diameter PLAX 2.6 cm LV Chamber Size 3.5 cm IVS Diastolic Thickness 1.1 cm 0.6 - 1.0 / 0.6 - 0.9 cm IVS Systolic Thickness 2.1 cm LVPW Diastolic Thickness 1.9 cm 0.6 - 1.0 / 0.6 - 0.9 cm LVPW Systolic Thickness 2.2 cm RV Chamber Size 3.8 cm LVOT Diameter 2.0 cm LV Ejection Fraction 2D Teich 29.7 % LV Ejection Fraction MOD 2C 31.0 % LV Ejection Fraction 2C AL 42.7 % LA Diameter 5.0 cm LA Width 3.9 cm LA Height 5.5 cm RA Width 4.2 cm RA Height 5.2 cm Aorta at Sinotubular Diameter 2.7 cm IVC Diameter 1.7 cm M-MODE Aortic Annulus Diameter 3.3 cm LA Ao Ratio MM 1.5 MV E Point Septal Separation 0.4 cm DOPPLER AV Peak Velocity 109.0 cm/s LVOT Peak Velocity 87.0 cm/s AV Area Cont Eq vti 3.4 cm squared AV Area Cont Eq pk 2.6 cm squared MV Area PHT 5.0 cm squared MV E' Velocity 73.0 cm/s Mitral E to MV E' Ratio 14.0 Mitral E to LV E' Lateral Ratio 13.5 Mitral E to LV E' Septal Ratio 14.7 TR Peak Velocity 256.5 cm/s TR Peak Gradient 26.3 mmHg TR Mean Velocity 195.0 cm/s TR Mean Gradient 16.4 mmHg TR Velocity Time Integral 63.9 cm TV Peak E Velocity 80.0 cm/s PV Peak Velocity 63.0 cm/s RV Acceleration Time 0.1 s RV Ejection Time 0.4 s RV AcT/ET 0.2 FINDINGS Left Ventricle Left ventricle is normal in size. LV systolic function is normal with EF of 55-60%. No regional wall motion abnormalities are seen. Diastolic function is indeterminate because of atrial fibrillation. Moderate concenteric left ventricular hypertrophy. Right Ventricle Normal in size and function Right Atrium Normal in size Left Atrium Dilated Mitral Valve Moderate mitral annular calcification is seen. Mild mitral regurgitation. Aortic Valve Structurally normal aortic valve. No significant stenosis or regurgitation. Tricuspid Valve Mild tricuspid regurgitation. Pulmonary artery systolic pressure is normal Pulmonic Valve Not well-visualized. Pericardium Normal Aorta Normal in size IVC Appears to be normal CONCLUSIONS Left systolic function is normal with EF 55 to 60%. Diastolic function is indeterminate because of atrial fibrillation Moderate left ventricular hypertrophy. Left atrial dilation Mild tricuspid regurgitation Compared to prior echocardiogram from 2020, no significant changes are seen Brennan Garcia MD (Electronically Signed) Final Date: 21 June 2022 14:55 S
== END 2022-06-16 09:44 | disposition home or self-care (01) ==
PROVIDERS: PCP Family Medicine; Visit Provider Internal Medicine
DX: R06.02 Shortness of breath (principal); I48.91 Unspecified atrial fibrillation; I07.1 Rheumatic tricuspid insufficiency
CPT/HCPCS: 93306

== ENCOUNTER → 2022-07-07 09:12 | Outpatient (BNVA) | payer MEDICARE, SELFPAY | PROVIDERS: PCP Family Medicine; Visit Provider Nurse Practitioner Family | DX: I25.10 Atherosclerotic heart disease of native coronary artery without angina pectoris (principal); I48.91 Unspecified atrial fibrillation; Z79.01 Long term (current) use of anticoagulants; Z79.82 Long term (current) use of aspirin; Z87.891 Personal history of nicotine dependence; I11.0 Hypertensive heart disease with heart failure; I50.9 Heart failure, unspecified | CPT/HCPCS: 93005; 99214 ==

== ENCOUNTER 2022-07-19 07:25 | Outpatient (CLI) | payer MEDICARE, SELFPAY ==
--- NOTE | 2022-07-19 07:40 | NMCV_ITS ---
NM lindy perf SPECT r/s* [id number] Deneen Lawson Age: 77 Gender: F : 1945 Exam Date: 07/19/2022 07:40 Ordering Phys: Haydee Saini Technologist: JAMEEL Billingsley Exam Location: [facility] Indications: ATHEROSCLEROTIC HEART DISEASE OF [place] CORONARY ARTERY STRESS TEST Please see separate stress test report in [facility] for full findings IMAGE PROTOCOL Rest/Stress 1 Lexiscan Day Radiopharmaceutical Dose (mCi) Administration Site Administered by Rest: Tc-99m 10.8 IV JAMEEL Fofana Sestamibi Stress:Tc-99m 32.5 IV JAMEEL Fofana Sestamibi Rest: 19-Jul-2022 60 Discovery 630 Stress: 19-Jul-2022 30 Discovery 630 0.4mg Lexiscan. Supine position only as patient was unable to lay prone. SPECT RESULTS Technical Quality: Excellent Raw Data Analysis: Normal Image Corrections: No attenuation or motion correction applied Summed Stress Score: 2 Summed Rest Score: 1 Summed Difference Score: 1 PERFUSION FINDINGS Small sized reversible perfusion abnormality of mild severity of apical lateral quick on stress images. FUNCTIONAL RESULTS (calculated via Gated SPECT) Stress Image LV EF (%): 56 Stress EDV (mL):79 TID: 1.3 Stress ESV (mL):35 FUNCTIONAL FINDINGS: The left ventricle is normal in size. Transient Ischemia Dilatation of 1.3. The left ventricular ejection fraction is normal with a value of 56%. There is normal left ventricular wall thickening. Normal end diastolic and end systolic volumes. IMPRESSIONS 1. Small sized reversible perfusion abnormality of mild severity of apical lateral wall. This may represent small area of ischemia in left anterior descending artery territory. 2. Overall left ventricular systolic function is normal without regional wall motion abnormalities, LVEF=56%. 3. EKG portion of the study will be reported seprately. Mirtha Latham MD (Electronically Signed) Final Date: 23 July 2022 12:41 S
--- NOTE | 2022-07-19 07:40 | ECG_ITS ---
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 Interpretive Statements NAME OF STUDY: LEXISCAN SESTAMIBI STRESS TEST INDICATION: Chest pain, shortness of breath PROCEDURE: At the baseline, the blood pressure was 157/75 mm Hg with a heart rate of 127 bpm. The electrocardiogram showed atrial fibrillation with RVR. Possible old anterior FL. Non specific ST-T wave changes. ??? The Lexiscan was infused over a period of 20 seconds. A total of 0.4 milligrams of Lexiscan was infused. The stress phase was continued for a total of 5 minutes. Heart rate at the end of the stress phase was 59 bpm with a blood pressure of 150/82 mm Hg. The EKG at the peak infusion revealed no significant ST-T wave changes. ??? Sestamibi was injected 20 seconds after the Lexiscan infusion. ??? Blood pressure at the end of the recovery phase was 146/65 mm Hg with a heart rate of 105 beats per minute. ??? CONCLUSION: 1. No significant EKG changes with the LexiScan infusion. 2. No LexiScan induced chest pain or cardiac arrhythmia. 3. Normal blood pressure and heart rate response. 4. Sestamibi/sestamibi perfusion scan pending; see separate report. Electronically Signed On 07-27-2022 12:07:01 INTEGRITY MANAGER by Mirtha Latham M.D. [id number]
[2022-07-19 07:55] VITALS: BMI 28.3
[2022-07-19] MEDS: regadenoson 0.4 Mg/5 ml Syringe IVP (09:27)
[2022-07-19] MEDS: aminophylline 25 mg/mL SDV 10 mL IVP (09:40)
[2022-07-19] MEDS: ondansetron 2 mg/ML SDV 2 mL 4 MG IVP (09:42)
[2022-07-19 10:42] VITALS: BP 146/65; PULSE 140
== END 2022-07-19 07:26 | disposition home or self-care (01) ==
PROVIDERS: PCP Family Medicine; Visit Provider Nurse Practitioner Family
DX: R07.9 Chest pain, unspecified (principal); R06.02 Shortness of breath; R94.39 Abnormal result of other cardiovascular function study
CPT/HCPCS: 36415; 78452; 93017; 96374; 96375; A9500; J0280; J2405; J2785

== ENCOUNTER 2022-08-24 14:47 | Oncology outpatient (recurring) (ONCR) | payer MEDICARE, SELFPAY | END 2022-09-23 23:59 | disposition home or self-care (01) | LOC: ONCMED 14:47 | PROVIDERS: PCP Family Medicine; Visit Provider Internal Medicine Medical Oncology | DX: Z08 Encounter for follow-up examination after completed treatment for malignant neoplasm (principal); Z85.3 Personal history of malignant neoplasm of breast; I48.20 Chronic atrial fibrillation, unspecified; I95.9 Hypotension, unspecified; R11.10 Vomiting, unspecified; Z79.899 Other long term (current) drug therapy; Z87.891 Personal history of nicotine dependence; Z92.3 Personal history of irradiation | CPT/HCPCS: 99213; 99214 ==

== ENCOUNTER 2022-08-24 16:16 | Emergency (ER) | payer MEDICARE, SELFPAY ==
[2022-08-24] VITALS (8 sets, daily range): BP systolic 104–135; BP diastolic 57–78; PULSE 67–94; RESP 16–24; O2SAT 96–98; BMI 32.2
--- NOTE | 2022-08-24 16:42 | W.ED.SYNCOPE ---
HPI - Syncope General: Chief Complaint: Syncope Stated Complaint: Rapid response Time Seen by Provider: 08/24/22 16:42 History of Present Illness: Ms. Lawson is a 77-year-old lady with complex past medical history including CAD, atrial fibrillation, diabetes presenting to the emergency department secondary to syncopal episode. She has been slightly volume up over the past few days with increased weight and Lasix which she does not take daily take this morning. She was out and around and began feeling generally ill. She ate initially thinking that it might be her blood sugar however this failed to improve. She was subsequently driven to oncology for an appointment and had a syncopal episode. She currently feels fatigued. She has had similar episodes in the past. No other specific changes in health, exacerbating, or alleviating factors identified. Onset (ago): minute(s) Description of event: other Prodromal symptoms: lightheaded and other Witnessed: Yes - by Bystander Context: during exertion and new medication Associated symptoms: Reports no associated symptoms History: previous syncopal episode and history of CAD Review of Systems General: Reports: 10 or more systems reviewed and unremarkable except in HPI and below PFSH ED PFSH: Medical History Anxiety B12 deficiency Breast cancer Carotid stenosis CHF (congestive heart failure) COPD (chronic obstructive pulmonary disease) Coronary artery disease Degenerative arthritis Degenerative joint disease of spine Depression GERD (gastroesophageal reflux disease) History of atrial fibrillation History of iron deficiency anemia Hyperlipidemia Hypertension Peripheral arterial disease Type 2 diabetes mellitus Surgical History H/O carotid endarterectomy H/O esophagogastroduodenoscopy (03/11/21) History of cardiac cath History of cholecystectomy History of lumpectomy of right breast (06/11/20) Right breast lumpectomy with axillary sentinel lymph node biopsy Status post colonoscopy (03/11/21) 07/16/2019: Severe diverticulosis sigmoid colon 5 mm sessile polyps x2 sigmoid colon 03/11/21: diverticulosis Family History Grandmother Hypertension Mother Hypertension Grandmother Diabetes Family/Other Diabetes Other Breast cancer Colon cancer Denies family history of Anesthesia complication Bleeding disorder Social History Smoking and tobacco status: former smoker Quit status (tobacco): has quit using tobacco Second hand smoke exposure: No Smoking risk assessment/counseling performed?: No Alcohol intake: never Household members: spouse Marital status: Current occupational status: retired Physical Exam Const: COMMON NORMALS: patient oriented x3 and alert GENERAL APPEARANCE: cooperative and well developed HENMT: COMMON NORMALS: normocephalic and atraumatic HEAD & SCALP: normocephalic and atraumatic Eye: COMMON NORMALS: conjunctivae normal CONJUNCTIVA: Yes conjunctivae normal SCLERA: sclerae normal Neck/C-Spine: COMMON NORMALS: supple GENERAL: Yes trachea midline Resp: EFFORT & INSPECTION: Yes able to speak in complete sentences Cardio: COMMON NORMALS: regular rate and regular rhythm RATE: regular rate RHYTHM: regular rhythm GI: COMMON NORMALS: Soft to palpation PALPATION: Yes Soft to palpation and No Tenderness to palpation present (GI) Extremity: GENERAL: Yes normal exam except as noted and No edema Neuro: COMMON NORMALS: patient oriented x3, CN's II-XII intact bilaterally, moves all extremities, no focal motor deficits and no sensory deficits noted SENSORIUM/ORIENTATION: Yes alert and No Orientation impaired Psych: COMMON NORMALS: mental status grossly normal and Normal thought process present THOUGHT PROCESS: Normal thought process present Course Vital Signs: Vital signs: Vital Signs Pulse Rate 85 08/24/22 20:08 Respiratory Rate 21 H 08/24/22 20:08 Blood Pressure 113/69 08/24/22 20:08 Pulse Oximetry 98 08/24/22 20:08 Oxygen Delivery Me thod 08/24/22 16:17 MDM - Syncope Medical Decision Making 77-year-old lady presenting from oncology clinic for syncopal episode. Exam as above with no focal neurologic deficits. Patient is nontoxic. EKG demonstrates atrial fibrillation with controlled ventricular rate, left axis deviation, no STEMI. Labs with no significant hematologic or metabolic abnormalities. Negative range 2-hour delta troponin. No UTI. Patient treated with antiemetic and small fluid bolus and feels significantly improved. I discussed various disposition options. The most likely cause of symptoms is mild dehydration secondary to Lasix use. The results of ED evaluation were discussed with the patient including prescriptions and/or symptomatic cares (if applicable) including appropriate and responsible use, followup plan, and return precautions. The patient verbalized understanding and felt safe for discharge. Medical Records I reviewed the patient's medical records. Lab Data I reviewed the patient's lab results. 08/24/22 16:50 08/24/22 16:50 Laboratory Results WBC 7.8 10^3/uL (4.0-10.0) 08/24/22 16:50 RBC 4.47 10^6/uL (4.1-5.3) 08/24/22 16:50 Hgb 12.9 g/dL (11.5-15.3) 08/24/22 16:50 Hct 39.2 % (37.0-47.0) 08/24/22 16:50 MCV 87.7 fl (81-99) 08/24/22 16:50 MCH 28.9 pg (28.0-34.0) 08/24/22 16:50 MCHC 32.9 g/dL (30.0-36.0) 08/24/22 16:50 RDW 14.9 % (12.1-15.1) 08/24/22 16:50 Plt Count 205 10^3/cmm (130-400) 08/24/22 16:50 MPV 11.0 fL (7.4-10.4) H 08/24/22 16:50 Neut % (Auto) 74.4 % 08/24/22 16:50 Lymph % (Auto) 16.0 % 08/24/22 16:50 [place] % (Auto) 6.0 % 08/24/22 16:50 Eos % (Auto) 2.6 % 08/24/22 16:50 Baso % (Auto) 0.6 % 08/24/22 16:50 Neut # (Auto) 5.79 10^3/uL (1.8-7.7) 08/24/22 16:50 Lymph # (Auto) 1.3 10^3/uL (0.8-4.8) 08/24/22 16:50 [place] # (Auto) 0.5 10^3/uL (0.2-0.9) 08/24/22 16:50 Eos # (Auto) 0.2 10^3/uL (0.0-0.8) 08/24/22 16:50 Baso # (Auto) 0.1 10^3/uL (0.0-0.1) 08/24/22 16:50 Nucleated RBC % (auto) 0 % 08/24/22 16:50 Nucleated RBCs # 0.0 /100WBC 08/24/22 16:50 Sodium 136 mmol/L (136-145) 08/24/22 16:50 Potassium 4.1 mmol/L (3.5-5.1) 08/24/22 16:50 Chloride 97 mmol/L (98-107) L 08/24/22 16:50 Carbon Dioxide 25 mmol/L (22-29) 08/24/22 16:50 Anion Gap 18.1 (5-19) 08/24/22 16:50 BUN 16 mg/dL (8-23) 08/24/22 16:50 Creatinine 0.9 mg/dL (0.5-0.9) 08/24/22 16:50 GFR Calculation Not Reportable 08/24/22 16:50 Glucose 195 mg/dL (65-115) H 08/24/22 16:50 Calculated Osmolality 289 mOsm/kg (285-295) 08/24/22 16:50 Calcium 9.5 mg/dL (8.5-10.5) 08/24/22 16:50 Total Bilirubin 0.5 mg/dL (0.15-1.2) 08/24/22 16:50 AST 32 U/L (0-32) 08/24/22 16:50 ALT 20 U/L (0-33) 08/24/22 16:50 Alkaline Phosphatase 96 U/L (35-105) 08/24/22 16:50 Troponin T Baseline 22 ng/L (0-10) H 08/24/22 16:50 Troponin T 120 Minute 17.62 ng/L (0-10) H 08/24/22 18:56 Delta Troponin T -4.38 ABS# (0-10) L 08/24/22 18:56 NT-Pro-B Natriuret Pep 1559 pg/mL (0-450) H 08/24/22 16:50 Total Protein 7.3 g/dL (6.6-8.7) 08/24/22 16:50 Albumin 3.8 g/dL (3.5-5.2) 08/24/22 16:50 Globulin 3.5 g/dL (1.3-4.6) 08/24/22 16:50 Urine Color Yellow (Yellow) 08/24/22 17:57 Urine Appearance Clear (CLEAR) 08/24/22 17:57 Urine pH 5 (5-7) 08/24/22 17:57 Ur Specific [place] 1.010 (1.005-1.030) 08/24/22 17:57 Urine Protein Neg (Negative) 08/24/22 17:57 Urine Glucose (UA) Norm (Normal) 08/24/22 17:57 Urine Ketones 1+ (Negative) H 08/24/22 17:57 Urine Blood Neg (Negative) 08/24/22 17:57 Urine Nitrate Negative (Negative) 08/24/22 17:57 Urine Bilirubin Neg (Negative) 08/24/22 17:57 Urine Urobilinogen Norm mg/dL (Negative) 08/24/22 17:57 Ur Leukocyte Esterase Negative (Negative) 08/24/22 17:57 Discharge Plan Discharge Patient Disposition: Home Clinical Impression: Syncope Condition: Stable Prescriptions: No Action mecobalamin (vitamin B12) 1,000 mcg tablet,chewable 5,000 mcg PO DAILY@08 Eliquis 5 mg tablet 5 mg PO BID Qty: 180 3RF Hold Instructions: Resume on 03/11/22. furosemide 40 mg tablet 10 mg PO DAILY PRN (Reason: Edema) ascorbic acid (vitamin C) 500 mg tablet 4,000 mg PO DAILY (DME) Elastic tubing for legs See Rx Instructions .Route .MEDSUPPLY Qty: 1 0RF Rx Instructions: As directed - Use during the day nitroglycerin 0.4 mg tablet, sublingual 0.4 mg sublingual Q5M PRN (Reason: chest pain) Qty: 30 3RF Rx Instructions: do not exceed 3 doses per episode pantoprazole 40 mg tablet,delayed release (DR/EC) 40 mg PO BID Dose Instruction: TAKE 1 TABLET BY MOUTH TWO TIMES A DAY isosorbide mononitrate 30 mg tablet extended release 24 hr 30 mg PO TID magnesium oxide 200 mg magnesium tablet 400 mg PO BID ferrous sulfate 324 mg (65 mg iron) tablet,delayed release (DR/EC) 324 mg PO BID diltiazem HCl 120 mg capsule,extended release 24hr 120 mg PO TID Qty: 271 2RF potassium chloride 10 mEq tablet extended release 10 meq PO DAILY PRN (Reason: Edema) Qty: 90 3RF (DME) pen needle, diabetic [BD Ultra-Fine Mini Pen Needle] 31 gauge x 3/16 needle See Rx Instructions .Route Qty: 100 12RF Rx Instructions: As directed carvedilol 6.25 mg tablet See Rx Instructions .ROUTE .COMPLEX Qty: 180 1RF Dose Instruction: TAKE ONE TABLET BY MOUTH TWO TIMES A DAY -- TAKE WITH A MEAL/FOOD Rx Instructions: TAKE ONE TABLET BY MOUTH TWO TIMES A DAY -- TAKE WITH A MEAL/FOOD venlafaxine 75 mg capsule,extended release 24hr 75 mg PO DAILY@08 metformin 1,000 mg tablet 1,000 mg PO BID Hold Instructions: Resume on 03/12/22. cholecalciferol (vitamin D3) [Vitamin D3] 5,000 unit Tablet 5,000 unit PO DAILY@08 albuterol sulfate 90 mcg/actuation HFA aerosol inhaler 1 - 2 puff INHALATION Q4H PRN (Reason: Shortness Of Breath) Levemir FlexTouch U-100 Insuln 100 unit/mL (3 mL) insulin pen 60 unit SUBCUT DIRECTED aspirin 81 mg Tablet,Delayed Release (Dr/Ec) 81 mg PO DAILY 30 Days Qty: 30 6RF atorvastatin 40 mg tablet 40 mg PO DAILY Qty: 30 3RF clopidogrel 75 mg Tablet 75 mg PO DAILY Qty: 90 3RF Discharge Orders: Discharge ED (Routine); Ordered 08/24/22 Ordered By: Ac Head Referrals: Nestor Krueger MD [Primary Care Provider] - Discharge Diet: Usual diet Discharge Activity: Increase activity as tolerated Patient Instructions: Syncope (ED) Activity Restrictions/Additional Instructions: Thank you for visiting the emergency department. You were seen and evaluated for syncope. The exact cause of your symptoms is unclear though may be related to mild intravascular dehydration. Please follow-up with your primary care provider and tape recording machine operator. Return to the emergency department for recurrent symptoms, any new neurologic symptoms, or anything else that you are concerned about and feel needs emergency department evaluation. Coding Level of Care Code ED Epic Ambulatory Analyst for Edinson Oliveros
--- NOTE | 2022-08-24 16:50 | ECG_ITS ---
[facility] Test Date: 2022-08-24 Pat Name: Deneen Lawson Department: Room: Gender: Female Insurance Account Executive: : 1945 Requested By: Ac Head Order Number: [id number] Malika MD: Brennan Garcia M.D. Measurements Intervals [place] Rate: 90 P: 0 NC: 0 QRS: -11 QRSD: 89 T: 29 QT: 397 QTc: 487 Interpretive Statements ATRIAL FIBRILLATION POSSIBLE RIGHT VENTRICULAR CONDUCTION DELAY [RSR (QR) IN V1/V2] POSSIBLE ANTERIOR MYOCARDIAL INFARCTION , PROBABLY OLD [30 ms Q WAVE IN V3/V4, OR R < 0.2 mV IN V4] ABNORMAL RHYTHM ECG Compared to ECG 06/09/2022 17:19:31 No significant changes Electronically Signed On 08-25-2022 18:07:44 HOSPITAL TRAY SERVICE WORKER by Brennan Garcia M.D. [id number]
[2022-08-24 16:57] LABS: Basophils # 0.1 10^3/uL (0.0-0.1); Basophils % 0.6 %; Eosinophils # 0.2 10^3/uL (0.0-0.8); Eosinophils % 2.6 %; Hematocrit 39.2 % (37.0-47.0); Hemoglobin 12.9 g/dL (11.5-15.3); Lymphocytes # 1.3 10^3/uL (0.8-4.8); Mean Corpuscular HGB Conc 32.9 g/dL (30.0-36.0); Mean Corpuscular Hemoglobin 28.9 pg (28.0-34.0); Mean Corpuscular Volume 87.7 fl (81-99); Monocytes # 0.5 10^3/uL (0.2-0.9); Neutrophils # 5.79 10^3/uL (1.8-7.7); Neutrophils % 74.4 %; Nucleated Red Blood Cells % 0 %; Platelet Count 205 10^3/cmm (130-400); Red Blood Count 4.47 10^6/uL (4.1-5.3); Red Cell Distribution Width 14.9 % (12.1-15.1); White Blood Count 7.8 10^3/uL (4.0-10.0)
[2022-08-24] MEDS: sodium chloride 0.9% 500 ML 999 ML IV (17:01)
[2022-08-24 17:29] LABS: Troponin(5th) Baseline 22 ng/L (0-10)
[2022-08-24 17:32] LABS: Alanine Aminotransferase 20 U/L (0-33); Albumin Level 3.8 g/dL (3.5-5.2); Alkaline Phosphatase 96 U/L (35-105); Aspartate Amino Transferase 32 U/L (0-32); Blood Urea Nitrogen 16 mg/dL (8-23); Calcium 9.5 mg/dL (8.5-10.5); Carbon Dioxide 25 mmol/L (22-29); Chloride 97 mmol/L (98-107); Globulin 3.5 g/dL (1.3-4.6); Glucose 195 mg/dL (65-115); NT Pro B Type Natriuretic Pept 1559 pg/mL (0-450); Osmolality Calculated 289 mOsm/kg (285-295); Sodium 136 mmol/L (136-145); Total Bilirubin 0.5 mg/dL (0.15-1.2); Total Protein 7.3 g/dL (6.6-8.7)
[2022-08-24 17:34] LABS: Anion Gap 18.1 (5-19); Potassium 4.1 mmol/L (3.5-5.1)
[2022-08-24 18:37] LABS: Add Urine Microscopic? NO; Charge for UA Resulting for Rev
[2022-08-24 18:48] LABS: Bilirubin Urine Neg (Negative); Blood Urine Neg (Negative); Glucose Urine UA Norm (Normal); Ketones Urine 1+ (Negative); Leukocyte Esterase Urine Negative (Negative); Nitrate Urine Negative (Negative); Protein Urine Neg (Negative); Urine Appearance Clear (CLEAR); Urine Color Yellow (Yellow); Urobilinogen Urine Norm (Negative); pH Urine 5 (5-7)
--- NOTE | 2022-08-24 18:50 | ECG_ITS ---
[facility] Test Date: 2022-08-24 Pat Name: Deneen Lawson Department: Room: Gender: Female Analytical Scientist: : 1945 Requested By: Ac Head Order Number: [id number] Malika MD: Brennan Garcia M.D. Measurements Intervals [place] Rate: 76 P: 0 SD: 0 QRS: -21 QRSD: 89 T: 21 QT: 390 QTc: 440 Interpretive Statements ATRIAL FIBRILLATION POSSIBLE RIGHT VENTRICULAR CONDUCTION DELAY [RSR (QR) IN V1/V2] POSSIBLE ANTERIOR MYOCARDIAL INFARCTION , OF INDETERMINATE AGE [30 ms Q WAVE IN V3/V4, OR R < 0.2 mV IN V4] Compared to ECG 08/24/2022 17:09:25 No significant changes Electronically Signed On 08-25-2022 18:13:35 RACING SECRETARY by Brennan Garcia M.D. [id number]
--- NOTE | 2022-08-24 18:59 | PC.NURSE ---
REPORT TAKEN FROM LADARIUS Kohler RN. PATIENT LAYING IN BED. EKG PERFORMED AND LABS DRAWN BY RN. PATIENT MADE COMFORTABLE IN BED. NO FURTHER NEEDS.
[2022-08-24 19:35] LABS: Troponin 5 2HR 17.62 ng/L (0-10)
[2022-08-24 19:36] LABS: Troponin 5 2HR Delta -4.38 ABS# (0-10)
[2022-08-24] MEDS: ondansetron 2 mg/ML SDV 2 mL 4 MG IVP (20:03)
== END 2022-08-24 20:10 | disposition home or self-care (01) ==
PROVIDERS: Emergency Medicine; Emergency Provider Emergency Medicine; PCP Family Medicine
DX: R55 Syncope and collapse (principal); Z79.01 Long term (current) use of anticoagulants; Z79.82 Long term (current) use of aspirin; Z79.84 Long term (current) use of oral hypoglycemic drugs; Z79.4 Long term (current) use of insulin; Z79.02 Long term (current) use of antithrombotics/antiplatelets; Z87.891 Personal history of nicotine dependence; Z85.3 Personal history of malignant neoplasm of breast; I11.0 Hypertensive heart disease with heart failure; I50.9 Heart failure, unspecified; J44.9 Chronic obstructive pulmonary disease, unspecified; I25.10 Atherosclerotic heart disease of native coronary artery without angina pectoris; E78.5 Hyperlipidemia, unspecified; E11.9 Type 2 diabetes mellitus without complications
CPT/HCPCS: 36415; 80053; 81003; 83880; 84484; 85025; 93005; 96361; 96374; 99285; J2405; J7040

== ENCOUNTER → 2022-08-31 09:56 | Outpatient (BNVA) | payer MEDICARE, SELFPAY | PROVIDERS: PCP Family Medicine; Visit Provider Family Medicine | DX: E83.42 Hypomagnesemia (principal); E11.9 Type 2 diabetes mellitus without complications | CPT/HCPCS: 83036; 83735 ==

== ENCOUNTER → 2022-09-20 09:03 | Outpatient (BNVA) | payer MEDICARE, SELFPAY | PROVIDERS: PCP Family Medicine; Visit Provider Podiatrist Foot & Ankle Surgery | DX: E11.42 Type 2 diabetes mellitus with diabetic polyneuropathy (principal); I73.9 Peripheral vascular disease, unspecified; L60.3 Nail dystrophy; Z79.4 Long term (current) use of insulin; Z79.84 Long term (current) use of oral hypoglycemic drugs | CPT/HCPCS: 11721; 93923; 99204 ==

== ENCOUNTER 2022-10-26 09:28 | Outpatient (CLI) | payer MEDICARE, SELFPAY ==
--- NOTE | 2022-10-26 10:00 | MM_ITS ---
WS: [id number] Bilateral diagnostic 3D tomosynthesis digital mammogram, 10/26/2022 Clinical Data: 1 year follow up Comparison: 08/16/2021, 04/29/2020, 04/06/2020, 04/16/2018, 02/24/2017, 11/12/2015, 07/19/2013, 01/10/2011, 12/24/2010, 11/01/2006. Findings: There are diffuse ductal calcifications and vascular calcifications throughout both breasts. The biop sy site in the central portion of the right breast remains stable. There is skin thickening and retra ction of the right breast from therapy. There is a mole marker on the left breast. There is no eviden ce of recurrent breast carcinoma. The breast parenchymal pattern shows fibroglandular tissue. MM/[id number] Impression: 1. Stable post therapy changes of the right breast. 2. Negative left breast. 3. Recommend one year follow-up. BIRADS: 2-Benign FOLLOW UP: 1 Year Follow-up The CAD baggage security checker was used.
== END 2022-10-26 09:29 | disposition home or self-care (01) ==
PROVIDERS: PCP Family Medicine; Visit Provider Internal Medicine Medical Oncology
DX: C50.811 Malignant neoplasm of overlapping sites of right female breast (principal)
CPT/HCPCS: 77062; G0279

== ENCOUNTER 2022-11-01 10:22 | Emergency (ER) | payer MEDICARE, SELFPAY ==
[2022-11-01 10:25] VITALS: BP 151/118; PULSE 155; RESP 18; TEMP 36.4; O2SAT 97
[2022-11-01 10:35] VITALS: BP 120/61; PULSE 142; RESP 18; O2SAT 98
--- NOTE | 2022-11-01 10:37 | XRR_ITS ---
PROCEDURE INFORMATION: Exam: XR Chest Exam date and time: 11/01/2022 10:50 AM Age: 77 years old Clinical indication: Cough and dyspnea; Additional info: Dyspnea/cough TECHNIQUE: Imaging protocol: Radiologic exam of the chest. Views: 1 view. COMPARISON: CR XR chest 1V portable [id number] 06/09/2022 4:40 PM FINDINGS: Lungs: Unremarkable. No consolidation. Pleural spaces: Unremarkable. No pleural effusion. No pneumothorax. Heart/Mediastinum: Calcified mitral annulus is seen.. No cardiomegaly. Otherwise negative examination. Bones/joints: Unremarkable. Other findings: Comparison to prior examination similar findings seen XR/XR chest 1V portable [id number] IMPRESSION: No acute findings.
[2022-11-01 10:54] LABS: Basophils # 0.1 10^3/uL (0.0-0.1); Basophils % 0.7 %; Eosinophils # 0.2 10^3/uL (0.0-0.8); Eosinophils % 2.5 %; Hematocrit 45.3 % (37.0-47.0); Hemoglobin 14.7 g/dL (11.5-15.3); Lymphocytes # 1.7 10^3/uL (0.8-4.8); Mean Corpuscular HGB Conc 32.5 g/dL (30.0-36.0); Mean Corpuscular Hemoglobin 27.6 pg (28.0-34.0); Monocytes # 0.5 10^3/uL (0.2-0.9); Monocytes % 6.3 %; Neutrophils % 68.2 %; Nucleated Red Blood Cells % 0 %; Platelet Count 207 10^3/cmm (130-400); Red Blood Count 5.33 10^6/uL (4.1-5.3); Red Cell Distribution Width 13.5 % (12.1-15.1); White Blood Count 7.6 10^3/uL (4.0-10.0)
[2022-11-01] MEDS: dilTIAZem 5 mg/mL SDV 5 mL 20 MG IVP (10:54)
--- NOTE | 2022-11-01 10:55 | USCV_ITS ---
Deneen Lawson Age: 77 Gender: F : 1945 Exam Date: 11/01/2022 11:20 Ordering Phys: Derek Ryan DO Technologist: ROLAND Exam Location: [facility] [place] Indication: Lt Leg pain and swelling HISTORY: Lower extremity pain. Lower extremity swelling. PROCEDURES: Venous duplex imaging was performed in only the left lower extremity. The following venous structures were evaluated: common femoral vein, profunda vein, proximal portion of the greater saphenous vein, superficial femoral vein, and the popliteal vein. In addition, the posterior tibial and peroneal trunk were evaluated. Serial compression, augmentation maneuvers, and spectral Doppler flow evaluation were performed. FINDINGS: No evidence of DVT seen in any vessel visualized at this time. CONCLUSIONS No evidence of left lower extremity DVT. Pedro Hannah MD (Electronically Signed) Final Date: 01 Nov 2022 15:46 S
--- NOTE | 2022-11-01 10:59 | XRR_ITS ---
PROCEDURE INFORMATION: Exam: XR Left Foot Exam date and time: 11/01/2022 11:13 AM Age: 77 years old Clinical indication: Pain; Swelling, leg or foot; Left; Patient HX: HX of breast cancer; Additional info: Pain swelling TECHNIQUE: Imaging protocol: Radiologic exam of the left foot. Views: 3 or more views. COMPARISON: No relevant prior studies available. FINDINGS: Bones/joints: Negative for acute bony abnormality bone spur inferior calcaneus Soft tissues: Normal. XR/XR foot LT min 3V* [id number] IMPRESSION: 1. No acute findings. 2. Bone spur inferior calcaneus
--- NOTE | 2022-11-01 10:59 | W.ED.EXTPRO ---
HPI - Extremity Problem General: Chief complaint: Extremity Problem,Nontraumatic Stated complaint: foot redness Time Seen by Provider: 11/01/22 10:37 Source: patient Mode of arrival: ambulatory History of Present Illness: 77-year-old female presents emergency room complaining of redness in the left foot moderately red it began after she had some toenail trimming done with podiatry. She has not had any drainage from the foot seems to be focused about under left great toe. No fever sweats or chills. Mild calf pain tenderness and swelling. No chest pain or shortness of breath. MD Complaint: extremity pain and extremity swelling Onset (ago): week(s) (2) Pain Consistency: constant Location: left (foot) Quality: aching Radiation: proximal Relieving factors: nothing Exacerbating factors: range of motion, weight bearing, walking and palpation Associated symptoms: Deny arthralgias, chest pain, fever(s), myalgias, rash or short of breath Review of Systems Const: Denies: fever(s), chills, fatigue or malaise ENMT: Denies: throat pain, ear or mastoid pain, nasal discharge or nasal congestion Card: Reports: edema and swelling of feet/ankles (L); Denies: chest pain, palpitations or irregular heart rhythm Resp: Denies: dyspnea, productive cough or non-productive cough GI: Denies: abdominal pain, nausea, vomiting, hematemesis, coffee ground emesis, diarrhea, constipation, bloating, hematochezia or melena : Denies: flank pain, difficulty voiding, dysuria, urinary frequency or urinary urgency Musc: Reports: extremity pain and extremity swelling Skin/Breast: Denies: rash PFSH ED PFSH: Medical History Anxiety B12 deficiency Breast cancer Carotid stenosis CHF (congestive heart failure) COPD (chronic obstructive pulmonary disease) Coronary artery disease Degenerative arthritis Degenerative joint disease of spine Depression GERD (gastroesophageal reflux disease) History of atrial fibrillation History of iron deficiency anemia Hyperlipidemia Hypertension Peripheral arterial disease Type 2 diabetes mellitus Surgical History H/O carotid endarterectomy H/O esophagogastroduodenoscopy (03/11/21) History of cardiac cath History of cholecystectomy History of lumpectomy of right breast (06/11/20) Right breast lumpectomy with axillary sentinel lymph node biopsy Status post colonoscopy (03/11/21) 07/16/2019: Severe diverticulosis sigmoid colon 5 mm sessile polyps x2 sigmoid colon 03/11/21: diverticulosis Family History Grandmother Hypertension Mother Hypertension Grandmother Diabetes Family/Other Diabetes Other Breast cancer Colon cancer Denies family history of Anesthesia complication Bleeding disorder Social History Smoking and tobacco status: former smoker Quit status (tobacco): has quit using tobacco Second hand smoke exposure: No Smoking risk assessment/counseling performed?: No Alcohol intake: never Substance/Drug Use: never Household members: spouse Marital status: Current occupational status: retired Physical Exam Const: GENERAL APPEARANCE: cooperative and comfortable ORIENTATION/CONSCIOUSNESS: Yes awake, Yes oriented to person, Yes oriented to place and Yes oriented to time HENMT: COMMON NORMALS: normocephalic, atraumatic and hearing grossly normal bilaterally HEAD & SCALP: normocephalic and atraumatic Resp: COMMON NORMALS: normal respiratory effort, No retractions, No use of accessory muscles and clear to auscultation bilaterally AUSCULTATION: clear to auscultation bilaterally Cardio: COMMON NORMALS: regular rate, regular rhythm and No murmurs present (Cardio) RATE: regular rate RHYTHM: regular rhythm GI: COMMON NORMALS: Soft to palpation and No hepatosplenomegaly present AUSCULTATION: Yes normoactive bowel sounds PALPATION: Yes Soft to palpation, No Tenderness to palpation present (GI), No Guarding due to palpation present (GI) and Yes No hepatosplenomegaly present Extremity: OTHER: Swelling and edema with redness and mild induration of the left foot. In the pads of the second and third toes there appears to be some early ulcerative changes. There is no drainage from these lesions there is no obvious deformities dorsalis pedis posterior tibialis pulses are both palpable. Area is tender to the touch there is no abscess or identifiable night nidus of infection. Neuro: SENSORIUM/ORIENTATION: Yes oriented to person, Yes oriented to place and Yes oriented to time Skin: COMMON NORMALS: no rashes or lesions noted GENERAL SKIN EXAM: no rashes or lesions noted Course Vital Signs: Vital signs: Vital Signs Temperature 97.5 F L 11/01/22 10:25 Pulse Rate 76 11/01/22 13:42 Respiratory Rate 16 11/01/22 13:42 Blood Pressure 120/61 11/01/22 10:35 Pulse Oximetry 98 11/01/22 13:42 Oxygen Delivery Me thod Room Air 11/01/22 12:00 MDM - Extremity (Nontraumatic) Medical Decision Making duplex there is no DVT. She has good arterial pulses. Labs imaging and EKGs all reviewed discussed with the patient we will discharge patient home. No acute fracture or stress. A mild cellulitis started on oral antibiotics follow-up with your primary care doctor in the next 2 to 3 days return if is worsening problems. Medical Records I reviewed the patient's medical records. Lab Data I reviewed the patient's lab results. 11/01/22 10:48 11/01/22 10:48 Radiology Impressions Chest X-Ray 11/01/22 10:37 IMPRESSION: No acute findings. Foot X-Ray 11/01/22 10:59 IMPRESSION: 1. No acute findings. 2. Bone spur inferior calcaneus Laboratory Results WBC 7.6 10^3/uL (4.0-10.0) 11/01/22 10:48 RBC 5.33 10^6/uL (4.1-5.3) H 11/01/22 10:48 Hgb 14.7 g/dL (11.5-15.3) 11/01/22 10:48 Hct 45.3 % (37.0-47.0) 11/01/22 10:48 MCV 85.0 fl (81-99) 11/01/22 10:48 MCH 27.6 pg (28.0-34.0) L 11/01/22 10:48 MCHC 32.5 g/dL (30.0-36.0) 11/01/22 10:48 RDW 13.5 % (12.1-15.1) 11/01/22 10:48 Plt Count 207 10^3/cmm (130-400) 11/01/22 10:48 MPV 11.0 fL (7.4-10.4) H 11/01/22 10:48 Neut % (Auto) 68.2 % 11/01/22 10:48 Lymph % (Auto) 22.0 % 11/01/22 10:48 [place] % (Auto) 6.3 % 11/01/22 10:48 Eos % (Auto) 2.5 % 11/01/22 10:48 Baso % (Auto) 0.7 % 11/01/22 10:48 Neut # (Auto) 5.20 10^3/uL (1.8-7.7) 11/01/22 10:48 Lymph # (Auto) 1.7 10^3/uL (0.8-4.8) 11/01/22 10:48 [place] # (Auto) 0.5 10^3/uL (0.2-0.9) 11/01/22 10:48 Eos # (Auto) 0.2 10^3/uL (0.0-0.8) 11/01/22 10:48 Baso # (Auto) 0.1 10^3/uL (0.0-0.1) 11/01/22 10:48 Nucleated RBC % (auto) 0 % 11/01/22 10:48 Nucleated RBCs # 0.0 /100WBC 11/01/22 10:48 Sodium 134 mmol/L (136-145) L 11/01/22 10:48 Potassium 4.2 mmol/L (3.5-5.1) 11/01/22 10:48 Chloride 97 mmol/L (98-107) L 11/01/22 10:48 Carbon Dioxide 25 mmol/L (22-29) 11/01/22 10:48 Anion Gap 16.2 (5-19) 11/01/22 10:48 BUN 9 mg/dL (8-23) 11/01/22 10:48 Creatinine 0.6 mg/dL (0.5-0.9) 11/01/22 10:48 GFR Calculation Not Reportable 11/01/22 10:48 Glucose 267 mg/dL (65-115) H 11/01/22 10:48 Calculated Osmolality 286 mOsm/kg (285-295) 11/01/22 10:48 Calcium 9.2 mg/dL (8.5-10.5) 11/01/22 10:48 Total Bilirubin 0.9 mg/dL (0.15-1.2) 11/01/22 10:48 AST 30 U/L (0-32) 11/01/22 10:48 ALT 20 U/L (0-33) 11/01/22 10:48 Alkaline Phosphatase 109 U/L (35-105) H 11/01/22 10:48 Troponin T Baseline 16 ng/L (0-10) H 11/01/22 10:48 Troponin T 120 Minute 13.80 ng/L (0-10) H 11/01/22 12:47 Delta Troponin T -2.20 ABS# (0-10) L 11/01/22 12:47 C-Reactive Protein 9.6 mg/L (0.0-4.9) H 11/01/22 12:00 Total Protein 7.6 g/dL (6.6-8.7) 11/01/22 10:48 Albumin 4.4 g/dL (3.5-5.2) 11/01/22 10:48 Globulin 3.2 g/dL (1.3-4.6) 11/01/22 10:48 Urine Color Dark yellow (Yellow) 11/01/22 11:15 Urine Appearance Hazy (CLEAR) A 11/01/22 11:15 Urine pH 5 (5-7) 11/01/22 11:15 Ur Specific [place] 1.020 (1.005-1.030) 11/01/22 11:15 Urine Protein 3+ (Negative) H 11/01/22 11:15 Urine Glucose (UA) 4+ (Normal) H 11/01/22 11:15 Urine Ketones 1+ (Negative) H 11/01/22 11:15 Urine Blood 2+ (Negative) H 11/01/22 11:15 Urine Nitrate Negative (Negative) 11/01/22 11:15 Urine Bilirubin Neg (Negative) 11/01/22 11:15 Urine Urobilinogen Neg mg/dL (Negative) 11/01/22 11:15 Ur Leukocyte Esterase Trace (Negative) H 11/01/22 11:15 Urine RBC 0-4 /hpf (0-2) H 11/01/22 11:15 Urine WBC 0-4 /hpf (0-5) H 11/01/22 11:15 Ur Squamous Epith Cells 0-4 /hpf (0-5) H 11/01/22 11:15 Amorphous Sediment Not Reportable 11/01/22 11:15 Urine Bacteria Trace /hpf (NONE) 11/01/22 11:15 Discharge Plan Discharge Patient Disposition: Home Clinical Impression: Cellulitis Condition: Stable Prescriptions: New Bactrim DS 800-160 mg tablet 1 tab PO BID 7 Days Qty: 14 0RF No Action mecobalamin (vitamin B12) 1,000 mcg tablet,chewable 5,000 mcg PO DAILY Eliquis 5 mg tablet 5 mg PO BID Qty: 180 3RF Hold Instructions: Resume on 03/11/22. ascorbic acid (vitamin C) 500 mg tablet 4,000 mg PO DAILY (DME) Elastic tubing for legs See Rx Instructions .Route .MEDSUPPLY Qty: 1 0RF Rx Instructions: As directed - Use during the day nitroglycerin 0.4 mg tablet, sublingual 0.4 mg sublingual Q5M PRN (Reason: chest pain) Qty: 30 3RF Rx Instructions: do not exceed 3 doses per episode ferrous sulfate 324 mg (65 mg iron) tablet,delayed release (DR/EC) 324 mg PO BID diltiazem HCl 120 mg capsule,extended release 24hr 120 mg PO TID Qty: 271 2RF (DME) pen needle, diabetic [BD Ultra-Fine Mini Pen Needle] 31 gauge x 3/16 needle See Rx Instructions .Route Qty: 100 12RF Rx Instructions: As directed atorvastatin 40 mg tablet 40 mg PO DAILY Qty: 90 1RF pantoprazole 40 mg tablet,delayed release (DR/EC) 40 mg PO BID Qty: 60 6RF Dose Instruction: TAKE 1 TABLET BY MOUTH TWO TIMES A DAY isosorbide mononitrate 30 mg tablet extended release 24 hr 30 mg PO TID Qty: 270 1RF venlafaxine 75 mg capsule,extended release 24hr 75 mg PO DAILY@08 metformin 1,000 mg tablet 1,000 mg PO BID Hold Instructions: Resume on 03/12/22. cholecalciferol (vitamin D3) [Vitamin D3] 5,000 unit Tablet 5,000 unit PO DAILY@08 albuterol sulfate 90 mcg/actuation HFA aerosol inhaler 1 - 2 puff INHALATION Q4H PRN (Reason: Shortness Of Breath) Levemir FlexTouch U-100 Insuln 100 unit/mL (3 mL) insulin pen See Rx Instructions .ROUTE .COMPLEX Rx Instructions: 60 units qam and 10-20 units at bedtime aspirin 81 mg Tablet,Delayed Release (Dr/Ec) 81 mg PO DAILY 30 Days Qty: 30 6RF clopidogrel 75 mg Tablet 75 mg PO DAILY Qty: 90 3RF magnesium oxide 400 mg (241.3 mg magnesium) tablet 400 mg PO DAILY carvedilol 6.25 mg tablet 6.25 mg PO BID potassium chloride 10 mEq tablet extended release 10 meq PO DAILY PRN (Reason: when taking lasix) furosemide 20 mg tablet 20 mg PO DAILY PRN (Reason: Edema) Discharge Orders: Discharge ED (Routine); Ordered 11/01/22 Ordered By: Derek Ryan Referrals: Nestor Krueger MD [Primary Care Provider] - Discharge Diet: Usual diet Discharge Activity: Increase activity as tolerated Patient Instructions: Opioid Safety, Pain Management Activity Restrictions/Additional Instructions: You were seen today for redness in the left foot. Your white count was normal. Remainder your labs are unremarkable. On arrival you were in A-fib with a rapid rate. This was treated with your usual medications which she responded well to and your rate is well controlled at the time of discharge recommend starting on oral antibiotics and follow-up with your doctor in the next 2 to 3 days return to emergency room any worsening or changes symptoms. Continue all your other medications as previously prescribed. Coding Level of Care Code ED [facility] [employer]cher for Edinson Oliveros
[2022-11-01 11:05] VITALS: PULSE 86
[2022-11-01 11:19] LABS: Alanine Aminotransferase 20 U/L (0-33); Albumin Level 4.4 g/dL (3.5-5.2); Alkaline Phosphatase 109 U/L (35-105); Anion Gap 16.2 (5-19); Aspartate Amino Transferase 30 U/L (0-32); Blood Urea Nitrogen 9 mg/dL (8-23); Calcium 9.2 mg/dL (8.5-10.5); Carbon Dioxide 25 mmol/L (22-29); Chloride 97 mmol/L (98-107); Globulin 3.2 g/dL (1.3-4.6); Glucose 267 mg/dL (65-115); Osmolality Calculated 286 mOsm/kg (285-295); Potassium 4.2 mmol/L (3.5-5.1); Sodium 134 mmol/L (136-145); Total Bilirubin 0.9 mg/dL (0.15-1.2); Total Protein 7.6 g/dL (6.6-8.7)
[2022-11-01 11:21] LABS: Troponin(5th) Baseline 16 ng/L (0-10)
[2022-11-01 11:43] LABS: Add Urine Microscopic? YES; Bilirubin Urine Neg (Negative); Blood Urine 2+ (Negative); Glucose Urine UA 4+ (Normal); Ketones Urine 1+ (Negative); Leukocyte Esterase Urine Trace (Negative); Nitrate Urine Negative (Negative); Protein Urine 3+ (Negative); Urine Appearance Hazy (CLEAR); Urine Color Dark Yellow (Yellow); Urobilinogen Urine Neg (Negative); pH Urine 5 (5-7)
[2022-11-01] MEDS: carvedilol 6.25 mg Tablet PO (11:46)
[2022-11-01] MEDS: dilTIAZem ER (24HR) 120 mg Capsule PO (11:46)
[2022-11-01 11:58] LABS: Bacteria Urine TRACE /hpf; RBC Urine 0-4 /hpf (0-2); Squamous Epithelial Cell Urine 0-4 /hpf (0-5); WBC Urine 0-4 /hpf (0-5)
[2022-11-01 12:00] VITALS: PULSE 73; RESP 16; O2SAT 97
[2022-11-01 12:32] LABS: C Reactive Protein 9.6 mg/L (0.0-4.9)
--- NOTE | 2022-11-01 12:46 | ECG_ITS ---
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 Measurements Intervals [place] Rate: 81 P: 0 [place]: 0 QRS: -22 QRSD: 97 T: 29 QT: 410 QTc: 478 Interpretive Statements ATRIAL FIBRILLATION POSSIBLE RIGHT VENTRICULAR CONDUCTION DELAY [RSR (QR) IN V1/V2] ANTERIOR MYOCARDIAL INFARCTION , OF INDETERMINATE AGE [40+ ms Q WAVE AND/OR ST/T ABNORMALITY IN V3/V4] Compared to ECG 08/24/2022 18:52:07 No significant changes Electronically Signed On 11-01-2022 17:00:27 CDT by Brennan Garcia M.D. [email or web address]
[2022-11-01 13:00] VITALS: PULSE 72; RESP 13; O2SAT 97
[2022-11-01 13:42] VITALS: PULSE 76; RESP 16; O2SAT 98
== END 2022-11-01 13:42 | disposition home or self-care (01) ==
PROVIDERS: Emergency Provider Family Medicine; PCP Family Medicine
DX: L03.116 Cellulitis of left lower limb (principal); Z79.01 Long term (current) use of anticoagulants; Z79.82 Long term (current) use of aspirin; Z79.02 Long term (current) use of antithrombotics/antiplatelets; Z79.4 Long term (current) use of insulin; Z79.84 Long term (current) use of oral hypoglycemic drugs; Z87.891 Personal history of nicotine dependence; Z85.3 Personal history of malignant neoplasm of breast; I11.0 Hypertensive heart disease with heart failure; I50.9 Heart failure, unspecified; J44.9 Chronic obstructive pulmonary disease, unspecified; I25.10 Atherosclerotic heart disease of native coronary artery without angina pectoris; E78.5 Hyperlipidemia, unspecified; E11.9 Type 2 diabetes mellitus without complications
CPT/HCPCS: 36415; 71045; 73630; 80053; 81001; 84484; 85025; 86140; 87040; 93005; 93971; 96374; 99285; J3490

== ENCOUNTER 2022-11-09 13:59 | Oncology outpatient (recurring) (ONCR) | payer MEDICARE, SELFPAY | END 2022-11-23 23:59 | disposition home or self-care (01) | LOC: ONCMED 13:59 | PROVIDERS: PCP Family Medicine; Visit Provider Internal Medicine Medical Oncology | DX: Z08 Encounter for follow-up examination after completed treatment for malignant neoplasm (principal); Z85.3 Personal history of malignant neoplasm of breast; Z79.899 Other long term (current) drug therapy; Z87.891 Personal history of nicotine dependence; Z92.3 Personal history of irradiation; L03.116 Cellulitis of left lower limb | CPT/HCPCS: 99214 ==

== ENCOUNTER → 2022-11-10 15:22 | Outpatient (BNVA) | payer MEDICARE, SELFPAY | PROVIDERS: PCP Family Medicine; Visit Provider Family Medicine | DX: L03.032 Cellulitis of left toe (principal) | CPT/HCPCS: 87070; 87075; 87077; 87184; 87205 ==

== ENCOUNTER → 2022-11-15 15:52 | Outpatient (BNVA) | payer MEDICARE, SELFPAY | PROVIDERS: PCP Family Medicine; Visit Provider Podiatrist Foot & Ankle Surgery | DX: E11.42 Type 2 diabetes mellitus with diabetic polyneuropathy (principal); I73.9 Peripheral vascular disease, unspecified; L60.3 Nail dystrophy; Z79.4 Long term (current) use of insulin; Z79.84 Long term (current) use of oral hypoglycemic drugs | CPT/HCPCS: 99214 ==

== ENCOUNTER → 2022-12-13 08:35 | Outpatient (BNVA) | payer MEDICARE, SELFPAY | PROVIDERS: PCP Family Medicine; Visit Provider Podiatrist Foot & Ankle Surgery | DX: E11.42 Type 2 diabetes mellitus with diabetic polyneuropathy (principal); I73.9 Peripheral vascular disease, unspecified; L60.3 Nail dystrophy; Z79.84 Long term (current) use of oral hypoglycemic drugs; Z79.4 Long term (current) use of insulin | CPT/HCPCS: 99213 ==

== ENCOUNTER → 2022-12-28 13:02 | Outpatient (BNVA) | payer MEDICARE, SELFPAY | PROVIDERS: PCP Family Medicine; Visit Provider Podiatrist Foot & Ankle Surgery | DX: I73.9 Peripheral vascular disease, unspecified (principal); L60.3 Nail dystrophy; E11.42 Type 2 diabetes mellitus with diabetic polyneuropathy; Z79.4 Long term (current) use of insulin; Z79.84 Long term (current) use of oral hypoglycemic drugs | CPT/HCPCS: 99213 ==

== ENCOUNTER → 2023-01-26 14:47 | Outpatient (BNVA) | payer MEDICARE, SELFPAY | PROVIDERS: PCP Family Medicine; Visit Provider Family Medicine | DX: Z51.81 Encounter for therapeutic drug level monitoring (principal); E11.9 Type 2 diabetes mellitus without complications; Z13.220 Encounter for screening for lipoid disorders; E53.8 Deficiency of other specified B group vitamins; E83.42 Hypomagnesemia | CPT/HCPCS: 80053; 80061; 82607; 83036; 83735; 85025 ==

== ENCOUNTER 2023-03-10 13:11 | Outpatient (CLI) | payer MEDICARE, SELFPAY ==
--- NOTE | 2023-03-10 14:00 | USCV_ITS ---
Deneen Lawson Age: 78 Gender: F : 1945 Exam Date: 03/10/2023 14:20 Ordering Phys: Kyle Benson MD (Andy) ([email or web address] [place]) Technologist: ROLAND Exam Location: [facility] [place] Indication: Stenosis Risk Factors: Previous Vascular Surgery: Right Brachial BP: / Left Brachial BP: / Right Left Velocity (cm/s) Spectral Plaque Velocity (cm/s) Spectral Plaque Syst/Diast Broadening Syst/Diast Broadening 51.90/ 16.40 Prox CCA 28.30 / 4.60 59.20/ 15.80 Mid CCA 42.70 / 10.50 50.00/ 15.10 Distal CCA 40.10 / 7.90 109.80/41.20 Prox ICA 28.40 / 4.90 79.80/ 28.30 Mid ICA 48.20 / 7.80 82.00/ 24.30 Distal ICA 39.60 / 7.80 88.50 ECA 122.60 1.86 ICA/CCA 1.13 Antegrade Vertebral Antegrade 27.80/ 9.70 cm/s 74.60/ 17.10 cm/s Tri Subclavian Tri 64.60 124.6 0 FINDINGS Comparison:. 03/02/22 Absent left CCA and ICA flow with diminished systolic velocity, new waveform since the prior exam. No change right carotid velocity. CONCLUSIONS Abnormal waveform left carotid artery is new since 03/02/22. Suspect distal ICA stenosis or occlusion. Recommend CTA carotid and sit[place] of [place]. Right ICA stenosis < 50%. Dr. Renita Chávez DO (Electronically Signed) Final Date: 13 March 2023 07:59 S
== END 2023-03-10 13:12 | disposition home or self-care (01) ==
PROVIDERS: PCP Family Medicine; Visit Provider Thoracic Surgery (Cardiothoracic Vascular Surgery)
DX: I65.23 Occlusion and stenosis of bilateral carotid arteries (principal)
CPT/HCPCS: 93880

== ENCOUNTER → 2023-03-17 10:58 | Outpatient (BNVA) | payer MEDICARE, SELFPAY | PROVIDERS: PCP Family Medicine; Visit Provider Internal Medicine | DX: I48.91 Unspecified atrial fibrillation (principal); I16.0 Hypertensive urgency; I25.10 Atherosclerotic heart disease of native coronary artery without angina pectoris; Z79.01 Long term (current) use of anticoagulants; I11.0 Hypertensive heart disease with heart failure; I50.9 Heart failure, unspecified | CPT/HCPCS: 93270; 99214 ==

== ENCOUNTER → 2023-03-22 13:42 | Outpatient (BNVA) | payer MEDICARE, SELFPAY | PROVIDERS: PCP Family Medicine; Visit Provider Podiatrist Foot & Ankle Surgery | DX: I73.9 Peripheral vascular disease, unspecified (principal); E11.42 Type 2 diabetes mellitus with diabetic polyneuropathy; L60.3 Nail dystrophy; Z79.84 Long term (current) use of oral hypoglycemic drugs; Z79.4 Long term (current) use of insulin | CPT/HCPCS: 11721 ==

== ENCOUNTER → 2023-04-03 10:08 | Outpatient (BNVA) | payer MEDICARE, SELFPAY | PROVIDERS: PCP Family Medicine; Visit Provider Family Medicine | DX: Z51.81 Encounter for therapeutic drug level monitoring (principal); E83.42 Hypomagnesemia; R42 Dizziness and giddiness; E78.5 Hyperlipidemia, unspecified; E11.9 Type 2 diabetes mellitus without complications | CPT/HCPCS: 80053; 83735 ==

== ENCOUNTER → 2023-04-04 13:44 | Outpatient (BNVA) | payer MEDICARE, SELFPAY | PROVIDERS: PCP Family Medicine; Visit Provider Thoracic Surgery (Cardiothoracic Vascular Surgery) | DX: Z98.890 Other specified postprocedural states (principal); Z95.0 Presence of cardiac pacemaker | CPT/HCPCS: 99213 ==

== ENCOUNTER 2023-05-01 10:06 | Emergency (ER) | payer MEDICARE, SELFPAY ==
[2023-05-01 10:57] VITALS: BP 154/70; PULSE 70; RESP 18; TEMP 36.8; O2SAT 99; BMI 27.4
--- NOTE | 2023-05-01 10:58 | XRR_ITS ---
PROCEDURE INFORMATION: Exam: XR Left Ankle Exam date and time: 05/01/2023 12:08 PM Age: 78 years old Clinical indication: Injury or trauma; Other: Dropped frozen meat on her lt foot yesterday; Blunt trauma; Ankle; Left; Injury date: 04/30/2023 TECHNIQUE: Imaging protocol: Radiologic exam of the left ankle. Views: 3 or more views. COMPARISON: CR XR foot LT min 3V* [id number] 05/01/2023 12:05 PM FINDINGS: Bones/joints: There is osteopenia present. There is no evidence of acute fracture. There is a moderate-sized heel spur. Soft tissues: Nonspecific soft tissue calcifications are noted. XR/XR ankle LT min 3V* [id number] IMPRESSION: No evidence of acute fracture.
--- NOTE | 2023-05-01 10:58 | XRR_ITS ---
PROCEDURE INFORMATION: Exam: XR Left Foot Exam date and time: 05/01/2023 12:05 PM Age: 78 years old Clinical indication: Injury or trauma; Other: Dropped frozen meat on her lt foot yesterday; Blunt trauma; Ankle and foot; Left; Injury date: 04/30/2023 TECHNIQUE: Imaging protocol: Radiologic exam of the left foot. Views: 3 or more views. COMPARISON: CR XR foot LT min 3V* [id number] 11/01/2022 11:13 AM FINDINGS: Bones/joints: There is osteopenia present. There is no evidence of acute fracture. Mild osteoarthritic changes are seen at the 1st MTP joint. There is a moderate-sized heel spur. Soft tissues: Normal. XR/XR foot LT min 3V* [id number] IMPRESSION: No evidence of acute fracture.
--- NOTE | 2023-05-01 11:47 | W.ED.LOWEXIN ---
HPI - Extremity Injury (Lower) General: Chief Complaint: Extremity Problem,Nontraumatic Stated Complaint: left foot injury Time Seen by Provider: 05/01/23 11:26 Source: patient and family Mode of arrival: wheelchair Limitations: no limitations History of Present Illness: Patient is a nice 78-year-old female presents to ED today with a complaint of an injury to her left foot. Yesterday she states she dropped a frozen pork loin directly onto the left foot. She states since then she has had trouble ambulating but is able to ambulate with the help of her walker. She sustained abrasion to the dorsum of the left foot. She reports some swelling and redness. Patient states she routinely follows up with Dr. Mahoney for her feet. complaint: foot injury Onset (ago): day(s) (yesterday) Injury: Left: foot Type of Injury: blunt Place: home Severity: severe Relieving factors: immobilization Exacerbating factors: weight bearing and movement Context: direct blow Associated symptoms: Reports no associated symptoms Other symptoms: none Treatments prior to arrival: bandage Review of Systems Musc: Reports: extremity pain (L foot) and extremity swelling (L foot); Denies: joint pain or joint swelling Skin/Breast: Reports: other (abrasion/redness L foot) Neuro: Denies: numbness in extremities or sensory changes PFSH ED PFSH: Medical History Anxiety B12 deficiency Breast cancer Carotid stenosis CHF (congestive heart failure) COPD (chronic obstructive pulmonary disease) Coronary artery disease Degenerative arthritis Degenerative joint disease of spine Depression GERD (gastroesophageal reflux disease) History of atrial fibrillation History of iron deficiency anemia Hyperlipidemia Hypertension Peripheral arterial disease Type 2 diabetes mellitus Surgical History H/O carotid endarterectomy H/O esophagogastroduodenoscopy (03/11/21) History of cardiac cath History of cholecystectomy History of lumpectomy of right breast (06/11/20) Right breast lumpectomy with axillary sentinel lymph node biopsy S/P femoral-popliteal bypass surgery S/P placement of cardiac pacemaker Completely pacemaker dependent Status post colonoscopy (03/11/21) 07/16/2019: Severe diverticulosis sigmoid colon 5 mm sessile polyps x2 sigmoid colon 03/11/21: diverticulosis Family History Grandmother Hypertension Mother Hypertension Grandmother Diabetes Family/Other Diabetes Other Breast cancer Colon cancer Denies family history of Anesthesia complication Bleeding disorder Social History Smoking and tobacco/nicotine status: former use of tobacco/nicotine Quit status (tobacco/nicotine): has quit using Second hand smoke exposure: No Alcohol intake: never Substance/Drug Use: never Household members: spouse Marital status: Current occupational status: retired Physical Exam Const: COMMON NORMALS: no acute distress, average body habitus, no limitations, healthy appearing, alert and well nourished Extremity: COMMON NORMALS: full ROM, capillary refill normal, no joint enlargement and no calf tenderness GENERAL: Yes normal exam except as noted LEFT LOWER EXTREMITY: Yes foot & digits Left foot and digits: Yes neurovascular exam (normal) OTHER: small superficial contusion dorsal L foot; she does have some surrounding erythema/warmth consistent with early cellulitis Neuro: COMMON NORMALS: moves all extremities, no focal motor deficits and no sensory deficits noted SENSORIUM/ORIENTATION: Yes alert Skin: NARRATIVE SKIN EXAM: see above for pertinent skin findings Course Vital Signs: Vital signs: Vital Signs Temperature 98.3 F 05/01/23 10:57 Pulse Rate 70 05/01/23 10:57 Respiratory Rate 18 05/01/23 10:57 Blood Pressure 154/70 05/01/23 10:57 Pulse Oximetry 99 05/01/23 10:57 Oxygen Delivery Me thod Room Air 05/01/23 10:57 MDM - Extremity Injury (Lower) Medical Decision Making XR negative. Will cover with abx for the cellulitis. Will have her follow up with her spud driller. She is requesting wheelchair so will have HOME try and get her set up with one. Return precautions discussed. Lab Data Radiology Impressions Ankle X-Ray 05/01/23 10:58 IMPRESSION: No evidence of acute fracture. Foot X-Ray 05/01/23 10:58 IMPRESSION: No evidence of acute fracture. All radiology interpretation(s) finalized by discharge Discharge Plan Discharge Patient Disposition: Home Clinical Impression: Cellulitis of foot, left Contusion of foot, left Qualifiers: Encounter type: initial encounter Qualified Code(s): S90.32XA - Contusion of left foot, initial encounter Condition: Stable Prescriptions: New cephalexin 500 mg capsule 500 mg PO Q6H 7 Days Qty: 28 0RF No Action mecobalamin (vitamin B12) 1,000 mcg tablet,chewable 5,000 mcg PO DAILY Eliquis 5 mg tablet 5 mg PO BID Qty: 180 3RF Hold Instructions: Resume on 03/11/22. ascorbic acid (vitamin C) 500 mg tablet 4,000 mg PO DAILY (DME) Elastic tubing for legs See Rx Instructions .Route .MEDSUPPLY Qty: 1 0RF Rx Instructions: As directed - Use during the day isosorbide mononitrate 30 mg tablet extended release 24 hr 30 mg PO DAILY Qty: 90 3RF hydrochlorothiazide 12.5 mg tablet 12.5 mg PO DAILY Qty: 90 3RF nitroglycerin 0.4 mg tablet, sublingual 0.4 mg sublingual Q5M PRN (Reason: chest pain) Qty: 30 3RF Rx Instructions: do not exceed 3 doses per episode ferrous sulfate 324 mg (65 mg iron) tablet,delayed release (DR/EC) 324 mg PO DAILY metformin 1,000 mg tablet 1,000 mg PO BID Qty: 180 3RF Hold Instructions: Resume on 03/12/22. citalopram 20 mg tablet 20 mg PO DAILY Qty: 30 3RF Ozempic 0.25 mg or 0.5 mg (2 mg/3 mL) pen injector 0.5 mg SUBCUT .Once a week Qty: 3 3RF insulin detemir U-100 100 unit/mL (3 mL) insulin pen See Rx Instructions .ROUTE .COMPLEX Qty: 15 6RF Rx Instructions: 50 units qam and 10-20 units at bedtime (DME) pen needle, diabetic [BD Ultra-Fine Mini Pen Needle] 31 gauge x 3/16 needle See Rx Instructions .Route Qty: 100 12RF Rx Instructions: As directed pantoprazole 40 mg tablet,delayed release (DR/EC) 40 mg PO DAILY Qty: 30 6RF Dose Instruction: TAKE 1 TABLET BY MOUTH TWO TIMES A DAY magnesium oxide 400 mg (241.3 mg magnesium) tablet 400 mg PO BID Qty: 60 3RF atorvastatin 40 mg tablet 40 mg PO DAILY Qty: 90 3RF cholecalciferol (vitamin D3) [Vitamin D3] 5,000 unit Tablet 5,000 unit PO DAILY@08 albuterol sulfate 90 mcg/actuation HFA aerosol inhaler 1 - 2 puff INHALATION Q4H PRN (Reason: Shortness Of Breath) clopidogrel 75 mg Tablet 75 mg PO DAILY Qty: 90 3RF carvedilol 6.25 mg tablet 6.25 mg PO BID potassium chloride 10 mEq tablet extended release 10 meq PO DAILY PRN (Reason: when taking lasix) furosemide 20 mg tablet 20 mg PO DAILY PRN (Reason: Edema) Discharge Orders: Discharge ED (Routine); Ordered 05/01/23 Ordered By: Shivani Zavaleta Referrals: Nestor Krueger MD [Primary Care Provider] - Patient Instructions: Cellulitis (ED), Foot Contusion (ED) Activity Restrictions/Additional Instructions: As we discussed keep abrasion clean with warm soap and water. Continue to monitor for worsening redness-please seek medical reevaluation if this occurs. Start your antibiotics immediately. As we discussed please follow-up with your spud driller Dr. Mahoney for further evaluation. As we discussed your x-ray was negative today. We will have home set you up with a walker as you have mentioned you are having trouble ambulating. Coding Level of Care Code ED Candles Pourer for Edinson Oliveros
--- NOTE | 2023-05-01 12:21 | PC.NURSE ---
HOME is at the bedside with wheelchair
--- NOTE | 2023-05-01 15:05 | DCPLANNER ---
Referral was sent to Dr. Mahoney office on 05/01 at 1224. Clinic to contact patient
== END 2023-05-01 12:45 | disposition home or self-care (01) ==
PROVIDERS: Emergency Provider Physician Assistant; PCP Family Medicine
DX: S90.32XA Contusion of left foot, initial encounter (principal); L03.116 Cellulitis of left lower limb; Z79.02 Long term (current) use of antithrombotics/antiplatelets; Z79.4 Long term (current) use of insulin; Z79.84 Long term (current) use of oral hypoglycemic drugs; Z87.891 Personal history of nicotine dependence; Z95.0 Presence of cardiac pacemaker; Z85.3 Personal history of malignant neoplasm of breast; J44.9 Chronic obstructive pulmonary disease, unspecified; I11.0 Hypertensive heart disease with heart failure; I50.9 Heart failure, unspecified; I25.10 Atherosclerotic heart disease of native coronary artery without angina pectoris; E78.5 Hyperlipidemia, unspecified; E11.9 Type 2 diabetes mellitus without complications; W20.8XXA Other cause of strike by thrown, projected or falling object, initial encounter
CPT/HCPCS: 73610; 73630; 99283

== ENCOUNTER → 2023-05-04 09:43 | Outpatient (BNVA) | payer MEDICARE, SELFPAY | PROVIDERS: PCP Family Medicine | DX: Z51.81 Encounter for therapeutic drug level monitoring (principal); E11.9 Type 2 diabetes mellitus without complications; E83.42 Hypomagnesemia; R25.2 Cramp and spasm; I48.91 Unspecified atrial fibrillation; I16.0 Hypertensive urgency; I25.10 Atherosclerotic heart disease of native coronary artery without angina pectoris; I73.9 Peripheral vascular disease, unspecified; E11.42 Type 2 diabetes mellitus with diabetic polyneuropathy; Z79.4 Long term (current) use of insulin | CPT/HCPCS: 83036; 85025; 99213 ==

== ENCOUNTER 2023-05-15 09:32 | Oncology outpatient (recurring) (ONCR) | payer MEDICARE, SELFPAY | END 2023-05-25 23:59 | disposition home or self-care (01) | PROVIDERS: PCP Family Medicine; Visit Provider Internal Medicine Medical Oncology | DX: C50.811 Malignant neoplasm of overlapping sites of right female breast (principal); Z17.0 Estrogen receptor positive status [ER+]; I48.20 Chronic atrial fibrillation, unspecified; I95.9 Hypotension, unspecified; R11.10 Vomiting, unspecified; Z79.899 Other long term (current) drug therapy; Z87.891 Personal history of nicotine dependence; Z92.3 Personal history of irradiation; D50.9 Iron deficiency anemia, unspecified | CPT/HCPCS: 99214 ==

== ENCOUNTER → 2023-06-20 11:07 | Outpatient (BNVA) | payer MEDICARE, SELFPAY | PROVIDERS: PCP Family Medicine; Visit Provider Podiatrist Foot & Ankle Surgery | DX: I73.9 Peripheral vascular disease, unspecified; E11.42 Type 2 diabetes mellitus with diabetic polyneuropathy; L97.521 Non-pressure chronic ulcer of other part of left foot limited to breakdown of skin; M20.41 Other hammer toe(s) (acquired), right foot; M20.42 Other hammer toe(s) (acquired), left foot; E11.621 Type 2 diabetes mellitus with foot ulcer; Z79.4 Long term (current) use of insulin; Z79.84 Long term (current) use of oral hypoglycemic drugs | CPT/HCPCS: 99213 ==

== ENCOUNTER 2023-06-22 13:41 | Outpatient (CLI) | payer MEDICARE, SELFPAY ==
--- NOTE | 2023-06-22 13:45 | USCV_ITS ---
Deneen Lawson Age: 78 Gender: F : 1945 Exam Date: 06/22/2023 15:05 Ordering Phys: Dl Mahoney DPM Technologist: Pablo Boateng Exam Location: [facility] [place] Indication: Decreased pedal pulse. Change exam to ARI due to Lt LE stents RIGHT LEFT Brachial 184.00 mmHg Brachial 192.00 mmHg Pressure (mmHg) Waveform Pressure (mmHg) Waveform MANAGER ENROLLMENT 77.00 151.00 DPA 88.00 0.79 Ankle/Brachial Index 0.46 121.00 Pre-Exercise Toe Pressure 68.00 0.63 Pre-Exercise Toe/Brachial Index 0.35 FINDINGS Resting ARI was 0.79 on the right side and 0.46 on the left side Resting TBI 0.63 on the right side and 0.35 on the left side CONCLUSIONS 1. Features of severe abnormal resting ARI and TBI on the left side, suggesting severe peripheral arterial disease 2. Slightly diminished resting ARI and TBI on the right side, suggesting mild peripheral arterial disease Compared to the study from 07/09/2013, there is worsening of the arterial disease on the left side Dr Sonia Tomlinson MD [facility] (Electronically Signed) Final Date: 26 June 2023 18:34 S
== END 2023-06-22 13:42 | disposition home or self-care (01) ==
LOC: RAD 13:42
PROVIDERS: PCP Family Medicine; Visit Provider Podiatrist Foot & Ankle Surgery
DX: R09.89 Other specified symptoms and signs involving the circulatory and respiratory systems (principal); Z95.828 Presence of other vascular implants and grafts; R93.6 Abnormal findings on diagnostic imaging of limbs
CPT/HCPCS: 93922

== ENCOUNTER → 2023-07-30 15:24 | Outpatient (BNVA) | payer MEDICARE, SELFPAY | PROVIDERS: PCP Family Medicine; Visit Provider Emergency Medicine | DX: R30.0 Dysuria (principal); N39.0 Urinary tract infection, site not specified | CPT/HCPCS: 81000; 87086 ==

== ENCOUNTER → 2023-08-09 10:04 | Outpatient (BNVA) | payer MEDICARE, SELFPAY | PROVIDERS: PCP Family Medicine; Visit Provider Family Medicine | DX: Z13.220 Encounter for screening for lipoid disorders (principal); E55.9 Vitamin D deficiency, unspecified; R25.2 Cramp and spasm; Z51.81 Encounter for therapeutic drug level monitoring; E11.9 Type 2 diabetes mellitus without complications; Z79.899 Other long term (current) drug therapy | CPT/HCPCS: 80053; 80061; 82306; 83036; 83735; 85025 ==

== ENCOUNTER 2023-08-31 12:44 | Outpatient (CLI) | payer MEDICARE, SELFPAY ==
[2023-08-31] MEDS: iohexol 350 mg/mL 500 mL Btl (per mL) PO (12:55)
[2023-08-31] MEDS: iohexol 350 mg/mL 500 mL Btl (per mL) IV (13:57)
--- NOTE | 2023-08-31 14:00 | CT_ITS ---
WS: [id number] CT ABDOMEN AND PELVIS WITH CONTRAST HISTORY: Abdominal pain TECHNIQUE: Imaging performed of the abdomen and pelvis with IV contrast. Single phase imaging of the abdomen. Coronal and sagittal reformats are submitted. All CT scans at [facility] use at [address] one of these dose optimization techniques: automated exposure control; mA and/or kV adjustment per patient size (includes targeted exams where dose is matched to clinical indication); or iterative re construction. IV CONTRAST: Omnipaque 350; 100 mL IV. Oral contrast: Yes. DLP: 451.65 mGy.cm COMPARISON: 12/10/2019 Lower thorax: Cardiac loop recorder. Benign granuloma LEFT lower lobe. Mild cardiomegaly. Densely lawrence cified mitral valve. No hiatal hernia. Liver/biliary system: Normal size with no intrahepatic dilatation. Gallbladder: Prior cholecystectomy. Pancreas: Normal size pancreas and pancreatic duct. No adjacent inflammation. Spleen: Normal size spleen. No mass or infarct. Adrenal glands: Normal. Right kidney: Normal. Left kidney: LEFT renal cyst medial mid kidney 2.4 x 2.9 cm. No obstruction. There are few additional scattered hypodensities which are too small to characterize. Aorta: Moderate atherosclerosis with no aneurysm. Lymphadenopathy: None. Free fluid: None. GI tract: Stomach is well distended with oral contrast. No small bowel obstruction. Normal appendix. Mild diverticular disease distal colon. No acute diverticulitis. Abdominal wall: Unremarkable abdominal wall. No hernia. Mild skin thickening on the RIGHT is probably a prior injection site. Pelvis: Small atrophic uterus with peripheral vascular calcifications. Larger calcification in the LE FT uterus measures 19 mm is probably fibroid which is calcified. No adenopathy. Bones: Osteopenia. L5 anterolisthesis by 3 mm. IMPRESSION: 1. No acute abdominal or pelvic abnormalities. 2. Stomach is well distended with oral contrast but there is no obstruction identified. 3. Prior cholecystectomy. 4. No renal obstruction. 5. Mild distal colon diverticulosis without acute diverticulitis. 6. Moderate atherosclerosis abdominal aorta and mesenteric arteries.
== END 2023-08-31 12:45 | disposition home or self-care (01) ==
PROVIDERS: PCP Family Medicine; Visit Provider Family Medicine
DX: R10.9 Unspecified abdominal pain (principal); K57.30 Diverticulosis of large intestine without perforation or abscess without bleeding; Z90.49 Acquired absence of other specified parts of digestive tract
CPT/HCPCS: 74177; Q9967

== ENCOUNTER 2023-09-06 11:33 | Outpatient (CLI) | payer MEDICARE, SELFPAY ==
[2023-09-06 12:37] LABS: Basophils % 0.5 %; Eosinophils # 0.2 10^3/uL (0.0-0.8); Eosinophils % 2.8 %; Hematocrit 41.3 % (36-47); Lymphocytes # 1.4 10^3/uL (0.8-4.8); Lymphocytes % 18.2 %; Mean Corpuscular HGB Conc 32.4 g/dL (30-55); Mean Corpuscular Hemoglobin 27.6 pg (27-33); Mean Corpuscular Volume 85.2 fl (85-98); Mean Platelet Volume 10.5 fL (7.4-10.4); Monocytes # 0.4 10^3/uL (0.2-0.9); Monocytes % 5.6 %; Neutrophils # 5.43 10^3/uL (1.8-7.7); Neutrophils % 72.5 %; Nucleated Red Blood Cells % 0 %; Platelet Count 183 10^3/cmm (157-399); Red Blood Count 4.85 10^6/uL (3.85-5.65); Red Cell Distribution Width 13.8 % (12.1-15.1); White Blood Count 7.49 10^3/uL (3.29-11.43)
[2023-09-06 13:02] LABS: Anion Gap 17.1 (5-19); Blood Urea Nitrogen 21 mg/dL (8-23); Calcium 9.4 mg/dL (8.5-10.5); Carbon Dioxide 26 mmol/L (22-29); Chloride 101 mmol/L (98-107); Glucose 121 mg/dL (65-115); Osmolality Calculated 294 mOsm/kg (285-295); Potassium 4.1 mmol/L (3.5-5.1); Sodium 140 mmol/L (136-145)
== END 2023-09-06 11:34 | disposition home or self-care (01) ==
LOC: LAB 11:36
PROVIDERS: PCP Family Medicine; Visit Provider Internal Medicine Cardiovascular Disease
DX: I99.8 Other disorder of circulatory system (principal); N18.9 Chronic kidney disease, unspecified
CPT/HCPCS: 80048; 85025

== ENCOUNTER → 2023-09-19 11:13 | Outpatient (BNVA) | payer MEDICARE, SELFPAY | PROVIDERS: PCP Family Medicine; Visit Provider Podiatrist Foot & Ankle Surgery | DX: I73.9 Peripheral vascular disease, unspecified (principal); E11.42 Type 2 diabetes mellitus with diabetic polyneuropathy; M20.41 Other hammer toe(s) (acquired), right foot; M20.42 Other hammer toe(s) (acquired), left foot; L60.3 Nail dystrophy; Z79.84 Long term (current) use of oral hypoglycemic drugs; Z79.4 Long term (current) use of insulin | CPT/HCPCS: 11721 ==

== ENCOUNTER → 2023-09-21 12:37 | Outpatient (BNVA) | payer MEDICARE, SELFPAY | PROVIDERS: PCP Family Medicine; Visit Provider Internal Medicine | DX: I48.91 Unspecified atrial fibrillation (principal); I16.0 Hypertensive urgency; I25.10 Atherosclerotic heart disease of native coronary artery without angina pectoris; Z87.891 Personal history of nicotine dependence | CPT/HCPCS: 99214 ==

== ENCOUNTER 2023-10-05 09:54 | Outpatient (CLI) | payer MEDICARE, SELFPAY ==
--- NOTE | 2023-10-05 09:45 | USCV_ITS ---
Deneen Lawson Age: 78 Gender: F : 1945 Exam Date: 10/05/2023 10:12 Ordering Phys: Kyle Benson MD (Andy) ([email or web address]/[facility] [place]) Technologist: ROLAND [place]am Location: [facility] [place] [facility] [place]ication: Stenosis Risk Factors: Previous Vascular Surgery: Right Brachial BP: / Left Brachial BP: / Right Left Velocity (cm/s) Spectral Plaque Velocity (cm/s) Spectral Plaque Syst/Diast Broadening Syst/Diast Broadening 62.60/ 19.70 Prox CCA 35.60 / 8.60 69.80/ 19.70 Mid CCA 44.00 / 9.10 70.80/ 19.70 Distal CCA 49.10 / 12.20 97.90/ 34.90 Prox ICA 20.80 / 6.90 110.70/33.50 Mid ICA 37.00 / 6.00 87.00/ 28.40 Distal ICA 27.90 / 4.50 112.70 ECA 111.50 1.60 ICA/CCA 0.80 Antegrade Vertebral Antegrade 32.50/ 12.30 cm/s 69.20/ 12.60 cm/s Tri Subclavian Bi 42.70 86.10 FINDINGS Comparison:. 03/10/23 Reidentified is the abnormal waveform left carotid artery, loss of velocity and diastolic waveform. No interval CTA performed. No stenosis. Diffuse carotid atherosclerosis, bilateral . Antegrade vertebral arteries. CONCLUSIONS Abnormal waveform left carotid artery, similar to prior exam. This can be reevaluated by CTA. No right carotid stenosis of significance Diffuse carotid atherosclerosis. Dr. Renita Chávez DO (Electronically Signed) Final Date: 05 October 2023 11:37 S
== END 2023-10-05 09:55 | disposition home or self-care (01) ==
LOC: RAD 09:55
PROVIDERS: PCP Family Medicine; Visit Provider Thoracic Surgery (Cardiothoracic Vascular Surgery)
DX: I65.23 Occlusion and stenosis of bilateral carotid arteries (principal)
CPT/HCPCS: 93880

== ENCOUNTER → 2023-10-08 15:51 | Outpatient (BNVA) | payer MEDICARE, SELFPAY | PROVIDERS: PCP Family Medicine; Visit Provider Physician Assistant | DX: R53.1 Weakness (principal); Z79.899 Other long term (current) drug therapy | CPT/HCPCS: 81000 ==

== ENCOUNTER → 2023-10-30 15:11 | Outpatient (BNVA) | payer MEDICARE, SELFPAY | PROVIDERS: PCP Family Medicine; Visit Provider Thoracic Surgery (Cardiothoracic Vascular Surgery) | DX: I65.23 Occlusion and stenosis of bilateral carotid arteries (principal); Z87.891 Personal history of nicotine dependence; I11.0 Hypertensive heart disease with heart failure; I50.9 Heart failure, unspecified | CPT/HCPCS: 99213 ==

== ENCOUNTER 2023-11-01 10:23 | Outpatient (CLI) | payer MEDICARE, SELFPAY ==
--- NOTE | 2023-11-01 10:34 | MM_ITS ---
WS: [id number] DIAGNOSTIC BILATERAL DIGITAL BREAST TOMOSYNTHESIS MAMMOGRAPHY WITH CAD HISTORY: History of breast cancer. COMPARISON: 10/26/2022, 08/16/2021 and 04/06/2020 TECHNIQUE: Bilateral craniocaudad, mediolateral oblique, and mediolateral views are submitted with to mosynthesis and SM. Computer aided detection utilized. Breast composition: The breasts are heterogeneously dense, which may obscure small masses. Rodlike an d slight calcifications and arterial calcifications. Postsurgical distortion and volume loss in the R IGHT breast. No recurrent mass identified. No suspicious groups of calcifications. MM/[place] [id number] IMPRESSION: BI-RADS: 2-Benign FOLLOW UP: 1 Year Follow-up
== END 2023-11-01 10:24 | disposition home or self-care (01) ==
LOC: RAD 10:27
PROVIDERS: PCP Family Medicine; Visit Provider Internal Medicine Medical Oncology
DX: C50.811 Malignant neoplasm of overlapping sites of right female breast (principal); R92.333 Mammographic heterogeneous density, bilateral breasts
CPT/HCPCS: 77062; G0279

== ENCOUNTER → 2023-11-22 13:36 | Outpatient (BNVA) | payer MEDICARE, SELFPAY | PROVIDERS: PCP Family Medicine; Visit Provider Family Medicine | DX: Z51.81 Encounter for therapeutic drug level monitoring (principal); E11.9 Type 2 diabetes mellitus without complications; E55.9 Vitamin D deficiency, unspecified | CPT/HCPCS: 80053; 82306; 83036; 85025 ==

== ENCOUNTER 2023-12-01 08:03 | Oncology outpatient (recurring) (ONCR) | payer MEDICARE, SELFPAY ==
--- NOTE | 2023-12-01 08:00 | CT_ITS ---
WS: [id number] CT ANGIOGRAM CEREBRAL AND CAROTID ARTERIES HISTORY: bilat carotid stenosis TECHNIQUE: CT angiogram is performed of the carotid and cerebral arteries. During arterial injection imaging is obtained from the skull vertex to the aortic arch in 1.25 mm imaging. Coronal and sagittal reformats are submitted. Additional multi planar reformats of the carotid and cerebral arteries are submitted, MIP imaging also reviewed. NASCET criteria utilized. [facility] at least one of these dose optimization techniques: automated exposure control; mA and/or kV adjust ment per patient size (includes targeted exams where dose is matched to clinical indication); or iter ative reconstruction. CONTRAST: Omnipaque 350; 100 mL IV. DLP: 1298.54 mGy.cm COMPARISON: CT angiogram 09/20/2018, carotid ultrasound 10/05/2023 Noncontrast brain: Atrophy and small vessel ischemic disease. No acute hemorrhage. Carotid Angiogram: Right carotid: Common carotid artery: RIGHT common carotid artery arises normally from the innominate. There is a bu lbous origin of the common carotid artery with plaque. No high-grade stenosis. Plaque continues throu gh the cervical carotid artery. Internal carotid artery: Increasing plaque, intimal thickening and soft plaque at the bifurcation. External carotid artery: Patent. Left carotid: Common carotid artery: Arises from the base of the innominate. Scattered plaque and intimal thickenin g. Internal carotid artery: Increasing plaque. Bifurcation demonstrates only mild stenosis. Cervical ICA becomes very small caliber External carotid artery: Patent. Right vertebral artery: Unremarkable. Left vertebral artery: Unremarkable. Arises normally from the subclavian artery. Subclavian arteries: No stenosis or significant abnormality. Upper thorax: Normal. Thyroid gland: Normal. Osseous structures: Unremarkable. CEREBRAL ANGIOGRAM: Intracranial vertebral arteries: Normal with no significant atherosclerosis. Basilar artery: No significant stenosis or occlusion. No aneurysm. Intracranial Internal carotid arteries: Patent RIGHT intracranial carotid artery but there is moderat e plaque in the cavernous portion. LEFT intracranial ICA is occluded. There is a string sign identifi ed at the skull base and then the ICA becomes occluded. Reconstitution distally. Middle cerebral arteries: Small caliber LEFT MCA but is patent. Reconstitution appears to be via the intact anterior communicating artery. There is a small or hypoplastic LEFT P-comm. Negative RIGHT MCA . Anterior cerebral arteries and ACOM: Normal. Posterior cerebral arteries and PCOM's: Normal. Dural venous sinuses are normally enhancing. Mastoid air cells: Normal. Paranasal sinuses: Normal. Calvarium: Normal. CT/CT angio headneck* [id number] IMPRESSION: 1. 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 2. Reconstitution LEFT MCA via an intact anterior communicating artery and a h ypoplastic LEFT posterior communicating artery. 3. RIGHT cervical ICA stenosis 54%.
[2023-12-01] MEDS: iohexol 350 mg/mL 500 mL Btl (per mL) IV (08:55)
== END 2023-12-24 23:59 | disposition home or self-care (01) ==
PROVIDERS: PCP Family Medicine; Visit Provider Thoracic Surgery (Cardiothoracic Vascular Surgery)
DX: I65.23 Occlusion and stenosis of bilateral carotid arteries (principal)
CPT/HCPCS: 70496; 70498; Q9967

== ENCOUNTER → 2023-12-06 14:31 | Outpatient (BNVA) | payer MEDICARE, SELFPAY | PROVIDERS: PCP Family Medicine; Visit Provider Podiatrist Foot & Ankle Surgery | DX: I73.9 Peripheral vascular disease, unspecified (principal); E11.42 Type 2 diabetes mellitus with diabetic polyneuropathy; M20.41 Other hammer toe(s) (acquired), right foot; M20.42 Other hammer toe(s) (acquired), left foot; L60.3 Nail dystrophy; Z79.4 Long term (current) use of insulin; Z79.84 Long term (current) use of oral hypoglycemic drugs | CPT/HCPCS: 11721 ==

== ENCOUNTER → 2024-02-27 12:47 | Outpatient (BNVA) | payer MEDICARE, SELFPAY | PROVIDERS: PCP Family Medicine; Visit Provider Internal Medicine Cardiovascular Disease | DX: I25.10 Atherosclerotic heart disease of native coronary artery without angina pectoris (principal); I48.91 Unspecified atrial fibrillation; E78.5 Hyperlipidemia, unspecified; Z98.890 Other specified postprocedural states; I73.9 Peripheral vascular disease, unspecified | CPT/HCPCS: 99214 ==

== ENCOUNTER → 2024-03-13 14:19 | Outpatient (BNVA) | payer MEDICARE, SELFPAY | PROVIDERS: PCP Family Medicine; Visit Provider Internal Medicine Cardiovascular Disease | DX: I25.10 Atherosclerotic heart disease of native coronary artery without angina pectoris (principal); I48.91 Unspecified atrial fibrillation; R09.89 Other specified symptoms and signs involving the circulatory and respiratory systems; I73.9 Peripheral vascular disease, unspecified; Z98.890 Other specified postprocedural states; Z87.891 Personal history of nicotine dependence | CPT/HCPCS: 11721; 99214 ==

== ENCOUNTER → 2024-03-20 10:59 | Outpatient (BNVA) | payer MEDICARE, SELFPAY | PROVIDERS: PCP Family Medicine; Visit Provider Family Medicine | DX: Z51.81 Encounter for therapeutic drug level monitoring (principal); Z13.220 Encounter for screening for lipoid disorders; E11.9 Type 2 diabetes mellitus without complications; E55.9 Vitamin D deficiency, unspecified; E53.8 Deficiency of other specified B group vitamins; R30.0 Dysuria | CPT/HCPCS: 80053; 80061; 81000; 82306; 82607; 83036; 85025 ==

== ENCOUNTER → 2024-03-21 07:19 | Outpatient (BNVA) | payer MEDICARE, SELFPAY | PROVIDERS: PCP Family Medicine; Visit Provider Family Medicine | DX: R30.0 Dysuria (principal) | CPT/HCPCS: 87086 ==

== ENCOUNTER 2024-04-03 08:00 | Oncology outpatient (recurring) (ONCR) | payer MEDICARE, SELFPAY ==
--- NOTE | 2024-04-03 08:00 | USCV_ITS ---
Deneen Lawson Age: 79 Gender: F : 1945 Exam Date: 04/03/2024 08:28 Ordering Phys: Kyle Benson MD (Andy) ([email or web address]/[facility] [place]) Technologist: ROLAND [place]am Location[place] [facility] [place] Indication: Stenosis/occlusion. Prior Lt endart Risk Factors: Previous Vascular Surgery: Right Brachial BP: / Left Brachial BP: / Right Left Velocity (cm/s) Spectral Plaque Velocity (cm/s) Spectral Plaque Syst/Diast Broadening Syst/Diast Broadening 62.10/ 17.70 Prox CCA 38.80 / 9.80 70.40/ 19.90 Mid CCA 47.40 / 7.30 78.90/ 21.30 Distal CCA 40.00 / 7.30 128.80/42.80 Prox ICA 15.10 / 4.30 115.70/33.20 Mid ICA 40.80 / 4.20 101.90/31.40 Distal ICA 43.60 / 3.80 110.80 ECA 130.00 1.60 ICA/CCA 1.10 Antegrade Vertebral Antegrade 40.60/ 10.10 cm/s 54.50/ 13.20 cm/s Tri Subclavian Tri 80.40 114.6 0 FINDINGS comp US 10/17 CONCLUSIONS Right ICA stenosis 50-69% at the lower end of the range. Moderate atheromatous plaque right carotid bulb/ICA and CCA Poor flow in the proximal ICA similiar to previous. Left ICA occluded distally on CTA 12/01/23. Velocities similiar to prior US Normal antegrade Doppler flow noted in the right vertebral artery. Normal antegrade Doppler flow noted in the left vertebral artery. Pedro Hannah MD (Electronically Signed) Final Date: 03 April 2024 09:37 S
== END 2024-04-25 23:59 | disposition home or self-care (01) ==
LOC: RAD 08:14 → ONCMED 12:24
PROVIDERS: PCP Family Medicine; Visit Provider Thoracic Surgery (Cardiothoracic Vascular Surgery)
DX: I65.23 Occlusion and stenosis of bilateral carotid arteries (principal); I65.21 Occlusion and stenosis of right carotid artery; I25.10 Atherosclerotic heart disease of native coronary artery without angina pectoris; I65.29 Occlusion and stenosis of unspecified carotid artery; Z53.9 Procedure and treatment not carried out, unspecified reason
CPT/HCPCS: 93880

== ENCOUNTER → 2024-05-15 11:00 | Outpatient (BNVA) | payer MEDICARE, SELFPAY | PROVIDERS: PCP Family Medicine; Visit Provider Podiatrist Foot & Ankle Surgery | DX: I73.9 Peripheral vascular disease, unspecified (principal); E11.42 Type 2 diabetes mellitus with diabetic polyneuropathy; L60.3 Nail dystrophy; Z79.4 Long term (current) use of insulin; Z79.84 Long term (current) use of oral hypoglycemic drugs | CPT/HCPCS: 11721 ==

== ENCOUNTER → 2024-06-12 12:59 | Outpatient (BNVA) | payer MEDICARE, SELFPAY | PROVIDERS: PCP Family Medicine; Visit Provider Internal Medicine Cardiovascular Disease | DX: I25.10 Atherosclerotic heart disease of native coronary artery without angina pectoris (principal); I11.0 Hypertensive heart disease with heart failure; I50.9 Heart failure, unspecified; I48.91 Unspecified atrial fibrillation; R55 Syncope and collapse; I73.9 Peripheral vascular disease, unspecified; Z86.16 Personal history of COVID-19; Z79.01 Long term (current) use of anticoagulants | CPT/HCPCS: 99213 ==

== ENCOUNTER 2024-07-08 12:42 | Outpatient (CLI) | payer MEDICARE, SELFPAY ==
--- NOTE | 2024-07-08 12:45 | USCV_ITS ---
Deneen Lawson Age: 79 Gender: F : 1945 Exam Date: 07/08/2024 13:04 Ordering Phys: Rika Muro MD ([email or web address]) Technologist: CT Exam Location: [facility] [place] Indication: BP: / HR: 70 Rhythm: Atrial fibrillation Technical Quality: Adequate MEASUREMENTS (Male / Female) Normal Values 2D ECHO LVOT Diameter 2.0 cm LV Ejection Fraction MOD 4C 52.8 % LV Ejection Fraction MOD 2C 44.3 % LV Ejection Fraction 2C AL 46.6 % LA Diameter 5.3 cm RA Systolic Volume 4C AL 51.5 ml RA Systolic Volume 4C MOD 51.0 ml LA Sys Volume AL 149.4 cm cubed LA Sys Volume Index AL 81.7 cm cubed/m squared Aorta at Sinotubular Diameter 2.4 cm IVC Diameter 1.6 cm M-MODE LA Ao Ratio MM 1.9 AV Cusp Separation MM 1.8 cm DOPPLER AV Peak Velocity 116.0 cm/s LVOT Peak Velocity 103.0 cm/s AV Area Cont Eq vti 3.2 cm squared AV Area Cont Eq pk 2.8 cm squared MV Peak Velocity 175.0 cm/s MV Area PHT 2.9 cm squared Mitral E to A Ratio 0.0 TR Peak Velocity 275.5 cm/s TR Peak Gradient 30.4 mmHg TR Mean Velocity 202.0 cm/s TR Mean Gradient 18.4 mmHg TR Velocity Time Integral 86.3 cm TV Peak E Velocity 72.0 cm/s PV Peak Velocity 88.5 cm/s FINDINGS Left Ventricle Normal left ventricular cavity size. Mild left ventricular hypertrophy. Moderately decreased left ventricular systolic function. Left ventricular ejection fraction is estimated at 45 %. Grade I/IV diastolic dysfunction (abnormal relaxation filling pattern), normal to mildly elevated filling pressures. Right Ventricle The right ventricle is normal in size and function. Right Atrium Moderately increased right atrial size. Left Atrium Severely increased left atrial size. Mitral Valve Mildly thickened mitral valve. No mitral valve stenosis. Moderate mitral valve regurgitation. Aortic Valve Moderate aortic valve calcification. No aortic valve stenosis. Trace aortic valve regurgitation. Tricuspid Valve Moderate tricuspid valve regurgitation. Pulmonic Valve Structurally normal pulmonic valve without significant stenosis. There is no pulmonic regurgitation. Pericardium Normal pericardium without effusion. Aorta Normal ascending aorta dimension. IVC The inferior vena cava appears normal. CONCLUSIONS Normal left ventricular cavity size. Mild left ventricular hypertrophy. Moderately decreased left ventricular systolic function. Left ventricular ejection fraction is estimated at 45 %. Grade I/IV diastolic dysfunction (abnormal relaxation filling pattern), normal to mildly elevated filling pressures. Severely increased left atrial size. Moderately increased right atrial size. Mildly thickened mitral valve. No mitral valve stenosis. Moderate mitral valve regurgitation. Moderate tricuspid valve regurgitation. Normal pericardium without effusion. Right atrial pressure is around 10 mm of mercury. Rika Muro MD (Electronically Signed) Final Date: 08 July 2024 15:34 S
== END 2024-07-08 12:43 | disposition home or self-care (01) ==
PROVIDERS: PCP Family Medicine; Visit Provider Internal Medicine Cardiovascular Disease
DX: I34.0 Nonrheumatic mitral (valve) insufficiency (principal); R07.9 Chest pain, unspecified; R06.02 Shortness of breath; I07.1 Rheumatic tricuspid insufficiency; R93.1 Abnormal findings on diagnostic imaging of heart and coronary circulation
CPT/HCPCS: 93306

== ENCOUNTER → 2024-07-17 11:21 | Outpatient (BNVA) | payer MEDICARE, SELFPAY | PROVIDERS: PCP Family Medicine; Visit Provider Podiatrist Foot & Ankle Surgery | DX: I73.9 Peripheral vascular disease, unspecified (principal); E11.42 Type 2 diabetes mellitus with diabetic polyneuropathy; L60.3 Nail dystrophy; Z79.84 Long term (current) use of oral hypoglycemic drugs; Z79.4 Long term (current) use of insulin | CPT/HCPCS: 11721 ==

== ENCOUNTER → 2024-08-21 08:30 | Outpatient (BNVA) | payer MEDICARE, SELFPAY | PROVIDERS: PCP Family Medicine; Visit Provider Family Medicine | DX: E11.9 Type 2 diabetes mellitus without complications (principal); E78.5 Hyperlipidemia, unspecified; I25.10 Atherosclerotic heart disease of native coronary artery without angina pectoris; I10 Essential (primary) hypertension; Z51.81 Encounter for therapeutic drug level monitoring; E55.9 Vitamin D deficiency, unspecified | CPT/HCPCS: 80053; 82306; 83036; 85025 ==

== ENCOUNTER 2024-08-29 11:04 | Outpatient (CLI) | payer MEDICARE, SELFPAY ==
--- NOTE | 2024-08-29 11:08 | XR_ITS ---
WS: [email or web address] XR sacroiliac jts m 3V [id number] REASON FOR EXAM: Right SI joint pain FINDINGS: No sacral insufficiency fractures. The sacroiliac joints are symmetric. There is no erosion, fusion or bridging. There is minimal marginal sclerosis. Calcification in the pelvis is compatible with uterine leiomyoma. XR/XR sacroiliac jts m 3V [id number] IMPRESSION: Normal sacrum and sacroiliac joints for age.
--- NOTE | 2024-08-29 11:11 | XR_ITS ---
WS: [email or web address] XR lumbar spine 2-3V* [id number] REASON FOR EXAM: Lumbar radiculopathy FINDINGS: Significant bone demineralization. Severe rotatory dextroscoliosis. No significant vertebral body compression deformity or focal vertebral body lesion. Significant narrowing of the L1-L2 disc space. Moderate left-sided narrowing of the L2-L3 and L3-L4 disc spaces. Moderate narrowing of the L4-L5 and significant narrowing of the L5-S1 disc space. Minimal anterolisthesis of L4 in relation to L3 and L5 in relation to L4. Moderate degenerative arthropathy in the facet joints L4-S1. XR/XR lumbar spine 2-3V* [id number] IMPRESSION: Moderately severe degenerative spondylosis of the lumbar spine which has progre ssed significantly since 08/29/2017.
== END 2024-08-29 11:05 | disposition home or self-care (01) ==
LOC: RAD 11:06
PROVIDERS: PCP Family Medicine; Visit Provider Family Medicine
DX: M54.16 Radiculopathy, lumbar region (principal); M46.1 Sacroiliitis, not elsewhere classified; M47.896 Other spondylosis, lumbar region; M41.86 Other forms of scoliosis, lumbar region; M47.897 Other spondylosis, lumbosacral region; R93.7 Abnormal findings on diagnostic imaging of other parts of musculoskeletal system
CPT/HCPCS: 72100; 72202

== ENCOUNTER → 2024-09-05 13:06 | Outpatient (BNVA) | payer MEDICARE, SELFPAY | PROVIDERS: PCP Family Medicine; Visit Provider Internal Medicine Cardiovascular Disease | DX: I10 Essential (primary) hypertension (principal); I73.9 Peripheral vascular disease, unspecified; I48.91 Unspecified atrial fibrillation | CPT/HCPCS: 99214 ==

== ENCOUNTER → 2024-10-16 11:30 | Outpatient (BNVA) | payer MEDICARE, SELFPAY | PROVIDERS: PCP Family Medicine; Visit Provider Podiatrist Foot & Ankle Surgery | DX: E11.42 Type 2 diabetes mellitus with diabetic polyneuropathy (principal); L60.3 Nail dystrophy; I73.9 Peripheral vascular disease, unspecified; I48.91 Unspecified atrial fibrillation; Z79.84 Long term (current) use of oral hypoglycemic drugs; Z79.4 Long term (current) use of insulin | CPT/HCPCS: 11721 ==

== ENCOUNTER → 2024-11-06 17:52 | Outpatient (BNVA) | payer MEDICARE, SELFPAY | PROVIDERS: PCP Family Medicine; Visit Provider Nurse Practitioner | DX: R39.9 Unspecified symptoms and signs involving the genitourinary system (principal) | CPT/HCPCS: 81000; 87086 ==

== ENCOUNTER → 2024-11-07 15:28 | Outpatient (BNVA) | payer MEDICARE, SELFPAY | PROVIDERS: PCP Family Medicine; Visit Provider Family Medicine | DX: R19.7 Diarrhea, unspecified (principal) | CPT/HCPCS: 80048; 83735 ==

== ENCOUNTER → 2024-11-15 10:24 | Outpatient (BNVA) | payer MEDICARE, SELFPAY | PROVIDERS: PCP Family Medicine; Visit Provider Nurse Practitioner Family | DX: I11.0 Hypertensive heart disease with heart failure (principal); I50.22 Chronic systolic (congestive) heart failure; I48.20 Chronic atrial fibrillation, unspecified; Z79.01 Long term (current) use of anticoagulants; I73.9 Peripheral vascular disease, unspecified; Z95.0 Presence of cardiac pacemaker; Z87.891 Personal history of nicotine dependence; I65.23 Occlusion and stenosis of bilateral carotid arteries; R06.02 Shortness of breath | CPT/HCPCS: 99214 ==

== ENCOUNTER 2024-11-27 08:41 | Outpatient (CLI) | payer MEDICARE, SELFPAY ==
--- NOTE | 2024-11-27 08:30 | USCV_ITS ---
Deneen Lawson Age: 79 Gender: F : 1945 Exam Date: 11/27/2024 08:58 Ordering Phys: Shivani Quijano NP Technologist: ROLAND [place] [facility] [place]: Stenosis Risk Factors: Previous Vascular Surgery: Right Brachial BP: / Left Brachial BP: / Right Left Velocity (cm/s) Spectral Plaque Velocity (cm/s) Spectral Plaque Syst/Diast Broadening Syst/Diast Broadening 64.00/ 22.50 Prox CCA 45.40 / 8.80 69.60/ 20.60 Mid CCA 35.40 / 9.70 63.00/ 21.60 Distal CCA 36.20 / 9.60 104.90/36.40 Prox ICA 20.60 / 6.40 149.60/53.30 Mid ICA 31.10 / 7.20 104.70/34.00 Distal ICA 31.10 / 4.00 111.20 ECA 111.00 1.70 ICA/CCA 0.60 Antegrade Vertebral Antegrade 29.90/ 9.40 cm/s 59.00/ 11.60 cm/s Tri Subclavian Bi 173.6 136.2 0 0 CONCLUSIONS Right ICA stenosis <50%. Moderate to severe atheromatous plaque right carotid bulb/ICA. Left ICA stenosis <50%. Moderate atheromatous plaque left carotid bulb/ICA. Normal antegrade Doppler flow noted in the right vertebral artery. Normal antegrade Doppler flow noted in the left vertebral artery. Pedro Hannah MD (Electronically Signed) Final Date: 27 November 2024 13:12 S
== END 2024-11-27 08:42 | disposition home or self-care (01) ==
PROVIDERS: PCP Family Medicine; Visit Provider Nurse Practitioner Family
DX: I65.23 Occlusion and stenosis of bilateral carotid arteries (principal)
CPT/HCPCS: 93880

== ENCOUNTER 2024-11-28 06:44 | Outpatient (CLI) | payer MEDICARE, SELFPAY ==
[2024-11-28 07:00] VITALS: BMI 27.4
--- NOTE | 2024-11-28 07:18 | ECG_ITS ---
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 The perfusion scan will be documented separately. DATA: Baseline heart rate was 72 beats per minute. Baseline blood pressure was 170/87 millimeters of mercury. Target heart rate was 143. Maximum heart rate achieved was 88. which was 61 % of the predicted target heart rate. Maximum blood pressure was 195/87 millimeters of mercury. The reason for ending the test was completion of the protocol. The patient did not experience any symptoms. ELECTROCARDIOGRAM: BASELINE: Sinus rhythm. Normal axis. Left bundle branch block EXERCISE: After Lexiscan injection, no ST-T changes suggestive of ischemic noted. No arrhythmia noted. CONCLUSION: Please note due to baseline abnormality of the EKG specificity and sensitivity of the EKG portion of LexiScan MIBI stress test will be low 1. EKG not suggestive of ischemia 2. Lexiscan injection unremarkable. 3. Perfusion scan will be documented separately. Electronically Signed On 12-01-2024 20:18:20 CDT by MISTY DIAZ [email or web address]
--- NOTE | 2024-11-28 07:19 | NMCV_ITS ---
NM lindy perf SPECT r/s* [id number] Deneen Lawson Age: 79 Gender: F : 1945 Exam Date: 11/28/2024 07:55 Ordering Phys: Shivani Quijano NP Technologist: JAMEEL Palomo Exam Location: [facility] Indications: CP STRESS TEST [facility] IMAGE PROTOCOL Rest/Stress 1 Lexiscan Day Radiopharmaceutical Dose (mCi) Administration Site Administered by Rest: Tc-99m 10.4 IV Jocelyn Watson, ALCOHOL AND DRUG COUNSELOR Sestamibi Stress:Tc-99m 32.1 IV Jocelyn Mckeongle, ALCOHOL AND DRUG COUNSELOR Sestamibi Rest: 28-Nov-2024 60 Discovery 630 Stress: 28-Nov-2024 30 Discovery 630 0.4mg Lexiscan. Images obtained in supine and prone position. SPECT RESULTS Technical Quality: Good Raw Data Analysis: Normal Image Corrections: No attenuation or motion correction applied Summed Stress Score: 1 Summed Rest Score: 10 Summed Difference Score: 0 PERFUSION FINDINGS Small sized area of fixed perfusion defect seen in anteroseptal wall. This is consistent with very small area of prior infarct in LAD territory. No evidence of ischemia FUNCTIONAL RESULTS (calculated via Gated SPECT) Stress Image LV EF (%): 61 Stress EDV (mL):101 TID: 1.02 Stress ESV (mL):39 FUNCTIONAL FINDINGS: There is normal left ventricular systolic function. IMPRESSIONS 1. Small area of prior infarct seen in LAD territory. No evidence of ischemia. 2. LV systolic function is normal. Brennan Garcia MD (Electronically Signed) Final Date: 28 November 2024 10:22 S
[2024-11-28] MEDS: regadenoson 0.4 Mg/5 ml Syringe IVP (08:29)
[2024-11-28 08:39] VITALS: BP 144/54; PULSE 70
== END 2024-11-28 06:45 | disposition home or self-care (01) ==
LOC: CDL 06:46
PROVIDERS: PCP Family Medicine; Visit Provider Nurse Practitioner Family
DX: R06.02 Shortness of breath (principal); R93.1 Abnormal findings on diagnostic imaging of heart and coronary circulation; E83.42 Hypomagnesemia; E11.9 Type 2 diabetes mellitus without complications; Z51.81 Encounter for therapeutic drug level monitoring
CPT/HCPCS: 36415; 78452; 80053; 82306; 83036; 83735; 85025; 93017; 96374; A9500; J2785

== ENCOUNTER → 2024-11-29 11:38 | Outpatient (BNVA) | payer MEDICARE, SELFPAY | PROVIDERS: PCP Family Medicine; Visit Provider Internal Medicine Cardiovascular Disease | DX: I25.10 Atherosclerotic heart disease of native coronary artery without angina pectoris (principal); R00.1 Bradycardia, unspecified; I48.20 Chronic atrial fibrillation, unspecified; Z79.01 Long term (current) use of anticoagulants; Z79.82 Long term (current) use of aspirin; I10 Essential (primary) hypertension; I73.9 Peripheral vascular disease, unspecified; Z95.0 Presence of cardiac pacemaker; Z87.891 Personal history of nicotine dependence | CPT/HCPCS: 99214 ==

== ENCOUNTER 2024-12-05 10:48 | Outpatient (CLI) | payer MEDICARE, SELFPAY ==
--- NOTE | 2024-12-05 10:45 | MM_ITS ---
WS: [email or web address] BILATERAL 3D TOMOSYNTHESIS DIGITAL DIAGNOSTIC MAMMOGRAPHY WITH CAD CLINICAL INFORMATION: History of breast cancer HISTORY: RIGHT breast cancer COMPARISON: 2023 TECHNIQUE: Bilateral CC, MLO, and ML views. FINDINGS: Scattered fibroglandular densities bilaterally. No suspicious focal mass, asymmetry, calcifications, or architectural distortion. No evidence of malignancy. Vascular calcifications. Diffuse secretory calcifications. Post lumpectomy changes RIGHT breast with parenchymal scarring MM/MM diag BI tomosynthesis [id number] IMPRESSION: DENSITY: There are scattered areas of fibroglandular density. BI-RADS: 2 - Benign. FOLLOW UP: 1 Year Follow-up Recommend return to annual screening mammography.
== END 2024-12-05 10:49 | disposition home or self-care (01) ==
LOC: RAD 10:49
PROVIDERS: PCP Family Medicine; Visit Provider Family Medicine
DX: Z85.3 Personal history of malignant neoplasm of breast (principal); R92.323 Mammographic fibroglandular density, bilateral breasts; R92.1 Mammographic calcification found on diagnostic imaging of breast; Z98.890 Other specified postprocedural states
CPT/HCPCS: 77062; G0279

== ENCOUNTER → 2024-12-30 15:36 | Outpatient (BNVA) | payer MEDICARE, SELFPAY | PROVIDERS: PCP Family Medicine; Visit Provider Internal Medicine Cardiovascular Disease | DX: I48.20 Chronic atrial fibrillation, unspecified (principal); Z79.01 Long term (current) use of anticoagulants; I25.10 Atherosclerotic heart disease of native coronary artery without angina pectoris; I10 Essential (primary) hypertension; I73.9 Peripheral vascular disease, unspecified; R09.89 Other specified symptoms and signs involving the circulatory and respiratory systems; Z95.0 Presence of cardiac pacemaker; Z87.891 Personal history of nicotine dependence | CPT/HCPCS: 99214 ==

== ENCOUNTER → 2025-01-13 14:10 | Outpatient (BNVA) | payer MEDICARE, SELFPAY | PROVIDERS: PCP Family Medicine; Visit Provider Podiatrist Foot & Ankle Surgery | DX: E11.42 Type 2 diabetes mellitus with diabetic polyneuropathy (principal); L60.3 Nail dystrophy; L60.8 Other nail disorders; I73.9 Peripheral vascular disease, unspecified; I48.91 Unspecified atrial fibrillation; Z79.84 Long term (current) use of oral hypoglycemic drugs; Z79.4 Long term (current) use of insulin | CPT/HCPCS: 11721 ==

== ENCOUNTER → 2025-02-20 09:25 | Outpatient (BNVA) | payer MEDICARE, SELFPAY | PROVIDERS: PCP Family Medicine; Visit Provider Family Medicine | DX: Z13.6 Encounter for screening for cardiovascular disorders (principal); E11.9 Type 2 diabetes mellitus without complications; Z51.81 Encounter for therapeutic drug level monitoring | CPT/HCPCS: 80053; 80061; 83036; 85025 ==

== ENCOUNTER → 2025-02-28 10:38 | Outpatient (BNVA) | payer MEDICARE, SELFPAY | PROVIDERS: PCP Family Medicine; Visit Provider Podiatrist Foot & Ankle Surgery | DX: E11.42 Type 2 diabetes mellitus with diabetic polyneuropathy (principal); L60.3 Nail dystrophy; I25.10 Atherosclerotic heart disease of native coronary artery without angina pectoris; I73.9 Peripheral vascular disease, unspecified; L97.512 Non-pressure chronic ulcer of other part of right foot with fat layer exposed; I10 Essential (primary) hypertension; E11.621 Type 2 diabetes mellitus with foot ulcer; Z79.4 Long term (current) use of insulin; Z79.84 Long term (current) use of oral hypoglycemic drugs | CPT/HCPCS: 11721; 99214 ==

== ENCOUNTER 2025-03-12 09:26 | Outpatient (CLI) | payer MEDICARE, SELFPAY ==
--- NOTE | 2025-03-12 09:30 | US_ITS ---
WS: [email or web address] Complete ABDOMINAL ULTRASOUND HISTORY: Upper abd pain COMPARISON: None available. Liver: 17.4 cm in length. Normal size liver and echogenicity. No bile duct dilatation or mass. Portal Vein: Normal hepatopetal flow with monophasic waveform. Gallbladder: Status post cholecystectomy. CBD: 0.3 cm Pancreas: Normal size and echogenicity. Right kidney: 11.8 cm x 6.4 x 6.0 cm. Cortex:1.0 cm. Mild diffuse cortical thinning. No obstruction. No mass. Left kidney: 10.4 cm x 5.9 cm x 5.8 cm. Cortex: 0.8 cm. Mild diffuse cortical thinning with no obstruction or mass. Spleen: 11.7 cm. Normal size and echogenicity. Aorta and IVC: Unremarkable abdominal aorta and IVC. US/US abdomen complete* [id number] Impression: 1. Normal liver. 2. Mild bilateral cortical thinning of each kidney. No renal obstruction. 3. Prior cholecystectomy.
--- NOTE | 2025-03-12 11:00 | USR_ITS ---
PROCEDURE INFORMATION: Exam: US Duplex Bilateral Lower Extremity Arteries Exam date and time: 03/12/2025 10:21 AM Age: 80 years old Clinical indication: Other: Decreased pulses; Prior surgery; Surgery date: 6+ months; Surgery type: Lt fem pop bypass per PT record; Additional info: Diminished pedal pulse TECHNIQUE: Imaging protocol: Real-time ultrasound scan of the arteries of the bilateral lower extremities with 2-D willams scale, color Doppler flow and spectral waveform analysis. Images documented and saved. COMPARISON: CT angio abd aorta runof [id number] 09/03/2018 9:35 AM FINDINGS: Right common femoral artery: No occlusion or significant stenosis. Normal waveform. Right superficial femoral artery: No occlusion or significant stenosis. Normal waveform. Right popliteal artery: No occlusion or significant stenosis. Normal waveform. Right calf/foot arteries: No occlusion or significant stenosis in the visualized arteries. Monophasic waveforms. Dorsalis pedis artery is patent. Left common femoral artery: No occlusion or significant stenosis. Normal waveform. Left superficial femoral artery: Significant decline in peak systolic velocity from the mid SFA to the distal SFA suggesting possible significant stenosis (151 cm/s to 69 cm/s). Monophasic waveform in the distal SFA. Left popliteal artery: No occlusion or significant stenosis. Normal waveform. Left calf/foot arteries: No occlusion or significant stenosis in the visualized arteries. Normal waveforms. Dorsalis pedis artery is patent. US/CV arterial duplex [facility] [id number] IMPRESSION: Suggestion of possible significant left superficial femoral artery stenosis based on peak systolic velocities.
== END 2025-03-12 09:27 | disposition home or self-care (01) ==
LOC: RAD 09:29
PROVIDERS: PCP Family Medicine; Visit Provider Family Medicine
DX: R10.9 Unspecified abdominal pain (principal)
CPT/HCPCS: 76700; 93925

== ENCOUNTER → 2025-03-24 11:15 | Outpatient (BNVA) | payer MEDICARE, SELFPAY | PROVIDERS: PCP Family Medicine; Visit Provider Podiatrist Foot & Ankle Surgery | DX: E11.42 Type 2 diabetes mellitus with diabetic polyneuropathy (principal); I73.9 Peripheral vascular disease, unspecified; I10 Essential (primary) hypertension; E11.621 Type 2 diabetes mellitus with foot ulcer; L97.521 Non-pressure chronic ulcer of other part of left foot limited to breakdown of skin; Z79.4 Long term (current) use of insulin; Z79.84 Long term (current) use of oral hypoglycemic drugs | CPT/HCPCS: 99214 ==

== ENCOUNTER → 2025-04-21 10:34 | Outpatient (BNVA) | payer MEDICARE, SELFPAY | PROVIDERS: PCP Family Medicine; Visit Provider Podiatrist Foot & Ankle Surgery | DX: E11.42 Type 2 diabetes mellitus with diabetic polyneuropathy (principal); L60.3 Nail dystrophy; E11.8 Type 2 diabetes mellitus with unspecified complications; I73.9 Peripheral vascular disease, unspecified; L97.512 Non-pressure chronic ulcer of other part of right foot with fat layer exposed; I10 Essential (primary) hypertension; L97.521 Non-pressure chronic ulcer of other part of left foot limited to breakdown of skin; I48.91 Unspecified atrial fibrillation; Z79.84 Long term (current) use of oral hypoglycemic drugs; Z79.4 Long term (current) use of insulin | CPT/HCPCS: 11721 ==

== ENCOUNTER → 2025-05-14 18:17 | Outpatient (BNVA) | payer MEDICARE, SELFPAY | PROVIDERS: PCP Family Medicine; Visit Provider Registered Nurse Neonatal Intensive Care | DX: R30.0 Dysuria (principal); R39.9 Unspecified symptoms and signs involving the genitourinary system | CPT/HCPCS: 81000; 87086 ==

== ENCOUNTER → 2025-05-29 11:34 | Outpatient (BNVA) | payer MEDICARE, SELFPAY | PROVIDERS: PCP Family Medicine; Visit Provider Family Medicine | DX: E53.8 Deficiency of other specified B group vitamins (principal); E11.9 Type 2 diabetes mellitus without complications; Z51.81 Encounter for therapeutic drug level monitoring | CPT/HCPCS: 80053; 82607; 83036; 85025 ==

== ENCOUNTER 2025-05-30 12:45 | Outpatient (CLI) | payer MEDICARE, SELFPAY ==
--- NOTE | 2025-05-30 12:48 | XR_ITS ---
WS: [email or web address] Exam: XR shoulder RT min 2V* [id number] Date/Time of Exam: 05/30/2025 1:08 PM Reason For Exam: Right shoulder pain DLP: No acute fracture. 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 Unremarkable soft tissues. Calcified axillary lymph node. XR/XR shoulder RT min 2V* [id number] IMPRESSION: 1. Moderate DJD. No fracture.
--- NOTE | 2025-05-30 12:48 | XR_ITS ---
WS: [email or web address] Exam: XR finger RT min 2V [id number] Date/Time of Exam: 05/30/2025 1:08 PM Reason For Exam: Right thumb pain DLP: The RIGHT thumb is targeted for radiographic evaluation. No fracture noted. 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 Normal soft tissues. XR/XR finger RT min 2V [id number] IMPRESSION: 1. 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
== END 2025-05-30 12:46 | disposition home or self-care (01) ==
LOC: RAD 12:45
PROVIDERS: PCP Family Medicine; Visit Provider Family Medicine
DX: M79.644 Pain in right finger(s) (principal); M25.511 Pain in right shoulder; M19.011 Primary osteoarthritis, right shoulder; R59.0 Localized enlarged lymph nodes; M25.841 Other specified joint disorders, right hand; M18.11 Unilateral primary osteoarthritis of first carpometacarpal joint, right hand
CPT/HCPCS: 73030; 73140